=== PATIENT | female | born 1935 | race Caucasian/White ===

== ENCOUNTER 2016-09-05 06:46 | Day surgery (SDC) | payer MEDICARE ==
[2016-09-02 15:11] VITALS: BMI 29.7
[2016-09-05] MEDS ORDERED: LACTATED RINGERS 1,000 ML IV ONE (06:52)
[2016-09-05 07:12] VITALS: TEMP 98
[2016-09-05 07:17] LABS: Glucose,Whole Blood 133 mg/dL (75-99)
[2016-09-05] MEDS ORDERED: LIDOCAINE 1% INJ 10MG/ML (20 ML MDV) ONE (07:40)
[2016-09-05] MEDS ORDERED: PROPOFOL 10 MG/ML 20 ML VIAL IV ONE (07:40)
--- NOTE | 2016-09-05 07:45 | P.GSHP ---
History of Present Illness H&P Date: 09/05/16 Chief Complaint: GI bleed, anemia This a 80-year-old female referred from Dr. Diana forte. Patient has had complaints of anemia. She states her hemoglobin from 14-10 g. She presents today for EGD and colonoscopy. - Constitutional Constitutional: Reports as per HPI Past Medical History Past Medical History: CVA/TIA, Diabetes Mellitus, Hypertension Additional Past Medical History / Comment(s): [id number] occas speech difficulties,diet controlled diabetic, steroid injection Jun,duodenal ulcer, polyps,diverticulosis,walks with cane History of Any Multi-Drug Resistant Organisms: None Reported Past Surgical History: Cholecystectomy, Hysterectomy Additional Past Surgical History / Comment(s): hemorrhoidectomy, cat surg anali eyes,colonoscopy Past Anesthesia/Blood Transfusion Reactions: Motion Sickness Smoking Status: Former smoker Past Alcohol Use History: None Reported Additional Past Alcohol Use History / Comment(s): quit smoking 1989, started smoking at age 37 Past Drug Use History: None Reported - Past Family History Sister(s) Family Medical History: Cancer Additional Family Medical History / Comment(s): colon mets to pancreas Medications and Allergies Home Medications Medication Instructions Recorded Confirmed Type Atorvastatin [Lipitor] 10 mg PO MOTH 08/26/14 09/02/16 History Lisinopril 40 mg PO QAM 08/26/14 09/02/16 History Psyllium Husk (with Sugar) 1 tsp PO DAILY 08/26/14 09/05/16 History [Metamucil Powder] Gabapentin 600 mg PO BID 11/18/15 09/02/16 History Loratadine [Claritin] 10 mg PO HS 11/18/15 09/02/16 History Aspirin [Adult Low Dose Aspirin EC] 81 mg PO DAILY 09/02/16 09/05/16 History Docusate [Colace] 100 mg PO DAILY 09/02/16 09/02/16 History Ferrous Gluconate 240 mg PO DAILY 09/02/16 09/05/16 History Allergies Allergy/AdvReac Type Severity Reaction Status Date / Time latex Allergy Rash/Hives Verified 09/05/16 07:07 Sulfa (Sulfonamide Allergy Rash/Hives Verified 09/05/16 07:07 Antibiotics) TAPE Allergy RASH, Uncoded 09/05/16 07:07 PAPER TAPE IS OK Surgical - Exam Vital Signs Temp Pulse Resp BP Pulse Ox 98.0 F 94 18 144/67 94 L 09/05/16 07:10 09/05/16 07:10 09/05/16 07:10 09/05/16 07:10 09/05/16 07:10 - General well developed, no distress - Eyes PERRL - ENT normal pinna - Neck no masses - Respiratory normal expansion - Cardiovascular Rhythm: regular - Abdomen Abdomen: soft, non tender Results - Labs Abnormal Lab Results - Last 24 Hours (Table) 09/05/16 Range/Units 07:15 POC Glucose (mg/dL) 133 H (75-99) mg/dL Assessment and Plan Plan: GI bleed. We'll perform EGD and colonoscopy.
--- NOTE | 2016-09-05 08:12 | P.OP ---
Date of Procedure: 09/05/16 Preoperative Diagnosis: Anemia GI bleed Postoperative Diagnosis: Antral gastritis Large hiatal hernia Minimal esophagitis Right colon polyp Mild hemorrhoids Procedure(s) Performed: EGD Colonoscopy Anesthesia: MAC Surgeon: Lenard Tripp Pathology: other (Antrum, esophagus, right colon polyp) Condition: stable Disposition: PACU Description of Procedure: The patient's placed on the endoscopy table lateral position. She received IV sedation. The gastroscope some placed oropharynx and passed into the esophagus and into the stomach. The scope was then placed through the pylorus. The first and second portion of the duodenum appeared normal. Scope was then brought back the antrum and this appeared mildly inflamed. A biopsies was performed. Scope was retroflexed and remainder of the stomach appeared normal. There was a large hiatal hernia. The GE junction was at 37 cm. The distal esophagus was mildly inflamed. The proximal esophagus appeared normal. The scope was withdrawn for patient. Next digital rectal exam was performed which revealed internal/external hemorrhoids. The flexible colonoscope was then placed patient anus passed throughout the entire colon. The ileocecal valve was visually is. The cecum appeared normal. In the ascending colon there was a polyp seen this removed with a combination of snare and forcep. The meters transverse colon and descending colon appeared normal. There was a few scattered diverticula. Scope was then brought back into the rectum and this appeared normal. Scope was withdrawn for patient.
[2016-09-05 08:14] VITALS: RESP 16
[2016-09-05 08:47] VITALS: BP 112/75; PULSE 80
== END 2016-09-05 09:01 | disposition home or self-care (01) ==
LOC: ORWHC2ENDO 06:46
PROVIDERS: ATTEND Surgery
DX: K20.9 Esophagitis, unspecified (principal); K29.50 Unspecified chronic gastritis without bleeding; K44.9 Diaphragmatic hernia without obstruction or gangrene; D12.2 Benign neoplasm of ascending colon; K64.4 Residual hemorrhoidal skin tags; K57.30 Diverticulosis of large intestine without perforation or abscess without bleeding; K64.8 Other hemorrhoids; Z80.0 Family history of malignant neoplasm of digestive organs; Z80.8 Family history of malignant neoplasm of other organs or systems; Z87.891 Personal history of nicotine dependence; E11.9 Type 2 diabetes mellitus without complications; I10 Essential (primary) hypertension; Z86.73 Personal history of transient ischemic attack (TIA), and cerebral infarction without residual deficits; Z79.82 Long term (current) use of aspirin; Z79.899 Other long term (current) drug therapy; Z91.040 Latex allergy status; Z88.2 Allergy status to sulfonamides; Z91.09 Other allergy status, other than to drugs and biological substances
CPT/HCPCS: 88305; 88342; 45385; 43239; J2001; J2704; 45380

== ENCOUNTER → 2017-04-28 | Outpatient (CLI) | payer MEDICARE ==
--- NOTE | 2017-04-30 11:16 | MM ---
Reason for exam: screening (asymptomatic). Last mammogram was performed 1 year ago. History: Patient is postmenopausal, history of other cancer, and is nulliparous. Physical Findings: A clinical breast exam by your physician is recommended on an annual basis and results should be correlated with mammographic findings. MG Screening Mammo w CAD Bilateral CC and MLO view(s) were taken. XCCL view(s) were taken of the left breast. Prior study comparison: April 26, 2016, bilateral MG screening mammo w CAD. April 19, 2015, bilateral MG screening mammo w CAD. There are scattered fibroglandular densities. There is chronic nodularity bilaterally. Multiple moles. No significant changes when compared with prior studies. ASSESSMENT: Benign, BI-RAD 2 RECOMMENDATION: Routine screening mammogram of both breasts in 1 year.
== END | disposition home or self-care (01) ==
LOC: RADMAMWWP 06:48
PROVIDERS: ATTEND Family Medicine
DX: Z12.31 Encounter for screening mammogram for malignant neoplasm of breast (principal)

== ENCOUNTER → 2018-06-08 | Outpatient (CLI) | payer MEDICARE ==
--- NOTE | 2018-06-09 07:49 | MM ---
Reason for exam: screening (asymptomatic). Last mammogram was performed 1 year and 1 month ago. History: Patient is postmenopausal, history of other cancer, and is nulliparous. Physical Findings: A clinical breast exam by your physician is recommended on an annual basis and results should be correlated with mammographic findings. MG Screening Mammo w CAD Bilateral CC and MLO view(s) were taken. Prior study comparison: April 28, 2017, bilateral MG screening mammo w CAD. April 26, 2016, bilateral MG screening mammo w CAD. There are scattered fibroglandular densities. There is chronic nodularity in the right breast. Multiple moles are redemonstrated. No significant changes when compared with prior studies. ASSESSMENT: Benign, BI-RAD 2 RECOMMENDATION: Routine screening mammogram of both breasts in 1 year.
== END | disposition home or self-care (01) ==
LOC: RADMAMWWP 06:53
PROVIDERS: ATTEND Family Medicine
DX: Z12.31 Encounter for screening mammogram for malignant neoplasm of breast (principal)
CPT/HCPCS: 77067

== ENCOUNTER 2018-07-19 10:12 | Observation (INO) | payer MEDICARE ==
[2018-07-19] MEDS ORDERED: SODIUM CHLORIDE 0.9% 1,000 ML IV STA ×2 (11:07)
[2018-07-19] MEDS ORDERED: PANTOPRAZOLE 40 MG/10 ML VIAL IVP STA (11:07)
--- NOTE | 2018-07-19 11:09 | ED ---
Recheck HPI - General Chief Complaint: Recheck/Abnormal Lab/Rx Stated Complaint: abn labs Time Seen by Provider: 07/19/18 10:44 Source: patient, RN notes reviewed, old records reviewed Mode of arrival: ambulatory Limitations: no limitations - History of Present Illness Initial Comments: Patient is an 82-year-old female who presents emergency Department today with complaints of concerns for low hemoglobin. Patient reports that she had her hemoglobin checked by her PCP and it was 7. She reports that this was a drop from 9 earlier in the month. Patient states that she is told to come here for a GI scope. Patient states that she does take iron and is noticed some dark stools. Patient states that she has had some chronic lower abdominal pain. Patient states that she has had a near syncopal episode today while she was at the grocery store. Patient states she feels more fatigued. 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 She states that this is chronic and no acute changes.. Patient is not on any blood thinners. - Related Data Home Medications Medication Instructions Recorded Confirmed Atorvastatin [Lipitor] 10 mg PO MOTH 08/26/14 07/19/18 Lisinopril 40 mg PO QAM 08/26/14 07/19/18 Psyllium Husk (with Sugar) 1 tsp PO DAILY 08/26/14 07/19/18 [Metamucil Powder] Gabapentin 600 mg PO BID 11/18/15 07/19/18 Loratadine [Claritin] 10 mg PO HS 11/18/15 07/19/18 Aspirin [Adult Low Dose Aspirin EC] 81 mg PO DAILY 09/02/16 07/19/18 Ferrous Gluconate 240 mg PO DAILY 09/02/16 07/19/18 Calcium Carbonate/Vitamin D3 1 tab PO BID 07/19/18 07/19/18 [Calcium 500-Vit D3 200 Tablet] Famotidine [Pepcid] 20 mg PO DAILY 07/19/18 07/19/18 Propylene Glycol [Systane Complete] 1 drop BOTH EYES TID 07/19/18 07/19/18 Allergies Allergy/AdvReac Type Severity Reaction Status Date / Time latex Allergy Rash/Hives Verified 07/19/18 11:23 Penicillins Allergy Rash/Hives Verified 07/19/18 11:23 Sulfa (Sulfonamide Allergy Rash/Hives Verified 07/19/18 11:23 Antibiotics) TAPE Allergy RASH, Uncoded 07/19/18 10:30 PAPER TAPE IS OK Review of Systems ROS Statement: Those systems with pertinent positive or pertinent negative responses have been documented in the HPI. ROS Other: All systems not noted in ROS Statement are negative. Past Medical History Past Medical History: CVA/TIA, Diabetes Mellitus, Hypertension Additional Past Medical History / Comment(s): [id number] occas speech difficulties,diet controlled diabetic, steroid injection Jun,duodenal ulcer, polyps,diverticulosis,walks with cane History of Any Multi-Drug Resistant Organisms: None Reported Past Surgical History: Cholecystectomy, Hysterectomy Additional Past Surgical History / Comment(s): hemorrhoidectomy, cat surg anali eyes,colonoscopy Past Anesthesia/Blood Transfusion Reactions: Motion Sickness Past Psychological History: No Psychological Hx Reported Smoking Status: Former smoker Past Alcohol Use History: None Reported Past Drug Use History: None Reported - Past Family History Sister(s) Family Medical History: Cancer Additional Family Medical History / Comment(s): colon mets to pancreas General Exam - General Exam Comments Initial Comments: 82-year-old female. Somewhat weak. Limitations: no limitations General appearance: alert, in no apparent distress Head exam: Present: atraumatic, normocephalic, normal inspection Eye exam: Present: normal appearance, PERRL, EOMI. Absent: scleral icterus, conjunctival injection, periorbital swelling ENT exam: Present: normal exam, mucous membranes moist Neck exam: Present: normal inspection. Absent: tenderness, meningismus, lymphadenopathy Respiratory exam: Present: normal lung sounds bilaterally. Absent: respiratory distress, wheezes, rales, rhonchi, stridor Cardiovascular Exam: Present: regular rate, normal rhythm, normal heart sounds. Absent: systolic murmur, diastolic murmur, rubs, gallop, clicks GI/Abdominal exam: Present: soft, normal bowel sounds. Absent: distended, tenderness, guarding, rebound, rigid Rectal exam: Present: normal inspection, normal rectal tone, other (No stool in rectal vault) Extremities exam: Present: normal inspection, full ROM, normal capillary refill. Absent: tenderness, pedal edema, joint swelling, calf tenderness Back exam: Present: normal inspection Neurological exam: Present: alert, oriented X3, CN II-XII intact Psychiatric exam: Present: normal affect, normal mood Skin exam: Present: warm, dry, intact, normal color. Absent: rash Course Vital Signs 07/19/18 10:25 Temperature 97.7 F Pulse Rate 82 Respiratory 18 Rate Blood Pressure 134/70 O2 Sat by Pulse 98 Oximetry Medical Decision Making - Medical Decision Making Patient is an 82-year-old female who presents emergency department today for concerns for anemia. She is told she had a low hemoglobin. Patient states that she has been symptomatic with increased fatigue. She had a near syncopal episode while at the grocery store today. She denies any headache or chest pain or associated shortness of breath. Patient states that she also has some chronic right knee pain at this time. Patient labwork was reviewed. Hemoglobin is 9.1. There is no stool in the rectal vault collected for stool. Patient was told to come to emergency department for admission and possible GI scope. Patient states she has noticed that she's had dark stools. At this time I discussed case with Dr. galaviz. With the syncopal episode as well as concern for GI bleed Melvin the Patient. She was given 1 dose of Protonix. Repeat hemoglobins. - Lab Data Result diagrams: 07/19/18 11:55 07/19/18 11:55 Lab Results 07/19/18 07/19/18 07/19/18 Range/Units 11:55 11:55 11:55 WBC 5.7 (3.8-10.6) k/uL RBC 3.31 L (3.80-5.40) m/uL Hgb 9.1 L (11.4-16.0) gm/dL Hct 29.5 L (34.0-46.0) % MCV 89.0 (80.0-100.0) fL MCH 27.5 (25.0-35.0) pg MCHC 30.9 L (31.0-37.0) g/dL RDW 13.5 (11.5-15.5) % Plt Count 300 (150-450) k/uL Neutrophils % 60 % Lymphocytes % 27 % Monocytes % 7 % Eosinophils % 2 % Basophils % 1 % Neutrophils # 3.4 (1.3-7.7) k/uL Lymphocytes # 1.5 (1.0-4.8) k/uL Monocytes # 0.4 (0-1.0) k/uL Eosinophils # 0.1 (0-0.7) k/uL Basophils # 0.1 (0-0.2) k/uL Hypochromasia Moderate PT (9.0-12.0) sec INR (<1.2) APTT (22.0-30.0) sec Sodium 141 (137-145) mmol/L Potassium 4.7 (3.5-5.1) mmol/L Chloride 109 H (98-107) mmol/L Carbon Dioxide 23 (22-30) mmol/L Anion Gap 9 mmol/L BUN 24 H (7-17) mg/dL Creatinine 0.99 (0.52-1.04) mg/dL Est GFR (CKD-EPI)AfAm 62 (>60 ml/min/1.73 sqM) Est GFR (CKD-EPI)NonAf 54 (>60 ml/min/1.73 sqM) Glucose 101 H (74-99) mg/dL Plasma Lactic Acid Andrews (0.7-2.0) mmol/L Calcium 9.9 (8.4-10.2) mg/dL Magnesium 2.2 (1.6-2.3) mg/dL Total Bilirubin 0.4 (0.2-1.3) mg/dL AST 22 (14-36) U/L ALT 24 (9-52) U/L Alkaline Phosphatase 69 (38-126) U/L Total Creatine Kinase 40 (30-135) U/L CK-MB (CK-2) 0.7 (0.0-2.4) ng/mL CK-MB (CK-2) Rel Index 1.8 Troponin I <0.012 (0.000-0.034) ng/mL Total Protein 7.2 (6.3-8.2) g/dL Albumin 4.0 (3.5-5.0) g/dL Blood Type Blood Type Recheck Antibody Screen Spec Expiration Date 07/19/18 07/19/18 07/19/18 Range/Units 11:55 11:55 11:55 WBC (3.8-10.6) k/uL RBC (3.80-5.40) m/uL Hgb (11.4-16.0) gm/dL Hct (34.0-46.0) % MCV (80.0-100.0) fL MCH (25.0-35.0) pg MCHC (31.0-37.0) g/dL RDW (11.5-15.5) % Plt Count (150-450) k/uL Neutrophils % % Lymphocytes % % Monocytes % % Eosinophils % % Basophils % % Neutrophils # (1.3-7.7) k/uL Lymphocytes # (1.0-4.8) k/uL Monocytes # (0-1.0) k/uL Eosinophils # (0-0.7) k/uL Basophils # (0-0.2) k/uL Hypochromasia PT 11.3 (9.0-12.0) sec INR 1.1 (<1.2) APTT 22.1 (22.0-30.0) sec Sodium (137-145) mmol/L Potassium (3.5-5.1) mmol/L Chloride (98-107) mmol/L Carbon Dioxide (22-30) mmol/L Anion Gap mmol/L BUN (7-17) mg/dL Creatinine (0.52-1.04) mg/dL Est GFR (CKD-EPI)AfAm (>60 ml/min/1.73 sqM) Est GFR (CKD-EPI)NonAf (>60 ml/min/1.73 sqM) Glucose (74-99) mg/dL Plasma Lactic Acid Andrews 1.2 (0.7-2.0) mmol/L Calcium (8.4-10.2) mg/dL Magnesium (1.6-2.3) mg/dL Total Bilirubin (0.2-1.3) mg/dL AST (14-36) U/L ALT (9-52) U/L Alkaline Phosphatase (38-126) U/L Total Creatine Kinase (30-135) U/L CK-MB (CK-2) (0.0-2.4) ng/mL CK-MB (CK-2) Rel Index Troponin I (0.000-0.034) ng/mL Total Protein (6.3-8.2) g/dL Albumin (3.5-5.0) g/dL Blood Type O Positive Blood Type Recheck CABO Indicated Antibody Screen NEGATIVE Spec Expiration Date 07/22/2018235407/19/18 12:35 EKG shows normal sinus rhythm, normal EKG. Ventricular rate 76 bpm. Verbal is 184 ms. She adventism 88. QT QTc was 396/445. 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 Read by James Castaneda that she really Disposition Clinical Impression: Syncope, Anemia Disposition: ADMITTED IP TO THIS HOSP Condition: Stable Is patient prescribed a controlled substance at d/c from ED?: No Referrals: Diana Tracey DO [Primary Care Provider] - 1-2 days Time of Disposition: 14:31
--- NOTE | 2018-07-19 12:31 | XR ---
EXAMINATION TYPE: XR chest 2V DATE OF EXAM: 07/19/2018 COMPARISON: Prior chest x-ray 11/21/2015 HISTORY: Anemia, dizziness and weakness, pain TECHNIQUE: Frontal and lateral views of the chest are obtained. FINDINGS: There is an air-fluid level in the retrocardiac location. No pneumothorax or pleural effus ion. Heart is stable. There are cardiac leads. No evident airspace disease. There are coronary artery calcifications. Aorta is dense. Surgical clips present in the upper abdomen. 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 No acute cardiopulmonary disease.
[2018-07-19 12:33] LABS: Basophils # (A) 0.1 k/uL (0-0.2); Basophils % (A) 1 %; Eosinophils # (A) 0.1 k/uL (0-0.7); Eosinophils % (A) 2 %; HCT 29.5 % (34.0-46.0); HGB 9.1 gm/dL (11.4-16.0); Hypochromasia Moderate; Lymphocytes # (A) 1.5 k/uL (1.0-4.8); Lymphocytes % (A) 27 %; MCH 27.5 pg (25.0-35.0); MCHC 30.9 g/dL (31.0-37.0); Mean Platelet Volume 7.4; Monocytes # (A) 0.4 k/uL (0-1.0); Monocytes % (A) 7 %; Neutrophils # (A) 3.4 k/uL (1.3-7.7); Neutrophils % (A) 60 %; Platelet Count 300 k/uL (150-450); RBC 3.31 m/uL (3.80-5.40); RDW 13.5 % (11.5-15.5); WBC 5.7 k/uL (3.8-10.6)
[2018-07-19 12:47] LABS: Calcium 9.9 mg/dL (8.4-10.2); Magnesium 2.2 mg/dL (1.6-2.3); Potassium 4.7 mmol/L (3.5-5.1); Total Bilirubin 0.4 mg/dL (0.2-1.3); Total Protein 7.2 g/dL (6.3-8.2)
[2018-07-19 12:51] LABS: INR 1.1 (<1.2)
[2018-07-19 12:52] LABS: Partial Thromboplastin Time 22.1 sec (22.0-30.0); Prothrombin Time 11.3 sec (9.0-12.0)
[2018-07-19 12:54] LABS: Creatine Kinase 40 U/L (30-135)
[2018-07-19 13:08] LABS: Creatine Kinase MB 0.7 ng/mL (0.0-2.4); Troponin I <0.012 ng/mL (0.000-0.034)
[2018-07-19] MEDS ORDERED: LORazepam 2 MG/ML INJ IV PRN (14:32)
[2018-07-19] MEDS ORDERED: HYDROmorphone 0.5 MG/0.5 ML SYRINGE IVP PRN (14:32)
[2018-07-19] MEDS ORDERED: ONDANSETRON 4 MG/2 ML VIAL IVP PRN (14:32)
[2018-07-19] MEDS ORDERED: HYDROmorphone 1 MG/ML 1 ML SYRINGE IVP PRN (14:32)
[2018-07-19] MEDS ORDERED: NALOXONE 0.4 MG/ML 1 ML VIAL IV PRN (14:32)
[2018-07-19 15:05] LABS: Appearance,Urine Clear (Clear); Bacteria,Urine Occasional /hpf; Bilirubin,Urine Negative (Negative); Blood,Urine Negative (Negative); Color,Urine Colorless; Glucose,Urine (UA) Negative (Negative); Ketones,Urine Negative (Negative); Leukocyte Esterase,Urine Moderate (Negative); Mucus,Urine Rare /hpf; Nitrite,Urine Negative (Negative); PH, Urine 6.5 (5.0-8.0); Protein,Urine Negative (Negative); RBC,Urine <1 /hpf (0-5); Specific Gravity,Urine 1.003 (1.001-1.035); Urobilinogen,Urine <2.0 mg/dL (<2.0); WBC,Urine 8 /hpf (0-5)
[2018-07-19] MEDS: SODIUM CHLORIDE 0.9% 1,000 ML IV SCH (18:14)
[2018-07-19] MEDS: GABAPENTIN 300 MG CAP PO SCH (21:21)
[2018-07-19] MEDS: LORATADINE 10 MG TAB PO SCH (21:21)
[2018-07-19] MEDS: CALCIUM CARB-VIT D 500MG-200UN 1 EACH TAB PO SCH (21:22)
[2018-07-19] MEDS: ARTIFICIAL TEARS-HYPROMELLOSE DROPS 15 ML BTL BOTH EYES SCH (21:50)
[2018-07-20] MEDS: SODIUM CHLORIDE 0.9% 1,000 ML IV SCH ×3 (00:09→23:16)
[2018-07-20 08:10] LABS: Albumin 3.7 g/dL (3.5-5.0); Calcium 9.3 mg/dL (8.4-10.2); Potassium 4.7 mmol/L (3.5-5.1); Total Bilirubin 0.4 mg/dL (0.2-1.3); Total Protein 6.7 g/dL (6.3-8.2)
[2018-07-20] MEDS: PSYLLIUM HUSK 100% 6 GM PACKET PO SCH (08:12)
[2018-07-20] MEDS: LISINOPRIL 20 MG TAB PO SCH (08:13)
[2018-07-20] MEDS: CALCIUM CARB-VIT D 500MG-200UN 1 EACH TAB PO SCH ×2 (08:13→21:41)
[2018-07-20] MEDS: GABAPENTIN 300 MG CAP PO SCH ×2 (08:13→21:41)
[2018-07-20] MEDS: ARTIFICIAL TEARS-HYPROMELLOSE DROPS 15 ML BTL BOTH EYES SCH ×3 (08:15→21:41)
[2018-07-20 08:35] LABS: HCT 27.8 % (34.0-46.0); HGB 8.7 gm/dL (11.4-16.0); Hypochromasia Marked; MCH 28.2 pg (25.0-35.0); MCHC 31.2 g/dL (31.0-37.0); MCV 90.3 fL (80.0-100.0); Mean Platelet Volume 7.6; Platelet Count 240 k/uL (150-450); RBC 3.08 m/uL (3.80-5.40); RDW 13.3 % (11.5-15.5); WBC 3.4 k/uL (3.8-10.6)
[2018-07-20] MEDS ORDERED: PANTOPRAZOLE 40 MG/10 ML VIAL IV SCH (09:00)
[2018-07-20] MEDS ORDERED: FAMOTIDINE 20 MG TAB PO SCH (09:00)
[2018-07-20 10:20] LABS: Eosinophils # (M) 0.14 k/uL (0-0.7); Lymphocytes # (M) 1.33 k/uL (1.0-4.8); Neutrophils # (M) 1.73 k/uL (1.3-7.7); Neutrophils % (M) 51 %; Nucleated Red Blood Cells 0 /100 WBC (0-0); Total Cells Counted 100
--- NOTE | 2018-07-20 10:59 | P.HPIM ---
History of Present Illness H&P Date: 07/20/18 Chief Complaint: Anemia This is an 82-year-old female patient of Dr. Tracey. Patient presented to the emergency room with complaints of increased weakness with possible syncope episode. Patient also reports she has been increasingly anemic per her PCP over the past few months. Per her PCP she was told to present to the hospital if she became symptomatic. Patient states over the weekend she was at a bank in which she became very weak and dizzy and almost passed out. Patient reports that back in February her hemoglobin was 12.0 and then has decreased to 9.0 May. At that time patient was started on iron supplements. Patient does take daily baby aspirin. Patient denies any other NSAID use. Patient denies any alcohol consumption. Patient denies any change to diet. Patient denies any diarrhea or vomiting. 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 Patient reports her last colonoscopy was [address] Tripp. Patient was told she needs to follow-up in 3 years. Patient's next colonoscopy due August 2018. 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 No acute cardiopulmonary disease. EKG completed showing normal sinus rhythm. Hemoglobin 8.7. Stool for occult blood has been ordered. Dr. Tripp has been consulted. Patient urinary analysis positive for leukocyte esterase. Patient started on Cipro antibiotic. Urine culture ordered. At this time patient denies any chest pain or shortness of breath. Patient has been up ambulating with Cane recalls without any difficulties. Patient denies nausea vomiting or diarrhea. Patient denies any urinary burning or frequency Review of Systems please refer to HPI otherwise unremarkable Past Medical History Past Medical History: Cancer, CVA/TIA, Diabetes Mellitus, Hypertension, Syncope Additional Past Medical History / Comment(s): [id number] occas speech difficulties,diet controlled diabetic, steroid injection Jun,duodenal ulcer, polyps,diverticulosis,walks with cane; bilateral hearing aids, hiatal hernia, skin cancer 2014 History of Any Multi-Drug Resistant Organisms: None Reported Past Surgical History: Cholecystectomy, Hysterectomy Additional Past Surgical History / Comment(s): hemorrhoidectomy, cat surg anali eyes,colonoscopy Past Anesthesia/Blood Transfusion Reactions: Motion Sickness Past Psychological History: No Psychological Hx Reported Smoking Status: Former smoker Past Alcohol Use History: None Reported Additional Past Alcohol Use History / Comment(s): quit smoking 1989, started smoking at age 37 Past Drug Use History: None Reported - Past Family History Sister(s) Family Medical History: Cancer Additional Family Medical History / Comment(s): colon mets to pancreas Medications and Allergies Home Medications Medication Instructions Recorded Confirmed Type Atorvastatin [Lipitor] 10 mg PO MOTH 08/26/14 07/19/18 History Lisinopril 40 mg PO QAM 08/26/14 07/19/18 History Psyllium Husk (with Sugar) 1 tsp PO DAILY 08/26/14 07/19/18 History [Metamucil Powder] Gabapentin 600 mg PO BID 11/18/15 07/19/18 History Loratadine [Claritin] 10 mg PO HS 11/18/15 07/19/18 History Aspirin [Adult Low Dose Aspirin EC] 81 mg PO DAILY 09/02/16 07/19/18 History Ferrous Gluconate 240 mg PO DAILY 09/02/16 07/19/18 History Calcium Carbonate/Vitamin D3 1 tab PO BID 07/19/18 07/19/18 History [Calcium 500-Vit D3 200 Tablet] Famotidine [Pepcid] 20 mg PO DAILY 07/19/18 07/19/18 History Propylene Glycol [Systane Complete] 1 drop BOTH EYES TID 07/19/18 07/19/18 History Allergies Allergy/AdvReac Type Severity Reaction Status Date / Time latex Allergy Rash/Hives Verified 07/19/18 11:23 Penicillins Allergy Rash/Hives Verified 07/19/18 11:23 Sulfa (Sulfonamide Allergy Rash/Hives Verified 07/19/18 11:23 Antibiotics) TAPE Allergy RASH, Uncoded 07/19/18 10:30 PAPER TAPE IS OK Physical Exam Vitals: Vital Signs Temp Pulse Pulse Resp BP BP Pulse Ox 07/20/18 05:00 97.7 F 81 17 112/65 94 L 07/19/18 20:38 97.3 F L 74 17 157/73 95 07/19/18 16:51 97.4 F L 81 18 174/72 97 07/19/18 16:07 97.9 F 75 18 156/82 95 07/19/18 14:30 75 18 156/82 95 07/19/18 14:00 74 14 142/68 07/19/18 13:30 72 16 144/66 96 07/19/18 13:00 70 16 147/67 95 07/19/18 12:30 71 12 138/65 93 L 07/19/18 12:06 76 18 Intake and Output 07/19/18 07/20/18 07/20/18 22:59 06:59 14:59 Intake Total 940 920 400 Balance 940 920 400 Intake: Intake, IV Titration 400 800 400 Amount Sodium Chloride 0.9% 1, 400 800 400 000 ml @ 100 mls/hr IV . Q10H [id number] Rx#:[id number] Oral 540 120 Other: Voiding Method Toilet Toilet # Voids 2 2 1 # Bowel Movements 1 1 Head normocephalic Neck supple Lungs clear to auscultation bilaterally no wheezing or crackles Heart regular rate and rhythm S1-S2, no rub or gallop Abdomen is soft nontender nondistended positive bowel sounds no hepatosplenomegaly Extremities no edema Neuro alert and orientated to 3. Hard of hearing Results CBC & Chem 7: 07/20/18 07:17 07/20/18 07:17 Labs: Abnormal Lab Results - Last 24 Hours (Table) 07/19/18 07/19/18 07/19/18 Range/Units 11:55 11:55 Unknown WBC (3.8-10.6) k/uL RBC 3.31 L (3.80-5.40) m/uL Hgb 9.1 L (11.4-16.0) gm/dL Hct 29.5 L (34.0-46.0) % MCHC 30.9 L (31.0-37.0) g/dL Chloride 109 H (98-107) mmol/L BUN 24 H (7-17) mg/dL Glucose 101 H (74-99) mg/dL Ur Leukocyte Esterase Moderate H (Negative) Urine WBC 8 H (0-5) /hpf Urine Bacteria Occasional H (None) /hpf Urine Mucus Rare H (None) /hpf 07/20/18 07/20/18 Range/Units 07:17 07:17 WBC 3.4 L (3.8-10.6) k/uL RBC 3.08 L (3.80-5.40) m/uL Hgb 8.7 L (11.4-16.0) gm/dL Hct 27.8 L (34.0-46.0) % MCHC (31.0-37.0) g/dL Chloride 113 H (98-107) mmol/L BUN (7-17) mg/dL Glucose 104 H (74-99) mg/dL Ur Leukocyte Esterase (Negative) Urine WBC (0-5) /hpf Urine Bacteria (None) /hpf Urine Mucus (None) /hpf Thrombosis Risk Factor Assmnt - Choose All That Apply Each Risk Factor Represents 3 Points: Age 75 years or older Other congenital or acquired thrombophilia - If yes, enter type in comment: No Thrombosis Risk Factor Assessment Total Risk Factor Score: 3 Thrombosis Risk Factor Assessment Level: Moderate Risk Assessment and Plan Assessment: 1. Anemia. Hemoglobin 8.7. Dr. Tripp has been consulted due to patient previous colonoscopies. Stool for occult blood has been ordered. Iron studies ordered 2. Near Syncopal episode. EKG completed showing normal sinus rhythm. Normal EKG. 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 No acute cardiopulmonary disease. 2-D echo has been ordered. Carotid Doppler study ordered. 3. Urinary tract infection. Patient started on Cipro antibiotic. Urine culture ordered 4. History of duodenal ulcer. Patient reports last colonoscopy was [address] Tripp. Most recent colonoscopy from August 2016 showing antral gastritis, large hiatal hernia, minimal esophagitis, right colon polyp and mild hemorrhoids. 5. History of previous stroke 2 in 2010. Patient does sometimes have difficulty with speech. Patient maintained on baby aspirin. Aspirin currently on hold due to symptomatic anemia 6. History of diabetes mellitus. Patient is diet controlled. Will order hemoglobin A1C 7. Essential hypertension. 8. History of skin cancer DVT prophylaxis SCDs. GI prophylaxis Protonix Time with Patient: Greater than 30 (Greater than 60% of the total time spent in counseling and coordination of care. I performed an examination of the patient and discussed their management with the Nurse Practitioner. I have reviewed the Nurse Practitioner's notes and agree with the documented findings and plan of care)
--- NOTE | 2018-07-20 11:25 | US ---
EXAMINATION TYPE: US carotid duplex BILAT DATE OF EXAM: 07/20/2018 COMPARISON: NONE CLINICAL HISTORY: 82-year-old female with syncope. Dizziness. Stroke x 2 in 2011 TECHNIQUE: Carotid duplex ultrasound examination. Indirect Doppler criteria is utilized. FINDINGS: EXAM MEASUREMENTS: RIGHT: Peak Systolic Velocity (PSV) cm/sec ----- Right CCA: 78.9 ----- Right ICA: 85.4 ----- Right ECA: 110.9 ICA/CCA ratio: 1.1 RIGHT: End Diastole cm/sec ----- Right CCA: 16.1 ----- Right ICA: 19.3 ----- Right ECA: 0 LEFT: Peak Systolic Velocity (PSV) cm/sec ----- Left CCA: 59.9 ----- Left ICA: 114.6 ----- Left ECA: 88.0 ICA/CCA ratio: 1.9 LEFT: End Diastole cm/sec ----- Left CCA: 12.7 ----- Left ICA: 35.4 ----- Left ECA: 8.7 VERTEBRALS (direction of flow): Right Vertebral: Antegrade Left Vertebral: Antegrade Rhythm: Normal Shoe Stamper notes: No elevated velocities. No significant stenosis. Bilateral wall thickening. Gualberto que seen in bilateral bulbs, distal right CCA and proximal left CCA. IMPRESSION: No hemodynamically significant stenosis appreciated in either internal carotid artery. Criteria for Assigning % of Stenosis / Diameter reduction (Estimation based on the indirect measurements of the internal carotid artery velocities (ICA PSV). 1. Normal (no stenosis)=ICA PSV < 125 cm/s: ratio < 2.0: ICA EDV<40 cm/s. 2. Less than 50% stenosis=ICA PSV < 125 cm/s: ratio < 2.0: ICA EDV<40 cm/s. 3. 50 to 69% stenosis=ICA PSV of 125 to 230 cm/s: ration 2.0 ? 4.0: ICA EDV 40-100 cm/s. 4. Greater than 70% stenosis to near occlusion= ICA PSV > 230 cm/s: ratio > 4.0: ICA EDV > 100 cm/s. 5. Near occlusion= ICA PSV velocities may be low or undetectable: variable ratio and ICA EDV. 6. Total occlusion=unable to detect flow.
[2018-07-20 11:27] VITALS: BMI 31.4
[2018-07-20] MEDS ORDERED: HYDROmorphone 2 MG TAB PO PRN (12:29)
[2018-07-20] MEDS ORDERED: HYDROmorphone 4 MG TABLET PO PRN (12:30)
[2018-07-20] MEDS ORDERED: PEG 3350-NA SULF,BICARB,CL/KCL 4,000 ML BOTTLE PO ONE (12:52)
--- NOTE | 2018-07-20 13:12 | P.GSCN ---
History of Present Illness Consult date: 07/20/18 Reason for Consult: Anemia Requesting physician: Milana Hamlin History of present illness: CHIEF COMPLAINT: Anemia HISTORY OF PRESENT ILLNESS: 82-year-old female presented to the emergency room with weakness. Patient's hemoglobin was found to be 9.1 on admission. The patient states her hemoglobin was around 12 in May and has been decreasing each time she has a drawn. She denies nausea or vomiting. Denies constipation or diarrhea. Reports intermittent black stools over the past two months, but states she is also on iron supplements. Denies hematemesis or hematochezia. PAST MEDICAL HISTORY: See list. PAST SURGICAL HISTORY: See list. MEDICATIONS: See list. ALLERGIES: See list. SOCIAL HISTORY: No illicit drug use. REVIEW OF SYSTEMS: CONSTITUTIONAL: Denies fever or chills. HEENT: Denies blurred vision, vision changes, or eye pain. Denies hemoptysis ENDOCRINE: Denies heat or cold intolerance. CARDIOVASCULAR: Denies chest pain or pressure. RESPIRATORY: No shortness of breath. GASTROINTESTINAL: Denies abdominal pain. Denies nausea or vomiting. NEURO: Denies history of seizures. PSYCH: No depression or suicidal ideation HEMATOLOGIC: Denies bleeding disorders. LYMPHATIC: The patient denies any lumps and bumps around the neck. GENITOURINARY: Denies any blood in urine or increased urinary frequency. MUSCULOSKELETAL: Denies myalgias. Denies joint swelling. Denies decreased range of motion beyond patients baseline. SKIN: Denies pruitis. Denies rash. PHYSICAL EXAM: VITAL SIGNS: Currently stable. GENERAL: Well-developed in no acute distress. HEENT: No sclera icterus. Extraocular movements grossly intact. Moist buccal mucosa. Head is atraumatic, normocephalic. Hears conversational speech. No nasal drainage. NECK: Supple without lymphadenopathy. CHEST: Non-labored respirations and equal bilateral excursions. CARDIOVASCULAR: Regular rate with regular rhythm. Palpable 2+ radial pulses. ABDOMEN: Soft. Nondistended. Nontender. MUSCULOSKELETAL: No clubbing, cyanosis or edema. NEUROLOGIC: No focal or lateralizing signs. Cranial nerves II through XII grossly intact. PSYCH: Appropriate affect. Alert and oriented to person, place and time. SKIN: Well perfused. Good skin turgor. ASSESSMENT: 1. Anemia, rule out GI bleeding 2. History of EGD and colonoscopy, August 2016, revealing antral gastritis, large hiatal hernia, minimal esophagitis, and mild hemorrhoids PLAN: 1. Patient to undergo EGD and colonoscopy tomorrow 2. Clear liquid diet. Nothing by mouth after midnight. 3. GoLYTELY bowel prep today 4. IV fluids 5. Protonix 40 mg IV twice a day Nurse practitioner note has been reviewed by physician. Signing provider agrees with the documented findings, assessment, and plan of care. Past Medical History Past Medical History: Cancer, CVA/TIA, Diabetes Mellitus, Hypertension, Syncope Additional Past Medical History / Comment(s): [id number] occas speech difficulties,diet controlled diabetic, steroid injection Jun,duodenal ulcer, polyps,diverticulosis,walks with cane; bilateral hearing aids, hiatal hernia, skin cancer 2014 History of Any Multi-Drug Resistant Organisms: None Reported Past Surgical History: Cholecystectomy, Hysterectomy Additional Past Surgical History / Comment(s): hemorrhoidectomy, cat surg anali eyes,colonoscopy Past Anesthesia/Blood Transfusion Reactions: Motion Sickness Past Psychological History: No Psychological Hx Reported Smoking Status: Former smoker Past Alcohol Use History: None Reported Additional Past Alcohol Use History / Comment(s): quit smoking 1989, started smoking at age 37 Past Drug Use History: None Reported - Past Family History Sister(s) Family Medical History: Cancer Additional Family Medical History / Comment(s): colon mets to pancreas Medications and Allergies Home Medications Medication Instructions Recorded Confirmed Type Atorvastatin [Lipitor] 10 mg PO MOTH 08/26/14 07/19/18 History Lisinopril 40 mg PO QAM 08/26/14 07/19/18 History Psyllium Husk (with Sugar) 1 tsp PO DAILY 08/26/14 07/19/18 History [Metamucil Powder] Gabapentin 600 mg PO BID 11/18/15 07/19/18 History Loratadine [Claritin] 10 mg PO HS 11/18/15 07/19/18 History Aspirin [Adult Low Dose Aspirin EC] 81 mg PO DAILY 09/02/16 07/19/18 History Ferrous Gluconate 240 mg PO DAILY 09/02/16 07/19/18 History Calcium Carbonate/Vitamin D3 1 tab PO BID 07/19/18 07/19/18 History [Calcium 500-Vit D3 200 Tablet] Famotidine [Pepcid] 20 mg PO DAILY 07/19/18 07/19/18 History Propylene Glycol [Systane Complete] 1 drop BOTH EYES TID 07/19/18 07/19/18 History Allergies Allergy/AdvReac Type Severity Reaction Status Date / Time latex Allergy Rash/Hives Verified 07/19/18 11:23 Penicillins Allergy Rash/Hives Verified 07/19/18 11:23 Sulfa (Sulfonamide Allergy Rash/Hives Verified 07/19/18 11:23 Antibiotics) TAPE Allergy RASH, Uncoded 07/19/18 10:30 PAPER TAPE IS OK Surgical - Exam Vital Signs Temp Pulse Resp BP Pulse Ox 97.7 F 82 18 134/70 98 07/19/18 10:25 07/19/18 10:25 07/19/18 10:25 07/19/18 10:25 07/19/18 10:25 Results - Labs 07/20/18 07:17 07/20/18 07:17 Abnormal Lab Results - Last 24 Hours (Table) 07/19/18 07/20/18 07/20/18 Range/Units Unknown 07:17 07:17 WBC 3.4 L (3.8-10.6) k/uL RBC 3.08 L (3.80-5.40) m/uL Hgb 8.7 L (11.4-16.0) gm/dL Hct 27.8 L (34.0-46.0) % Chloride 113 H (98-107) mmol/L Glucose 104 H (74-99) mg/dL Ur Leukocyte Esterase Moderate H (Negative) Urine WBC 8 H (0-5) /hpf Urine Bacteria Occasional H (None) /hpf Urine Mucus Rare H (None) /hpf Diabetes panel 07/20/18 Range/Units 07:17 Sodium 143 (137-145) mmol/L Potassium 4.7 (3.5-5.1) mmol/L Chloride 113 H (98-107) mmol/L Carbon Dioxide 25 (22-30) mmol/L BUN 14 (7-17) mg/dL Creatinine 0.77 (0.52-1.04) mg/dL Glucose 104 H (74-99) mg/dL Calcium 9.3 (8.4-10.2) mg/dL AST 20 (14-36) U/L ALT 27 (9-52) U/L Alkaline Phosphatase 60 (38-126) U/L Total Protein 6.7 (6.3-8.2) g/dL Albumin 3.7 (3.5-5.0) g/dL Calcium panel 07/20/18 Range/Units 07:17 Calcium 9.3 (8.4-10.2) mg/dL Albumin 3.7 (3.5-5.0) g/dL Pituitary panel 07/20/18 Range/Units 07:17 Sodium 143 (137-145) mmol/L Potassium 4.7 (3.5-5.1) mmol/L Chloride 113 H (98-107) mmol/L Carbon Dioxide 25 (22-30) mmol/L BUN 14 (7-17) mg/dL Creatinine 0.77 (0.52-1.04) mg/dL Glucose 104 H (74-99) mg/dL Calcium 9.3 (8.4-10.2) mg/dL Adrenal panel 07/20/18 Range/Units 07:17 Sodium 143 (137-145) mmol/L Potassium 4.7 (3.5-5.1) mmol/L Chloride 113 H (98-107) mmol/L Carbon Dioxide 25 (22-30) mmol/L BUN 14 (7-17) mg/dL Creatinine 0.77 (0.52-1.04) mg/dL Glucose 104 H (74-99) mg/dL Calcium 9.3 (8.4-10.2) mg/dL Total Bilirubin 0.4 (0.2-1.3) mg/dL AST 20 (14-36) U/L ALT 27 (9-52) U/L Alkaline Phosphatase 60 (38-126) U/L Total Protein 6.7 (6.3-8.2) g/dL Albumin 3.7 (3.5-5.0) g/dL
[2018-07-20 17:55] LABS: Iron Saturation 3.42 (12.00-45.00)
--- NOTE | 2018-07-20 18:10 | ECHOF ---
Referral Reason:syncope MEASUREMENTS -------- HEIGHT: 160.0 cm WEIGHT: 80.3 kg BP: 112/65 IVSd: 1.1 cm (0.6 - 1.1) LVIDd: 4.1 cm (3.9 - 5.3) LVPWd: 1.2 cm (0.6 - 1.1) IVSs: 1.7 cm LVIDs: 2.3 cm LVPWs: 1.5 cm LA Diam: 4.8 cm (2.7 - 3.8) LAESV Index (A-L): 63.00 ml/m Ao Diam: 2.8 cm (2.0 - 3.7) LA Diam: 4.2 cm (2.7 - 3.8) AV Cusp: 2.0 cm (1.5 - 2.6) MV E Shorty: 1.02 m/s MV DecT: 271 ms MV A Shorty: 0.93 m/s MV E/A Ratio: 1.10 RAP: 5.00 mmHg RVSP: 28.72 mmHg MV EF SLOPE: 73.35 mm/s (70 - 150) MV EXCURSION: 16.27 mm (> 18.000) FINDINGS -------- Sinus rhythm. This was a technically adequate study. The left ventricular size is normal. There is borderline concentric left ventricular hypertrophy. Overall left ventricular systolic function is normal with, an EF between 55 - 60 %. The right ventricle is normal in size and function. LA is severely dilated >40 ml/m2 RA appears enlarged. Aortic valve is trileaflet and is mildly thickened. There is no evidence of aortic regurgitation. There is no evidence of aortic stenosis. The mitral valve leaflets are mildly thickened. Mild mitral annular calcification present. Mild-t o-moderate mitral regurgitation is present. Mild tricuspid regurgitation present. Right ventricular systolic pressure is normal at < 35 mmHg. There is no evidence of pulmonary hypertension. The pulmonic valve was not well visualized. The aortic root size is normal. Normal inferior vena cava with normal inspiratory collapse consistent with estimated right atrial pre ssure of 5 mmHg. There is no pericardial effusion. CONCLUSIONS -------- 1. Sinus rhythm. 2. This was a technically adequate study. 3. The left ventricular size is normal. 4. There is borderline concentric left ventricular hypertrophy. 5. Overall left ventricular systolic function is normal with, an EF between 55 - 60 %. 6. LA is severely dilated >40 ml/m2 7. RA appears enlarged. 8. Aortic valve is trileaflet and is mildly thickened. 9. The mitral valve leaflets are mildly thickened. 10. Mild mitral annular calcification present. 11. [id number] mitral regurgitation is present. 12. Mild tricuspid regurgitation present. 13. Right ventricular systolic pressure is normal at < 35 mmHg. 14. There is no evidence of pulmonary hypertension. 15. The pulmonic valve was not well visualized. 16. The aortic root size is normal. 17. There is no pericardial effusion. VP DATA: Serge Morrow RDCS
[2018-07-20 18:16] LABS: Hemoglobin A1C 5.5 % (4.0-6.0)
[2018-07-20] MEDS: PANTOPRAZOLE 40 MG/10 ML VIAL IVP SCH (21:41)
[2018-07-20] MEDS: LORATADINE 10 MG TAB PO SCH (21:41)
[2018-07-20] MEDS: CIPROFLOXACIN HCL 500 MG TAB PO SCH (21:43)
[2018-07-20 22:01] VITALS: RESP 16
[2018-07-21 07:40] LABS: Basophils % (A) 1 %; Eosinophils # (A) 0.2 k/uL (0-0.7); Eosinophils % (A) 5 %; HGB 8.8 gm/dL (11.4-16.0); Hypochromasia Marked; Lymphocytes % (A) 34 %; MCHC 31.4 g/dL (31.0-37.0); MCV 89.3 fL (80.0-100.0); Mean Platelet Volume 8.7; Monocytes # (A) 0.3 k/uL (0-1.0); Monocytes % (A) 8 %; Neutrophils # (A) 1.4 k/uL (1.3-7.7); Neutrophils % (A) 48 %; Platelet Count 251 k/uL (150-450); RBC 3.13 m/uL (3.80-5.40); RDW 13.6 % (11.5-15.5)
[2018-07-21] MEDS: PANTOPRAZOLE 40 MG/10 ML VIAL IVP SCH (07:58)
[2018-07-21] MEDS: ARTIFICIAL TEARS-HYPROMELLOSE DROPS 15 ML BTL BOTH EYES SCH (08:05)
[2018-07-21 08:48] LABS: Albumin 3.8 g/dL (3.5-5.0); Calcium 9.1 mg/dL (8.4-10.2); Potassium 4.2 mmol/L (3.5-5.1); Total Bilirubin 0.4 mg/dL (0.2-1.3); Total Protein 6.7 g/dL (6.3-8.2)
[2018-07-21] MEDS ORDERED: PROPOFOL 10 MG/ML 20 ML VIAL IV ONE (09:07)
[2018-07-21] MEDS ORDERED: LIDOCAINE 1% INJ 10MG/ML (20 ML MDV) ONE (09:07)
[2018-07-21] MEDS ORDERED: LACTATED RINGERS 1,000 ML IV ONE (09:11)
--- NOTE | 2018-07-21 09:39 | P.OP ---
Date of Procedure: 07/21/18 Preoperative Diagnosis: Anemia Postoperative Diagnosis: Large hiatal hernia Gastritis External hemorrhoids Procedure(s) Performed: EGD Colonoscopy Anesthesia: MAC Surgeon: Lenard Tripp Pathology: other (Antrum) Condition: stable Disposition: PACU Description of Procedure: The patient's placed on the operative table in supine position. He received IV sedation. The gastroscope placed oropharynx and passed in the esophagus and into the stomach. The patient had a large hiatal hernia. Scope was maneuvered through the hiatal hernia and in through the pylorus. The scope was then placed through the pylorus. The first and second portion of the duodenum appeared normal. Scope was then brought back into the stomach, there was mild antral gastritis. Scope was then retroflexed and there was some hemorrhagic gastritis noted at the level of the hiatal hernia. Scope was withdrawn the GE junction was at 36 cm. The distal esophagus appeared normal. There was withdrawn for patient. There is no evidence of any active upper GI bleed Next digital rectal exam was performed which revealed external hemorrhoids the colonoscope was then placed patient anus passed rotator entire colon. Ileocecal valve sutures. There was a few scattered diverticula seen. The cecum , ascending and transverse colon appeared normal except for scattered diverticula. The descending and sigmoid colon had no evidence of any polyps or tumors. Scope was then brought back the rectum this appeared normal. Scope was withdrawn for patient. There is known to any active lower GI bleed.
[2018-07-21 12:32] VITALS: BP 164/75; PULSE 79; TEMP 97.5
[2018-07-21] MEDS: PSYLLIUM HUSK 100% 6 GM PACKET PO SCH (12:43)
[2018-07-21] MEDS: CIPROFLOXACIN HCL 500 MG TAB PO SCH (13:05)
[2018-07-21] MEDS: GABAPENTIN 300 MG CAP PO SCH (13:05)
[2018-07-21] MEDS: CALCIUM CARB-VIT D 500MG-200UN 1 EACH TAB PO SCH (13:05)
[2018-07-21] MEDS: SODIUM CHLORIDE 0.9% 1,000 ML IV SCH (13:06)
[2018-07-21] MEDS: LISINOPRIL 20 MG TAB PO SCH (13:06)
--- NOTE | 2018-07-21 14:09 | P.DS ---
Providers Date of admission: 07/19/18 14:22 Expected date of discharge: 07/21/18 Attending physician: Wayne Segura Consults: 07/20/18 10:36 Consult Physician Routine Consulting Provider: Lenard Tripp Consult Reason/Comments: Anemia with previous colonoscopies Do you want consulting provider notified?: Yes Primary care physician: Diana Tracey [facility] Course: Discharge diagnosis 1. Anemia. Hemoglobin 8.7. Dr. Tripp has been consulted due to patient previous colonoscopies. Stool negative for occult blood. EGD and colonoscopy completed today with Dr. Tripp. Postoperative diagnoses of large hiatal hernia, gastritis and external hemorrhoids. Patient has been cleared for discharge from [facility]. Patient to follow-up with Dr.` Tripp for hiatal hernia. Patient also started on Protonix. Hemoglobin upon discharge 8.8. Total iron low at 13 iron saturation 3.42 and ferritin 6.9. Patient is to resume iron supplements. Patient also to follow-up with her PCP for further investigation into it causes of anemia. 2. Near Syncopal episode. EKG completed showing normal sinus rhythm. Normal EKG. 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 No acute cardiopulmonary disease. 2-D echo completed showing EF 55-60 % mild to moderate mitral regurg. Carotid Doppler completed showing no hemodynamically significant stenosis appreciated in either internal carotid artery. At this time patient denies any complaints of weakness or dizziness. Patient has been frequently ambulating the halls without any episodes. 3. Urinary tract infection. Patient started on Cipro antibiotic. Urine culture ordered. Patient will be DC'd on Cipro for 5 more days for urinary tract infection 4. History of duodenal ulcer. Patient reports last colonoscopy was [address] Tripp. Most recent colonoscopy from August 2016 showing antral gastritis, large hiatal hernia, minimal esophagitis, right colon polyp and mild hemorrhoids. 5. History of previous stroke 2 in 2010. Patient does sometimes have difficulty with speech. Patient maintained on baby aspirin. Aspirin currently on hold due to symptomatic anemia 6. History of diabetes mellitus. Patient is diet controlled. Hemoglobin A1c 5.5 7. Essential hypertension. 8. History of skin cancer Hospital course This is an 82-year-old female patient of Dr. Tracey. Patient presented to the emergency room with complaints of increased weakness with possible syncope episode. Patient also reports she has been increasingly anemic per her PCP over the past few months. Per her PCP she was told to present to the hospital if she became symptomatic. Patient states over the weekend she was at a bank in which she became very weak and dizzy and almost passed out. Patient reports that back in February her hemoglobin was 12.0 and then has decreased to 9.0 May. At that time patient was started on iron supplements. Patient does take daily baby aspirin. Patient denies any other NSAID use. Patient denies any alcohol consumption. Patient denies any change to diet. Patient denies any diarrhea or vomiting. 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 Patient reports her last colonoscopy was [address] Tripp. Patient was told she needs to follow-up in 3 years. Patient's next colonoscopy due August 2018. 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 No acute cardiopulmonary disease. EKG completed showing normal sinus rhythm. Hemoglobin 8.7. Stool for occult blood has been ordered. Dr. Tripp has been consulted. Patient urinary analysis positive for leukocyte esterase. Patient started on Cipro antibiotic. Urine culture ordered. At this time patient denies any chest pain or shortness of breath. Patient has been up ambulating with Cane recalls without any difficulties. Patient denies nausea vomiting or diarrhea. Patient denies any urinary burning or frequency On 07/21/2018 patient is alert and oriented 3. Patient has been up ambulating the halls frequently. Patient denies headache weakness or dizziness. Patient had EGD and colonoscopy completed today. Results showing gastritis, hiatal hernia and external hemorrhoids. Patient to follow-up with Dr. Tripp for follow-up with hiatal hernia. Patient also to follow-up with her PCP for further investigation into anemia. Stool for occult blood negative. Patient to resume iron supplements. Carotid Doppler and 2-D echo completed showing no significant findings. At this time patient denies chest pain or shortness of breath. Patient denies nausea vomiting or diarrhea. Patient denies any urinary symptoms. Patient did show evidence of urinary tract infection. Will discharge patient on Cipro for 5 more days for treatment of UTI. At this time patient states she feels ready to go home. Patient has been started on Protonix daily per surgical team I performed an examination of the patient and discussed their management with the Nurse Practitioner. I have reviewed the Nurse Practitioner's notes and agree with the documented findings and plan of care Patient Condition at Discharge: Stable Plan - Discharge Summary Discharge Rx Participant: No New Discharge Prescriptions: New Pantoprazole [Protonix] 40 mg PO DAILY #30 tab Ciprofloxacin HCl [Cipro] 500 mg PO BID #10 tab Continue Atorvastatin [Lipitor] 10 mg PO MOTH Lisinopril 40 mg PO QAM Psyllium Husk (with Sugar) [Metamucil Powder] 1 tsp PO DAILY Loratadine [Claritin] 10 mg PO HS Gabapentin 600 mg PO BID Ferrous Gluconate 240 mg PO DAILY Calcium Carbonate/Vitamin D3 [Calcium 500-Vit D3 200 Tablet] 1 tab PO BID Propylene Glycol [Systane Complete] 1 drop BOTH EYES TID Discontinued Aspirin [Adult Low Dose Aspirin EC] 81 mg PO DAILY Famotidine [Pepcid] 20 mg PO DAILY Discharge Medication List Atorvastatin [Lipitor] 10 mg PO MOTH 08/26/14 [History] Lisinopril 40 mg PO QAM 08/26/14 [History] Psyllium Husk (with Sugar) [Metamucil Powder] 1 tsp PO DAILY 08/26/14 [History] Gabapentin 600 mg PO BID 11/18/15 [History] Loratadine [Claritin] 10 mg PO HS 11/18/15 [History] Ferrous Gluconate 240 mg PO DAILY 09/02/16 [History] Calcium Carbonate/Vitamin D3 [Calcium 500-Vit D3 200 Tablet] 1 tab PO BID [History] Propylene Glycol [Systane Complete] 1 drop BOTH EYES TID 07/19/18 [History] Ciprofloxacin HCl [Cipro] 500 mg PO BID #10 tab 07/21/18 [Rx] Pantoprazole [Protonix] 40 mg PO DAILY #30 tab 07/21/18 [Rx] Follow up Appointment(s)/Referral(s): Diana Tracey DO [Primary Care Provider] - 1-2 days Lenard Tripp MD [STAFF PHYSICIAN] - 1 Week Activity/Diet/Wound Care/Special Instructions: Activity as tolerated Diet consistent carb Discharge Disposition: HOME SELF-CARE
== END 2018-07-21 16:00 | disposition home or self-care (01) ==
LOC: EC 10:12 → 3NMEDONC 14:22
PROVIDERS: ADMIT Internal Medicine; ATTEND Internal Medicine
DX: D64.9 Anemia, unspecified (principal); K29.50 Unspecified chronic gastritis without bleeding; K44.9 Diaphragmatic hernia without obstruction or gangrene; K64.4 Residual hemorrhoidal skin tags; E11.9 Type 2 diabetes mellitus without complications; N39.0 Urinary tract infection, site not specified; G89.29 Other chronic pain; M25.561 Pain in right knee; I10 Essential (primary) hypertension; I34.0 Nonrheumatic mitral (valve) insufficiency; Z79.82 Long term (current) use of aspirin; Z79.899 Other long term (current) drug therapy; Z85.828 Personal history of other malignant neoplasm of skin; Z86.73 Personal history of transient ischemic attack (TIA), and cerebral infarction without residual deficits; Z87.11 Personal history of peptic ulcer disease; Z87.891 Personal history of nicotine dependence; Z90.710 Acquired absence of both cervix and uterus; Z91.040 Latex allergy status; Z88.0 Allergy status to penicillin; Z88.2 Allergy status to sulfonamides; Z91.048 Other nonmedicinal substance allergy status; Z86.010 Personal history of colon polyps
CPT/HCPCS: 96376 ×2; 96361 ×2; 96374; 99285; 36415; 93005; 93306; 86900; 86901; 88305; 80053 ×3; 82728; 82550; 82553; 83540; 83550; 83605; 83735; 84484; 85025 ×3; 85610; 85730; 86850; 82272; 81001; 87086; 87045; 87077; 87186; 87046; 83036; 71046; 93880; 45378; 43239; G0378 ×3; J2001; J2704; C9113 ×3

== ENCOUNTER → 2018-07-23 | Outpatient (CLI) | payer MEDICARE ==
[2018-07-23 10:03] LABS: Basophils % (A) 1 %; Eosinophils # (A) 0.2 k/uL (0-0.7); Eosinophils % (A) 6 %; HCT 28.3 % (34.0-46.0); HGB 8.5 gm/dL (11.4-16.0); Hypochromasia Marked; Lymphocytes # (A) 1.4 k/uL (1.0-4.8); Lymphocytes % (A) 38 %; MCH 26.9 pg (25.0-35.0); MCHC 29.9 g/dL (31.0-37.0); MCV 90.1 fL (80.0-100.0); Mean Platelet Volume 8.3; Monocytes # (A) 0.4 k/uL (0-1.0); Monocytes % (A) 10 %; Neutrophils # (A) 1.6 k/uL (1.3-7.7); Neutrophils % (A) 42 %; Platelet Count 251 k/uL (150-450); RBC 3.14 m/uL (3.80-5.40); RDW 13.3 % (11.5-15.5); WBC 3.7 k/uL (3.8-10.6)
[2018-07-23 11:11] LABS: Poikilocytosis (M) Present
== END | disposition home or self-care (01) ==
LOC: LABWHC1 09:28
PROVIDERS: ATTEND Nurse Practitioner
DX: D64.9 Anemia, unspecified (principal)
CPT/HCPCS: 36415; 85025

== ENCOUNTER → 2018-08-03 | Outpatient (CLI) | payer MEDICARE ==
[2018-08-03 10:11] LABS: Basophils # (A) 0.1 k/uL (0-0.2); Basophils % (A) 1 %; Eosinophils # (A) 0.2 k/uL (0-0.7); Eosinophils % (A) 4 %; HCT 30.7 % (34.0-46.0); HGB 9.2 gm/dL (11.4-16.0); Hypochromasia Marked; Lymphocytes # (A) 1.5 k/uL (1.0-4.8); Lymphocytes % (A) 35 %; MCH 26.2 pg (25.0-35.0); MCV 87.3 fL (80.0-100.0); Mean Platelet Volume 7.5; Monocytes # (A) 0.4 k/uL (0-1.0); Monocytes % (A) 10 %; Neutrophils % (A) 47 %; Platelet Count 245 k/uL (150-450); RBC 3.51 m/uL (3.80-5.40); RDW 13.1 % (11.5-15.5); WBC 4.2 k/uL (3.8-10.6)
[2018-08-03 10:54] LABS: Poikilocytosis (M) Present
== END | disposition home or self-care (01) ==
LOC: LABPAT 08:22
PROVIDERS: ATTEND Surgery
DX: Z01.812 Encounter for preprocedural laboratory examination (principal); K21.0 Gastro-esophageal reflux disease with esophagitis; D64.9 Anemia, unspecified
CPT/HCPCS: 36415; 85025

== ENCOUNTER 2018-08-18 08:16 | Inpatient (IN) | payer MEDICARE ==
[~2018-08-18 08:16] MED LIST: DEXAMETHASONE SOD PHOSPHATE 10 MG/ML 1 ML VIAL IV ONE; HEPARIN SODIUM,PORCINE 5,000 UNIT/ML 1 ML VIAL SQ ONE; LACTATED RINGERS 1,000 ML IV SCH; MIDAZOLAM (PF) 2 MG/2 ML VIAL IV PRN; ONDANSETRON 4 MG/2 ML VIAL IVP ONE; ceFAZolin IN SWFI 2 GM/20 ML SYRINGE IVP ONE; fentaNYL (PF) 50 MCG/ML 2 ML AMP IV PRN
--- NOTE | 2018-08-18 08:57 | P.GSHP ---
History of Present Illness H&P Date: 08/18/18 Chief Complaint: GERD, hiatal hernia This 82-year-old female with history of GERD.The patient has had long-standing problems with reflux esophagitis. The patient underwent recent EGD is found have evidence of esophagitis. Patient has been well informed on the procedure of laparoscopic Maki fundoplication. The patient is aware the risk of the conversion to the open procedure, risk of injury to the stomach, liver and spleen. The patient is also a risk of recurrent GERD and dysphagia symptoms. The patient understands there is a postoperative diet of full liquids for 2 weeks after surgery. Past Medical History Past Medical History: Cancer, CVA/TIA, Diabetes Mellitus, Hypertension, Syncope Additional Past Medical History / Comment(s): cva -2010-has occas speech difficulties,diet controlled diabetic,duodenal ulcer, polyps,diverticulosis, walks with cane; bilateral hearing aids, hiatal hernia, skin cancer 2014 History of Any Multi-Drug Resistant Organisms: None Reported Past Surgical History: Cholecystectomy, Hysterectomy Additional Past Surgical History / Comment(s): hemorrhoidectomy, cat surg anali eyes,colonoscopy Past Anesthesia/Blood Transfusion Reactions: Motion Sickness Smoking Status: Former smoker - Past Family History Sister(s) Family Medical History: Cancer Additional Family Medical History / Comment(s): colon mets to pancreas Medications and Allergies Home Medications Medication Instructions Recorded Confirmed Type Atorvastatin [Lipitor] 10 mg PO MOTH 08/26/14 08/11/18 History Lisinopril 40 mg PO QAM 08/26/14 08/11/18 History Psyllium Husk (with Sugar) 1 tsp PO DAILY 08/26/14 08/11/18 History [Metamucil Powder] Gabapentin 600 mg PO BID 11/18/15 08/11/18 History Loratadine [Claritin] 10 mg PO HS 11/18/15 08/11/18 History Ferrous Gluconate 240 mg PO HS 09/02/16 08/11/18 History Calcium Carbonate/Vitamin D3 1 tab PO BID 07/19/18 08/11/18 History [Calcium 500-Vit D3 200 Tablet] Propylene Glycol [Systane Complete] 1 drop BOTH EYES TID 07/19/18 08/11/18 History Pantoprazole [Protonix] 40 mg PO DAILY #30 tab 07/21/18 08/11/18 Rx Stool Softner 1 tab PO DAILY 08/11/18 08/11/18 History Allergies Allergy/AdvReac Type Severity Reaction Status Date / Time latex Allergy Rash/Hives Verified 08/11/18 14:23 Penicillins Allergy Rash/Hives Verified 08/11/18 14:23 Sulfa (Sulfonamide Allergy Rash/Hives Verified 08/11/18 14:23 Antibiotics) TAPE Allergy RASH, Uncoded 08/11/18 14:23 PAPER TAPE IS OK Surgical - Exam - General well developed, well nourished, no distress - Eyes PERRL - ENT normal pinna - Neck no masses - Respiratory normal expansion - Cardiovascular Rhythm: regular - Abdomen Abdomen: soft, non tender Assessment and Plan Assessment: GERD. We'll perform laparoscopic Maki fundoplication.
[2018-08-18 09:06] LABS: Glucose,Whole Blood 114 mg/dL (75-99)
[2018-08-18] MEDS ORDERED: LIDOCAINE 1% 20 ML VIAL (10MG/ML) FOR IV START INTRADERMA ONE (09:13)
[2018-08-18] MEDS ORDERED: SUCCINYLCHOLINE CHLORIDE 100 MG/5 ML SYR IV ONE ×2 (09:23)
[2018-08-18] MEDS ORDERED: fentaNYL (PF) 50 MCG/ML 2 ML AMP ONE ×2 (09:23)
[2018-08-18] MEDS ORDERED: GLYCOPYRROLATE 0.2 MG/ML 2 ML VIAL ONE ×2 (09:23)
[2018-08-18] MEDS ORDERED: NEOSTIGMINE 1 MG/ML 10 ML VIAL ONE ×2 (09:23)
[2018-08-18] MEDS ORDERED: LIDOCAINE 1% INJ 10MG/ML (20 ML MDV) ONE ×2 (09:23)
[2018-08-18] MEDS ORDERED: ePHEDrine SULFATE/0.9% NACL/PF 50 MG/5 ML SYRINGE IV ONE ×2 (09:23)
[2018-08-18] MEDS ORDERED: PROPOFOL 10 MG/ML 20 ML VIAL IV ONE ×2 (09:23)
[2018-08-18] MEDS ORDERED: MIDAZOLAM 2 MG/2 ML VIAL ONE ×2 (09:23)
[2018-08-18] MEDS ORDERED: ROCURONIUM BROMIDE 10 MG/ML 10 ML VIAL IV ONE ×2 (09:23)
[2018-08-18] MEDS ORDERED: SODIUM CHLORIDE 0.9% 50 ML with CLINDAMYCIN 600 MG IV ONE ×2 (09:25)
[2018-08-18] MEDS ORDERED: BUPIVACAINE-EPI 0.5%-1:200,000 10 ML VIAL SQ ONE (09:55)
[2018-08-18] MEDS ORDERED: FUROSEMIDE 10 MG/ML 4 ML VIAL IV ONE (10:55)
[2018-08-18] MEDS ORDERED: HYDROmorphone 1 MG/ML 1 ML SYRINGE IVP ONE ×2 (10:56→11:10)
--- NOTE | 2018-08-18 11:26 | XR ---
EXAMINATION TYPE: XR chest 1V DATE OF EXAM: 08/18/2018 COMPARISON: 07/19/2018 HISTORY: 82-year-old female postsurgical evaluation, possible aspiration TECHNIQUE: Single frontal view of the chest is obtained. FINDINGS: Heart mildly enlarged. Diffuse interstitial densities retrocardiac lucency redemonstrated. Patchy bib asilar opacities are present. No sizable effusion. IMPRESSION: 1. Mild cardiomegaly and interstitial changes. Correlate to exclude mild CHF. 2. New patchy bibasilar infiltrates. Aspiration pneumonitis would be a differential consideration. 3. Known hiatal hernia
[2018-08-18 11:41] LABS: Glucose,Whole Blood 168 mg/dL (75-99)
[2018-08-18] MEDS ORDERED: ONDANSETRON 4 MG/2 ML VIAL IVP PRN (11:47)
[2018-08-18] MEDS ORDERED: HYDROmorphone 1 MG/ML 1 ML SYRINGE IVP PRN (11:47)
[2018-08-18] MEDS ORDERED: LACTATED RINGERS 1,000 ML IV ONE (11:49)
--- NOTE | 2018-08-18 11:51 | P.OP ---
Date of Procedure: 08/18/18 Preoperative Diagnosis: GERD Postoperative Diagnosis: GERD Large hiatal hernia Procedure(s) Performed: Laparoscopic Maki fundoplication with mesh Anesthesia: SANTIAGO Surgeon: Lenard Tripp Estimated Blood Loss (ml): 5 Pathology: none sent Condition: stable Disposition: PACU Description of Procedure: The patient was placed on the operating table in the supine position. She received general anesthesia. She was then placed in dorsal lithotomy position. Her abdomen was prepped and draped in the usual sterile fashion. The skin incision sites were anesthetized with 1% local Xylocaine. The skin was incised in the left periumbilical area with an 11 scalpel. Using a 5 mm blade was trocar under direct visitation the peritoneal cavity was entered. And then insufflated. After adequate insufflation the laparoscope was placed back into the peritoneal cavity. Next a 5 mm trocar was placed in the right epigastric and then the right lateral position. Another 5 mm trochars placed in the left lateral position. Another 5 mm trocar placed in the left epigastric position. And the original left periumbilical trocar was exchanged for a 10 mm trocar. The left lateral lobe liver was retracted. The patient had a large hiatal hernia. Using the Harmonic scissors the crural defect was dissected in the Harmonic scissors were used to dissect the hiatal hernia sac. The fundus of the stomach was completely mobilized by using the Harmonic scissors to divide short gastric vessels. The stomach was reduced into the peritoneal cavity. The crura was dissected with the Harmonic scissors. And then the crural repair was performed using 2-0 Ethibond suture. The [place] bio A mesh was then placed over top of the repair and secured with 2-0 Ethibond suture. Next a 58-Omani bougie dilator was placed the patient's oral pharynx and into the esophagus into the stomach by the ANIMAL ATTENDANT. The fundoplication was then performed using 2-0 Ethibond suture. A 180 fundoplication was performed. At this point the dilator was withdrawn. The stomach and esophagus were inspected there is known to any injury to the stomach or esophagus. The abdomen was irrigated there is no bleeding seen. The trochars are withdrawn. Skin was closed interrupted 3-0 Monocryl suture. Dermabond was applied. Patient tolerated procedure well and was sent to recovery in stable condition.
[2018-08-18] MEDS: METOCLOPRAMIDE 5 MG/ML 2 ML VIAL IVP SCH ×3 (13:04→23:50)
[2018-08-18] MEDS: D5-0.45% NACL WITH KCL 20MEQ/L 1,000 ML IV SCH ×2 (13:53→20:29)
--- NOTE | 2018-08-18 15:11 | P.CONS ---
History of Present Illness - Reason for Consult Consult date: 08/18/18 medical mangagement Requesting physician: Lenard Tripp - History of Present Illness This is a 82-year-old female patient of Dr. Tracey. Patient presented to the hospital for an elective laparoscopic Niesen fundoplication with mesh with Dr. Tripp. Patient has history of GERD and large hiatal hernia. She has past medical history of CVA in 2010 occasionally with speech difficulties, diabetes mellitus resume been A1c 5.0, duodenal ulcers, essential hypertension and syncopal episode. Patient recently was admitted for near syncopal episode about 1 month ago patient was found to be anemic with hemoglobin 8.7. Patient underwent EGD and colonoscopy with Dr. Tripp at that time with a postoperative diagnoses of large hiatal hernia, gastritis and external hemorrhoids. During that hospital admission patient also had 2-D echo and carotid Doppler completed. At this time patient is resting comfortably in bed. Patient denies chest pain or shortness of breath. Patient denies nausea vomiting or diarrhea. Patient denies any urinary burning or frequency. Patient to have follow eval per protocol. Review of Systems Please refer to HPI otherwise unremarkable 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,diet controlled diabetic,duodenal ulcer, polyps,diverticulosis, walks with cane; bilateral hearing aids, hiatal hernia, skin cancer 2014 History of Any Multi-Drug Resistant Organisms: None Reported Past Surgical History: Cholecystectomy, Hysterectomy Additional Past Surgical History / Comment(s): hemorrhoidectomy, cat surg anali eyes,colonoscopy Past Anesthesia/Blood Transfusion Reactions: Motion Sickness Smoking Status: Former smoker - Past Family History Sister(s) Family Medical History: Cancer Additional Family Medical History / Comment(s): colon mets to pancreas Medications and Allergies Home Medications Medication Instructions Recorded Confirmed Type Atorvastatin [Lipitor] 10 mg PO MOTH 08/26/14 08/11/18 History Lisinopril 40 mg PO QAM 08/26/14 08/11/18 History Psyllium Husk (with Sugar) 1 tsp PO DAILY 08/26/14 08/11/18 History [Metamucil Powder] Gabapentin 600 mg PO BID 11/18/15 08/11/18 History Loratadine [Claritin] 10 mg PO HS 11/18/15 08/11/18 History Ferrous Gluconate 240 mg PO HS 09/02/16 08/11/18 History Calcium Carbonate/Vitamin D3 1 tab PO BID 07/19/18 08/11/18 History [Calcium 500-Vit D3 200 Tablet] Propylene Glycol [Systane Complete] 1 drop BOTH EYES TID 07/19/18 08/11/18 History Pantoprazole [Protonix] 40 mg PO DAILY #30 tab 07/21/18 08/11/18 Rx Stool Softner 1 tab PO DAILY 08/11/18 08/11/18 History Allergies Allergy/AdvReac Type Severity Reaction Status Date / Time latex Allergy Rash/Hives Verified 08/11/18 14:23 Penicillins Allergy Rash/Hives Verified 08/11/18 14:23 Sulfa (Sulfonamide Allergy Rash/Hives Verified 08/11/18 14:23 Antibiotics) TAPE Allergy RASH, Uncoded 08/11/18 14:23 PAPER TAPE IS OK Physical Exam Vitals: Vital Signs Temp Pulse Resp BP Pulse Ox 08/18/18 14:15 89 16 128/71 95 08/18/18 13:45 74 14 118/56 92 L 08/18/18 13:15 66 14 148/69 95 08/18/18 13:00 82 16 145/100 92 L 08/18/18 12:45 84 16 159/79 90 L 08/18/18 12:30 82 16 160/73 91 L 08/18/18 11:45 83 18 146/59 97 08/18/18 11:30 82 18 132/57 96 08/18/18 11:15 83 18 146/50 96 08/18/18 11:00 77 18 166/119 97 08/18/18 10:51 97 F L 97 16 165/73 97 08/18/18 09:10 97.8 F 88 16 142/72 96 Intake and Output 08/18/18 08/18/18 08/18/18 06:59 14:59 22:59 Intake Total 1084 Output Total 15 Balance 1069 Intake: IV 1084 Output: Estimated Blood Loss 15 Other: # Voids 1 Weight 79.3 kg Head normocephalic Neck supple Lungs clear to auscultation bilaterally no wheezing or crackles Heart regular rate and rhythm S1-S2, no rub or gallop Abdomen is soft nontender nondistended positive bowel sounds no hepatosplenomegaly Extremities no edema Neuro alert and orientated to 3. Extremely hard of hearing Results Labs: Abnormal Lab Results - Last 24 Hours (Table) 08/18/18 08/18/18 Range/Units 09:03 11:37 POC Glucose (mg/dL) 114 H 168 H (75-99) mg/dL Assessment and Plan Assessment: 1. Status post laparoscopic Niesen fundoplication with mesh with Dr. Tripp. Patient has a history of GERD and large hiatal hernia. Patient maintained on Maki clear liquid diet 2. History of syncopal episode. Patient recently hospitalized one month prior. Patient at that time was found to be anemic. Patient underwent EGD and colonoscopy in which findings showed large hiatal hernia gastritis and external hemorrhoids. Type patient also had 2-D echo completed showing EF of 55-60% carotid Doppler showing no hemodynamically significant stenosis 3. Iron deficiency anemia 4. History of UTI 5. History of duodenal ulcer 6. History of previous stroke 2 in 2010 patient does reports she has sometimes difficulty with speech and walks with Cane 7. History of diabetes mellitus. Previous hemoglobin A1c 5.5 patient is diet controlled 8. History of essential hypertension 9. History of skin cancer A.m. labs have been ordered DVT prophylaxis Lovenox. GI prophylaxis Pepcid Thank you for this consultation we'll continue to follow patient closely throughout stay Time with Patient: Greater than 30 (Greater than 60% of the total time spent in counseling and coordination of care. I performed an examination of the patient and discussed their management with the Nurse Practitioner. I have reviewed the Nurse Practitioner's notes and agree with the documented findings and plan of care)
[2018-08-18 15:19] VITALS: BMI 30.9
--- NOTE | 2018-08-18 16:57 | FL ---
SINGLE CONTRAST ESOPHAGRAM: CLINICAL HISTORY: 82-year-old female rule out leak/obstruction after hiatal hernia repair. TECHNIQUE: Single contrast exam performed with 50 ml Isovue-370 contrast. Total fluoroscopy time: 1 minute 28 seconds. Total images: 24. FINDINGS: The patient swallowed oral contrast without difficulty or delay. Esophageal peristalsis shows mild-t o-moderate dysmotility. There is initial delay in passage of contrast from the lower esophagus into the stomach. Waiting and subsequent swallows show gradual intermittent passage. There is no evidence of contrast extravasation to suggest leak. Mild postsurgical free air below the right hemidiaphragm. IMPRESSION: 1. No evidence of leak status post hiatal hernia repair. 2. Mild postoperative obstruction at the GE junction likely due to postsurgical swelling. 3. Mild postoperative free air below the right hemidiaphragm. 4. [id number] esophageal dysmotility.
[2018-08-18] MEDS: ARTIFICIAL TEARS-HYPROMELLOSE DROPS 15 ML BTL BOTH EYES SCH ×2 (18:11→21:54)
[2018-08-18] MEDS: CALCIUM CARB-VIT D 500MG-200UN 1 EACH TAB PO SCH (18:11)
[2018-08-18] MEDS: LORATADINE 10 MG TAB PO SCH (20:28)
[2018-08-18] MEDS: FERROUS SULFATE 325 MG TAB PO SCH (20:28)
[2018-08-18] MEDS: FAMOTIDINE 20 MG/2 ML VIAL IV SCH (20:28)
[2018-08-18] MEDS: GABAPENTIN 300 MG CAP PO SCH (20:29)
[2018-08-19] MEDS: D5-0.45% NACL WITH KCL 20MEQ/L 1,000 ML IV SCH ×3 (03:34→20:38)
[2018-08-19] MEDS: METOCLOPRAMIDE 5 MG/ML 2 ML VIAL IVP SCH ×4 (06:27→23:30)
[2018-08-19 06:48] LABS: Basophils % (A) 0 %; Eosinophils % (A) 1 %; HCT 29.9 % (34.0-46.0); HGB 9.2 gm/dL (11.4-16.0); Hypochromasia Marked; Lymphocytes % (A) 15 %; MCH 26.5 pg (25.0-35.0); MCHC 30.8 g/dL (31.0-37.0); Mean Platelet Volume 7.9; Monocytes # (A) 0.5 k/uL (0-1.0); Monocytes % (A) 8 %; Neutrophils # (A) 4.9 k/uL (1.3-7.7); Neutrophils % (A) 74 %; Platelet Count 214 k/uL (150-450); RBC 3.48 m/uL (3.80-5.40); RDW 13.9 % (11.5-15.5); WBC 6.7 k/uL (3.8-10.6)
[2018-08-19 06:59] LABS: Albumin 3.5 g/dL (3.5-5.0); Calcium 9.7 mg/dL (8.4-10.2); Potassium 4.7 mmol/L (3.5-5.1); Total Bilirubin 0.4 mg/dL (0.2-1.3); Total Protein 6.3 g/dL (6.3-8.2)
[2018-08-19] MEDS: GABAPENTIN 300 MG CAP PO SCH ×2 (08:49→20:38)
[2018-08-19] MEDS: ENOXAPARIN 40 MG/0.4 ML SYRINGE SQ SCH (08:49)
[2018-08-19] MEDS: FAMOTIDINE 20 MG/2 ML VIAL IV SCH (08:49)
[2018-08-19] MEDS: LISINOPRIL 20 MG TAB PO SCH (08:49)
[2018-08-19] MEDS: CALCIUM CARB-VIT D 500MG-200UN 1 EACH TAB PO SCH ×2 (08:49→18:05)
[2018-08-19] MEDS: ARTIFICIAL TEARS-HYPROMELLOSE DROPS 15 ML BTL BOTH EYES SCH ×3 (08:57→21:36)
[2018-08-19] MEDS ORDERED: PANTOPRAZOLE 40 MG TABLET PO SCH (09:00)
[2018-08-19] MEDS ORDERED: HYDROcodone/APAP 5-325MG 1 EACH TAB PO PRN (12:36)
[2018-08-19] MEDS ORDERED: ACETAMINOPHEN TAB 325 MG TAB PO PRN (12:36)
--- NOTE | 2018-08-19 12:37 | P.PN ---
Subjective Progress Note Date: 08/19/18 HISTORY OF PRESENT ILLNESS: 82-year-old female who is status post Maki fundoplication for large hiatal hernia and GERD. POD #1. The patient reports her pain is tolerable at this time. She is tolerating clear liquids. Reports soup is slower to go down than other clear liquids. Denies nausea or vomiting. Patient has been ambulating in the hallway with nursing. WBC 6.7. Hemoglobin 9.2. PHYSICAL EXAM: VITAL SIGNS: Currently stable. GENERAL: Well-developed in no acute distress. HEENT: No sclera icterus. Extraocular movements grossly intact. Moist buccal mucosa. Head is atraumatic, normocephalic. Hears conversational speech. No nasal drainage. NECK: Supple without lymphadenopathy. CHEST: Non-labored respirations and equal bilateral excursions. CARDIOVASCULAR: Regular rate with regular rhythm. Palpable 2+ radial pulses. ABDOMEN: Soft. Nondistended. Surgical incision sites clean dry and intact. MUSCULOSKELETAL: No clubbing, cyanosis or edema. NEUROLOGIC: No focal or lateralizing signs. Cranial nerves II through XII grossly intact. PSYCH: Appropriate affect. Alert and oriented to person, place and time. SKIN: Well perfused. Good skin turgor. ASSESSMENT: 1. Large hiatal hernia, status post Maki fundoplication 2. GERD PLAN: Continue clear liquid diet Pain control Anticipate discharge home tomorrow. Patient lives alone and does not feel comfortable being discharged home today. Nurse practitioner note has been reviewed by physician. Signing provider agrees with the documented findings, assessment, and plan of care. Objective - Vital Signs Vital signs: Vital Signs Temp 97.3 F L 08/19/18 08:20 Pulse 74 08/19/18 08:20 Resp 16 08/19/18 08:20 BP 115/64 08/19/18 08:20 Pulse Ox 94 L 08/19/18 08:20 Intake & Output 08/18/18 08/19/18 08/19/18 18:59 06:59 18:59 Intake Total 1084 4000 Output Total 255 1300 Balance 829 2700 Weight 79.3 kg Intake: IV 1084 Intake, IV Titration 2000 Amount D5-0.45% NaCl with KCl 2000 20Meq/l 1,000 ml @ 125 mls/hr IV .Q8H [facility] Rx#: [id number] Oral 2000 Output: Urine 240 1300 Estimated Blood Loss 15 Other: Voiding Method Toilet # Voids 1 1 - Labs CBC & Chem 7: 08/19/18 06:30 08/19/18 06:30 Labs: Abnormal Lab Results - Last 24 Hours (Table) 08/19/18 08/19/18 Range/Units 06:30 06:30 RBC 3.48 L (3.80-5.40) m/uL Hgb 9.2 L (11.4-16.0) gm/dL Hct 29.9 L (34.0-46.0) % MCHC 30.8 L (31.0-37.0) g/dL Glucose 114 H (74-99) mg/dL
--- NOTE | 2018-08-19 14:44 | P.PN ---
Subjective Progress Note Date: 08/19/18 This is a 82-year-old female patient of Dr. Tracey. Patient presented to the hospital for an elective laparoscopic Niesen fundoplication with mesh with Dr. Tripp. Patient has history of GERD and large hiatal hernia. She has past medical history of CVA in 2010 occasionally with speech difficulties, diabetes mellitus resume been A1c 5.0, duodenal ulcers, essential hypertension and syncopal episode. Patient recently was admitted for near syncopal episode about 1 month ago patient was found to be anemic with hemoglobin 8.7. Patient underwent EGD and colonoscopy with Dr. Tripp at that time with a postoperative diagnoses of large hiatal hernia, gastritis and external hemorrhoids. During that hospital admission patient also had 2-D echo and carotid Doppler completed. At this time patient is resting comfortably in bed. Patient denies chest pain or shortness of breath. Patient denies nausea vomiting or diarrhea. Patient denies any urinary burning or frequency. Patient to have swallow eval per protocol. On 08/19/2018 patient is alert and oriented 3 resting comfortably in bed. At this time patient maintain on clear liquid diet. Patient has been waiting for falls. Patient denies chest pain or shortness of breath. Patient denies nausea vomiting or diarrhea. Patient denies any urinary burning or frequency. Objective - Vital Signs Vital signs: Vital Signs Temp 97.8 F 08/19/18 12:24 Pulse 75 08/19/18 12:24 Resp 16 08/19/18 12:24 BP 112/65 08/19/18 12:24 Pulse Ox 96 08/19/18 12:24 Intake & Output 08/18/18 08/19/18 08/19/18 18:59 06:59 18:59 Intake Total 1084 4000 Output Total 255 1300 700 Balance 829 2700 -700 Weight 79.3 kg Intake: IV 1084 Intake, IV Titration 2000 Amount D5-0.45% NaCl with KCl 2000 20Meq/l 1,000 ml @ 40 mls /hr IV .Q24H [facility] Rx#: [id number] Oral 2000 Output: Urine 240 1300 700 Estimated Blood Loss 15 Other: Voiding Method Toilet # Voids 1 1 2 - Exam Head normocephalic Neck supple Lungs clear to auscultation bilaterally no wheezing or crackles Heart regular rate and rhythm S1-S2, no rub or gallop Abdomen is soft nontender nondistended positive bowel sounds no hepatosplenomegaly Extremities no edema Neuro alert and orientated to 3 - Labs CBC & Chem 7: 08/19/18 06:30 08/19/18 06:30 Labs: Abnormal Lab Results - Last 24 Hours (Table) 08/19/18 08/19/18 Range/Units 06:30 06:30 RBC 3.48 L (3.80-5.40) m/uL Hgb 9.2 L (11.4-16.0) gm/dL Hct 29.9 L (34.0-46.0) % MCHC 30.8 L (31.0-37.0) g/dL Glucose 114 H (74-99) mg/dL Assessment and Plan Assessment: 1. Status post laparoscopic Niesen fundoplication with mesh with Dr. Tripp. Patient is postop day 1 Patient has a history of GERD and large hiatal hernia. Patient maintained on Maki clear liquid diet 2. History of syncopal episode. Patient recently hospitalized one month prior. Patient at that time was found to be anemic. Patient underwent EGD and colonoscopy in which findings showed large hiatal hernia gastritis and external hemorrhoids. Type patient also had 2-D echo completed showing EF of 55-60% carotid Doppler showing no hemodynamically significant stenosis 3. Iron deficiency anemia. Hemoglobin 9.2 4. History of UTI 5. History of duodenal ulcer 6. History of previous stroke 2 in 2010 patient does reports she has sometimes difficulty with speech and walks with Cane 7. History of diabetes mellitus. Previous hemoglobin A1c 5.5 patient is diet controlled 8. History of essential hypertension 9. History of skin cancer A.m. labs have been ordered DVT prophylaxis Lovenox. GI prophylaxis Pepcid Thank you for this consultation we'll continue to follow patient closely throughout stay I performed an examination of the patient and discussed their management with the Nurse Practitioner. I have reviewed the Nurse Practitioner's notes and agree with the documented findings and plan of care
[2018-08-19] MEDS: FERROUS SULFATE 325 MG TAB PO SCH (20:38)
[2018-08-19] MEDS: LORATADINE 10 MG TAB PO SCH (20:38)
[2018-08-20] MEDS: METOCLOPRAMIDE 5 MG/ML 2 ML VIAL IVP SCH ×2 (05:36→12:19)
[2018-08-20] MEDS: ENOXAPARIN 40 MG/0.4 ML SYRINGE SQ SCH (08:37)
[2018-08-20] MEDS: ARTIFICIAL TEARS-HYPROMELLOSE DROPS 15 ML BTL BOTH EYES SCH (08:37)
[2018-08-20] MEDS: CALCIUM CARB-VIT D 500MG-200UN 1 EACH TAB PO SCH (08:38)
[2018-08-20] MEDS: GABAPENTIN 300 MG CAP PO SCH (08:38)
[2018-08-20] MEDS: LISINOPRIL 20 MG TAB PO SCH (08:38)
[2018-08-20 08:53] LABS: Basophils # (A) 0.1 k/uL (0-0.2); Basophils % (A) 1 %; Eosinophils # (A) 0.3 k/uL (0-0.7); Eosinophils % (A) 5 %; HCT 33.3 % (34.0-46.0); HGB 9.8 gm/dL (11.4-16.0); Hypochromasia Marked; Lymphocytes # (A) 1.1 k/uL (1.0-4.8); Lymphocytes % (A) 18 %; MCH 25.5 pg (25.0-35.0); MCHC 29.6 g/dL (31.0-37.0); MCV 86.1 fL (80.0-100.0); Monocytes # (A) 0.5 k/uL (0-1.0); Monocytes % (A) 7 %; Neutrophils # (A) 4.3 k/uL (1.3-7.7); Neutrophils % (A) 68 %; Platelet Count 247 k/uL (150-450); RBC 3.86 m/uL (3.80-5.40); WBC 6.3 k/uL (3.8-10.6)
[2018-08-20] MEDS ORDERED: FAMOTIDINE 20 MG/2 ML VIAL IV SCH (09:00)
[2018-08-20] MEDS ORDERED: ATORVASTATIN 10 MG TAB PO SCH (09:00)
[2018-08-20 09:05] LABS: Albumin 3.7 g/dL (3.5-5.0); Potassium 4.6 mmol/L (3.5-5.1); Total Bilirubin 0.3 mg/dL (0.2-1.3); Total Protein 6.7 g/dL (6.3-8.2)
--- NOTE | 2018-08-20 10:17 | P.DS ---
Providers Expected date of discharge: 08/20/18 Attending physician: Lenard Tripp Consults: 08/18/18 11:47 Consult Physician Routine Consulting Provider: Wayne Segura Consult Reason/Comments: Medical management Do you want consulting provider notified?: Yes Primary care physician: [facility] Course: 82-year-old female who underwent laparoscopic Maki fundoplication with mesh due to large hiatal hernia and GERD. Patient is doing well postoperatively. She has been up in the hallway ambulating. Her pain is tolerable. She is tolerating oral intake. Denies nausea or vomiting. Vital signs have been stable. She is stable for discharge home today. She is to follow up with Dr. Tripp in 1 week. Please see EMR for further hospital course details. DISCHARGE DIAGNOSIS: 1. GERD 2. Large hiatal hernia 3. Status post laparoscopic Maki fundoplication with mesh Nurse practitioner note has been reviewed by physician. Signing provider agrees with the documented findings, assessment, and plan of care. Plan - Discharge Summary Discharge Rx Participant: Yes New Discharge Prescriptions: New HYDROcodone/APAP 7.5-325MG [[place] 7.5-325] 1 tab PO Q4H PRN 3 Days #18 tab PRN Reason: Pain Docusate [Colace] 100 mg PO BID #30 capsule No Action Atorvastatin [Lipitor] 10 mg PO MOTH Lisinopril 40 mg PO QAM Psyllium Husk (with Sugar) [Metamucil Powder] 1 tsp PO DAILY Loratadine [Claritin] 10 mg PO HS Gabapentin 600 mg PO BID Ferrous Gluconate 240 mg PO HS Calcium Carbonate/Vitamin D3 [Calcium 500-Vit D3 200 Tablet] 1 tab PO BID Propylene Glycol [Systane Complete] 1 drop BOTH EYES TID Pantoprazole [Protonix] 40 mg PO DAILY #30 tab Stool Softner 1 tab PO DAILY Discharge Medication List Atorvastatin [Lipitor] 10 mg PO MOTH 08/26/14 [History] Lisinopril 40 mg PO QAM 08/26/14 [History] Psyllium Husk (with Sugar) [Metamucil Powder] 1 tsp PO DAILY 08/26/14 [History] Gabapentin 600 mg PO BID 11/18/15 [History] Loratadine [Claritin] 10 mg PO HS 11/18/15 [History] Ferrous Gluconate 240 mg PO HS 09/02/16 [History] Calcium Carbonate/Vitamin D3 [Calcium 500-Vit D3 200 Tablet] 1 tab PO BID [History] Propylene Glycol [Systane Complete] 1 drop BOTH EYES TID 07/19/18 [History] Pantoprazole [Protonix] 40 mg PO DAILY #30 tab 07/21/18 [Rx] Stool Softner 1 tab PO DAILY 08/11/18 [History] Docusate [Colace] 100 mg PO BID #30 capsule 08/19/18 [Rx] HYDROcodone/APAP 7.5-325MG [[place] 7.5-325] 1 tab PO Q4H PRN 3 Days #18 tab 08/19 [Rx] Follow up Appointment(s)/Referral(s): [facility]Nurse [NON-STAFF] - 1-2 Days Lenard Tripp MD [STAFF PHYSICIAN] - 1 Week Activity/Diet/Wound Care/Special Instructions: Continue diet as directed by physician (follow handout until seen by Dr. Tripp) fluids are always encouraged. No driving while taking [place] No lifting pushing or pulling over 10 pounds You may shower. No soaking or tub baths Very light activity until you are reevaluated at your follow up appointment with your surgeon Call physician with any questions comments concerns worsening returning symptoms , fever 101.1 or higher, pus or smelly drainage from surgical sites, not tolerating diet, not tolerating fluids, pain not controlled by medications prescribed.
[2018-08-20 12:51] VITALS: BP 150/73; PULSE 85; RESP 14; TEMP 97.5
--- NOTE | 2018-08-20 13:46 | P.PN ---
Subjective Progress Note Date: 08/20/18 This is a 82-year-old female patient of Dr. Tracey. Patient presented to the hospital for an elective laparoscopic Niesen fundoplication with mesh with Dr. Tripp. Patient has history of GERD and large hiatal hernia. She has past medical history of CVA in 2010 occasionally with speech difficulties, diabetes mellitus resume been A1c 5.0, duodenal ulcers, essential hypertension and syncopal episode. Patient recently was admitted for near syncopal episode about 1 month ago patient was found to be anemic with hemoglobin 8.7. Patient underwent EGD and colonoscopy with Dr. Tripp at that time with a postoperative diagnoses of large hiatal hernia, gastritis and external hemorrhoids. During that hospital admission patient also had 2-D echo and carotid Doppler completed. At this time patient is resting comfortably in bed. Patient denies chest pain or shortness of breath. Patient denies nausea vomiting or diarrhea. Patient denies any urinary burning or frequency. Patient to have swallow eval per protocol. On 08/19/2018 patient is alert and oriented 3 resting comfortably in bed. At this time patient maintain on clear liquid diet. Patient has been waiting for falls. Patient denies chest pain or shortness of breath. Patient denies nausea vomiting or diarrhea. Patient denies any urinary burning or frequency. On 08/20/2018 patient is alert and oriented 3. Patient has been cleared for discharge from surgical services. Hemoglobin improving to 9.8. Patient instructed to follow up with PCP. Patient denies chest pain or shortness breath. Patient denies nausea vomiting or diarrhea. Patient denies any urinary frequency or burning. Objective - Vital Signs Vital signs: Vital Signs Temp 97.5 F L 08/20/18 12:00 Pulse 85 08/20/18 12:00 Resp 14 08/20/18 12:00 BP 150/73 08/20/18 12:00 Pulse Ox 95 08/20/18 12:00 Intake & Output 08/19/18 08/20/18 08/20/18 18:59 06:59 18:59 Intake Total 1500 Output Total 700 Balance -700 1500 Intake: Intake, IV Titration 1000 Amount D5-0.45% NaCl with KCl 1000 20Meq/l 1,000 ml @ 40 mls /hr IV .Q24H [facility] Rx#: [id number] Oral 500 Output: Urine 700 Other: Voiding Method Toilet # Voids 2 1 - Exam Head normocephalic Neck supple Lungs clear to auscultation bilaterally no wheezing or crackles Heart regular rate and rhythm S1-S2, no rub or gallop Abdomen is soft nontender nondistended positive bowel sounds no hepatosplenomegaly Extremities no edema Neuro alert and orientated to 3 - Labs CBC & Chem 7: 08/20/18 08:27 08/20/18 08:27 Labs: Abnormal Lab Results - Last 24 Hours (Table) 08/20/18 08/20/18 Range/Units 08:27 08:27 Hgb 9.8 L (11.4-16.0) gm/dL Hct 33.3 L (34.0-46.0) % MCHC 29.6 L (31.0-37.0) g/dL Glucose 191 H (74-99) mg/dL Assessment and Plan Assessment: 1. Status post laparoscopic Niesen fundoplication with mesh with Dr. Tripp. Patient is postop day 1 Patient has a history of GERD and large hiatal hernia. Patient maintained on Maki clear liquid diet 2. History of syncopal episode. Patient recently hospitalized one month prior. Patient at that time was found to be anemic. Patient underwent EGD and colonoscopy in which findings showed large hiatal hernia gastritis and external hemorrhoids. Type patient also had 2-D echo completed showing EF of 55-60% carotid Doppler showing no hemodynamically significant stenosis 3. Iron deficiency anemia. Hemoglobin 9.8. She is instructed to follow-up with her PCP for further management 4. History of UTI 5. History of duodenal ulcer 6. History of previous stroke 2 in 2010 patient does reports she has sometimes difficulty with speech and walks with Cane 7. History of diabetes mellitus. Previous hemoglobin A1c 5.5 patient is diet controlled 8. History of essential hypertension 9. History of skin cancer DVT prophylaxis Lovenox. GI prophylaxis Pepcid Thank you for this consultation we'll continue to follow patient closely throughout stay I performed an examination of the patient and discussed their management with the Nurse Practitioner. I have reviewed the Nurse Practitioner's notes and agree with the documented findings and plan of care
== END 2018-08-20 15:50 | disposition home health service (06) | DRG 328 ==
LOC: OR 08:16 → 6PED 10:46 → OR 08-20 09:25
PROVIDERS: ADMIT Surgery; ATTEND Surgery
PROC: 0BUT4JZ Supplement Diaphragm with Synthetic Substitute, Percutaneous Endoscopic Approach (ICD-10-PCS; 2018-08-18)
PROC: 0DV44ZZ Restriction of Esophagogastric Junction, Percutaneous Endoscopic Approach (ICD-10-PCS; principal; 2018-08-18 09:30)
DX: K21.9 Gastro-esophageal reflux disease without esophagitis (principal); E11.9 Type 2 diabetes mellitus without complications; I69.328 Other speech and language deficits following cerebral infarction; D50.9 Iron deficiency anemia, unspecified; I10 Essential (primary) hypertension; K44.9 Diaphragmatic hernia without obstruction or gangrene; K64.4 Residual hemorrhoidal skin tags; R40.2140 Coma scale, eyes open, spontaneous, unspecified time; R40.2360 Coma scale, best motor response, obeys commands, unspecified time; R40.2250 Coma scale, best verbal response, oriented, unspecified time; K57.90 Diverticulosis of intestine, part unspecified, without perforation or abscess without bleeding; Z79.899 Other long term (current) drug therapy; Z87.440 Personal history of urinary (tract) infections; Z87.11 Personal history of peptic ulcer disease; Z90.710 Acquired absence of both cervix and uterus; Z90.49 Acquired absence of other specified parts of digestive tract; Z87.891 Personal history of nicotine dependence; Z85.828 Personal history of other malignant neoplasm of skin; Z97.4 Presence of external hearing-aid; Z98.42 Cataract extraction status, left eye; Z98.41 Cataract extraction status, right eye; Z88.0 Allergy status to penicillin; Z88.2 Allergy status to sulfonamides; Z91.048 Other nonmedicinal substance allergy status; Z80.0 Family history of malignant neoplasm of digestive organs
CPT/HCPCS: 71045; 74210; 80053; 85025; 86850; 86900; 86901

== ENCOUNTER 2018-08-25 16:09 | Emergency (ER) | payer MEDICARE ==
[2018-08-25 16:43] VITALS: TEMP 98
--- NOTE | 2018-08-25 16:59 | ED ---
Lower Extremity Injury HPI - General Chief Complaint: Extremity Injury, Lower Stated Complaint: Rt leg pain Time Seen by Provider: 08/25/18 16:48 Source: patient Mode of arrival: ambulatory Limitations: no limitations - History of Present Illness Initial Comments: This is an 82 yo female with h/o DM, CVA, and recent admission for hiatal hernia repair who presents to ED for RLE redness, swelling, and pain. She states it was noticed today by a visiting nurse. She states she had no trauma to the area. It is worse with palpation. Not worse with movement of the leg. The patient also states she has been having some upper back pain since the surgery that she attributed to gas build up under the diaphragm from the surgery. She states that this pain does get worse with deep breathing. She denies any significant shortness of breath. Denies fevers/chills. No N/V. Denies any other acute complaints. - Related Data Home Medications Medication Instructions Recorded Confirmed Atorvastatin [Lipitor] 10 mg PO DAILY 08/26/14 08/25/18 Lisinopril 40 mg PO DAILY 08/26/14 08/25/18 Psyllium Husk (with Sugar) 1 tsp PO DAILY 08/26/14 08/25/18 [Metamucil Powder] Gabapentin 600 mg PO BID 11/18/15 08/25/18 Loratadine [Claritin] 10 mg PO DAILY 11/18/15 08/25/18 Calcium Carbonate/Vitamin D3 1 tab PO DAILY 07/19/18 08/25/18 [Calcium 500-Vit D3 200 Tablet] Ferrous Sulfate [Feosol] 325 mg PO DAILY 08/25/18 08/25/18 Previous Rx's Medication Instructions Recorded Docusate [Colace] 100 mg PO BID #30 capsule 08/19/18 HYDROcodone/APAP 7.5-325MG [[place] 1 tab PO Q4H PRN 3 Days #18 tab 08/19/18 7.5-325] Clindamycin HCl 300 mg PO Q8HR 7 Days #21 cap 08/25/18 Allergies Allergy/AdvReac Type Severity Reaction Status Date / Time latex Allergy Rash/Hives Verified 08/25/18 18:44 Penicillins Allergy Rash/Hives Verified 08/25/18 18:44 Sulfa (Sulfonamide Allergy Rash/Hives Verified 08/25/18 18:44 Antibiotics) TAPE Allergy RASH, Uncoded 08/25/18 16:43 PAPER TAPE IS OK Review of Systems ROS Statement: Those systems with pertinent positive or pertinent negative responses have been documented in the HPI. ROS Other: All systems not noted in ROS Statement are negative. 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,diet controlled diabetic,duodenal ulcer, polyps,diverticulosis, walks with cane; bilateral hearing aids, hiatal hernia, skin cancer 2014 History of Any Multi-Drug Resistant Organisms: None Reported Past Surgical History: Cholecystectomy, Hysterectomy Additional Past Surgical History / Comment(s): hemorrhoidectomy, cat surg anali eyes,colonoscopy Past Anesthesia/Blood Transfusion Reactions: Motion Sickness Past Psychological History: No Psychological Hx Reported Smoking Status: Former smoker Past Alcohol Use History: None Reported Past Drug Use History: None Reported - Past Family History Sister(s) Family Medical History: Cancer Additional Family Medical History / Comment(s): colon mets to pancreas General Exam - General Exam Comments Initial Comments: Constitutional: Awake alert Appears comfortable Head: Normocephalic atraumatic Eyes: no conjunctival injection No scleral icterus EOMI Neck: No JVD Supple Heart: Regular rate rhythm normal S1-S2 no murmurs Lungs: Clear to auscultation bilaterally No wheezing No rales Abdomen: Soft nondistended nontender Extremities: Right lower extremity is swollen from the knee down, there is some mild erythema to the ankle, there is some tenderness to the ankle region, mild bruises to the foot DP pulses intact Radial pulses intact Neuro: A&Ox3 No focal neurologic deficits Psych: Appropriate mood and affect Limitations: no limitations Course Vital Signs 08/25/18 08/25/18 16:39 19:02 Temperature 98 F Pulse Rate 78 80 Respiratory 18 16 Rate Blood Pressure 153/71 186/74 O2 Sat by Pulse 96 98 Oximetry - Reevaluation(s) Reevaluation #1: 08/25/18 17:40 EKG showing normal sinus rhythm with a rate of 80. There is no abnormal ST 7 changes or T-wave inversions. QTC is 429. Other intervals are normal. No ectopy. Medical Decision Making - Medical Decision Making This is an 82-year-old female who presents emergency department for right sided lower leg pain. The patient did have a Doppler performed that did not show any evidence for DVT. She had a CT performed that did not show evidence for PE however did show what appears to be postsurgical changes of the distal esophagus. The patient did have a recent hiatal hernia repair. She was told to have Dr. Draper follow-up on these results. At this time I feel the patient can go home and be sent home on antibiotics for suspected cellulitis. She is ALLERGIC to penicillin and sulfa thus she was started on clindamycin. She'll be started on 300 mg 3 times a day. She was given a dose here and one for home. Told to return emergency Department if the redness or pain seemed to worsen. Otherwise follow-up with her primary doctor for reevaluation. All questions answered. - Lab Data Result diagrams: 08/25/18 17:20 08/25/18 17:20 Lab Results 08/25/18 08/25/18 08/25/18 Range/Units 17:20 17:20 17:20 WBC 5.7 (3.8-10.6) k/uL RBC 3.80 (3.80-5.40) m/uL Hgb 9.9 L (11.4-16.0) gm/dL Hct 31.3 L (34.0-46.0) % MCV 82.3 (80.0-100.0) fL MCH 26.1 (25.0-35.0) pg MCHC 31.7 (31.0-37.0) g/dL RDW 15.0 (11.5-15.5) % Plt Count 202 (150-450) k/uL Neutrophils % 60 % Lymphocytes % 22 % Monocytes % 10 % Eosinophils % 3 % Basophils % 1 % Neutrophils # 3.4 (1.3-7.7) k/uL Lymphocytes # 1.3 (1.0-4.8) k/uL Monocytes # 0.6 (0-1.0) k/uL Eosinophils # 0.2 (0-0.7) k/uL Basophils # 0.0 (0-0.2) k/uL Hypochromasia Slight PT 11.8 (9.0-12.0) sec INR 1.1 (<1.2) APTT 24.6 (22.0-30.0) sec Sodium 135 L (137-145) mmol/L Potassium 4.2 (3.5-5.1) mmol/L Chloride 98 (98-107) mmol/L Carbon Dioxide 26 (22-30) mmol/L Anion Gap 11 mmol/L BUN 18 H (7-17) mg/dL Creatinine 0.89 (0.52-1.04) mg/dL Est GFR (CKD-EPI)AfAm 70 (>60 ml/min/1.73 sqM) Est GFR (CKD-EPI)NonAf 61 (>60 ml/min/1.73 sqM) Glucose 109 H (74-99) mg/dL Calcium 10.4 H (8.4-10.2) mg/dL Total Bilirubin 0.4 (0.2-1.3) mg/dL AST 21 (14-36) U/L ALT 30 (9-52) U/L Alkaline Phosphatase 77 (38-126) U/L Total Protein 7.3 (6.3-8.2) g/dL Albumin 4.1 (3.5-5.0) g/dL Disposition Clinical Impression: Cellulitis Disposition: HOME SELF-CARE Condition: Stable Instructions (If sedation given, give patient instructions): Cellulitis (ED) Prescriptions: Clindamycin HCl 300 mg PO Q8HR 7 Days #21 cap Is patient prescribed a controlled substance at d/c from ED?: No Referrals: Diana Tracey DO [Primary Care Provider] - 1-2 days
[2018-08-25 17:36] LABS: Basophils % (A) 1 %; Eosinophils # (A) 0.2 k/uL (0-0.7); Eosinophils % (A) 3 %; HCT 31.3 % (34.0-46.0); HGB 9.9 gm/dL (11.4-16.0); Hypochromasia Slight; Lymphocytes # (A) 1.3 k/uL (1.0-4.8); Lymphocytes % (A) 22 %; MCH 26.1 pg (25.0-35.0); MCHC 31.7 g/dL (31.0-37.0); MCV 82.3 fL (80.0-100.0); Mean Platelet Volume 7.8; Monocytes # (A) 0.6 k/uL (0-1.0); Monocytes % (A) 10 %; Neutrophils # (A) 3.4 k/uL (1.3-7.7); Neutrophils % (A) 60 %; Platelet Count 202 k/uL (150-450); WBC 5.7 k/uL (3.8-10.6)
[2018-08-25 17:49] LABS: INR 1.1 (<1.2); Partial Thromboplastin Time 24.6 sec (22.0-30.0); Prothrombin Time 11.8 sec (9.0-12.0)
[2018-08-25 17:50] LABS: Albumin 4.1 g/dL (3.5-5.0); Calcium 10.4 mg/dL (8.4-10.2); Potassium 4.2 mmol/L (3.5-5.1); Total Bilirubin 0.4 mg/dL (0.2-1.3); Total Protein 7.3 g/dL (6.3-8.2)
--- NOTE | 2018-08-25 18:58 | US ---
EXAMINATION TYPE: US venous doppler duplex LE DATE OF EXAM: 08/25/2018 5:59 PM COMPARISON: NONE CLINICAL HISTORY: RLE swelling/pain. Pain and swelling. SIDE PERFORMED: Bilateral TECHNIQUE: The lower extremity deep venous system is examined utilizing real time linear array sonog misti with graded compression, doppler sonography and color-flow sonography. VESSELS IMAGED: External Iliac Vein (EIV) Common Femoral Vein Deep Femoral Vein Greater Saphenous Vein * Femoral Vein Popliteal Vein Small Saphenous Vein * Proximal Calf Veins (* superficial vessels) DESCRIPTION: Grayscale, color doppler, spectral doppler imaging performed of the deep veins of the lo wer extremities. There is normal flow, compressibility, vascular waveforms. Bilateral bakers cysts seen: Right popliteal fossa 4.4 x 2.0 x 4.1cm. Left popliteal fossa 7.2 x 2.5 x 6.1cm. IMPRESSION: 1. NEGATIVE FOR DVT, BILATERAL LOWER EXTREMITIES. 2. BILATERAL POPLITEAL CYSTS.
[2018-08-25 19:03] VITALS: RESP 16
--- NOTE | 2018-08-25 20:27 | CT ---
EXAMINATION TYPE: CT angio chest contrast and with 3-D Reconstruction rendering DATE OF EXAM: 08/25/2018 6:54 PM COMPARISON: None HISTORY: Right leg pain and swelling, upper back pain. CT DLP: 268.9 mGycm Automated exposure control for dose reduction was used. CONTRAST: CTA scan of the thorax is performed with IV Contrast, patient injected with 64ml mL of Isov ue 370, pulmonary embolism protocol. 3-D reconstructions. FINDINGS: LUNGS: The lungs are grossly clear, there is no concerning parenchymal mass or nodule identified. T here is no pleural effusion or pneumothorax seen. The tracheobronchial tree is patent. MEDIASTINUM: There is satisfactory enhancement of the pulmonary artery and its branches, there is no CT evidence for pulmonary embolism. There is moderate cardiomegaly with panchamber enlargement. Coron jay calcifications. No pericardial effusion. The aorta is negative for acute findings. However, immediately caudal to the level of the left atrium there is a 7 cm diameter zone of low attenuation surrounding the distal thoracic esophagus. Multifocal epigastric surgical clips are note d. This ill-defined infiltrative process extends into the epigastrium and appears to be associated wi th adenopathy in the celiac position. It is difficult to visualize in the epigastric tissues further. SKELETAL STRUCTURES: No focal lesions. OTHER: 1 cm low-attenuation right hepatic lobe defect is noted; this finding is nonspecific on this examination as it could represent a simple hepatic cyst, IMPRESSION: 1. NEGATIVE FOR PULMONARY EMBOLISM. 2. POSITIVE FOR PERIESOPHAGEAL/EPIGASTRIC INFILTRATIVE PROCESS SUSPICIOUS FOR NEOPLASM.
[2018-08-25] MEDS ORDERED: CLINDAMYCIN 150 MG CAP PO STA (20:40)
[2018-08-25 21:05] VITALS: BP 151/79; PULSE 81
== END 2018-08-25 21:05 | disposition home or self-care (01) ==
LOC: EC 16:09
DX: L03.115 Cellulitis of right lower limb (principal); M71.21 Synovial cyst of popliteal space [Baker], right knee; M71.22 Synovial cyst of popliteal space [Baker], left knee; E11.9 Type 2 diabetes mellitus without complications; I10 Essential (primary) hypertension; Z79.899 Other long term (current) drug therapy; Z88.0 Allergy status to penicillin; Z88.2 Allergy status to sulfonamides; Z91.040 Latex allergy status; Z91.048 Other nonmedicinal substance allergy status; Z86.73 Personal history of transient ischemic attack (TIA), and cerebral infarction without residual deficits; Z85.828 Personal history of other malignant neoplasm of skin; Z87.891 Personal history of nicotine dependence
CPT/HCPCS: 36415; 93005; 80053; 85025; 85610; 85730; 93970; 71275; 99284; Q9967

== ENCOUNTER → 2019-01-22 | Outpatient (CLI) | payer MEDICARE | END | disposition home or self-care (01) | LOC: LABPAT 12:28 | PROVIDERS: ATTEND Orthopaedic Surgery | DX: Z01.812 Encounter for preprocedural laboratory examination (principal) | CPT/HCPCS: 87070 ==

== ENCOUNTER 2019-02-15 08:24 | Inpatient (IN) | payer MEDICARE ==
--- NOTE | 2019-02-15 00:21 | HP ---
HISTORY AND PHYSICAL REASON FOR ADMISSION: Surgery scheduled for 02/15/2019 HISTORY OF PRESENT ILLNESS: Melody Hernández is an 83-year-old patient seen with progressive symptomatic right knee osteoarthritis. After treatment options were discussed with her, she elected to proceed with right total knee arthroplasty. Consent was obtained. Medical clearance was provided by Dr. Diana Tracey. PAST MEDICAL HISTORY: Hyperlipidemia, hypertension. SURGICAL HISTORY: Cataract surgery, cholecystectomy, herniorrhaphy, hysterectomy. DAILY MEDICATIONS: Atorvastatin, lisinopril, vitamins. ALLERGIES: SULFA, PENICILLIN, LATEX, CLINDAMYCIN, CEPHALEXIN. SOCIAL HISTORY: She denies current tobacco use. PHYSICAL EXAMINATION: Evaluation of the right knee range of motion is -7 to 90. She has tenderness along the lateral joint line. Positive lateral Kofi's. Crepitus along the lateral patellofemoral compartments. Genu valgum deformity. Ligaments are stable. Hip rotation is without pain. Distal neurovascular exam is intact. RADIOGRAPHS: Radiographs of the right knee revealed severe lateral and severe patellofemoral compartment osteoarthritis. IMPRESSION: 1. Right knee osteoarthritis. 2. Hypertension. 3. Hyperlipidemia. PLAN: Right total knee arthroplasty. Surgery scheduled for 02/15/2019. MMODL / IJN: [id number] /
[~2019-02-15 08:24] MED LIST changes: +ACETAMINOPHEN TAB 500 MG TAB PO ONE; -DEXAMETHASONE SOD PHOSPHATE 10 MG/ML 1 ML VIAL IV ONE; -HEPARIN SODIUM,PORCINE 5,000 UNIT/ML 1 ML VIAL SQ ONE; -LACTATED RINGERS 1,000 ML IV SCH; +LIDOCAINE 1% 20 ML VIAL (10MG/ML) FOR IV START INTRADERMA PRN; +MELOXICAM 7.5 MG TAB PO ONE; -MIDAZOLAM (PF) 2 MG/2 ML VIAL IV PRN; +MIDAZOLAM 2 MG/2 ML VIAL IV PRN; -ONDANSETRON 4 MG/2 ML VIAL IVP ONE; +ROPIVACAINE 246.25 MG, EPINEPHrine 0.5 MG, KETOROLAC 30 MG, cloNIDine HCL/PF 80 MCG, WA... MISCELLANE ONE; +TRANEXAMIC ACID 1,000 MG in SODIUM CHLORIDE 0.9% 100 ML IVPB ONE; +VANCOMYCIN 1,250 MG in SODIUM CHLORIDE 0.9% 250 ML IVPB ONE; -ceFAZolin IN SWFI 2 GM/20 ML SYRINGE IVP ONE
[2019-02-15 09:15] LABS: Glucose,Whole Blood 107 mg/dL (75-99)
[2019-02-15] MEDS: LACTATED RINGERS 1,000 ML IV SCH ×2 (09:18→16:04)
[2019-02-15] MEDS ORDERED: MIDAZOLAM (PF) 2 MG/2 ML VIAL IV ONE (09:23)
[2019-02-15] MEDS ORDERED: ONDANSETRON 4 MG/2 ML VIAL IVP ONE (09:23)
[2019-02-15] MEDS ORDERED: DEXAMETHASONE SOD PHOSPHATE 10 MG/ML 1 ML VIAL IV ONE (09:23)
[2019-02-15] MEDS ORDERED: MIDAZOLAM 2 MG/2 ML VIAL ONE (09:52)
[2019-02-15] MEDS ORDERED: SODIUM CHLORIDE 0.9% 100 ML BAG ONE (09:52)
[2019-02-15] MEDS ORDERED: TRANEXAMIC ACID 1,000 MG/10 ML VIAL ONE (09:52)
[2019-02-15] MEDS ORDERED: ePHEDrine SULFATE/0.9% NACL/PF 50 MG/5 ML SYRINGE IV ONE (09:52)
[2019-02-15] MEDS ORDERED: PROPOFOL 10 MG/ML 20 ML VIAL IV ONE (09:52)
[2019-02-15] MEDS ORDERED: fentaNYL (PF) 50 MCG/ML 2 ML AMP ONE (09:52)
[2019-02-15] MEDS ORDERED: ROPIVACAINE 0.2%-NS ON-Q PUMP 1,090 MG, EMPTY PAIN BALL 1 EACH MISCELLANE PRN (09:53)
[2019-02-15 10:05] LABS: Basophils # (A) 0.1 k/uL (0-0.2); Basophils % (A) 1 %; Eosinophils # (A) 0.2 k/uL (0-0.7); Eosinophils % (A) 4 %; HCT 37.8 % (34.0-46.0); HGB 12.7 gm/dL (11.4-16.0); Lymphocytes # (A) 1.4 k/uL (1.0-4.8); Lymphocytes % (A) 29 %; MCH 31.7 pg (25.0-35.0); MCHC 33.5 g/dL (31.0-37.0); MCV 94.8 fL (80.0-100.0); Mean Platelet Volume 7.5; Monocytes # (A) 0.4 k/uL (0-1.0); Monocytes % (A) 8 %; Neutrophils # (A) 2.6 k/uL (1.3-7.7); Neutrophils % (A) 55 %; Platelet Count 201 k/uL (150-450); RBC 3.99 m/uL (3.80-5.40); WBC 4.8 k/uL (3.8-10.6)
[2019-02-15 10:19] LABS: Albumin 3.7 g/dL (3.5-5.0); Calcium 9.3 mg/dL (8.4-10.2); Potassium 4.2 mmol/L (3.5-5.1); Total Bilirubin 0.6 mg/dL (0.2-1.3); Total Protein 6.8 g/dL (6.3-8.2)
[2019-02-15] MEDS ORDERED: HYDROmorphone 0.5 MG/0.5 ML SYRINGE IVP PRN ×3 (11:40)
[2019-02-15] MEDS ORDERED: NALOXONE 0.4 MG/ML 1 ML VIAL IV PRN (11:40)
[2019-02-15] MEDS ORDERED: ONDANSETRON 4 MG/2 ML VIAL IVP PRN (11:40)
--- NOTE | 2019-02-15 11:40 | P.OP ---
Date of Procedure: 02/15/19 Preoperative Diagnosis: Right knee osteoarthritis Postoperative Diagnosis: Right knee osteoarthritis Procedure(s) Performed: Right total knee arthroplasty Implants: 1. Microport evolution size 4 right cemented femur 2. Microport evolution size 4 right cemented tibial baseplate 3. Microport evolution size 4 right CS 12 mm polyethylene tibial insert 4. Microport advance 32 mm all polyethylene cemented patella Anesthesia: regional (Adductor canal catheter), local, spinal Surgeon: Rian Donovan Firmware Software Verification Engineer #1: Ian Perez Estimated Blood Loss (ml): 45 Pathology: other (Bone) Condition: stable Disposition: PACU Indications for Procedure: 83-year-old patient seen with symptomatic right knee osteoarthritis. After treatment options were discussed, she elected to proceed with total knee arthroplasty. Operative Findings: See description of procedure Description of Procedure: Patient was taken to the operative suite after having an adductor canal catheter placed by the department of anesthesia for postoperative pain management. Patient underwent a spinal anesthetic by the department of anesthesia. Patient was given preoperative IV intake antibiotics and TXA. A well-padded tourniquet was placed about the right lower extremity. The lower extremity was then prepped and draped in the normal sterile orthopedic fashion. The extremity was elevated, a tourniquet was insufflated to 300. A standard anterior incision was made sharply through skin. Dissection was taken down through the subcutaneous soft tissues down to the extensor mechanism. A medial arthrotomy was performed, patella was everted and knee was flexed. There was advanced osteoarthritis noted. I introduced my distal intramedullary femoral drill. I then introduced the distal femoral cutting jig. Jerome OTTO secured the cutting jig with 2 pins. I held retractors in position while Jerome OTTO performed the distal femoral resection through the guide area we now removed her distal femoral cutting guide. We now placed our 4-in-1 femoral cutting block and positioned and it was secured with 2 pins by Jerome OTTO while I held the block in position. The distal femoral finishing was now completed. A proximal tibial cutting guide was positioned. I held the guide in the appropriate position with both hands well Jerome OTTO inserted stabilizing pins into the guide. Proximal tibial cut was made. We now placed a trial femoral component into position, along with an appropriate size tibial tray and insert. We now took the knee through range of motion and had full extension good flexion and good overall soft tissue balance noted. The patella was everted and stabilized with 2 towel clips held by Jerome OTTO while I performed a flush with patellar quad tendon utilizing a fresh sawblade. We templated the patella, appropriate drill holes were made. An appropriate trial patella was positioned, knee was taken through full range of motion with the patella tracking very nicely. The trial patella was removed. Drill holes were made through the femoral component. All trial components were removed after marking off the appropriate rotation of the tibia. Retractors were now positioned along the proximal tibia. An appropriate keel punch was made with the appropriate size tibial guide by myself on Jerome OTTO assisted by holding retractors. At this point appropriate size implants were chosen and opened. The joint was irrigated copiously with pulse lavage mechanical irrigation. The posterior capsule was infiltrated with local analgesic. The wound was irrigated with pulse lavage mechanical irrigation. We mixed antibiotic methylmethacrylate. We placed the knee into flexion. We placed multiple retractors assisted by Jerome OTTO to expose the proximal tibia. Once the methyl methacrylate was ready, the tibial component was cemented into place removing any excess methylmethacrylate form by both myself and Jerome OTTO. The femoral component was cemented into place removing the removing any excess methylmethacrylate performed by both myself and Jerome OTTO. We then inserted the appropriate size polyethylene tibial insert. We made sure that it was locked into position. We took the knee into full extension, and then back in a flexion making sure we had removed any excess methylmethacrylate. The patellar component was then cemented down and secured with clamp. Excess methylmethacrylate removed. We kept the knee in full extension, patellar clamp in position until methylmethacrylate had hardened. Once it had hardened the patellar clamp was removed. The knee was taken through full range of motion. The patella tracked nicely. There was good soft tissue balancing. The tourniquet was now released. Additional hemostasis was achieved via electrocautery. A second gram of TXA was given. The wound again was irrigated with pulse lavage mechanical irrigation. The superficial soft tissues were infiltrated local analgesic. The extensor mechanism was repaired with Vicryl. We checked the repair with range of motion and it was stable. The subcutaneous soft tissues were repaired with Vicryl in layers. The skin was approximated with skin brisa. Sterile dressings were applied followed by loose web roll and Christiano bandage. The patient was transferred to a bed, and taken to recovery in stable and satisfactory condition. Jerome OTTO assisted with this complex procedure.
--- NOTE | 2019-02-15 12:13 | XR ---
EXAMINATION TYPE: XR knee limited RT DATE OF EXAM: 02/15/2019 COMPARISON: NONE TECHNIQUE: Two views submitted HISTORY: Post op FINDINGS: There is a prosthetic knee in near anatomic alignment. There is soft tissue edema and emphysema. Patterson rgical brisa and vascular calcifications noted. IMPRESSION: 1. Postoperative change. Appears in near-anatomic alignment
[2019-02-15] MEDS ORDERED: LACTATED RINGERS 1,000 ML IV ONE ×2 (12:30)
[2019-02-15] MEDS: HYDROmorphone 1 MG/ML 1 ML SYRINGE IVP ONE ×2 (13:08→13:39)
[2019-02-15 17:24] VITALS: BMI 31.5
[2019-02-15] MEDS: SODIUM CHLORIDE 0.9% 1,000 ML IV SCH (20:18)
[2019-02-15] MEDS: LORATADINE 10 MG TAB PO SCH (20:23)
[2019-02-15] MEDS: GABAPENTIN 300 MG CAP PO SCH (20:23)
[2019-02-15] MEDS: ATORVASTATIN 10 MG TAB PO SCH (20:23)
[2019-02-15] MEDS: SENNOSIDES-DOCUSATE SODIUM 1 EACH TAB PO SCH (20:23)
[2019-02-15] MEDS: ARTIFICIAL TEARS-HYPROMELLOSE DROPS 15 ML BTL BOTH EYES SCH (20:24)
--- NOTE | 2019-02-15 21:22 | P.ANPRN ---
Procedure Note - Anesthesia - Nerve Block Performed Right Adductor Canal Infusion Time Out Performed: Yes Date of Procedure: 02/15/19 Procedure Start Time: : Procedure Stop Time: :32 Location of Patient Procedure: PreOp Indication: Acute Post-Operative Pain, Requested by Surgeon Sedation Type: Sedate with meaningful contact maintained Preparation: Sterile Prep, Sterile Dressing Position: Supine Catheter: Indwelling Needle Types: Pajunk Needle Gauge: 21 Ultrasound used to visualize needle placement: Yes Ultrasound used to observe medication spread: Yes Injectate: 0.5% Ropivacaine (see comment for volume) (ropi .5% 20cc) Blood Aspirated: No Pain Paresthesia on Injection Noted: No Resistance on Injection: Normal Image Stored and Saved: Yes Events: Uneventful and Well Tolerated
[2019-02-16] MEDS: ENOXAPARIN 30 MG/0.3 ML SYRINGE SQ SCH ×2 (05:36→17:22)
--- NOTE | 2019-02-16 06:50 | P.PN ---
Progress Note - Text 02/16 620am 83-year-old female status post total knee replacement by Dr. Donovan. Patient hasn't On-Q pump for postop pain control with the solution running at 8 mL an hour with a VAS of 1. No motor or sensory deficits noted. Dressing clean dry and intact. Plan to continue On-Q pump infusion
[2019-02-16] MEDS: LACTATED RINGERS 1,000 ML IV SCH (06:57)
[2019-02-16] MEDS: HYDROcodone/APAP 5-325MG 1 EACH TAB PO PRN ×3 (07:38→16:58)
[2019-02-16] MEDS: ARTIFICIAL TEARS-HYPROMELLOSE DROPS 15 ML BTL BOTH EYES SCH ×3 (07:39→20:38)
[2019-02-16] MEDS: GABAPENTIN 300 MG CAP PO SCH ×2 (07:39→20:38)
[2019-02-16] MEDS: LISINOPRIL 20 MG TAB PO SCH (07:39)
[2019-02-16] MEDS: SENNOSIDES-DOCUSATE SODIUM 1 EACH TAB PO SCH (07:42)
[2019-02-16] MEDS: SODIUM CHLORIDE 0.9% 1,000 ML IV SCH (07:47)
[2019-02-16 08:24] LABS: Basophils % (A) 0 %; Eosinophils # (A) 0.1 k/uL (0-0.7); Eosinophils % (A) 1 %; HCT 35.5 % (34.0-46.0); HGB 11.8 gm/dL (11.4-16.0); Lymphocytes # (A) 1.3 k/uL (1.0-4.8); Lymphocytes % (A) 16 %; MCH 31.6 pg (25.0-35.0); MCHC 33.2 g/dL (31.0-37.0); MCV 95.4 fL (80.0-100.0); Mean Platelet Volume 7.5; Monocytes # (A) 0.5 k/uL (0-1.0); Monocytes % (A) 6 %; Neutrophils % (A) 76 %; Platelet Count 209 k/uL (150-450); RBC 3.73 m/uL (3.80-5.40); RDW 12.8 % (11.5-15.5); WBC 7.9 k/uL (3.8-10.6)
--- NOTE | 2019-02-16 10:14 | P.CONS ---
History of Present Illness - Reason for Consult Consult date: 02/16/19 Requesting physician: Rian Donovan - Chief Complaint R knee pain - History of Present Illness Melody Hernández is an 83 yo F with PMH of OA, HTN, HLD, hiatal hernia, iron def anemia and constipation. She is POD#1 after a scheduled R TKA with Dr. Donovan. She ambulated last night and today only reports some moderate knee pain which has been well controlled with medication and ice pack. PT is recommending she be discharged to [facility] as pt lives at home alone. She denies chest pain, shortness of breath, fever, chills, leg swelling or claudication. Review of Systems All systems: negative Constitutional: Denies chills, Denies fever Eyes: denies blurred vision, denies pain Ears, nose, mouth and throat: Denies headache, Denies sore throat Cardiovascular: Denies chest pain, Denies shortness of breath Respiratory: Denies cough Gastrointestinal: Denies abdominal pain, Denies diarrhea, Denies nausea, Denies vomiting Genitourinary: Denies dysuria, Denies hematuria Musculoskeletal: Denies myalgias Musculoskeletal: right: knee pain Integumentary: Denies pruritus, Denies rash Neurological: Denies numbness, Denies weakness Psychiatric: Denies anxiety, Denies depression Endocrine: Denies fatigue, Denies weight change Past Medical History Past Medical History: Cancer, CVA/TIA, Diabetes Mellitus, Hypertension, Osteoarthritis (OA), Syncope Additional Past Medical History / Comment(s): 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 Hemorrhoidectomy, cat surg anali eyes,colonoscopy Past Anesthesia/Blood Transfusion Reactions: Motion Sickness Additional Past Anesthesia/Blood Transfusion Reaction / Comm: BLOOD TRANSFUSION (5 UNITS) POST HYSTERECTOMY, NO REACTIONS Past Psychological History: No Psychological Hx Reported Additional Psychological History / Comment(s): USES CANE TO AMBULATE Smoking Status: Former smoker Past Alcohol Use History: None Reported Additional Past Alcohol Use History / Comment(s): quit smoking 1989, started smoking at age 37 Past Drug Use History: None Reported - Past Family History Sister(s) Family Medical History: Cancer Additional Family Medical History / Comment(s): colon mets to pancreas Medications and Allergies Home Medications Medication Instructions Recorded Confirmed Type Atorvastatin [Lipitor] 10 mg PO HS 08/26/14 02/15/19 History Lisinopril 40 mg PO QAM 08/26/14 02/15/19 History Psyllium Husk (with Sugar) 1 tsp PO DAILY 08/26/14 02/15/19 History [Metamucil Powder] Gabapentin 600 mg PO BID 11/18/15 02/15/19 History Loratadine [Claritin] 10 mg PO HS 11/18/15 02/15/19 History Calcium Carbonate/Vitamin D3 1 tab PO DAILY 07/19/18 02/15/19 History [Calcium 500-Vit D3 200 Tablet] Ferrous Sulfate [Feosol] 325 mg PO DAILY 08/25/18 02/15/19 History Cholecalciferol (Vitamin D3) 2,000 units PO DAILY 02/08/19 02/15/19 History [Vitamin D3] Docusate [Colace] 100 mg PO HS 02/08/19 02/15/19 History Docusate [Colace] 200 mg PO QAM 02/08/19 02/15/19 History Propylene Glycol [Systane Complete] 1 drop BOTH EYES TID 02/08/19 02/15/19 History Allergies Allergy/AdvReac Type Severity Reaction Status Date / Time cephalexin Allergy Rash/Hives Verified 02/15/19 15:12 clindamycin Allergy Rash/Hives Verified 02/15/19 15:12 latex Allergy Rash/Hives Verified 02/15/19 15:12 Penicillins Allergy Rash/Hives Verified 02/15/19 15:12 Sulfa (Sulfonamide Allergy Rash/Hives Verified 02/15/19 15:12 Antibiotics) TAPE Allergy RASH, Uncoded 02/15/19 08:48 PAPER TAPE IS OK Physical Exam Vitals: Vital Signs Temp Pulse Resp BP Pulse Ox 02/16/19 07:00 97.6 F 68 15 117/66 97 02/16/19 00:05 97.5 F L 79 15 137/66 94 L 02/15/19 19:27 97.3 F L 85 15 137/71 93 L 02/15/19 15:13 98.2 F 89 15 158/75 97 02/15/19 14:37 93 16 160/72 94 L 02/15/19 14:07 92 16 180/76 94 L 02/15/19 13:34 87 16 171/72 94 L 02/15/19 13:01 85 16 144/63 94 L 02/15/19 12:46 83 16 144/66 94 L 02/15/19 12:33 80 16 136/60 96 02/15/19 12:17 84 16 144/65 94 L 02/15/19 12:00 84 16 138/63 94 L 02/15/19 11:50 97.0 F L 86 12 135/63 96 Intake and Output 02/15/19 02/16/19 02/16/19 22:59 06:59 14:59 Intake Total 320 Output Total 400 Balance -400 320 Intake: Oral 320 Output: Urine 400 Other: # Voids 1 1 # Bowel Movements 1 General: well nourished, well developed, NAD. Vitals reviewed Eyes: PERRL, EOMI, conjunctiva normal HENT: normocephalic, mucus membranes moist Neck: supple, no JVD Lungs: normal respiratory effort, no wheezes or rales CV: Regular rate and rhythm, no murmur. Peripheral pulses 2+ Abdomen: soft, nondistended, no organomegaly Lymph: no cervical or axillary LAD Skin: warm and dry. R knee incision c/d/i. No edema Neuro: A&Ox3, normal mood and affect Results CBC & Chem 7: 02/16/19 07:36 02/15/19 09:49 Labs: Abnormal Lab Results - Last 24 Hours (Table) 02/15/19 02/16/19 Range/Units 09:49 07:36 RBC 3.73 L (3.80-5.40) m/uL BUN 18 H (7-17) mg/dL Glucose 105 H (74-99) mg/dL Assessment and Plan (1) Iron deficiency anemia due to chronic blood loss Current Visit: Yes Status: Acute Code(s): D50.0 - IRON DEFICIENCY ANEMIA SECONDARY TO BLOOD LOSS (CHRONIC) SNOMED Code(s): 070138119 (2) Hypertension Current Visit: Yes Status: Acute Code(s): I10 - ESSENTIAL (PRIMARY) HYPERTENSION SNOMED Code(s): 00799035 (3) Hyperlipidemia Current Visit: Yes Status: Acute Code(s): E78.5 - HYPERLIPIDEMIA, UNSPECIFIED SNOMED Code(s): 50778198 (4) Osteoarthritis of right knee Current Visit: Yes Status: Acute Code(s): M17.11 - UNILATERAL PRIMARY OSTEOARTHRITIS, RIGHT KNEE SNOMED Code(s): 650165306907967 (5) Status post total right knee replacement Current Visit: Yes Status: Acute Code(s): Z96.651 - PRESENCE OF RIGHT ARTIFICIAL KNEE JOINT SNOMED Code(s): 4022959955134 Plan: 1. S/p R TKA. POD#1. Doing well. Pain control per primary. Continue home gabapentin. Ambulate with PT. Medically stable for discharge to [facility] 2. HTN. Continue lisinopril 3. HLD. Continue statin 3. Iron def anemia. Resume iron supplementation on discharge DVT prophylaxis: lovenox
--- NOTE | 2019-02-16 11:52 | P.PN ---
Subjective Progress Note Date: 02/16/19 Principal diagnosis: Status post right total knee arthroplasty Patient evaluated today at bedside, she is resting in her hospital chair. She's doing well at this time, she notes mild pain. She denies any chest pain at this time. She denies any shortness of breath. Patient does live alone, she has no family around, we are working with case management for rehab placement. Objective - Vital Signs Vital signs: Vital Signs Temp 97.6 F 02/16/19 07:00 Pulse 68 02/16/19 07:00 Resp 15 02/16/19 07:00 BP 117/66 02/16/19 07:00 Pulse Ox 97 02/16/19 07:00 Intake & Output 02/15/19 02/16/19 02/16/19 18:59 06:59 18:59 Intake Total 1050 320 Output Total 445 Balance 605 320 Intake: IV 1050 Oral 320 Output: Urine 400 Estimated Blood Loss 45 Other: # Voids 1 1 # Bowel Movements 1 - Exam Right lower extremity: Incision is clean, dry, and intact. The brisa are in good condition. There is minimal soft tissue swelling and ecchymosis surrounding the medial and lateral aspects of the incision. Calf is soft, no tenderness with palpation. Plantar flexion, dorsiflexion, EHL, FHL are intact. Sensory exam to light touch throughout the extremity is intact, kaylynn pedis pulses 2+. - Labs CBC & Chem 7: 02/16/19 07:36 02/15/19 09:49 Labs: Abnormal Lab Results - Last 24 Hours (Table) 02/16/19 Range/Units 07:36 RBC 3.73 L (3.80-5.40) m/uL Assessment and Plan Plan: Assessment: Postop day #1 status post right total knee arthroplasty Plan: Pain control, continue current medication GI and DVT prophylaxis, continue current medication Continue work with therapy Daily dressing changes/ice and elevate Medical recommendations Discharge planning: Plan for discharge to rehab in the next day or 2 Time with Patient: Less than 30
[2019-02-16] MEDS: LORATADINE 10 MG TAB PO SCH (20:38)
[2019-02-16] MEDS: ATORVASTATIN 10 MG TAB PO SCH (20:39)
[2019-02-17] MEDS: SODIUM CHLORIDE 0.9% 1,000 ML IV SCH ×2 (02:47→22:42)
[2019-02-17] MEDS: HYDROcodone/APAP 5-325MG 1 EACH TAB PO PRN ×4 (05:40→21:35)
[2019-02-17] MEDS: ENOXAPARIN 30 MG/0.3 ML SYRINGE SQ SCH ×2 (05:40→17:37)
[2019-02-17 07:09] LABS: Glucose,Whole Blood 92 mg/dL (75-99)
[2019-02-17] MEDS: LISINOPRIL 20 MG TAB PO SCH (08:56)
[2019-02-17] MEDS: ARTIFICIAL TEARS-HYPROMELLOSE DROPS 15 ML BTL BOTH EYES SCH ×3 (08:56→21:38)
[2019-02-17] MEDS: GABAPENTIN 300 MG CAP PO SCH ×2 (08:56→21:18)
--- NOTE | 2019-02-17 09:17 | P.PN ---
Subjective Progress Note Date: 02/17/19 Melody Hernández is an 83 yo F with PMH of OA, HTN, HLD, hiatal hernia, iron def anemia and constipation. She is POD#1 after a scheduled R TKA with Dr. Donovan. She ambulated last night and today only reports some moderate knee pain which has been well controlled with medication and ice pack. PT is recomme nding she be discharged to [facility] as pt lives at home alone. She denies chest pain, shortness of breath, fever, chills, leg swelling or claudication. 02/17. Knee pain improved from yesterday. She was able to ambulate around the floor. Denies chest pain, fever, leg swelling or dyspnea. She reports no BM since surgery. Objective - Vital Signs Vital signs: Vital Signs Temp 98.1 F 02/17/19 07:00 Pulse 71 02/17/19 07:00 Resp 15 02/17/19 07:00 BP 134/57 02/17/19 07:00 Pulse Ox 92 L 02/17/19 07:00 Intake & Output 02/16/19 02/17/19 02/17/19 18:59 06:59 18:59 Intake Total 1210 100 Balance 1210 100 Intake: Intake, IV Titration 150 Amount Sodium Chloride 0.9% 1, 150 000 ml @ 50 mls/hr IV . Q20H [facility] Rx#:[id number] Oral 1060 100 Other: # Voids 1 # Bowel Movements 1 - Exam General: well nourished, well developed, NAD. Vitals reviewed Lungs: normal respiratory effort, no wheezes or rales CV: Regular rate and rhythm, no murmur. Peripheral pulses 2+ Skin: warm and dry. R knee incision c/d/i. No edema - Labs CBC & Chem 7: 02/16/19 07:36 02/15/19 09:49 Assessment and Plan (1) Iron deficiency anemia due to chronic blood loss Current Visit: Yes Status: Acute Code(s): D50.0 - IRON DEFICIENCY ANEMIA SECONDARY TO BLOOD LOSS (CHRONIC) SNOMED Code(s): 843569471 (2) Hypertension Current Visit: Yes Status: Acute Code(s): I10 - ESSENTIAL (PRIMARY) HYPERTENSION SNOMED Code(s): 16384111 (3) Hyperlipidemia Current Visit: Yes Status: Acute Code(s): E78.5 - HYPERLIPIDEMIA, UNSPECIFIED SNOMED Code(s): 97894162 (4) Osteoarthritis of right knee Current Visit: Yes Status: Acute Code(s): M17.11 - UNILATERAL PRIMARY OSTEOARTHRITIS, RIGHT KNEE SNOMED Code(s): 617086308703229 (5) Status post total right knee replacement Current Visit: Yes Status: Acute Code(s): Z96.651 - PRESENCE OF RIGHT ARTIFICIAL KNEE JOINT SNOMED Code(s): 5313701534197 Plan: 1. S/p R TKA. POD#1. Doing well. Pain control per primary. Continue home gabapentin. Ambulate with PT. Medically stable for discharge to [facility] 2. HTN. Continue lisinopril 3. HLD. Continue statin 3. Iron def anemia. Resume iron supplementation on discharge 4. Constipation. Miralax and metamucil DVT prophylaxis: lovenox
[2019-02-17] MEDS: POLYETHYLENE GLYCOL 3350 17 GM POWD.PACK PO SCH (09:31)
--- NOTE | 2019-02-17 12:02 | P.PN ---
Subjective Progress Note Date: 02/17/19 Principal diagnosis: Status post right total knee arthroplasty Patient evaluated today at bedside, she is resting in her hospital chair. She's doing well at this time, she notes mild pain. She denies any chest pain at this time. She denies any shortness of breath. Objective - Vital Signs Vital signs: Vital Signs Temp 98.1 F 02/17/19 07:00 Pulse 71 02/17/19 07:00 Resp 15 02/17/19 07:00 BP 134/57 02/17/19 07:00 Pulse Ox 92 L 02/17/19 07:00 Intake & Output 02/16/19 02/17/19 02/17/19 18:59 06:59 18:59 Intake Total 1210 100 480 Balance 1210 100 480 Intake: Intake, IV Titration 150 Amount Sodium Chloride 0.9% 1, 150 000 ml @ 50 mls/hr IV . Q20H [facility] Rx#:[id number] Oral 1060 100 480 Other: # Voids 1 # Bowel Movements 1 - Exam Right lower extremity: Incision is clean, dry, and intact. The brisa are in good condition. There is minimal soft tissue swelling and ecchymosis surrounding the medial and lateral aspects of the incision. Calf is soft, no tenderness with palpation. Plantar flexion, dorsiflexion, EHL, FHL are intact. Sensory exam to light touch throughout the extremity is intact, kaylynn pedis pulses 2+. - Labs CBC & Chem 7: 02/16/19 07:36 02/15/19 09:49 Assessment and Plan Plan: Assessment: Postop day #2 status post right total knee arthroplasty Plan: Pain control, continue current medication GI and DVT prophylaxis, continue current medication Continue work with therapy Daily dressing changes/ice and elevate Medical recommendations Discharge planning: Plan for discharge to rehab tomorrow Time with Patient: Less than 30
[2019-02-17] MEDS: LORATADINE 10 MG TAB PO SCH (21:18)
[2019-02-17] MEDS: SENNOSIDES-DOCUSATE SODIUM 1 EACH TAB PO SCH (21:18)
[2019-02-17] MEDS: ATORVASTATIN 10 MG TAB PO SCH (21:18)
[2019-02-18] MEDS: HYDROcodone/APAP 5-325MG 1 EACH TAB PO PRN ×3 (04:04→16:02)
[2019-02-18] MEDS: ENOXAPARIN 30 MG/0.3 ML SYRINGE SQ SCH (05:27)
[2019-02-18 05:50] LABS: Basophils % (A) 1 %; Eosinophils # (A) 0.2 k/uL (0-0.7); Eosinophils % (A) 4 %; HCT 33.8 % (34.0-46.0); HGB 11.7 gm/dL (11.4-16.0); Lymphocytes # (A) 1.1 k/uL (1.0-4.8); Lymphocytes % (A) 19 %; MCHC 34.7 g/dL (31.0-37.0); MCV 95.1 fL (80.0-100.0); Mean Platelet Volume 8.2; Monocytes # (A) 0.5 k/uL (0-1.0); Monocytes % (A) 9 %; Neutrophils # (A) 3.9 k/uL (1.3-7.7); Neutrophils % (A) 65 %; Platelet Count 194 k/uL (150-450); RBC 3.56 m/uL (3.80-5.40); RDW 13.8 % (11.5-15.5); WBC 5.9 k/uL (3.8-10.6)
[2019-02-18] MEDS: LISINOPRIL 20 MG TAB PO SCH (08:17)
[2019-02-18] MEDS: GABAPENTIN 300 MG CAP PO SCH (08:17)
[2019-02-18] MEDS: ARTIFICIAL TEARS-HYPROMELLOSE DROPS 15 ML BTL BOTH EYES SCH (08:18)
[2019-02-18] MEDS: POLYETHYLENE GLYCOL 3350 17 GM POWD.PACK PO SCH (08:18)
[2019-02-18 08:25] VITALS: BP 161/70; PULSE 78; RESP 16; TEMP 98
--- NOTE | 2019-02-18 11:38 | P.PN ---
Subjective Progress Note Date: 02/18/19 Melody Hernández is an 83 yo F with PMH of OA, HTN, HLD, hiatal hernia, iron def anemia and constipation. She is POD#1 after a scheduled R TKA with Dr. Donovan. She ambulated last night and today only reports some moderate knee pain which has been well controlled with medication and ice pack. PT is recomme nding she be discharged to [facility] as pt lives at home alone. She denies chest pain, shortness of breath, fever, chills, leg swelling or claudication. 02/17. Knee pain improved from yesterday. She was able to ambulate around the floor. Denies chest pain, fever, leg swelling or dyspnea. She reports no BM since surgery. 02/18. Knee pain continues to improve but pt complains more swollen than yesterd ay. No chest pain, dyspnea, fever. She has been ambulating with PT. Objective - Vital Signs Vital signs: Vital Signs Temp 98.0 F 02/18/19 07:00 Pulse 78 02/18/19 07:00 Resp 16 02/18/19 07:00 BP 161/70 02/18/19 07:00 Pulse Ox 94 L 02/18/19 07:00 Intake & Output 02/17/19 02/18/19 02/18/19 18:59 06:59 18:59 Intake Total 1100 Balance 1100 Intake: Oral 1100 Other: Voiding Method Toilet # Voids 1 1 - Exam General: well nourished, well developed, NAD. Vitals reviewed Lungs: normal respiratory effort, no wheezes or rales CV: Regular rate and rhythm, no murmur. Peripheral pulses 2+ Skin: warm and dry. R knee incision c/d/i. RLE 1+ edema - Labs CBC & Chem 7: 02/18/19 05:38 02/15/19 09:49 Labs: Abnormal Lab Results - Last 24 Hours (Table) 02/18/19 Range/Units 05:38 RBC 3.56 L (3.80-5.40) m/uL Hct 33.8 L (34.0-46.0) % Assessment and Plan (1) Iron deficiency anemia due to chronic blood loss Current Visit: Yes Status: Acute Code(s): D50.0 - IRON DEFICIENCY ANEMIA SECONDARY TO BLOOD LOSS (CHRONIC) SNOMED Code(s): 128151406 (2) Hypertension Current Visit: Yes Status: Acute Code(s): I10 - ESSENTIAL (PRIMARY) HYPERTENSION SNOMED Code(s): 76521026 (3) Hyperlipidemia Current Visit: Yes Status: Acute Code(s): E78.5 - HYPERLIPIDEMIA, UNSPECIFIED SNOMED Code(s): 92392612 (4) Osteoarthritis of right knee Current Visit: Yes Status: Acute Code(s): M17.11 - UNILATERAL PRIMARY OSTEOARTHRITIS, RIGHT KNEE SNOMED Code(s): 426184339448993 (5) Status post total right knee replacement Current Visit: Yes Status: Acute Code(s): Z96.651 - PRESENCE OF RIGHT ARTIFICIAL KNEE JOINT SNOMED Code(s): 3435207364622 Plan: 1. S/p R TKA. POD#1. Doing well. Pain control per primary. Continue home ga bapentin. Ambulate with PT. Medically stable for discharge to [facility] 2. HTN. Continue lisinopril 3. HLD. Continue statin 3. Iron def anemia. Resume iron supplementation on discharge 4. Constipation. Miralax DVT prophylaxis: lovenox
--- NOTE | 2019-02-18 12:35 | P.PN ---
Subjective Progress Note Date: 02/18/19 Principal diagnosis: Status post right total knee arthroplasty Patient evaluated today at bedside, she is resting in her hospital chair. She's doing well at this time, she notes mild pain. She denies any chest pain at this time. She denies any shortness of breath. Objective - Vital Signs Vital signs: Vital Signs Temp 98.0 F 02/18/19 07:00 Pulse 78 02/18/19 07:00 Resp 16 02/18/19 07:00 BP 161/70 02/18/19 07:00 Pulse Ox 94 L 02/18/19 07:00 Intake & Output 02/17/19 02/18/19 02/18/19 18:59 06:59 18:59 Intake Total 1100 Balance 1100 Intake: Oral 1100 Other: Voiding Method Toilet # Voids 1 1 - Exam Right lower extremity: Incision is clean, dry, and intact. The brisa are in good condition. There is minimal soft tissue swelling and ecchymosis surrounding the medial and lateral aspects of the incision. Calf is soft, no tenderness with palpation. Plantar flexion, dorsiflexion, EHL, FHL are intact. Sensory exam to light touch throughout the extremity is intact, kaylynn pedis pulses 2+. - Labs CBC & Chem 7: 02/18/19 05:38 02/15/19 09:49 Labs: Abnormal Lab Results - Last 24 Hours (Table) 02/18/19 Range/Units 05:38 RBC 3.56 L (3.80-5.40) m/uL Hct 33.8 L (34.0-46.0) % Assessment and Plan Plan: Assessment: Postop day #3 status post right total knee arthroplasty Plan: Pain control, [place] 5mg/325mg GI and DVT prophylaxis, aspirin 81mg bid and Pepcid 20mg Continue work with therapy Daily dressing changes/ice and elevate Medical recommendations Discharge planning: Plan for discharge to rehab today Time with Patient: Less than 30
--- NOTE | 2019-02-18 12:47 | P.DS ---
Providers Date of admission: 02/15/19 08:24 Expected date of discharge: 02/18/19 Attending physician: Rian Donovan Consults: 02/15/19 11:40 Consult Physician Routine Consulting Provider: James Tracey Consult Reason/Comments: Medical management Do you want consulting provider notified?: Yes Primary care physician: Diana Tracey [facility] Course: Date of admission: 02/15/2019 Date of discharge: 02/18/2019 Admission diagnosis: Status post right total knee arthroplasty Discharge diagnosis: Same Attending physician: Dr. Donovan Surgical procedures: Right total knee arthroplasty Brief history: Patient is a 83-year-old female with a history of progressive primary right knee osteoarthritis. At this point patient has failed conservative treatment measures and has opted to proceed with a elective right total knee arthroplasty. Hospital course: Details of patient's surgery can be found in operative report. Patient tolerated the procedure well and was subsequently transported to orthopedic floor. Patient's orthopeidc and medical care was provided daily. Patient had daily laboratory tests performed for evaluation of overall blood counts. Patient had daily physical therapy to include strengthening range of motion as well as education with walker ambulation. Patient had daily CPM usage as part of their physical therapy program. Patient was treated with Lovenox for their postoperative DVT prophylaxis during their inpatient stay. Patient was noted to have a relatively uneventful postoperative course. Patient reported satisfactory pain control with oral pain medications by postoperative day 0. Patient showed satisfactory progress with physical therapy. Patient moved steadily through the program and had no difficulty meeting the goals by postoper ative day 3. Given patient's otherwise satisfactory course and having met physical therapy goals, plan is to discharge patient rehab on postoperative day 3. Discharge condition/disposition: Patient will be discharged rehab in stable condition. Discharge medications: Instructions are given on resumption of patient's normal daily medications per primary care recommendation, in addition patient will be prescribed [place] 5 mg/325 mg, aspirin 81 mg, Pepcid 20 mg. Discharge instructions: 1. Wound care and infection precautions, keep incision dry and covered while showering, no lotions, creams, moisturizers. No soaking, tubs, pools, hottubs. Do not scrub over the incision. 2. Weight-bear as tolerated with walker / cane until follow-up. 3. Ice and elevate when necessary. Do not exceed 20 minutes per hour with ice pack. 4. Utilize compression sleeve until seen at first follow up appointment. 5. Visiting nursing care. 6. Home physical therapy including home CPM. 7. Pain meds and anticoagulants per prescription. 8. Pain medication has potential to cause constipation. Increase oral fluid and fiber intake. Contact primary care provider if you have not had a bowel movement within 48 hours after discharge 9. No anti-inflammatory medication until discussed at first post operative visit, this including Motrin, Aleve, Mobic, Diclofenac. 10. Follow up in office at 2 weeks postop with Jerome Perez PA-C 11. Follow up with your primary care doctor 7-10 days after discharge. 12. Contact [facility] with any questions, . Procedures: Right total knee arthroplasty Patient Condition at Discharge: Good Plan - Discharge Summary Discharge Rx Participant: No New Discharge Prescriptions: New Aspirin [Adult Low Dose Aspirin EC] 81 mg PO BID #60 tablet. Hydrocodone/Acetaminophen [[place] 5-325] 1 - 2 each PO Q6HR PRN #40 tab PRN Reason: Pain Famotidine [Pepcid] 20 mg PO DAILY #30 tablet No Action Atorvastatin [Lipitor] 10 mg PO HS Lisinopril 40 mg PO QAM Psyllium Husk (with Sugar) [Metamucil Powder] 1 tsp PO DAILY Loratadine [Claritin] 10 mg PO HS Gabapentin 600 mg PO BID Calcium Carbonate/Vitamin D3 [Calcium 500-Vit D3 200 Tablet] 1 tab PO DAILY Ferrous Sulfate [Feosol] 325 mg PO DAILY Docusate [Colace] 100 mg PO HS Docusate [Colace] 200 mg PO QAM Propylene Glycol [Systane Complete] 1 drop BOTH EYES TID Cholecalciferol (Vitamin D3) [Vitamin D3] 2,000 units PO DAILY Discharge Medication List Atorvastatin [Lipitor] 10 mg PO HS 08/26/14 [History] Lisinopril 40 mg PO QAM 08/26/14 [History] Psyllium Husk (with Sugar) [Metamucil Powder] 1 tsp PO DAILY 08/26/14 [History] Gabapentin 600 mg PO BID 11/18/15 [History] Loratadine [Claritin] 10 mg PO HS 11/18/15 [History] Calcium Carbonate/Vitamin D3 [Calcium 500-Vit D3 200 Tablet] 1 tab PO DAILY 07/19/18 [History] Ferrous Sulfate [Feosol] 325 mg PO DAILY 08/25/18 [History] Cholecalciferol (Vitamin D3) [Vitamin D3] 2,000 units PO DAILY 02/08/19 [History] Docusate [Colace] 100 mg PO HS 02/08/19 [History] Docusate [Colace] 200 mg PO QAM 02/08/19 [History] Propylene Glycol [Systane Complete] 1 drop BOTH EYES TID 02/08/19 [History] Aspirin [Adult Low Dose Aspirin EC] 81 mg PO BID #60 tablet. 02/18/19 [Rx] Famotidine [Pepcid] 20 mg PO DAILY #30 tablet 02/18/19 [Rx] Hydrocodone/Acetaminophen [[place] 5-325] 1 - 2 each PO Q6HR PRN #40 tab 02/18/19 [Rx] Follow up Appointment(s)/Referral(s): Diana Tracey DO [Primary Care Provider] - 02/24/19 12:00 pm Rian Donovan DO [Doctor of Osteopathic Medicine] - 03/03/19 4:00 pm Activity/Diet/Wound Care/Special Instructions: Orthopedic Discharge Instructions: 1. Wound care and infection precautions, keep incision dry and covered while showering, no lotions, creams, moisturizers. No soaking, pools, hot tubs. Do not scrub over incision. 2. Weight-bear as tolerated with walker / cane until follow-up. 3. Ice and elevate when necessary. Do not exceed 20 minutes per hour with ice pack. 4. Utilize compression sleeve until seen at first follow up appointment. 5. Pain meds and anticoagulants per prescription. 6. Pain medication has potential to cause constipation. Increase oral fluid and fiber intake. Contact primary care provider if you have not had a bowel movement within 48 hours after discharge. 7. No anti-inflammatory medication until discussed at first post operative visit, this including Motrin, Aleve, Mobic, Diclofenac. 8. Follow up in office at 2 weeks postop with Jerome Perez PA-C 9. Follow up with your primary care doctor 7-10 days after discharge. 10. Contact [facility] with any questions, . Discharge Disposition: HOME WITH HOME HEALTH SERVICES
== END 2019-02-18 16:44 | DRG 470 ==
LOC: 2ORMAIN 08:24 → 4SSUR 14:46
PROVIDERS: ADMIT Orthopaedic Surgery; ATTEND Orthopaedic Surgery
PROC: 0SRC0J9 Replacement of Right Knee Joint with Synthetic Substitute, Cemented, Open Approach (ICD-10-PCS; principal; 2019-02-15 10:05)
DX: M17.11 Unilateral primary osteoarthritis, right knee (principal); D50.0 Iron deficiency anemia secondary to blood loss (chronic); I10 Essential (primary) hypertension; E11.9 Type 2 diabetes mellitus without complications; K59.00 Constipation, unspecified; E78.5 Hyperlipidemia, unspecified; Z90.49 Acquired absence of other specified parts of digestive tract; Z79.899 Other long term (current) drug therapy; Z85.828 Personal history of other malignant neoplasm of skin; Z86.73 Personal history of transient ischemic attack (TIA), and cerebral infarction without residual deficits; Z87.11 Personal history of peptic ulcer disease; Z87.891 Personal history of nicotine dependence; Z90.710 Acquired absence of both cervix and uterus; Z97.4 Presence of external hearing-aid; Z98.42 Cataract extraction status, left eye; Z98.41 Cataract extraction status, right eye; Z98.890 Other specified postprocedural states; Z80.0 Family history of malignant neoplasm of digestive organs; Z88.1 Allergy status to other antibiotic agents; Z91.040 Latex allergy status; Z88.0 Allergy status to penicillin; Z88.2 Allergy status to sulfonamides; Z91.048 Other nonmedicinal substance allergy status
CPT/HCPCS: 80053; 85025; 88300

== ENCOUNTER 2019-02-27 08:35 | Emergency (ER) | payer MEDICARE ==
--- NOTE | 2019-02-27 08:57 | ED ---
Fall HPI - General Chief Complaint: Fall Stated Complaint: FALL Time Seen by Provider: 02/27/19 08:42 Source: patient, EMS Mode of arrival: EMS Limitations: no limitations - History of Present Illness Initial Comments: This an 83-year-old female presents emergency Department from [facility] for a trip and fall. Patient states that she had knee surgery on 02/15/2019 on her right knee. Patient states that she just got released to start walking with her walker and states that she was going towards the bathroom states that she lost her balance falling striking her head. Patient did land on her right hip complaint of right hip pain. Patient has scalp laceration which is stressed by EMS. Patient tetanus is up-to-date. Patient did not lose consciousness complain of mild headache. No blurred vision no focal weakness. - Related Data Home Medications Medication Instructions Recorded Confirmed Atorvastatin [Lipitor] 10 mg PO HS 08/26/14 02/15/19 Lisinopril 40 mg PO QAM 08/26/14 02/15/19 Psyllium Husk (with Sugar) 1 tsp PO DAILY 08/26/14 02/15/19 [Metamucil Powder] Loratadine [Claritin] 10 mg PO HS 11/18/15 02/15/19 Calcium Carbonate/Vitamin D3 1 tab PO DAILY 07/19/18 02/15/19 [Calcium 500-Vit D3 200 Tablet] Ferrous Sulfate [Iron (65 MG 325 mg PO DAILY 08/25/18 02/15/19 Elemental)] Cholecalciferol (Vitamin D3) 2,000 units PO DAILY 02/08/19 02/15/19 [Vitamin D3] Docusate [Colace] 100 mg PO HS 02/08/19 02/15/19 Docusate [Colace] 200 mg PO QAM 02/08/19 02/15/19 Propylene Glycol [Systane Complete] 1 drop BOTH EYES TID 02/08/19 02/15/19 Previous Rx's Medication Instructions Recorded Aspirin [Adult Low Dose Aspirin EC] 81 mg PO BID #60 tablet. 02/18/19 Famotidine [Pepcid] 20 mg PO DAILY #30 tablet 02/18/19 Gabapentin 600 mg PO BID #6 tab 02/18/19 Hydrocodone/Acetaminophen [[place] 1 - 2 each PO Q6HR PRN #40 tab 02/18/19 5-325] Sennosides-Docusate Sodium 2 each PO HS tab 02/18/19 [Senokot-S] Allergies Allergy/AdvReac Type Severity Reaction Status Date / Time cephalexin Allergy Rash/Hives Verified 02/15/19 15:12 clindamycin Allergy Rash/Hives Verified 02/15/19 15:12 latex Allergy Rash/Hives Verified 02/15/19 15:12 Penicillins Allergy Rash/Hives Verified 02/15/19 15:12 Sulfa (Sulfonamide Allergy Rash/Hives Verified 02/15/19 15:12 Antibiotics) TAPE Allergy RASH, Uncoded 02/15/19 08:48 PAPER TAPE IS OK Review of Systems ROS Statement: Those systems with pertinent positive or pertinent negative responses have been documented in the HPI. ROS Other: All systems not noted in ROS Statement are negative. 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 Hemorrhoidectomy, cat surg anali eyes,colonoscopy. 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 Past Anesthesia/Blood Transfusion Reactions: Motion Sickness Additional Past Anesthesia/Blood Transfusion Reaction / Comment(s): BLOOD TRANSFUSION (5 UNITS) POST HYSTERECTOMY, NO REACTIONS Past Psychological History: No Psychological Hx Reported Smoking Status: Former smoker Past Alcohol Use History: None Reported Past Drug Use History: None Reported - Past Family History Sister(s) Family Medical History: Cancer Additional Family Medical History / Comment(s): colon mets to pancreas General Exam Limitations: no limitations General appearance: alert, in no apparent distress Head exam: Present: normocephalic. Absent: atraumatic, normal inspection (6cm laceration on the right occipital parietal region) Eye exam: Present: normal appearance, PERRL, EOMI. Absent: scleral icterus, conjunctival injection, periorbital swelling ENT exam: Present: normal exam, normal oropharynx, mucous membranes moist Neck exam: Present: normal inspection. Absent: tenderness, meningismus, full ROM (Patient in c-collar), lymphadenopathy Respiratory exam: Present: normal lung sounds bilaterally. Absent: respiratory distress, wheezes, rales, rhonchi, stridor Cardiovascular Exam: Present: regular rate, normal rhythm, normal heart sounds. Absent: systolic murmur, diastolic murmur, rubs, gallop, clicks Extremities exam: Present: other (Mild tenderness the right hip) Neurological exam: Present: alert, oriented X3, reflexes normal. Absent: motor sensory deficit Skin exam: Present: warm, dry, intact, normal color. Absent: rash Course Vital Signs 02/27/19 02/27/19 02/27/19 08:41 08:42 09:00 Temperature 97.6 F Pulse Rate 80 88 82 Respiratory 15 15 15 Rate Blood Pressure 170/78 170/78 O2 Sat by Pulse 93 L 94 L 94 L Oximetry 02/27/19 09:30 Temperature Pulse Rate 80 Respiratory 16 Rate Blood Pressure 157/66 O2 Sat by Pulse 94 L Oximetry Procedures - Laceration Laceration #1 Consent Obtained: verbal consent Indication: laceration Site: scalp Size (cm): 6 Description: irregular Depth: simple, single layer Anesthetic Used: lidocaine 1%, without epi Anesthesia Technique: local infiltration Amount (mls): 8 Pre-repair: wound explored, irrigated extensively Type of Sutures: other (Dermal brisa) Number of Sutures: 9 (Dermal brisa) Patient Tolerated Procedure: well, no complications Medical Decision Making - Medical Decision Making 83-year-old female presents emergency department for fall, head injury, hip pain. Patient has obvious fracture which is stable. Patient has no evidence of the hip fracture. She did have a scalp laceration which was repaired using brisa. CT of the brain and C-spine are negative. Patient will be transported back to [facility] Disposition Clinical Impression: Fall, Pelvis fracture, right, Scalp laceration, Head injury Disposition: HOME SELF-CARE Condition: Stable Instructions (If sedation given, give patient instructions): Pelvic Fracture (ED) Additional Instructions: Please return to the Emergency Department if symptoms worsen or any other concerns. Have brisa removed in 7-10 days Is patient prescribed a controlled substance at d/c from ED?: No Referrals: Diana Tracey DO [Primary Care Provider] - 1-2 days Time of Disposition: 10:32
--- NOTE | 2019-02-27 09:36 | CT ---
EXAMINATION TYPE: CT brain lenore candelaria con DATE OF EXAM: 02/27/2019 COMPARISON: None HISTORY: Fall CT DLP: 1426.3 mGycm, Automated exposure control for dose reduction was used. CONTRAST: None CT of the brain is performed utilizing 3 mm thick sections through the posterior fossa and 3 mm thick sections through the remaining calvarium. Study is performed within 24 hours of arrival to the hospital. No abnormal hyperdensity is present to suggest an acute intracranial hemorrhage. No mass lesion is evident. No acute infarcts are evident. Periventricular white matter hypodensity is present, likely on the ba sis of chronic white matter ischemic changes. Ventricles and sulci are appropriate for the patient age. There is soft tissue swelling over the right parietal genu the vertex. There is an air-fluid level within the left maxillary sinus. Correlate for acute maxillary sinusitis. IMPRESSIONS: 1. Mild periventricular white matter ischemic changes. 2. Superficial soft tissue swelling. No underlying fractures evident. CT cervical spine. COMPARISON: None CT of the cervical spine is performed in the axial plane at 2 mm thick sections. Reconstructed image s in the coronal, and sagittal plane are reviewed on the computer. No acute fractures are evident. Vertebral body alignment is normal. Loss of disc height through the cervical spine especially noted C4-5 C5-6 C6-7. Anterior vertebral prosper dy spurring is noted C4-C6. Vertebral body heights are preserved. No spinal canal stenosis is evident. Uncovertebral joint hypertrophy is present contributing to foraminal stenosis on the right at C4-5 an d moderately bilaterally at C5-6 IMPRESSIONS: 1. No acute osseous abnormality cervical spine. 2. Degenerative disc changes mid cervical spine. 3. Foraminal narrowing C4-5 and C5-6 from uncovertebral joint hypertrophy
--- NOTE | 2019-02-27 10:07 | XR ---
EXAMINATION TYPE: XR Hip RT and AP Pelvis DATE OF EXAM: 02/27/2019 COMPARISON: 11/18/2015 HISTORY: Pain TECHNIQUE: 2 views right hip supplemented with an AP pelvis. FINDINGS: Femoral heads articulate with the acetabulum. No acute fracture is of the hips are evident. There is some irregularity and suspected fracture of the ischio ramus on the right. Sacroiliac joint s and pubic symphysis appear normal. IMPRESSION: 1. Suspected ischio ramus fracture right pelvis 2. Right hip appears intact.
[2019-02-27] MEDS ORDERED: LIDOCAINE 1% INJ 10MG/ML (20 ML MDV) SQ ONE (10:12)
[2019-02-27 11:27] VITALS: BP 152/70; PULSE 81; RESP 15; TEMP 97.9
== END 2019-02-27 12:05 | disposition home or self-care (01) ==
LOC: EC 08:35
DX: S32.9XXA Fracture of unspecified parts of lumbosacral spine and pelvis, initial encounter for closed fracture (principal); S01.01XA Laceration without foreign body of scalp, initial encounter; I10 Essential (primary) hypertension; M19.90 Unspecified osteoarthritis, unspecified site; Z85.828 Personal history of other malignant neoplasm of skin; Z86.73 Personal history of transient ischemic attack (TIA), and cerebral infarction without residual deficits; Z96.651 Presence of right artificial knee joint; Z87.891 Personal history of nicotine dependence; Z79.899 Other long term (current) drug therapy; Z88.1 Allergy status to other antibiotic agents; Z91.040 Latex allergy status; Z88.0 Allergy status to penicillin; Z88.2 Allergy status to sulfonamides; Z91.048 Other nonmedicinal substance allergy status; W19.XXXA Unspecified fall, initial encounter; Y93.01 Activity, walking, marching and hiking; Y92.009 Unspecified place in unspecified non-institutional (private) residence as the place of occurrence of the external cause
CPT/HCPCS: 73502; 72125; 70450; 99284; 12002; J2001

== ENCOUNTER → 2019-07-06 | Outpatient (CLI) | payer MEDICARE ==
--- NOTE | 2019-07-06 14:18 | MM ---
Reason for exam: screening (asymptomatic). Last mammogram was performed 1 year and 1 month ago. History: Patient is postmenopausal, history of other cancer, and is nulliparous. Physical Findings: A clinical breast exam by your physician is recommended on an annual basis and results should be correlated with mammographic findings. MG Screening Mammo w CAD Bilateral CC, MLO, and XCCL view(s) were taken. Prior study comparison: June 08, 2018, bilateral MG screening mammo w CAD. April 28, 2017, bilateral MG screening mammo w CAD. There are scattered fibroglandular densities. There is a 5mm left upper outer quadrant anterior depth mass and left posterior depth lateral asymmetry. Benign appearing bilateral calcifications, greater in the left breast. No suspicious abnormality on the right. ASSESSMENT: Incomplete: need additional imaging evaluation, BI-RAD 0 RECOMMENDATION: Ultrasound of the left breast. (lateral) [facility] will attempt to contact patient to return for ultrasound.
== END | disposition home or self-care (01) ==
LOC: RADMAMWWP 07:03
PROVIDERS: ATTEND Family Medicine
DX: Z12.31 Encounter for screening mammogram for malignant neoplasm of breast (principal)
CPT/HCPCS: 77067

== ENCOUNTER → 2019-07-15 | Outpatient (CLI) | payer MEDICARE ==
--- NOTE | 2019-07-15 11:20 | USB ---
Reason for exam: additional evaluation requested from abnormal screening. History: Patient is postmenopausal, history of other cancer, and is nulliparous. Physical Findings: Nurse did not find any significant physical abnormalities on exam. US Breast Workup Limited LT Left limited breast ultrasound including focal area of concern, retroareolar and axilla demonstrates a 6 x 3 x 6mm oval, cystic lesion at 1 o'clock, a 7 x 3 x 7mm irregular, hypoechoic lesion at 2 o'clock with fuzzy borders for which a biopsy is recommended and a 5mm oval axillary tail lymph node. These results were verbally communicated with the patient and result sheet given to the patient on 07/15/19. ASSESSMENT: Suspicious, BI-RAD 4 RECOMMENDATION: Ultrasound core biopsy of the left breast. Called Dr. Tracey with mammographic findings and has scheduled an appointment for the patient for 07/27/19 at 2:[address] Tripp. PRELIMINARY REPORT CALLED AND FAXED TO DR. TRIPP ON 07/15/19.
== END | disposition home or self-care (01) ==
LOC: RADUSWWP 06:55
PROVIDERS: ATTEND Family Medicine
DX: R92.8 Other abnormal and inconclusive findings on diagnostic imaging of breast (principal)

== ENCOUNTER → 2019-08-12 | Day surgery (SDC) | payer MEDICARE ==
[2019-08-12 11:31] VITALS: BP 126/72; PULSE 80; RESP 16; TEMP 97.7
--- NOTE | 2019-08-12 17:03 | USB ---
EXAMINATION TYPE: US discontinued breast bx LT DATE OF EXAM: 08/12/2019 COMPARISON: 07/15/2019 and mammogram 07/06/2019 HISTORY: 83-year-old female referred for ultrasound-guided core needle biopsy left breast. TECHNIQUE: Targeted ultrasound 2:00 position zone B/C at the intended target site. FINDINGS: Ultrasound images show a 8 x 6 x 3 mm ovoid, circumscribed echogenic lesion. There is suggestion of a uniform cortex. Despite hilar vascularity, findings are highly suggestive of an intramammary lymph n ode. Findings are discussed with the patient. Biopsy is deferred. IMPRESSION: 1. Intended 2 o'clock left breast target site has the appearance of an intramammary lymph node on pre procedure scanning. 2. BI-RADS 3 - probably benign RECOMMENDATION: 1. 6 month follow-up left breast ultrasound for reassessment of the suspected 2:00 intramammary lymph node. 2. Six-month follow-up left breast mammogram for the anterior lateral nodular asymmetry which likely corresponds to a benign cyst on ultrasound.
== END ==
LOC: RADUSWWP 11:09
PROVIDERS: ATTEND Surgery
DX: R92.8 Other abnormal and inconclusive findings on diagnostic imaging of breast (principal)

== ENCOUNTER → 2020-02-11 | Outpatient (CLI) | payer MEDICARE ==
--- NOTE | 2020-02-11 09:40 | USB ---
Reason for exam: follow-up at short interval from prior study. History: Patient is postmenopausal, history of other cancer, and is nulliparous. US discontinued breast bx LT of the left breast, August 12, 2019. Physical Findings: Nurse did not find any significant physical abnormalities on exam. US Breast Limited LT Left limited breast ultrasound including focal area of concern, retroareolar and axilla demonstrates a 5 x 4 x 5mm oval, cystic lesion at 1 o'clock, a 6 x 3 x 3mm lobular, irregular, hypoechoic lesion at 2 o'clock and a 5mm oval lymph node at the axilla tail. These results were verbally communicated with the patient and result sheet given to the patient on 02/11/20. ASSESSMENT: Benign, BI-RAD 2 RECOMMENDATION: Follow-up diagnostic mammogram of both breasts in 6 months. Back on schedule.
== END | disposition home or self-care (01) ==
LOC: RADUSWWP 08:59
PROVIDERS: ATTEND Surgery
DX: R92.8 Other abnormal and inconclusive findings on diagnostic imaging of breast (principal)

== ENCOUNTER → 2020-07-10 | Outpatient (CLI) | payer MEDICARE ==
--- NOTE | 2020-07-10 12:02 | MM ---
Reason for exam: additional evaluation requested from prior study. Last mammogram was performed 1 year ago. History: Patient is postmenopausal, history of other cancer, and is nulliparous. US discontinued breast bx LT of the left breast, August 12, 2019. Physical Findings: Nurse did not find any significant physical abnormalities on exam. MG 3D Diag Mammo W/Cad TESSY Bilateral CC and MLO view(s) were taken. XCCL view(s) were taken of the left breast. Prior study comparison: July 06, 2019, bilateral MG screening mammo w CAD. June 08, 2018, bilateral MG screening mammo w CAD. There are scattered fibroglandular densities. Bilateral moles. Circumscribed anterior upper outer quadrant nodule slightly larger from 2018, stable from 2019. Posterior lateral asymmetric density, stable from 2017. These results were verbally communicated with the patient and result sheet given to the patient on 07/10/20. ASSESSMENT: Incomplete: need additional imaging evaluation, BI-RAD 0 RECOMMENDATION: Ultrasound of the left breast. (2 o'clock)
--- NOTE | 2020-07-10 12:03 | USB ---
Reason for exam: additional evaluation requested from abnormal screening. History: Patient is postmenopausal, history of other cancer, and is nulliparous. US discontinued breast bx LT of the left breast, August 12, 2019. US Breast Limited LT Left limited breast ultrasound including focal area of concern, retroareolar and axilla demonstrates a 0.4 x 0.3 x 0.4cm oval, cystic, benign lesion at 1 o'clock and a 0.7 x 0.2 x 0.7cm oval, solid questionable node at 2 o'clock, less pronounced from prior. Scanned 12-3 o'clock. These results were verbally communicated with the patient and result sheet given to the patient on 07/10/20. ASSESSMENT: Benign, BI-RAD 2 RECOMMENDATION: Routine screening mammogram of both breasts in 1 year.
== END | disposition home or self-care (01) ==
LOC: RADMAMWWP 10:11
PROVIDERS: ATTEND Surgery
DX: N63.10 Unspecified lump in the right breast, unspecified quadrant (principal); N63.20 Unspecified lump in the left breast, unspecified quadrant; R92.8 Other abnormal and inconclusive findings on diagnostic imaging of breast
CPT/HCPCS: 77066; 76642; G0279; 77062

== ENCOUNTER 2021-04-19 13:21 | Emergency (ER) | payer MEDICARE ==
[2021-04-19 13:34] VITALS: BP 133/70; PULSE 90; RESP 20; TEMP 97.8
--- NOTE | 2021-04-19 14:17 | XR ---
EXAMINATION TYPE: XR ribs RT w pa chest xray DATE OF EXAM: 04/19/2021 CLINICAL HISTORY: Chest and right-sided rib pain. TECHNIQUE: Single frontal view of the chest is obtained. A frontal and oblique images of the right-si ded ribs. COMPARISON: Chest x-ray August 18, 2018. CTA chest August 25, 2018. FINDINGS: There are mild chronic parenchymal changes without suspicious focal air space opacity, ple ural effusion, or pneumothorax seen. The cardiac silhouette size is stable and within normal limits with atherosclerotic thoracic aorta redemonstrated. The osseous structures are demineralized. Dedicated images of the right-sided ribs show no acute displaced fractures. Overlying soft tissue is unremarkable. IMPRESSION: 1. Chronic changes without acute pulmonary process. 2. No acute displaced right-sided rib fractures.
--- NOTE | 2021-04-19 14:36 | ED ---
General Adult HPI - General Chief complaint: Recheck/Abnormal Lab/Rx Stated complaint: Fall-R arm/shoulder pain Time Seen by Provider: 04/19/21 13:38 Source: patient, RN notes reviewed, old records reviewed Mode of arrival: ambulatory Limitations: no limitations - History of Present Illness Initial comments: 85-year-old female presenting with right lateral chest wall pain after rolling off of a bed about 6 days ago. She was at physical therapy when she initially had the injury. She denies significant trauma. This was quite minor. Pain had improved somewhat but today has worsened. No fever. No cough. No dyspnea. Pain is worse with any movement including deep breathing. There is no shortness of breath. No central chest pain. No arm pain or shoulder injury. - Related Data Home Medications Medication Instructions Recorded Confirmed Atorvastatin [Lipitor] 10 mg PO MOTH 08/26/14 04/19/21 lisinopriL 40 mg PO DAILY 08/26/14 04/19/21 Calcium Carbonate/Vitamin D3 1 tab PO BID 07/19/18 04/19/21 [Calcium 500-Vit D3 5 Mcg (200 Iu)] Ferrous Sulfate [Iron (65 MG 325 mg PO DAILY 08/25/18 04/19/21 Elemental)] Propylene Glycol [Systane Complete] 1 drop BOTH EYES TID 02/08/19 04/19/21 Aspirin [Adult Low Dose Aspirin EC] 81 mg PO DAILY 08/03/19 04/19/21 Furosemide [Lasix] 40 mg PO MOTH 08/03/19 04/19/21 Docusate [Colace] 100 mg PO DAILY 04/19/21 04/19/21 Ergocalciferol [Vitamin D2 (1250 1,250 mcg PO SA 04/19/21 04/19/21 Mcg = 56386 Iu)] Previous Rx's Medication Instructions Recorded HYDROcodone/APAP 5-325MG [[place] 1 tab PO Q6HR PRN #12 tab 04/19/21 5-325] Allergies Allergy/AdvReac Type Severity Reaction Status Date / Time cephalexin Allergy Rash/Hives Verified 04/19/21 15:16 clindamycin Allergy Rash/Hives Verified 04/19/21 15:16 latex Allergy Rash/Hives Verified 04/19/21 15:16 Penicillins Allergy Rash/Hives Verified 04/19/21 15:16 Sulfa (Sulfonamide Allergy Rash/Hives Verified 04/19/21 15:16 Antibiotics) TAPE Allergy RASH, Uncoded 04/19/21 13:34 PAPER TAPE IS OK Review of Systems ROS Statement: Those systems with pertinent positive or pertinent negative responses have been documented in the HPI. ROS Other: All systems not noted in ROS Statement are negative. 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 Hemorrhoidectomy, cat surg anali eyes,colonoscopy. 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 Past Anesthesia/Blood Transfusion Reactions: Motion Sickness Additional Past Anesthesia/Blood Transfusion Reaction / Comment(s): BLOOD TRANSFUSION (5 UNITS) POST HYSTERECTOMY, NO REACTIONS Past Psychological History: No Psychological Hx Reported Smoking Status: Never smoker Past Alcohol Use History: None Reported Past Drug Use History: None Reported - Past Family History Sister(s) Family Medical History: Cancer Additional Family Medical History / Comment(s): colon mets to pancreas General Exam Limitations: no limitations General appearance: alert, in no apparent distress Head exam: Present: atraumatic, normocephalic Eye exam: Present: normal appearance, PERRL ENT exam: Present: normal exam Neck exam: Present: normal inspection. Absent: tenderness, meningismus Respiratory exam: Present: normal lung sounds bilaterally, chest wall tenderness (Focal tenderness right lateral chest wall no external signs of trauma no overlying skin changes). Absent: respiratory distress, wheezes Cardiovascular Exam: Present: regular rate, normal rhythm GI/Abdominal exam: Present: soft. Absent: distended, tenderness Extremities exam: Present: normal inspection, normal capillary refill. Absent: pedal edema Neurological exam: Present: alert, oriented X3, CN II-XII intact. Absent: motor sensory deficit Psychiatric exam: Present: normal affect, normal mood Skin exam: Present: warm, dry, intact. Absent: cyanosis, diaphoretic Course Vital Signs 04/19/21 13:30 Temperature 97.8 F Pulse Rate 90 Respiratory 20 Rate Blood Pressure 133/70 O2 Sat by Pulse 97 Oximetry Medical Decision Making - Medical Decision Making 85-year-old female with right lateral chest wall pain. Focal tenderness. Patient did have minor injury. X-rays were performed initially without displaced rib fracture or acute findings. CT was then performed which is negative for traumatic injury. Likely musculoskeletal in nature without fracture. Patient is otherwise well-appearing with stable vitals. She has good outpatient follow-up with her primary care physician. She will be prescribed sh ort course of [place] which she has taken in the past. Disposition Clinical Impression: Chest wall contusion Disposition: HOME SELF-CARE Condition: Fair Instructions (If sedation given, give patient instructions): Chest Wall Pain (ED) Prescriptions: HYDROcodone/APAP 5-325MG [[place] 5-325] 1 tab PO Q6HR PRN #12 tab PRN Reason: Pain Is patient prescribed a controlled substance at d/c from ED?: No Referrals: Diana Tracey DO [Primary Care Provider] - 1-2 days Time of Disposition: 15:23
--- NOTE | 2021-04-19 15:06 | CT ---
EXAMINATION TYPE: CT ChestAbdPelvis wo con DATE OF EXAM: 04/19/2021 COMPARISON: CTA chest August 25, 2018 HISTORY: Right sided chest pain into abdomen. CT DLP: 639.2 mGycm. Automated Exposure Control for Dose Reduction was Utilized. TECHNIQUE: CT scan of the thorax, abdomen and pelvis is performed without oral lower IV contrast. FINDINGS: LUNGS: The lungs are grossly clear, there is no concerning parenchymal mass or nodule identified. T here is no pleural effusion or pneumothorax seen. The tracheobronchial tree is patent. MEDIASTINUM: There are no greater than 1 cm hilar or mediastinal lymph nodes. No cardiomegaly or pe ricardial effusion is seen. Moderate Coronary artery calcification is present. Mild to moderate calc ified plaque thoracic aorta. LIVER/GB: Stable near 1.0 cm low dense lesion right hepatic lobe axial image 50 presumably benign. Ch olecystectomy clips are redemonstrated. PANCREAS: No significant abnormality is seen. SPLEEN: No significant abnormality is seen. ADRENALS: No significant abnormality is seen. KIDNEYS: Exophytic 4.8 cm thin-walled cyst posteriorly mid to lower pole level left kidney. Bilateral nephrolithiasis including 2 larger calculi lower pole right kidney axial image 68 measuring up to 13 mm long axis BOWEL: Suboptimal evaluation of bowel without enteric contrast. Surgical changes as diaphragmatic hia tus likely from Jcarlos fundoplication surgery are present. No suspicious small or large bowel dilatat ion. GENITAL ORGANS: Uterus surgically absent. Nonspecific 1.2 cm thin-walled cyst or cystic lesion left p renata axial image 102. LYMPH NODES: No greater than 1cm abdominal or pelvic lymph nodes are appreciated. OSSEOUS STRUCTURES: Osseous structures are demineralized. Moderate disc space narrowing and vacuum di sc phenomenon L2-L3, L4-L5, and L5-S1 levels. OTHER: More moderate to severe calcified plaque abdomin al aorta extends into branch vessels. IMPRESSION: No acute findings identified on noncontrast CT to account for patient's symptoms.
[2021-04-19] MEDS ORDERED: ACETAMINOPHEN TAB 500 MG TAB PO STA (15:13)
== END 2021-04-19 16:09 | disposition home or self-care (01) ==
LOC: EC 13:21
DX: S20.219A Contusion of unspecified front wall of thorax, initial encounter (principal); E11.9 Type 2 diabetes mellitus without complications; E78.5 Hyperlipidemia, unspecified; I10 Essential (primary) hypertension; M19.90 Unspecified osteoarthritis, unspecified site; Z79.82 Long term (current) use of aspirin; Z88.0 Allergy status to penicillin; Z88.1 Allergy status to other antibiotic agents; Z88.2 Allergy status to sulfonamides; Z91.040 Latex allergy status; Z86.73 Personal history of transient ischemic attack (TIA), and cerebral infarction without residual deficits; Z85.828 Personal history of other malignant neoplasm of skin; Z90.49 Acquired absence of other specified parts of digestive tract; Z90.710 Acquired absence of both cervix and uterus; Z96.651 Presence of right artificial knee joint; W06.XXXA Fall from bed, initial encounter
CPT/HCPCS: 71250; 74176; 99285

== ENCOUNTER → 2021-07-18 | Outpatient (CLI) | payer MEDICARE ==
--- NOTE | 2021-07-18 11:01 | MM ---
Reason for exam: additional evaluation requested from prior study. Last mammogram was performed 1 year ago. History: Patient is postmenopausal, history of other cancer, and is nulliparous. US discontinued breast bx LT of the left breast, August 12, 2019. Physical Findings: Nurse did not find any significant physical abnormalities on exam. MG 3D Diag Mammo W/Cad TESSY Bilateral CC and MLO view(s) were taken. XCCL view(s) were taken of the left breast. Prior study comparison: July 10, 2020, bilateral MG 3d diag mammo w/cad TESSY. July 06, 2019, bilateral MG screening mammo w CAD. The breast tissue is heterogeneously dense. This may lower the sensitivity of mammography. Stable benign calcifications. There is no discrete abnormality. No significant new findings when compared with previous films. These results were verbally communicated with the patient and result sheet given to the patient on 07/18/21. ASSESSMENT: Benign, BI-RAD 2 RECOMMENDATION: Routine screening mammogram of both breasts in 1 year.
== END | disposition home or self-care (01) ==
LOC: RADMAMWWP 09:20
PROVIDERS: ATTEND Family Medicine
DX: R92.8 Other abnormal and inconclusive findings on diagnostic imaging of breast (principal); Z78.0 Asymptomatic menopausal state
CPT/HCPCS: 77066; G0279; 77062

== ENCOUNTER 2021-09-24 18:11 | Observation (INO) | payer MEDICARE ==
--- NOTE | 2021-09-24 18:56 | ED ---
Chest Pain HPI - General Chief Complaint: Chest Pain Stated Complaint: chest pain Time Seen by Provider: 09/24/21 18:25 Source: patient, RN notes reviewed Mode of arrival: wheelchair Limitations: physical limitation - History of Present Illness Initial Comments: 85-year-old female sent from an urgent care clinic with complaints of chest pain she states this started yesterday morning she describes the pain as being a hard pain moderate to severe severity increases with certain movements and she states she can get a good breath because of it. No fevers chills or sweats. No overt cough or phlegm production she states she's been having back pain. She is not able to quantify or qualify the pain any more than that. MD Complaint: chest pain - Related Data Home Medications Medication Instructions Recorded Confirmed Atorvastatin [Lipitor] 10 mg PO MOTH@209908/26/14 09/24/21 lisinopriL 40 mg PO DAILY 08/26/14 09/24/21 Propylene Glycol [Systane Complete] 1 drop BOTH EYES TID 02/08/19 09/24/21 Furosemide [Lasix] 40 mg PO MOTH 08/03/19 09/24/21 Ergocalciferol [Vitamin D2 (1250 1,250 mcg PO SA@2100 04/19/21 09/24/21 Mcg = 36358 Iu)] Loratadine [Claritin] 10 mg PO HS 09/24/21 09/24/21 Allergies Allergy/AdvReac Type Severity Reaction Status Date / Time cephalexin Allergy Rash/Hives Verified 09/24/21 19:46 clindamycin Allergy Rash/Hives Verified 09/24/21 19:46 latex Allergy Rash/Hives Verified 09/24/21 19:46 Penicillins Allergy Rash/Hives Verified 09/24/21 19:46 Sulfa (Sulfonamide Allergy Rash/Hives Verified 09/24/21 19:46 Antibiotics) TAPE Allergy RASH, Uncoded 09/24/21 19:46 PAPER TAPE IS OK Review of Systems ROS Statement: Those systems with pertinent positive or pertinent negative responses have been documented in the HPI. ROS Other: All systems not noted in ROS Statement are negative. EKG Findings - EKG Results: EKG: interpreted by ERMD, sinus rhythm (Sinus rhythm with occasional PVCs rate 62. 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 Hemorrhoidectomy, cat surg anali eyes,colonoscopy. 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 Past Anesthesia/Blood Transfusion Reactions: Motion Sickness Additional Past Anesthesia/Blood Transfusion Reaction / Comment(s): BLOOD TRANSFUSION (5 UNITS) POST HYSTERECTOMY, NO REACTIONS Past Psychological History: No Psychological Hx Reported Smoking Status: Never smoker Past Alcohol Use History: None Reported Past Drug Use History: None Reported - Past Family History Sister(s) Family Medical History: Cancer Additional Family Medical History / Comment(s): colon mets to pancreas General Exam - General Exam Comments Initial Comments: This is a well-developed well-nourished awake alert oriented 3 female she is hard of hearing. Limitations: physical limitation General appearance: alert, in no apparent distress Head exam: Present: atraumatic, normocephalic, normal inspection Eye exam: Present: normal appearance, PERRL, EOMI. Absent: scleral icterus, conjunctival injection, periorbital swelling ENT exam: Present: normal exam, mucous membranes moist Neck exam: Present: normal inspection, full ROM, other. Absent: tenderness, meningismus, lymphadenopathy Respiratory exam: Present: normal lung sounds bilaterally, chest wall tenderness (No stridor JVD or bruits). Absent: respiratory distress, wheezes, rales, rhonchi, stridor Cardiovascular Exam: Present: regular rate, normal rhythm, normal heart sounds. Absent: systolic murmur, diastolic murmur, rubs, gallop, clicks GI/Abdominal exam: Present: soft, normal bowel sounds. Absent: distended, tenderness, guarding, rebound, rigid, bruit, pulsatile mass Rectal exam: Present: deferred Extremities exam: Present: normal inspection, full ROM, normal capillary refill. Absent: tenderness, pedal edema, joint swelling, calf tenderness Back exam: Present: normal inspection, tenderness (Tennis palpation of the thoracic back muscles no spinous process tenderness no scapular tenderness. No step-off or crepitation) Neurological exam: Present: alert, oriented X3, CN II-XII intact, other (Decreased hearing ability) Psychiatric exam: Present: normal affect, normal mood Skin exam: Present: warm, dry, intact, normal color. Absent: rash Course Vital Signs 09/24/21 09/24/21 18:13 20:34 Temperature 97.4 F L Pulse Rate 101 H 95 Respiratory 22 18 Rate Blood Pressure 151/62 143/80 O2 Sat by Pulse 95 98 Oximetry - Reevaluation(s) Reevaluation #1: 09/24/21 19:00 Today's EKG was compared with one dated 07/19/18 showing similar configuration. Chest Pain MDM - MDM Imaging reviewed as well as report no definitive evidence of PE no infiltrates seen. I did discuss findings with the patient and she got no relief from the initial pain medication she will get another pain medication she will be admitted for observation for cardiac evaluation. Pain control. I did discuss case with Dr. Tracey Disposition Clinical Impression: Atypical chest pain Disposition: ADMITTED IP TO THIS HOSP Condition: Fair Referrals: Diana Tracey DO [Primary Care Provider] - 1-2 days
[2021-09-24 19:17] LABS: Basophils % (A) 0 %; Eosinophils # (A) 0.1 k/uL (0-0.7); Eosinophils % (A) 1 %; HCT 41.7 % (34.0-46.0); HGB 14.1 gm/dL (11.4-16.0); Lymphocytes # (A) 1.2 k/uL (1.0-4.8); Lymphocytes % (A) 13 %; MCH 32.9 pg (25.0-35.0); MCHC 33.8 g/dL (31.0-37.0); MCV 97.4 fL (80.0-100.0); Mean Platelet Volume 9.3; Monocytes # (A) 0.6 k/uL (0-1.0); Monocytes % (A) 7 %; Neutrophils % (A) 77 %; Platelet Count 236 k/uL (150-450); RBC 4.29 m/uL (3.80-5.40); RDW 12.9 % (11.5-15.5); WBC 9.1 k/uL (3.8-10.6)
[2021-09-24 19:29] LABS: Albumin 4.2 g/dL (3.5-5.0); Calcium 9.9 mg/dL (8.4-10.2); Magnesium 1.8 mg/dL (1.6-2.3); Potassium 3.7 mmol/L (3.5-5.1); Total Bilirubin 0.8 mg/dL (0.2-1.3); Total Protein 7.5 g/dL (6.3-8.2)
[2021-09-24 19:32] LABS: INR 1.1 (<1.2); Partial Thromboplastin Time 23.3 sec (22.0-30.0); Prothrombin Time 12.1 sec (9.0-12.0)
[2021-09-24] MEDS ORDERED: KETOROLAC 15 MG/ML 1 ML VIAL IVP STA (20:59)
--- NOTE | 2021-09-24 21:19 | CT ---
EXAMINATION TYPE: CT angio chest CT DLP: 352.8 mGycm, Automated exposure control for dose reduction was used. DATE OF EXAM: 09/24/2021 8:49 PM COMPARISON: . Chest radiograph from same day. Multiple CTs of the chest with most recent on 021. CLINICAL INDICATION:Female, 85 years old with history of PE suspected; PE SUSPECTED TECHNIQUE/CONTRAST: CTA scan of the thorax is performed with IV Contrast, patient injected with 100ML mL of Isovue 300, p ulmonary embolism protocol. MIP images are created and reviewed. FINDINGS: Pulmonary Artery: There is no evidence for a central filling defect within the pulmonary vasculature to suggest acute pulmonary embolism. Limited evaluation of the segmental and subsegmental branches se condary to bolus timing. The pulmonary artery is of normal size. Lungs/Pleura: Motion limits evaluation of lung parenchyma. There is streaky atelectasis/scarring seen most pronounced in the lung bases. No focal consolidation, pneumothorax or pleural effusion. There i s intralobular septal thickening. Airway: Large airways are patent. Heart: Heart is enlarged for size. Vasculature: No evidence of aortic aneurysm. Mediastinum: No gross evidence of adenopathy. Musculoskeletal: No acute osseous abnormalities Soft Tissues: Unremarkable. Lower neck: No significant findings. Upper Abdomen: Left renal cysts the largest partially visualized measuring up to 42 mm . Lymph node n ear the right hepatic lobe in the spine is unchanged from prior measuring 8 mm in short axis. The gal lbladder is surgically absent.. IMPRESSION: 1. No evidence of central pulmonary embolism. Limited evaluation of the segmental and subsegmental br anches. 2. Cardiomegaly with pulmonary vascular congestion correlate with serum BNP for congestive heart fail ure.
--- NOTE | 2021-09-24 21:20 | XR ---
EXAMINATION TYPE: XR chest 2V DATE OF EXAM: 09/24/2021 8:52 PM COMPARISON:CT chest from same date TECHNIQUE: XR chest 2V Portable AP radiograph of the chest.. CLINICAL INDICATION:Female, 85 years old with history of Chest Pain; FINDINGS: Lungs/Pleura: There is no evidence of pleural effusion, focal consolidation, or pneumothorax. Pulmonary vascularity: Pulmonary vascular congestion. Heart/mediastinum: Cardiomediastinal silhouette is enlarged. Musculoskeletal: No acute osseous pathology. IMPRESSION: Cardiomegaly and mild pulmonary vascular congestion. Correlate with BNP for congestive heart failure.
[2021-09-24] MEDS ORDERED: HYDROmorphone 1 MG/ML 1 ML SYRINGE IVP STA (21:24)
[2021-09-24] MEDS ORDERED: MORPHINE SULFATE 4 MG/ML SYRINGE IV PRN (21:28)
[2021-09-24] MEDS ORDERED: NITROGLYCERIN SL TABS 0.4 MG TAB SUBLINGUAL PRN (21:28)
--- NOTE | 2021-09-24 21:32 | ED ---
Medical Decision Making - Lab Data Result diagrams: 09/24/21 19:11 09/24/21 19:11 Lab Results 09/24/21 09/24/21 09/24/21 Range/Units 19:11 19:11 19:11 WBC 9.1 (3.8-10.6) k/uL RBC 4.29 (3.80-5.40) m/uL Hgb 14.1 (11.4-16.0) gm/dL Hct 41.7 (34.0-46.0) % MCV 97.4 (80.0-100.0) fL MCH 32.9 (25.0-35.0) pg MCHC 33.8 (31.0-37.0) g/dL RDW 12.9 (11.5-15.5) % Plt Count 236 (150-450) k/uL MPV 9.3 Neutrophils % 77 % Lymphocytes % 13 % Monocytes % 7 % Eosinophils % 1 % Basophils % 0 % Neutrophils # 7.0 (1.3-7.7) k/uL Lymphocytes # 1.2 (1.0-4.8) k/uL Monocytes # 0.6 (0-1.0) k/uL Eosinophils # 0.1 (0-0.7) k/uL Basophils # 0.0 (0-0.2) k/uL PT 12.1 H (9.0-12.0) sec INR 1.1 (<1.2) APTT 23.3 (22.0-30.0) sec D-Dimer 1.20 H (<0.60) mg/L FEU Sodium 138 (137-145) mmol/L Potassium 3.7 (3.5-5.1) mmol/L Chloride 105 (98-107) mmol/L Carbon Dioxide 24 (22-30) mmol/L Anion Gap 9 mmol/L BUN 26 H (7-17) mg/dL Creatinine 0.78 (0.52-1.04) mg/dL Est GFR (CKD-EPI)AfAm 81 (>60 ml/min/1.73 sqM) Est GFR (CKD-EPI)NonAf 70 (>60 ml/min/1.73 sqM) Glucose 170 H (74-99) mg/dL Calcium 9.9 (8.4-10.2) mg/dL Magnesium 1.8 (1.6-2.3) mg/dL Total Bilirubin 0.8 (0.2-1.3) mg/dL AST 27 (14-36) U/L ALT 21 (4-34) U/L Alkaline Phosphatase 84 (38-126) U/L Troponin I (0.000-0.034) ng/mL NT-Pro-B Natriuret Pep pg/mL Total Protein 7.5 (6.3-8.2) g/dL Albumin 4.2 (3.5-5.0) g/dL Lipase 154 (23-300) U/L 09/24/21 09/24/21 Range/Units 19:11 19:11 WBC (3.8-10.6) k/uL RBC (3.80-5.40) m/uL Hgb (11.4-16.0) gm/dL Hct (34.0-46.0) % MCV (80.0-100.0) fL MCH (25.0-35.0) pg MCHC (31.0-37.0) g/dL RDW (11.5-15.5) % Plt Count (150-450) k/uL MPV Neutrophils % % Lymphocytes % % Monocytes % % Eosinophils % % Basophils % % Neutrophils # (1.3-7.7) k/uL Lymphocytes # (1.0-4.8) k/uL Monocytes # (0-1.0) k/uL Eosinophils # (0-0.7) k/uL Basophils # (0-0.2) k/uL PT (9.0-12.0) sec INR (<1.2) APTT (22.0-30.0) sec D-Dimer (<0.60) mg/L FEU Sodium (137-145) mmol/L Potassium (3.5-5.1) mmol/L Chloride (98-107) mmol/L Carbon Dioxide (22-30) mmol/L Anion Gap mmol/L BUN (7-17) mg/dL Creatinine (0.52-1.04) mg/dL Est GFR (CKD-EPI)AfAm (>60 ml/min/1.73 sqM) Est GFR (CKD-EPI)NonAf (>60 ml/min/1.73 sqM) Glucose (74-99) mg/dL Calcium (8.4-10.2) mg/dL Magnesium (1.6-2.3) mg/dL Total Bilirubin (0.2-1.3) mg/dL AST (14-36) U/L ALT (4-34) U/L Alkaline Phosphatase (38-126) U/L Troponin I <0.012 (0.000-0.034) ng/mL NT-Pro-B Natriuret Pep 290 pg/mL Total Protein (6.3-8.2) g/dL Albumin (3.5-5.0) g/dL Lipase (23-300) U/L Disposition Clinical Impression: Atypical chest pain Disposition: ADMITTED IP TO THIS HOSP Condition: Fair Referrals: Diana Tracey DO [Primary Care Provider] - 1-2 days Decision Date: 09/24/21 Decision Time: 21:10
[2021-09-24] MEDS ORDERED: FUROSEMIDE 40 MG TAB PO SCH (21:45)
[2021-09-24] MEDS: ARTIFICIAL TEARS-HYPROMELLOSE DROPS 15 ML BTL BOTH EYES SCH (22:35)
[2021-09-24] MEDS: SODIUM CHLORIDE 0.9% 1,000 ML IV SCH (22:36)
[2021-09-25] MEDS ORDERED: ASPIRIN 325 MG TAB PO SCH (09:00)
[2021-09-25] MEDS: ARTIFICIAL TEARS-HYPROMELLOSE DROPS 15 ML BTL BOTH EYES SCH ×2 (09:29→16:14)
[2021-09-25] MEDS: ASPIRIN 81 MG PO SCH (09:40)
[2021-09-25] MEDS: lisinopriL 20 MG TAB PO SCH (09:40)
--- NOTE | 2021-09-25 09:47 | P.CRDCN ---
History of Present Illness Consult date: 09/25/21 History of present illness: HISTORY OF PRESENT ILLNESS: This is a 85-year-old female with a past medical history significant for hypertension, hyperlipidemia, and CVA 2. 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 We have been asked to see the patient in consultation for chest pain. Patient examined at the bedside. Patient states on Friday she began having pain in the middle of her chest. She states she was just walking around her house when it started. She denies any heavy lifting or excessive exertion. She states the pain was on both sides of her chest and in between her shoulder blades. She also states the pain went into her jaw and in her right arm. She states the pain was constant until yesterday so she decided to come into the emergency room for further evaluation. She currently rates her pain a 4/10. She does report the pain is worse with a deep breath. She also reports tenderness with chest wall palpation. She denies having any previous cardiac history. She denies ever having a stress test or a cardiac catheterization. * EKG reveals sinus mechanism with no signs of acute ischemia * Chest xray cardiomegaly and mild pulmonary vascular congestion. * Chest CTA: Negative for pulmonary embolism. Cardiomegaly with pulmonary vascular congestion. * Laboratory data: WBC 9.1. Hemoglobin 14.1. Platelet count 236. D-dimer 1.20. Sodium 138. Potassium 3.7. BUN 26. Creatinine 0.78. Magnesium 1.8. Troponin negative 3. ProBNP 290. * Current home cardiac medications include Lipitor 10 mg Friday and , La six 40 mg Friday and , lisinopril 40 mg daily, and Lasix 40 mg on Friday and * Most recent echocardiogram obtained in 2019 revealed ejection fraction 55-60%, [id number] MR, mild TR REVIEW OF SYSTEMS: At the time of my exam: CONSTITUTIONAL: Denies fever or chills. HEENT: Denies blurred vision, vision changes, or eye pain. Denies hemoptysis CARDIOVASCULAR: Denies chest pain. Denies orthopnea. Denies PND. Denies palpitations RESPIRATORY: Denies shortness of breath. GASTROINTESTINAL: Denies abdominal pain. Denies nausea or vomiting. HEMATOLOGIC: Denies bleeding disorders. GENITOURINARY: Denies any blood in urine. SKIN: Denies pruitis. Denies rash. PHYSICAL EXAM: VITAL SIGNS: Reviewed. GENERAL: Well-developed in no acute distress. HEENT: Head is normocephalic. Pupils are equal, round. Sclerae anicteric. Mucous membranes of the mouth are moist. Neck supple. No JVD or thyromegaly LUNGS: Respirations even and unlabored. Lungs essentially clear to auscultation bilaterally. HEART: Regular rate and rhythm. S1 and S2 heard. Systolic murmur noted. ABDOMEN: Soft. Nondistended. Nontender. EXTREMITIES: Normal range of motion. No clubbing or cyanosis. Peripheral pulses intact. Trace lower extremity edema NEUROLOGIC: Awake and alert. Oriented x 3. ASSESSMENT: Chest pain, with typical and atypical features, troponin negative 3 Hypertension Hyperlipidemia History of CVA 2 PLAN: Obtain 2D echo to assess cardiac structure and function Resume home cardiac medications Add metoprolol 12.5mg BID, aspirin 81mg daily, and lipitor 20mg at HS Continue telemetry monitoring Further recommendations pending evaluation by Dr. Baldwin Nurse practitioner note has been reviewed by physician. Signing provider agrees with the documented findings, assessment, and plan of care. 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 Hemorrhoidectomy, cat surg anali eyes,colonoscopy. 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 Past Anesthesia/Blood Transfusion Reactions: Motion Sickness Additional Past Anesthesia/Blood Transfusion Reaction / Comment(s): BLOOD TRANSFUSION (5 UNITS) POST HYSTERECTOMY, NO REACTIONS Past Psychological History: No Psychological Hx Reported Smoking Status: Never smoker Past Alcohol Use History: None Reported Past Drug Use History: None Reported - Past Family History Sister(s) Family Medical History: Cancer Additional Family Medical History / Comment(s): colon mets to pancreas Medications and Allergies Home Medications Medication Instructions Recorded Confirmed Type Atorvastatin [Lipitor] 10 mg PO MOTH@2100 08/26/14 09/24/21 History lisinopriL 40 mg PO DAILY 08/26/14 09/24/21 History Propylene Glycol [Systane Complete] 1 drop BOTH EYES TID 02/08/19 09/24/21 History Furosemide [Lasix] 40 mg PO MOTH 08/03/19 09/24/21 History Ergocalciferol [Vitamin D2 (1250 1,250 mcg PO SA@2100 04/19/21 09/24/21 History Mcg = 74917 Iu)] Loratadine [Claritin] 10 mg PO HS 09/24/21 09/24/21 History Allergies Allergy/AdvReac Type Severity Reaction Status Date / Time cephalexin Allergy Rash/Hives Verified 09/24/21 19:46 clindamycin Allergy Rash/Hives Verified 09/24/21 19:46 latex Allergy Rash/Hives Verified 09/24/21 19:46 Penicillins Allergy Rash/Hives Verified 09/24/21 19:46 Sulfa (Sulfonamide Allergy Rash/Hives Verified 09/24/21 19:46 Antibiotics) TAPE Allergy RASH, Uncoded 09/24/21 19:46 PAPER TAPE IS OK Physical Exam Vitals: Vital Signs Temp Pulse Resp BP Pulse Ox 09/25/21 06:00 83 22 115/56 92 L 09/25/21 04:00 84 18 112/52 93 L 09/25/21 01:00 76 18 120/74 96 09/25/21 00:00 95 09/24/21 23:26 81 18 121/61 93 L 09/24/21 22:37 88 18 132/65 98 09/24/21 20:34 95 18 143/80 98 09/24/21 18:13 97.4 F L 101 H 22 151/62 95 Intake and Output 09/24/21 09/25/21 09/25/21 22:59 06:59 14:59 Other: Weight 81.647 kg Results 09/24/21 19:11 09/24/21 19:11 Cardiac Enzymes 09/24/21 09/24/21 09/24/21 Range/Units 19:11 19:11 22:03 AST 27 (14-36) U/L Troponin I <0.012 <0.012 (0.000-0.034) ng/mL 09/25/21 Range/Units 00:21 AST (14-36) U/L Troponin I <0.012 (0.000-0.034) ng/mL Coagulation 09/24/21 Range/Units 19:11 PT 12.1 H (9.0-12.0) sec APTT 23.3 (22.0-30.0) sec CBC 09/24/21 Range/Units 19:11 WBC 9.1 (3.8-10.6) k/uL RBC 4.29 (3.80-5.40) m/uL Hgb 14.1 (11.4-16.0) gm/dL Hct 41.7 (34.0-46.0) % Plt Count 236 (150-450) k/uL Comprehensive Metabolic Panel 09/24/21 Range/Units 19:11 Sodium 138 (137-145) mmol/L Potassium 3.7 (3.5-5.1) mmol/L Chloride 105 (98-107) mmol/L Carbon Dioxide 24 (22-30) mmol/L BUN 26 H (7-17) mg/dL Creatinine 0.78 (0.52-1.04) mg/dL Glucose 170 H (74-99) mg/dL Calcium 9.9 (8.4-10.2) mg/dL AST 27 (14-36) U/L ALT 21 (4-34) U/L Alkaline Phosphatase 84 (38-126) U/L Total Protein 7.5 (6.3-8.2) g/dL Albumin 4.2 (3.5-5.0) g/dL Current Medications Generic Name Dose Route Start Last Admin Trade Name Freq PRN Reason Stop Dose Admin Artificial Tears 1 drops 09/24/21 22:00 09/24/21 22:35 Artificial Tears-Hypromellose Drops 15 Ml Btl BOTH EYES 1 drops TID GUANAKITO Administration Aspirin 325 mg 09/25/21 09:00 Aspirin 325 Mg Tab PO DAILY GUANAKITO Atorvastatin Calcium 10 mg 09/27/21 21:00 Atorvastatin 10 Mg Tab PO MOTH@2100 [facility] Ergocalciferol 1,250 mcg 09/29/21 21:00 Ergocalciferol 1,250 Mcg (50,000 Iu) Capsule PO SA@2100 [facility] Furosemide 40 mg 09/24/21 21:45 09/24/21 22:35 Furosemide 40 Mg Tab PO 40 mg MoTh@0900 GUANAKITO Administration Sodium Chloride 1,000 mls @ 100 mls/hr 09/24/21 21:30 09/24/21 22:36 Saline 0.9% IV 100 mls/hr .Q10H GUANAKITO Administration Lisinopril 40 mg 09/25/21 09:00 Lisinopril 20 Mg Tab PO DAILY GUANAKITO Loratadine 10 mg 09/25/21 21:00 Loratadine 10 Mg Tab PO HS GUANAKITO Morphine Sulfate 4 mg 09/24/21 21:28 Morphine Sulfate 4 Mg/Ml Syringe IV Q5M PRN Chest Pain Nitroglycerin 0.4 mg 09/24/21 21:28 Nitroglycerin Sl Tabs 0.4 Mg Tab SUBLINGUAL Q5M PRN Chest Pain Intake and Output 09/24/21 09/25/21 09/25/21 22:59 06:59 14:59 Other: Weight 81.647 kg 09/24/21 19:11 09/24/21 19:11
[2021-09-25 10:50] LABS: Chol/HDL Ratio 2.24 Ratio; LDL Cholesterol,Calculated 63.4 mg/dL (0.0-131.0)
[2021-09-25] MEDS: SODIUM CHLORIDE 0.9% 1,000 ML IV SCH ×2 (11:18→16:42)
[2021-09-25] MEDS: METOPROLOL TARTRATE 12.5 MG TAB PO SCH ×2 (14:53→21:53)
[2021-09-25] MEDS: KETOROLAC 15 MG/ML 1 ML VIAL IVP SCH (16:41)
--- NOTE | 2021-09-25 19:03 | ECHOF ---
Referral Reason:Chest pain MEASUREMENTS -------- HEIGHT: 160.0 cm WEIGHT: 81.6 kg BP: 115/56 RVIDd: 2.8 cm (< 3.3) IVSd: 1.3 cm (0.6 - 1.1) LVIDd: 3.4 cm (3.9 - 5.3) LVPWd: 1.4 cm (0.6 - 1.1) IVSs: 1.6 cm LVIDs: 1.6 cm LVPWs: 1.6 cm LAESV Index (A-L): 50.58 ml/m Ao Diam: 3.1 cm (2.0 - 3.7) AV Cusp: 2.2 cm (1.5 - 2.6) LA Diam: 5.3 cm (2.7 - 3.8) MV E Shorty: 0.45 m/s MV DecT: 203 ms MV A Shorty: 0.95 m/s MV E/A Ratio: 0.47 AV maxP.08 mmHg AV meanP.89 mmHg RAP: 5.00 mmHg RVSP: 25.59 mmHg FINDINGS -------- Sinus rhythm. This was a technically adequate study. The left ventricular size is normal. There is mild concentric left ventricular hypertrophy. Overa ll left ventricular systolic function is normal with, an EF between 55 - 60 %. Possible LVOT Obstru ction. The right ventricle is normal in size. LA is severely dilated >40 ml/m2 The right atrial size is normal. Interatrial and interventricular septum intact. Aortic valve is trileaflet and is mildly thickened. There is no evidence of aortic regurgitation. There is no evidence of aortic stenosis. The maximum velocity across the aortic valve is 1.81m/s. Peak/mean gradient across the Aortic Valve is 13.08mmHg / 6.89mmHg. Mild mitral annular calcification present. Moderate mitral regurgitation is present. Mild tricuspid regurgitation present. Right ventricular systolic pressure is normal at < 35 mmHg. The right ventricular systolic pressure, as measured by Doppler, is 25.59mmHg. There is no pulmonic regurgitation present. The aortic root size is normal. IVC Not well visulized. There is no pericardial effusion. CONCLUSIONS -------- 1. There is mild concentric left ventricular hypertrophy. 2. Overall left ventricular systolic function is normal with, an EF between 55 - 60 %. 3. Possible LVOT Obstruction. 4. LA is severely dilated >40 ml/m2 5. Aortic valve is trileaflet and is mildly thickened. 6. Mild mitral annular calcification present. 7. Moderate mitral regurgitation is present. 8. Mild tricuspid regurgitation present. RECESSING MACHINE OPERATOR: Amelia aPul RDCS
[2021-09-25] MEDS ORDERED: LORATADINE 10 MG TAB PO SCH (21:00)
[2021-09-25] MEDS ORDERED: ATORVASTATIN 20 MG TAB PO SCH (21:00)
--- NOTE | 2021-09-25 23:45 | P.HPIM ---
History of Present Illness H&P Date: 09/25/21 Chief Complaint: chest pain Melody Hernández is a 85 yo F with PMH of HTN, HLD, CVA who presented to the ED complaining of chest pain over the past 2 days. She states that yesterday while at her house she developed a sharp pain behind her sternum radiating into her back. She denies associated shortness of breath or diaphoresis. She denies tobacco use. On presentation BP 150/60, labs remarkable for d-dimer 1.20, CTA no acute process. Troponin negative. EKG NSR. Review of Systems All systems: negative Constitutional: Reports malaise, Reports weakness, Denies chills, Denies fever Eyes: denies blurred vision, denies pain Ears, nose, mouth and throat: Denies headache, Denies sore throat Cardiovascular: Reports chest pain, Denies shortness of breath Respiratory: Denies cough Gastrointestinal: Denies abdominal pain, Denies diarrhea, Denies nausea, Denies vomiting Genitourinary: Denies dysuria, Denies hematuria Musculoskeletal: Denies myalgias Integumentary: Denies pruritus, Denies rash Neurological: Denies numbness, Denies weakness Psychiatric: Denies anxiety, Denies depression Endocrine: Denies fatigue, Denies weight change Past Medical History Past Medical History: Cancer, CVA/TIA, Diabetes Mellitus, Eye Disorder, Hyperlipidemia, Hypertension, Osteoarthritis (OA), Syncope Additional Past Medical History / Comment(s): 2010 CVA/pt states if she is frustrated she will occasionally have difficulty finding her words, R eye decreased vision pt states she was told d/t CVA and diabetes, NIDDM type II/diet controlled, neuropathy bilateral feet, currently has L breast/L axillae "spots" being monitored, duodenal ulcer, benign colon polyps, diverticular disease, anemia, migraines, skin cancer with removal, pt does not know why she takes lasix. History of Any Multi-Drug Resistant Organisms: None Reported Past Surgical History: Appendectomy, Cholecystectomy, Hysterectomy, Joint Replacement, Orthopedic Surgery Additional Past Surgical History / Comment(s): Surgery for gallbladder re moval/hiatal hernia and gastric ulcer at same time, EGDs, colonoscopies, hemorrhoidectomy, skin cancer removed, skin lesion removals, neil's cyst removed from posterior knee, total R knee arthroplasty, bilateral cataracts removed/lens implants. Past Anesthesia/Blood Transfusion Reactions: Motion Sickness Additional Past Anesthesia/Blood Transfusion Reaction / Comment(s): BLOOD TRANSFUSION (5 UNITS) POST HYSTERECTOMY, NO REACTIONS Smoking Status: Former smoker - Past Family History Sister(s) Family Medical History: Cancer Additional Family Medical History / Comment(s): colon mets to pancreas Medications and Allergies Home Medications Medication Instructions Recorded Confirmed Type Atorvastatin [Lipitor] 10 mg PO MOTH@2100 08/26/14 09/24/21 History lisinopriL 40 mg PO DAILY 08/26/14 09/24/21 History Propylene Glycol [Systane Complete] 1 drop BOTH EYES TID 02/08/19 09/24/21 Hist ory Furosemide [Lasix] 40 mg PO MOTH 08/03/19 09/24/21 History Ergocalciferol [Vitamin D2 (1250 1,250 mcg PO SA@2100 04/19/21 09/24/21 History Mcg = 39652 Iu)] Loratadine [Claritin] 10 mg PO HS 09/24/21 09/24/21 History Allergies Allergy/AdvReac Type Severity Reaction Status Date / Time cephalexin Allergy Rash/Hives Verified 09/24/21 19:46 clindamycin Allergy Rash/Hives Verified 09/24/21 19:46 latex Allergy Rash/Hives Verified 09/24/21 19:46 Penicillins Allergy Rash/Hives Verified 09/24/21 19:46 Sulfa (Sulfonamide Allergy Rash/Hives Verified 09/24/21 19:46 Antibiotics) TAPE Allergy RASH, Uncoded 09/24/21 19:46 PAPER TAPE IS OK Physical Exam Vitals: Vital Signs Temp Pulse Pulse Resp BP BP Pulse Ox 09/25/21 22:16 98.6 F 80 16 110/57 93 L 09/25/21 20:00 97.6 F 70 18 145/68 93 L 09/25/21 14:31 98.7 F 83 18 104/64 95 09/25/21 10:55 123/64 09/25/21 09:21 98.2 F 88 18 129/68 94 L 09/25/21 08:10 84 16 103/56 93 L 09/25/21 06:00 83 22 115/56 92 L 09/25/21 04:00 84 18 112/52 93 L 09/25/21 01:00 76 18 120/74 96 09/25/21 00:00 95 09/24/21 23:26 81 18 121/61 93 L Intake and Output 09/25/21 09/25/21 09/26/21 14:59 22:59 06:59 Intake Total 118 Balance 118 Intake: Oral 118 Other: # Voids 2 2 Weight 81.647 kg General: well nourished, well developed, NAD. Vitals reviewed Eyes: PERRL, EOMI, conjunctiva normal HENT: normocephalic, mucus membranes moist Neck: supple, no JVD Lungs: normal respiratory effort, no wheezes or rales CV: Regular rate and rhythm, no murmur. Peripheral pulses 2+ Abdomen: soft, nondistended, no organomegaly Lymph: no cervical or axillary LAD Skin: warm and dry. Neuro: A&Ox3, normal mood and affect Results CBC & Chem 7: 09/24/21 19:11 09/24/21 19:11 Labs: Abnormal Lab Results - Last 24 Hours (Table) 09/25/21 Range/Units 07:16 HDL Cholesterol 61.60 H (40.00-60.00) mg/dL Thrombosis Risk Factor Assmnt - Choose All That Apply Any of the Below Risk Factors Present?: Yes Each Factor Represents 1 point: Obesity (BMI >25) Other Risk Factors: Yes Each Risk Factor Represents 2 Points: Malignancy Each Risk Factor Represents 3 Points: Age 75 years or older Other congenital or acquired thrombophilia - If yes, enter type in comment: No Thrombosis Risk Factor Assessment Total Risk Factor Score: 6 Thrombosis Risk Factor Assessment Level: High Risk Assessment and Plan Plan: 1. Chest pain. ACS ruled out. Echocardiogram. Cardiology consult for further evaluation. Pain control 2. HTN. Continue lisinopril 3. Hx CVA. Continue with ASA, lipitor
[2021-09-26] MEDS: KETOROLAC 15 MG/ML 1 ML VIAL IVP SCH ×2 (00:04→05:22)
[2021-09-26] MEDS: ARTIFICIAL TEARS-HYPROMELLOSE DROPS 15 ML BTL BOTH EYES SCH ×2 (00:04→11:01)
[2021-09-26] MEDS: SODIUM CHLORIDE 0.9% 1,000 ML IV SCH (02:46)
[2021-09-26] MEDS ORDERED: CAFFEINE CITRATE 60 MG/3 ML VIAL IV PRN (06:00)
[2021-09-26] MEDS ORDERED: REGADENOSON 0.4 MG/5 ML SYRINGE IV PRN (06:00)
[2021-09-26] MEDS ORDERED: AMINOPHYLLINE 500 MG/20 ML VIAL IV PRN (06:00)
--- NOTE | 2021-09-26 10:36 | P.PN ---
Subjective Progress Note Date: 09/26/21 HISTORY OF PRESENT ILLNESS: This is a 85-year-old female with a past medical history significant for hypertension, hyperlipidemia, and CVA 2. Patient does not follow with a director equipment. We have been asked to see the patient in consultation for chest pain. Patient examined at the bedside. Patient states on Friday she began having pain in the middle of her chest. She states she was just walking around her house when it started. She denies any heavy lifting or excessive exertion. She states the pain was on both sides of her chest and in between her shoulder blades. She also states the pain went into her jaw and in her right arm. She states the pain was constant until yesterday so she decided to come into the emergency room for further evaluation. She currently rates her pain a 4/10. She does report the pain is worse with a deep breath. She also reports tenderness with chest wall palpation. She denies having any previous cardiac history. She denies ever having a stress test or a cardiac catheterization. * EKG reveals sinus mechanism with no signs of acute ischemia * Chest xray cardiomegaly and mild pulmonary vascular congestion. * Chest CTA: Negative for pulmonary embolism. Cardiomegaly with pulmonary vascular congestion. * Laboratory data: WBC 9.1. Hemoglobin 14.1. Platelet count 236. D-dimer 1.20. Sodium 138. Potassium 3.7. BUN 26. Creatinine 0.78. Magnesium 1.8. Troponin negative 3. ProBNP 290. * Current home cardiac medications include Lipitor 10 mg Friday and , Lasix 40 mg Friday and , lisinopril 40 mg daily, and Lasix 40 mg on Friday and * Most recent echocardiogram obtained in 2019 revealed ejection fraction 55-60%, [id number] MR, mild TR 09/26/2021 Patient examined this morning at the bedside. Patient states that the chest pain she was having her brought her to the hospital has resolved. She does report some chest tenderness with palpation on the left side. She denies luke rtness of breath. Troponins are negative 3. Echocardiogram completed revealing ejection fraction 55-60%, moderate MR, and mild TR PHYSICAL EXAM: VITAL SIGNS: Reviewed. GENERAL: Well-developed in no acute distress. HEENT: Head is normocephalic. Pupils are equal, round. Sclerae anicteric. Mucous membranes of the mouth are moist. Neck supple. No JVD or thyromegaly LUNGS: Respirations even and unlabored. Lungs essentially clear to auscultation bilaterally. HEART: Regular rate and rhythm. S1 and S2 heard. Systolic murmur noted. ABDOMEN: Soft. Nondistended. Nontender. EXTREMITIES: Normal range of motion. No clubbing or cyanosis. Peripheral pulses intact. Trace lower extremity edema NEUROLOGIC: Awake and alert. Oriented x 3. ASSESSMENT: Chest pain, with typical and atypical features, troponin negative 3 Hypertension Hyperlipidemia History of CVA 2 PLAN: Continue current cardiac medications Patient scheduled for Lexiscan stress test today, if negative, she may be discharged home from a cardiac standpoint Further recommendations pending patient's course Nurse practitioner note has been reviewed by physician. Signing provider agrees with the documented findings, assessment, and plan of care. Objective - Vital Signs Vital signs: Vital Signs Temp 97.5 F L 09/26/21 07:35 Pulse 68 09/26/21 07:35 Resp 15 09/26/21 07:35 BP 118/50 09/26/21 07:35 Pulse Ox 93 L 09/26/21 07:35 Intake & Output 09/25/21 09/26/21 09/26/21 18:59 06:59 18:59 Intake Total 118 Balance 118 Weight 81.647 kg Intake: Oral 118 Other: Voiding Method Toilet # Voids 2 2 - Labs CBC & Chem 7: 09/24/21 19:11 09/24/21 19:11 Labs: Abnormal Lab Results - Last 24 Hours (Table) 09/25/21 Range/Units 07:16 HDL Cholesterol 61.60 H (40.00-60.00) mg/dL
[2021-09-26 10:49] VITALS: BP 130/70; PULSE 71; RESP 16; TEMP 97.7
[2021-09-26] MEDS: METOPROLOL TARTRATE 12.5 MG TAB PO SCH (11:00)
[2021-09-26] MEDS: lisinopriL 20 MG TAB PO SCH (11:00)
[2021-09-26] MEDS: ASPIRIN 81 MG PO SCH (11:00)
--- NOTE | 2021-09-26 11:54 | NM ---
EXAMINATION TYPE: NM stress lexiscan cardiolite DATE OF EXAM: 09/26/2021 COMPARISON: CTA chest 2 days ago HISTORY: History of hypertension, stroke, tobacco use, hypercholesterolemia presents with chest pain and elevated d-dimer. TECHNIQUE: After the intravenous administration of 9.9 mCi Tc 99m Sestamibi - Cardiolite resting SPE CT images acquired 45 minutes post injection. The patient received 0.4mg Lexiscan, 24.9 mCi Tc 99m Sestamibi - Stress images obtained [address] injection FINDINGS: Review of stress and rest SPECT images demonstrates no distinct perfusion abnormality. Gated analysi s shows normal wall motion with an estimated left ventricular ejection fraction of 69 %. IMPRESSION: No scintigraphic evidence for reversible ischemia.
--- NOTE | 2021-09-26 14:22 | P.DS ---
Providers Date of admission: 09/24/21 21:28 Expected date of discharge: 09/26/21 Attending physician: James Tracey MD Consults: 09/24/21 21:28 Consult Physician Urgent Consulting Provider: Blas Novak Consult Reason/Comments: Atypical chest pain Do you want consulting provider notified?: Yes, Notify in am Primary care physician: Diana Tracey [facility] Course: Final Diagnoses: Chest pain, ACS ruled out. Stress test pending Hypertension History of CVA Hospital course:Melody Hernández is a 85 yo F with PMH of HTN, HLD, CVA who presented to the ED complaining of chest pain over the past 2 days. She states that yesterday while at her house she developed a sharp pain behind her sternum radiating into her back. She denies associated shortness of breath or diaphoresis. She denies tobacco use. On presentation BP 150/60, labs remarkable for d-dimer 1.20, CTA no acute process. Troponin negative. EKG NSR. Echo reported normal LV function, EF between 55 and 60%, possible LVOT obstruction , LA severely dilated greater than 40 , moderate mitral regurgitation .Significant clinical improvement. Denies chest pain, palpitations or shortness of breath. Sternum suspected pain resolved with Toradol. Patient will be discharged home today in a stable condition with guarded prognosis pending stress test, final DC recommendations and clearance per cardiology. The impression and plan of care has been dictated as directed. : I performed a history and examination of this patient, discussed the same with the dictator. I agree with the dictator's note ,documented as a scribe. Any additional findings or plans will be noted. Patient Condition at Discharge: Stable Plan - Discharge Summary Discharge Rx Participant: No New Discharge Prescriptions: Continue Atorvastatin [Lipitor] 10 mg PO MOTH@2100 lisinopriL 40 mg PO DAILY Propylene Glycol [Systane Complete] 1 drop BOTH EYES TID Furosemide [Lasix] 40 mg PO MOTH Ergocalciferol [Vitamin D2 (1250 Mcg = 15863 Iu)] 1,250 mcg PO SA@2100 Loratadine [Claritin] 10 mg PO HS Discharge Medication List Atorvastatin [Lipitor] 10 mg PO MOTH@2100 08/26/14 [History] lisinopriL 40 mg PO DAILY 08/26/14 [History] Propylene Glycol [Systane Complete] 1 drop BOTH EYES TID 02/08/19 [History] Furosemide [Lasix] 40 mg PO MOTH 08/03/19 [History] Ergocalciferol [Vitamin D2 (1250 Mcg = 02352 Iu)] 1,250 mcg PO SA@2100 04/19/21 [History] Loratadine [Claritin] 10 mg PO HS 09/24/21 [History] Follow up Appointment(s)/Referral(s): Diana Tracey DO [Primary Care Provider] - 09/27/21 Patient Instructions/Handouts: Chest Pain (DC) Activity/Diet/Wound Care/Special Instructions: activity as tolerated heart healthy diet as tolerated Discharge Disposition: HOME SELF-CARE
--- NOTE | 2021-09-26 14:23 | EST ---
EXERCISE STRESS AGE: 85 SEX: F HT: 5'3" WT: 180 lbs. PROTOCOL: Lexiscan STAGE: NA DURATION OF EXERCISE: NA HEART RATE REST: 70 BLOOD PRESSURE REST: 134/60 MAXIMUM HEART RATE ACHIEVED: 81 MAXIMUM BLOOD PRESSURE: 134/60 85% MPHR: 116 100% MPHR: 136 METS: NA INDICATIONS: Chest pain CLINICAL INFORMATION: Baseline rhythm is sinus mechanism, rate of 70, normal axis and intervals, normal echocardiogram. Baseline blood pressure 134/60 mmHg. Patient received an injection of Lexiscan. Electrocardiographic monitoring revealed occasional PVCs. There was no evidence of diagnostic ischemic ST deviation. Cardiolite was injected per protocol. CONCLUSION: 1. Nondiagnostic electrocardiograph stress testing. 2. Occasional PVCs. 3. Nuclear images will be reported separately. MMODL / IJN: [id number] /
[2021-09-27] MEDS ORDERED: ATORVASTATIN 10 MG TAB PO SCH (21:00)
[2021-09-29] MEDS ORDERED: ERGOCALCIFEROL 1,250 MCG (50,000 IU) CAPSULE PO SCH (21:00)
== END 2021-09-26 12:46 | disposition home or self-care (01) ==
LOC: EC 18:11 → 6NMEDSUR 21:28
PROVIDERS: ADMIT Family Medicine; ATTEND Family Medicine
DX: R07.89 Other chest pain (principal); I49.3 Ventricular premature depolarization; I11.9 Hypertensive heart disease without heart failure; R09.89 Other specified symptoms and signs involving the circulatory and respiratory systems; E78.5 Hyperlipidemia, unspecified; M19.90 Unspecified osteoarthritis, unspecified site; K57.90 Diverticulosis of intestine, part unspecified, without perforation or abscess without bleeding; E11.40 Type 2 diabetes mellitus with diabetic neuropathy, unspecified; I08.1 Rheumatic disorders of both mitral and tricuspid valves; G43.909 Migraine, unspecified, not intractable, without status migrainosus; E66.9 Obesity, unspecified; Z68.31 Body mass index [BMI] 31.0-31.9, adult; Z79.899 Other long term (current) drug therapy; Z88.0 Allergy status to penicillin; Z88.1 Allergy status to other antibiotic agents; Z88.2 Allergy status to sulfonamides; Z91.040 Latex allergy status; Z91.048 Other nonmedicinal substance allergy status; Z86.73 Personal history of transient ischemic attack (TIA), and cerebral infarction without residual deficits; Z87.11 Personal history of peptic ulcer disease; Z97.4 Presence of external hearing-aid; Z85.828 Personal history of other malignant neoplasm of skin; Z86.010 Personal history of colon polyps; Z90.710 Acquired absence of both cervix and uterus; Z90.49 Acquired absence of other specified parts of digestive tract; Z96.651 Presence of right artificial knee joint; Z98.42 Cataract extraction status, left eye; Z98.41 Cataract extraction status, right eye; Z96.1 Presence of intraocular lens; Z87.891 Personal history of nicotine dependence; Z98.890 Other specified postprocedural states; Z80.0 Family history of malignant neoplasm of digestive organs
CPT/HCPCS: 96376 ×2; 96361; 96374; 96375; 99285; 36415; 93005 ×2; 93017; 93306; 85379; 83880; 80061; 80053; 83690; 83735; 84484 ×2; 85025; 85610; 85730; 71046; 71275; 78452; G0378 ×3; A9500; J1170; J2785; J1885 ×3; Q9967

== ENCOUNTER 2021-10-07 10:05 | Inpatient (IN) | payer MEDICARE ==
[2021-10-07] MEDS ORDERED: ASPIRIN 81 MG PO STA (10:20)
--- NOTE | 2021-10-07 10:23 | ED ---
General Adult HPI - General Chief complaint: Chest Pain Stated complaint: Chest pain Time Seen by Provider: 10/07/21 10:11 Source: patient, EMS, RN notes reviewed, old records reviewed (Including previous CT) Mode of arrival: EMS Limitations: no limitations - History of Present Illness Initial comments: Patient is a pleasant 85-year-old female presenting to the emergency department with concerns for chest discomfort. Discomfort is left sternal region. Discomfort feels like an ache. Patient also has discomfort of her back and a similar region, mid thoracic. Patient may feel slightly short of breath. No nausea. No diaphoresis. Patient does have history of similar symptoms a couple weeks ago and was at the hospital at that time. Patient states she has had minimal symptoms in between however discomfort is somewhat severe at this time. No leg pain or leg swelling. Patient did receive fentanyl by EMS without much improvement of symptoms. - Related Data Home Medications Medication Instructions Recorded Confirmed Atorvastatin [Lipitor] 10 mg PO MOTH@2100 08/26/14 09/24/21 lisinopriL 40 mg PO DAILY 08/26/14 09/24/21 Propylene Glycol [Systane Complete] 1 drop BOTH EYES TID 02/08/19 09/24/21 Furosemide [Lasix] 40 mg PO MOTH 08/03/19 09/24/21 Ergocalciferol [Vitamin D2 (1250 1,250 mcg PO SA@2100 04/19/21 09/24/21 Mcg = 68595 Iu)] Loratadine [Claritin] 10 mg PO HS 09/24/21 09/24/21 Previous Rx's Medication Instructions Recorded Ibuprofen [Motrin] 400 mg PO Q6HR PRN 7 Days #28 tab 09/29/21 Methocarbamol [Robaxin-750] 750 mg PO BID PRN 7 Days #14 tablet 09/29/21 Allergies Allergy/AdvReac Type Severity Reaction Status Date / Time cephalexin Allergy Rash/Hives Verified 10/07/21 10:15 clindamycin Allergy Rash/Hives Verified 10/07/21 10:15 latex Allergy Rash/Hives Verified 10/07/21 10:15 Penicillins Allergy Rash/Hives Verified 10/07/21 10:15 Sulfa (Sulfonamide Allergy Rash/Hives Verified 10/07/21 10:15 Antibiotics) TAPE Allergy RASH, Uncoded 09/29/21 09:18 PAPER TAPE IS OK Review of Systems ROS Statement: Those systems with pertinent positive or pertinent negative responses have been documented in the HPI. ROS Other: All systems not noted in ROS Statement are negative. Constitutional: Denies: fever Eyes: Denies: eye pain ENT: Denies: ear pain Respiratory: Denies: cough Cardiovascular: Reports: as per HPI, chest pain Endocrine: Denies: fatigue Gastrointestinal: Denies: abdominal pain Genitourinary: Denies: dysuria Musculoskeletal: Reports: as per HPI, back pain Skin: Denies: rash Neurological: Denies: weakness Past Medical History Past Medical History: Cancer, CVA/TIA, Diabetes Mellitus, Eye Disorder, Hyperlipidemia, Hypertension, Osteoarthritis (OA), Syncope Additional Past Medical History / Comment(s): 2010 CVA/pt states if she is frustrated she will occasionally have difficulty finding her words, R eye decreased vision pt states she was told d/t CVA and diabetes, NIDDM type II/diet controlled, neuropathy bilateral feet, currently has L breast/L axillae "spots" being monitored, duodenal ulcer, benign colon polyps, diverticular disease, anemia, migraines, skin cancer with removal, pt does not know why she takes lasix. History of Any Multi-Drug Resistant Organisms: None Reported Past Surgical History: Appendectomy, Cholecystectomy, Hysterectomy, Joint Replacement, Orthopedic Surgery Additional Past Surgical History / Comment(s): Surgery for gallbladder removal /hiatal hernia and gastric ulcer at same time, EGDs, colonoscopies, hemorrhoidectomy, skin cancer removed, skin lesion removals, neil's cyst removed from posterior knee, total R knee arthroplasty, bilateral cataracts removed/lens implants. Past Anesthesia/Blood Transfusion Reactions: Motion Sickness Additional Past Anesthesia/Blood Transfusion Reaction / Comment(s): BLOOD TRANSFUSION (5 UNITS) POST HYSTERECTOMY, NO REACTIONS Past Psychological History: No Psychological Hx Reported Smoking Status: Former smoker Past Alcohol Use History: None Reported Past Drug Use History: None Reported - Past Family History Sister(s) Family Medical History: Cancer Additional Family Medical History / Comment(s): colon mets to pancreas General Exam Limitations: no limitations General appearance: alert, in no apparent distress Head exam: Present: normocephalic Eye exam: Present: normal appearance Neck exam: Present: normal inspection Respiratory exam: Present: normal lung sounds bilaterally. Absent: chest wall tenderness Cardiovascular Exam: Present: regular rate, normal rhythm Expanded Peripheral pulses: 2+: Radial (R), Radial (L), Posterior Tibialis (R), Posterior Tibialis (L) GI/Abdominal exam: Present: soft. Absent: tenderness Extremities exam: Present: normal inspection. Absent: pedal edema, calf tenderness Back exam: Present: tenderness (Mild tenderness left mid thoracic region) Neurological exam: Present: alert Psychiatric exam: Present: normal affect, normal mood Skin exam: Present: normal color Course Vital Signs 10/07/21 10/07/21 10/07/21 10:05 10:48 11:29 Temperature 97.0 F L Pulse Rate 83 93 87 Respiratory 20 20 18 Rate Blood Pressure 164/85 109/56 O2 Sat by Pulse 89 L 94 L 91 L Oximetry EKG Findings - EKG Comments: EKG Findings:: Sinus rhythm with rate of 81. First-degree AV block MS 202. QRS 89. QT 363. QTC 411. Normal axis. Normal QRS. Inverted T waves inferior. Medical Decision Making - Medical Decision Making Patient reevaluated. Patient updated. Dr. Jonas esquivel for admission covering Dr. Norton. - Lab Data Result diagrams: 10/07/21 10:34 10/07/21 10:34 Lab Results 10/07/21 10/07/21 10/07/21 Range/Units 10:34 10:34 10:34 WBC 12.9 H (3.8-10.6) k/uL RBC 3.95 (3.80-5.40) m/uL Hgb 12.6 (11.4-16.0) gm/dL Hct 38.7 (34.0-46.0) % MCV 97.9 (80.0-100.0) fL MCH 32.0 (25.0-35.0) pg MCHC 32.7 (31.0-37.0) g/dL RDW 12.2 (11.5-15.5) % Plt Count 454 H (150-450) k/uL MPV 7.5 Neutrophils % 86 % Lymphocytes % 6 % Monocytes % 5 % Eosinophils % 2 % Basophils % 1 % Neutrophils # 11.1 H (1.3-7.7) k/uL Lymphocytes # 0.7 L (1.0-4.8) k/uL Monocytes # 0.6 (0-1.0) k/uL Eosinophils # 0.2 (0-0.7) k/uL Basophils # 0.1 (0-0.2) k/uL PT 12.7 H (9.0-12.0) sec INR 1.2 H (<1.2) APTT 24.1 (22.0-30.0) sec Sodium 133 L (137-145) mmol/L Potassium 4.3 (3.5-5.1) mmol/L Chloride 99 (98-107) mmol/L Carbon Dioxide 24 (22-30) mmol/L Anion Gap 10 mmol/L BUN 15 (7-17) mg/dL Creatinine 0.77 (0.52-1.04) mg/dL Est GFR (CKD-EPI)AfAm 82 (>60 ml/min/1.73 sqM) Est GFR (CKD-EPI)NonAf 71 (>60 ml/min/1.73 sqM) Glucose 176 H (74-99) mg/dL Calcium 8.7 (8.4-10.2) mg/dL Magnesium 1.9 (1.6-2.3) mg/dL Total Bilirubin 0.9 (0.2-1.3) mg/dL AST 48 H (14-36) U/L ALT 38 H (4-34) U/L Alkaline Phosphatase 131 H (38-126) U/L Troponin I (0.000-0.034) ng/mL Total Protein 6.8 (6.3-8.2) g/dL Albumin 3.3 L (3.5-5.0) g/dL Lipase 126 (23-300) U/L 10/07/21 Range/Units 10:34 WBC (3.8-10.6) k/uL RBC (3.80-5.40) m/uL Hgb (11.4-16.0) gm/dL Hct (34.0-46.0) % MCV (80.0-100.0) fL MCH (25.0-35.0) pg MCHC (31.0-37.0) g/dL RDW (11.5-15.5) % Plt Count (150-450) k/uL MPV Neutrophils % % Lymphocytes % % Monocytes % % Eosinophils % % Basophils % % Neutrophils # (1.3-7.7) k/uL Lymphocytes # (1.0-4.8) k/uL Monocytes # (0-1.0) k/uL Eosinophils # (0-0.7) k/uL Basophils # (0-0.2) k/uL PT (9.0-12.0) sec INR (<1.2) APTT (22.0-30.0) sec Sodium (137-145) mmol/L Potassium (3.5-5.1) mmol/L Chloride (98-107) mmol/L Carbon Dioxide (22-30) mmol/L Anion Gap mmol/L BUN (7-17) mg/dL Creatinine (0.52-1.04) mg/dL Est GFR (CKD-EPI)AfAm (>60 ml/min/1.73 sqM) Est GFR (CKD-EPI)NonAf (>60 ml/min/1.73 sqM) Glucose (74-99) mg/dL Calcium (8.4-10.2) mg/dL Magnesium (1.6-2.3) mg/dL Total Bilirubin (0.2-1.3) mg/dL AST (14-36) U/L ALT (4-34) U/L Alkaline Phosphatase (38-126) U/L Troponin I <0.012 (0.000-0.034) ng/mL Total Protein (6.3-8.2) g/dL Albumin (3.5-5.0) g/dL Lipase (23-300) U/L - Radiology Data Radiology results: image reviewed (Chest x-ray concerning for heart failure) Disposition Clinical Impression: CHF (congestive heart failure), Chest pain Disposition: ADMITTED IP TO THIS HOSP Is patient prescribed a controlled substance at d/c from ED?: No Referrals: Diana Tracey DO [Primary Care Provider] - 1-2 days Time of Disposition: 11:38
[2021-10-07] MEDS: NITROGLYCERIN SL TABS 0.4 MG TAB SUBLINGUAL STA ×2 (10:24→10:44)
[2021-10-07 10:50] LABS: Basophils # (A) 0.1 k/uL (0-0.2); Basophils % (A) 1 %; Eosinophils # (A) 0.2 k/uL (0-0.7); Eosinophils % (A) 2 %; HCT 38.7 % (34.0-46.0); HGB 12.6 gm/dL (11.4-16.0); Lymphocytes # (A) 0.7 k/uL (1.0-4.8); Lymphocytes % (A) 6 %; MCHC 32.7 g/dL (31.0-37.0); MCV 97.9 fL (80.0-100.0); Mean Platelet Volume 7.5; Monocytes # (A) 0.6 k/uL (0-1.0); Monocytes % (A) 5 %; Neutrophils # (A) 11.1 k/uL (1.3-7.7); Neutrophils % (A) 86 %; Platelet Count 454 k/uL (150-450); RBC 3.95 m/uL (3.80-5.40); RDW 12.2 % (11.5-15.5); WBC 12.9 k/uL (3.8-10.6)
[2021-10-07 11:07] LABS: INR 1.2 (<1.2); Partial Thromboplastin Time 24.1 sec (22.0-30.0); Prothrombin Time 12.7 sec (9.0-12.0)
[2021-10-07 11:15] LABS: Albumin 3.3 g/dL (3.5-5.0); Calcium 8.7 mg/dL (8.4-10.2); Magnesium 1.9 mg/dL (1.6-2.3); Potassium 4.3 mmol/L (3.5-5.1); Total Bilirubin 0.9 mg/dL (0.2-1.3); Total Protein 6.8 g/dL (6.3-8.2)
[2021-10-07] MEDS ORDERED: NITROGLYCERIN OINT 1 INCH/GM PACKET TOPICAL STA (11:18)
[2021-10-07] MEDS ORDERED: MORPHINE SULFATE 4 MG/ML SYRINGE IVP STA (11:18)
[2021-10-07] MEDS: FUROSEMIDE 10 MG/ML 4 ML VIAL IV SCH ×2 (12:10→21:22)
--- NOTE | 2021-10-07 12:39 | XR ---
EXAMINATION TYPE: XR chest 2V DATE OF EXAM: 10/07/2021 COMPARISON: 10/09/2021 HISTORY: Shortness of breath TECHNIQUE: Frontal and lateral views of the chest are obtained. FINDINGS: Scattered senescent parenchymal changes noted. Hyperinflation compatible with COPD. Pulmonary venous congestion with scattered pulmonary edema and pleural effusions as well as cardiomeg hali. Heart size is stable. Mediastinal structures are stable and grossly unremarkable. No evidence for hilar prominence. Degenerative changes dorsal spine. IMPRESSION: 1. Moderate congestive failure.
[2021-10-07] MEDS: IPRATROPIUM-ALBUTEROL 3 ML NEB INHALATION PRN ×2 (14:37→21:20)
[2021-10-07] MEDS: PANTOPRAZOLE 40 MG/10 ML VIAL IVP SCH (14:42)
[2021-10-07] MEDS: NITROGLYCERIN OINT 1 INCH/GM PACKET TOPICAL SCH ×3 (14:43→21:23)
--- NOTE | 2021-10-07 16:05 | US ---
EXAMINATION TYPE: US liver DATE OF EXAM: 10/07/2021 COMPARISON: NONE CLINICAL HISTORY: elevated LFts. Elevated LFT EXAM MEASUREMENTS: Liver Length: 12.8 cm Gallbladder Wall: Surgically absent cm CBD: .6 cm Right Kidney: 10.0 x 3.9 x 3.2 cm Exam limitations due to overlying bowel gas and body habitus.Pleural effusion visualized right. Pancreas: Obscured by bowel gas Liver: Increased attenuation Gallbladder: Surgically absent Evidence for sonographic Mcmahon's sign: No CBD: wnl Right Kidney: wnl IMPRESSION: No dilated ducts. Liver is small. Small right pleural effusion demonstrated. No ascites. No discrete liver mass.
[2021-10-07] MEDS: MORPHINE SULFATE 2 MG/ML SYRINGE IVP PRN ×2 (16:43→21:24)
[2021-10-07] MEDS: ARTIFICIAL TEARS-HYPROMELLOSE DROPS 15 ML BTL BOTH EYES SCH ×2 (16:45→21:38)
[2021-10-07] MEDS: HEPARIN SODIUM,PORCINE/PF 5,000 UNIT/0.5 ML SYRINGE SQ SCH ×2 (16:45→23:43)
[2021-10-07 16:50] LABS: Glucose,Whole Blood 142 mg/dL (75-99)
[2021-10-07] MEDS: INSULIN ASPART (NovoLOG) 100 UNIT/ML VIAL SQ SCH ×2 (17:21→21:22)
--- NOTE | 2021-10-07 18:57 | CT ---
EXAMINATION TYPE: CT abdomen pelvis wo con DATE OF EXAM: 10/07/2021 COMPARISON: 04/19/2021 HISTORY: Abdominal pain, hx CHF. CT DLP: 785.2 mGycm Automated exposure control for dose reduction was used. Images obtained from the diaphragm to the floor of the pelvis without contrast. There are moderate-sized pleural effusions. Heart is enlarged. There is pericardial effusion. There i s extensive infiltrate and atelectasis in both lower lobes. There is coronary artery calcification. There are clips from cholecystectomy. Liver and spleen are intact. There is no pancreatic mass. The s tomach is intact. The bile ducts are not dilated. There is no adrenal mass. There are multiple bilateral renal calculi that measure up to 14 mm. There is no hydronephrosis. Ureters are nondilated. There is a 5 cm cortical cyst posterior left kidney. Th ere is no retroperitoneal adenopathy. Abdominal aorta is atheromatous. The bladder distends smoothly. There is no inguinal hernia. No free fluid in the pelvis. There are multiple sigmoid diverticula. No diverticulitis. Appendix is posterior and appears normal. There is no mesenteric edema. No ascites or free air. There is 1 cm subcutaneous collection of air ov er the right anterior lower abdomen consistent with injection site. Lumbar vertebrae have normal alignment. Posterior elements are intact. There is no compression fractu re. Facet joints are intact. Abdominal aorta is atheromatous. The bony pelvis is intact. Hip joints a re intact. Sacroiliac joints appear normal. IMPRESSION: Lower lobe pulmonary airspace consolidation and pleural fluid that could relate to chronic congestive heart failure. Small pericardial effusion. Chest abnormalities appear new compared to old exam. Atherosclerotic vascular disease. Nonobstructing renal calculi which appear not significantly differe nt than old exam.
[2021-10-07 20:17] LABS: Glucose,Whole Blood 170 mg/dL (75-99)
[2021-10-07] MEDS: ATORVASTATIN 10 MG TAB PO SCH (21:22)
--- NOTE | 2021-10-07 22:28 | P.HPIM ---
History of Present Illness H&P Date: 10/07/21 Chief Complaint: Chest Pain Patient is a 85-year-old female with a known history of hypertension, hyperlipidemia, history of CVA with occasional difficulty finding words, diab etes type 2 diet controlled, diabetic peripheral neuropathy, history of duodenal ulcer, diverticulosis and migraine headaches and previous history of smoking presents to ER with complaints of chest pain. Patient states that she has been having left lower chest pain across the upper abdomen and to the back. Associated shortness of breath. No complaints of nausea or vomiting. No diaphoresis. No headache or dizziness or lightheadedness. Patient was seen in the hospital on on 10/10/2020 discharged on 09/26/2021. Patient underwent stress test and was discharged home. Denied any complaints of fever or chills. Chest x-ray showed moderate congestive heart failure. EKG showed possible left atrial enlargement. Sinus rhythm. 2D echocardiogram 1 09/26/2019 showed mild concentric left ventricular hypertrophy, ejection fraction 55 to 60% and possible LVOT obstruction. LA severely dilated. Moderate MR and mild TR. Laboratory data showed WBC 12.9 hemoglobin 12.6 and platelets 454 INR 1.2 sodium 133 potassium 4.3 chloride 99 BUN 15 and creatinine 0.77 and blood sugar is 176 AST 48 ALT 38 and alk phos 131 and troponin x3 negative. proBNP 2100. Review of Systems Constitutional: Patient denies any fever or chills . No generalized weakness or weight loss. Abdomen: Patient denied nausea vomiting and diarrhea and abdominal pain. Cardiovascular: Patient does complain of chest pain and shortness of breath. No leg swelling. No palpitations. Respiratory: patient denied any cough or sputum production. Patient does have shortness of breath Neurologic: Patient denied any numbness or tingling headache. Musculoskeletal: Patient denies any complaints of joint swelling or deformity. Skin: Negative Psychiatric: Negative Endocrine: No heat or cold intolerance. No recent weight gain. Genitourinary: No dysuria or hematuria. All other 14 point ROS negative except the above Past Medical History Past Medical History: Cancer, CVA/TIA, Diabetes Mellitus, Eye Disorder, Hyperlipidemia, Hypertension, Osteoarthritis (OA), Syncope Additional Past Medical History / Comment(s): 2010 CVA/pt states if she is frustrated she will occasionally have difficulty finding her words, R eye decreased vision pt states she was told d/t CVA and diabetes, NIDDM type II/diet controlled, neuropathy bilateral feet, currently has L breast/L axillae "spots" being monitored, duodenal ulcer, benign colon polyps, diverticular disease, anemia, migraines, skin cancer with removal, pt does not know why she takes lasix. History of Any Multi-Drug Resistant Organisms: None Reported Past Surgical History: Appendectomy, Cholecystectomy, Hysterectomy, Joint Replacement, Orthopedic Surgery Additional Past Surgical History / Comment(s): Surgery for gallbladder removal/hiatal hernia and gastric ulcer at same time, EGDs, colonoscopies, hemorrhoidectomy, skin cancer removed, skin lesion removals, neil's cyst removed from posterior knee, total R knee arthroplasty, bilateral cataracts removed/lens implants. Past Anesthesia/Blood Transfusion Reactions: Motion Sickness Additional Past Anesthesia/Blood Transfusion Reaction / Comment(s): BLOOD TRANSFUSION (5 UNITS) POST HYSTERECTOMY, NO REACTIONS Past Psychological History: No Psychological Hx Reported Smoking Status: Former smoker Past Alcohol Use History: None Reported Past Drug Use History: None Reported - Past Family History Sister(s) Family Medical History: Cancer Additional Family Medical History / Comment(s): colon mets to pancreas Father Additional Family Medical History / Comment(s): from coronary occlusion Mother Family Medical History: AICD/Pacemaker Medications and Allergies Home Medications Medication Instructions Recorded Confirmed Type Atorvastatin [Lipitor] 10 mg PO HS 08/26/14 10/07/21 History lisinopriL 40 mg PO DAILY 08/26/14 10/07/21 History Propylene Glycol [Systane Complete] 1 drop BOTH EYES TID 02/08/19 10/07/21 History Furosemide [Lasix] 40 mg PO DAILY 08/03/19 10/07/21 History Ergocalciferol [Vitamin D2 (1250 1,250 mcg PO SA@2100 04/19/21 10/07/21 History Mcg = 26796 Iu)] Loratadine [Claritin] 10 mg PO HS 09/24/21 10/07/21 History Ibuprofen [Motrin] 400 mg PO Q6HR PRN 7 Days #28 tab 09/29/21 10/07/21 Rx Methocarbamol [Robaxin-750] 750 mg PO BID PRN 7 Days #14 tablet 09/29/21 10/07/21 Rx Diclofenac Sodium Gel [Voltaren 4 gm TOPICAL QID 10/07/21 10/07/21 History Gel] Metoprolol Tartrate [Lopressor] 12.5 mg PO DAILY 10/07/21 10/07/21 History Allergies Allergy/AdvReac Type Severity Reaction Status Date / Time cephalexin Allergy Rash/Hives Verified 10/07/21 12:17 clindamycin Allergy Rash/Hives Verified 10/07/21 12:17 latex Allergy Rash/Hives Verified 10/07/21 12:17 Penicillins Allergy Rash/Hives Verified 10/07/21 12:17 Sulfa (Sulfonamide Allergy Rash/Hives Verified 10/07/21 12:17 Antibiotics) TAPE Allergy RASH, Uncoded 09/29/21 09:18 PAPER TAPE IS OK Physical Exam Vitals: Vital Signs Temp Pulse Resp BP Pulse Ox 10/07/21 13:06 97.0 F L 92 22 144/77 91 L 10/07/21 12:15 92 22 144/77 91 L 10/07/21 11:53 20 10/07/21 11:29 87 18 109/56 91 L 10/07/21 10:48 93 20 94 L 10/07/21 10:05 97.0 F L 83 20 164/85 89 L Intake and Output 10/06/21 10/07/21 10/07/21 22:59 06:59 14:59 Other: Weight 79.651 kg PHYSICAL EXAMINATION: Patient is lying in the bed comfortably, mild distress due to pain, awake alert and oriented.. HEENT: Normocephalic. Neck is supple. Pupils reactive. Nostrils clear. Oral cavity is moist. Neck reveals no JVD, carotid bruits, or thyromegaly. CHEST EXAMINATION: Trachea is central. Symmetrical expansion. Bibasilar diminished sounds and shallow breathing.. CARDIAC: Normal S1, S2 with no gallops. No murmurs ABDOMEN: Soft. Bowel sounds normal. No organomegaly. No abdominal bruits. Extremities: Trace bilateral pedal edema. No clubbing or cyanosis Neurologically awake, alert, oriented x3 with well-coordinated movements. No focal deficits noted Skin: No rash or skin lesions. Psychiatric: Cooperative. Nonsuicidal Musculoskeletal: No joint swelling or deformity. Normal range of motion. Results CBC & Chem 7: 10/07/21 10:34 10/07/21 10:34 Labs: Abnormal Lab Results - Last 24 Hours (Table) 10/07/21 10/07/21 10/07/21 Range/Units 10:34 10:34 10:34 WBC 12.9 H (3.8-10.6) k/uL Plt Count 454 H (150-450) k/uL Neutrophils # 11.1 H (1.3-7.7) k/uL Lymphocytes # 0.7 L (1.0-4.8) k/uL PT 12.7 H (9.0-12.0) sec INR 1.2 H (<1.2) Sodium 133 L (137-145) mmol/L Glucose 176 H (74-99) mg/dL AST 48 H (14-36) U/L ALT 38 H (4-34) U/L Alkaline Phosphatase 131 H (38-126) U/L Albumin 3.3 L (3.5-5.0) g/dL Thrombosis Risk Factor Assmnt - DVT/VTE Prophylaxis DVT/VTE Prophylaxis: Pharmacologic Prophylaxis ordered Assessment and Plan Assessment: Acute on chronic CHF with diastolic dysfunction Possible lower lobe pneumonia with left lower chest discomfort/pain. Moderate MR as per recent echocardiogram on 09/25/2021. Hypovolemic hyponatremia Mild transaminitis. History of cholecystectomy Nonobstructing renal calculi unchanged from prior study. Hypertension Hyperlipidemia Osteoarthritis History of CVA with difficulty finding words. History of migraine headaches History of diverticulosis medical history of duodenal ulcer History of skin cancer with removal. Prior history of smoking DVT prophylaxis with heparin subcu Plan: Patient will be continued on telemetry monitoring. Continue with IV Lasix 40 mg every 12 and monitor renal function. Patient will be continued on PPI. Continue with aspirin and statins. Due to complaints of lower chest and upper abdominal pain requiring morphine, CT of the abdomen pelvis was ordered for further evaluation. Order UA. Continue to follow closely. Cardiology was consulted Time with Patient: Greater than 30
[2021-10-07 22:59] LABS: Appearance,Urine Cloudy (Clear); Bacteria,Urine Occasional /hpf; Bilirubin,Urine 1+ (Negative); Blood,Urine Large (Negative); Cellular Casts,Urine 4 /lpf (0); Color,Urine Dark Yellow; Glucose,Urine (UA) Trace (Negative); Hyaline Casts,Urine 115 /lpf (0-2); Ketones,Urine Negative (Negative); Leukocyte Esterase,Urine Trace (Negative); Mucus,Urine Moderate /hpf; Nitrite,Urine Negative (Negative); Protein,Urine 1+ (Negative); RBC,Urine >182 /hpf (0-5); Specific Gravity,Urine 1.019 (1.001-1.035); Squamous Epithelial Cell,Urine 7 /hpf (0-4); WBC,Urine 18 /hpf (0-5)
[2021-10-07] MEDS ORDERED: LEVOFLOXACIN 500MG-D5W PMX 500 MG in DEXTROSE/WATER 1 100ML.BAG IVPB SCH (23:00)
[2021-10-08] MEDS: MORPHINE SULFATE 2 MG/ML SYRINGE IVP PRN (02:36)
[2021-10-08 06:14] LABS: Glucose,Whole Blood 111 mg/dL (75-99)
[2021-10-08 07:08] LABS: Basophils # (A) 0.1 k/uL (0-0.2); Basophils % (A) 1 %; Eosinophils # (A) 0.2 k/uL (0-0.7); Eosinophils % (A) 1 %; HCT 37.4 % (34.0-46.0); HGB 11.6 gm/dL (11.4-16.0); Lymphocytes % (A) 8 %; MCH 31.3 pg (25.0-35.0); Mean Platelet Volume 7.9; Monocytes # (A) 0.9 k/uL (0-1.0); Monocytes % (A) 8 %; Neutrophils # (A) 9.3 k/uL (1.3-7.7); Neutrophils % (A) 81 %; Platelet Count 434 k/uL (150-450); RDW 12.3 % (11.5-15.5); WBC 11.5 k/uL (3.8-10.6)
[2021-10-08] MEDS: INSULIN ASPART (NovoLOG) 100 UNIT/ML VIAL SQ SCH ×4 (08:14→20:23)
[2021-10-08] MEDS: PANTOPRAZOLE 40 MG/10 ML VIAL IVP SCH (08:14)
[2021-10-08] MEDS: FUROSEMIDE 10 MG/ML 4 ML VIAL IV SCH ×2 (08:14→20:23)
[2021-10-08] MEDS: NITROGLYCERIN OINT 1 INCH/GM PACKET TOPICAL SCH (08:15)
[2021-10-08] MEDS: lisinopriL 20 MG TAB PO SCH (08:15)
[2021-10-08] MEDS: ARTIFICIAL TEARS-HYPROMELLOSE DROPS 15 ML BTL BOTH EYES SCH ×3 (08:15→20:25)
[2021-10-08] MEDS: HEPARIN SODIUM,PORCINE/PF 5,000 UNIT/0.5 ML SYRINGE SQ SCH ×3 (08:16→23:45)
[2021-10-08] MEDS: IPRATROPIUM-ALBUTEROL 3 ML NEB INHALATION PRN ×3 (08:29→20:13)
[2021-10-08 08:30] LABS: Albumin 2.9 g/dL (3.5-5.0); Calcium 8.4 mg/dL (8.4-10.2); Total Bilirubin 1.1 mg/dL (0.2-1.3); Total Protein 6.2 g/dL (6.3-8.2)
[2021-10-08] MEDS ORDERED: ASPIRIN 325 MG TAB PO SCH (09:00)
[2021-10-08 12:05] LABS: Glucose,Whole Blood 161 mg/dL (75-99)
--- NOTE | 2021-10-08 12:06 | P.CRDCN ---
History of Present Illness Consult date: 10/08/21 History of present illness: HISTORY OF PRESENT ILLNESS: This is a 85-year-old female with a past medical history significant for hypertension, hyperlipidemia, and CVA 2. 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 We have been asked to see the patient in consultation for congestive heart failure. Patient examined at the bedside. The patient presented to the hospital with a chief complaint of shortness of breath. The patient was found to be in acute CHF and was started on IV Lasix. She reports some improvement in her shortness of breath. She denies chest pain or pressure. The patient was recently admitted to the hospital secondary to chest pain. She underwent a Lexiscan stress test which was negative for ischemia. Patient also underwent echocardiogram at that time revealing ejection fraction 55-60%, possible LVOT obstruction, moderate mitral regurgitation, and mild tricuspid regurgitation * EKG reveals sinus mechanism with no signs of acute ischemia * Chest xray moderate congestive heart failure * Laboratory data: WBC 11.1. Hemoglobin 11.6. Platelet count 434. Sodium 131. Potassium 5.0. BUN 21. Creatinine 1.18. TSH 3.050. ProBNP 2100. Troponin negative 3. * Current home cardiac medications include Lipitor 10 mg at night, Lasix 40 mg daily, lisinopril 40 mg daily, metoprolol tartrate 12.5 mg daily REVIEW OF SYSTEMS: At the time of my exam: CONSTITUTIONAL: Denies fever or chills. HEENT: Denies blurred vision, vision changes, or eye pain. Denies hemoptysis CARDIOVASCULAR: Denies chest pain. Denies orthopnea. Denies PND. Denies palpitations RESPIRATORY: Denies shortness of breath. GASTROINTESTINAL: Denies abdominal pain. Denies nausea or vomiting. HEMATOLOGIC: Denies bleeding disorders. GENITOURINARY: Denies any blood in urine. SKIN: Denies pruitis. Denies rash. PHYSICAL EXAM: VITAL SIGNS: Reviewed. GENERAL: Well-developed in no acute distress. HEENT: Head is normocephalic. Pupils are equal, round. Sclerae anicteric. Mucous membranes of the mouth are moist. Neck supple. No JVD or thyromegaly LUNGS: Respirations even and unlabored. Lungs diminished to auscultation bilaterally. HEART: Regular rate and rhythm. S1 and S2 heard. Systolic murmur noted ABDOMEN: Soft. Nondistended. Nontender. EXTREMITIES: Normal range of motion. No clubbing or cyanosis. Peripheral pulses intact. Trace lower extremity edema NEUROLOGIC: Awake and alert. Oriented x 3. ASSESSMENT: Shortness of breath Acute on chronic congestive heart failure with preserved ejection fraction Hypertension Hyperlipidemia History of CVA 2 PLAN: No need to repeat echocardiogram as this was performed earlier this month Continue IV Lasix Monitor kidney function Daily weights Accurate I&O Discontinue nitro paste Begin metoprolol tartrate 12.5 mg twice a day Further recommendations pending patient course Nurse practitioner note has been reviewed by physician. Signing provider agrees with the documented findings, assessment, and plan of care. Past Medical History Past Medical History: Cancer, CVA/TIA, Diabetes Mellitus, Eye Disorder, Hyperlipidemia, Hypertension, Osteoarthritis (OA), Syncope Additional Past Medical History / Comment(s): 2010 CVA/pt states if she is frustrated she will occasionally have difficulty finding her words, R eye decreased vision pt states she was told d/t CVA and diabetes, NIDDM type II/diet controlled, neuropathy bilateral feet, currently has L breast/L axillae "spots" being monitored, duodenal ulcer, benign colon polyps, diverticular disease, anemia, migraines, skin cancer with removal, pt does not know why she takes lasix. History of Any Multi-Drug Resistant Organisms: None Reported Past Surgical History: Appendectomy, Cholecystectomy, Hysterectomy, Joint Replacement, Orthopedic Surgery Additional Past Surgical History / Comment(s): Surgery for gallbladder removal/hiatal hernia and gastric ulcer at same time, EGDs, colonoscopies, hemorrhoidectomy, skin cancer removed, skin lesion removals, neil's cyst removed from posterior knee, total R knee arthroplasty, bilateral cataracts removed/lens implants. Past Anesthesia/Blood Transfusion Reactions: Motion Sickness Additional Past Anesthesia/Blood Transfusion Reaction / Comment(s): BLOOD TRANSFUSION (5 UNITS) POST HYSTERECTOMY, NO REACTIONS Past Psychological History: No Psychological Hx Reported Smoking Status: Former smoker Past Alcohol Use History: None Reported Past Drug Use History: None Reported - Past Family History Sister(s) Family Medical History: Cancer Additional Family Medical History / Comment(s): colon mets to pancreas Father Additional Family Medical History / Comment(s): from coronary occlusion Mother Family Medical History: AICD/Pacemaker Medications and Allergies Home Medications Medication Instructions Recorded Confirmed Type Atorvastatin [Lipitor] 10 mg PO HS 08/26/14 10/07/21 History lisinopriL 40 mg PO DAILY 08/26/14 10/07/21 History Propylene Glycol [Systane Complete] 1 drop BOTH EYES TID 02/08/19 10/07/21 History Furosemide [Lasix] 40 mg PO DAILY 08/03/19 10/07/21 History Ergocalciferol [Vitamin D2 (1250 1,250 mcg PO SA@2100 04/19/21 10/07/21 History Mcg = 09442 Iu)] Loratadine [Claritin] 10 mg PO HS 09/24/21 10/07/21 History Ibuprofen [Motrin] 400 mg PO Q6HR PRN 7 Days #28 tab 09/29/21 10/07/21 Rx Methocarbamol [Robaxin-750] 750 mg PO BID PRN 7 Days #14 tablet 09/29/21 10/07/21 Rx Diclofenac Sodium Gel [Voltaren 4 gm TOPICAL QID 10/07/21 10/07/21 History Gel] Metoprolol Tartrate [Lopressor] 12.5 mg PO DAILY 10/07/21 10/07/21 History Allergies Allergy/AdvReac Type Severity Reaction Status Date / Time cephalexin Allergy Rash/Hives Verified 10/07/21 12:17 clindamycin Allergy Rash/Hives Verified 10/07/21 12:17 latex Allergy Rash/Hives Verified 10/07/21 12:17 Penicillins Allergy Rash/Hives Verified 10/07/21 12:17 Sulfa (Sulfonamide Allergy Rash/Hives Verified 10/07/21 12:17 Antibiotics) TAPE Allergy RASH, Uncoded 09/29/21 09:18 PAPER TAPE IS OK Physical Exam Vitals: Vital Signs Temp Pulse Pulse Resp BP BP Pulse Ox 10/08/21 08:30 95 10/08/21 08:27 92 L 10/08/21 03:57 98.8 F 95 18 115/62 91 L 10/08/21 01:53 22 10/08/21 00:00 98.6 F 97 20 118/63 90 L 10/07/21 21:31 88 10/07/21 21:21 85 10/07/21 20:00 99.0 F 93 24 123/64 88 L 10/07/21 17:24 99.3 F 104 H 19 124/68 90 L 10/07/21 16:01 20 10/07/21 14:51 96 10/07/21 14:38 92 10/07/21 13:06 97.0 F L 92 22 144/77 91 L 10/07/21 12:15 92 22 144/77 91 L 10/07/21 11:53 20 10/07/21 11:29 87 18 109/56 91 L 10/07/21 10:48 93 20 94 L 10/07/21 10:05 97.0 F L 83 20 164/85 89 L Intake and Output 10/07/21 10/08/21 10/08/21 22:59 06:59 14:59 Intake Total 180 700 120 Output Total 25 100 Balance 155 600 120 Intake: Intake, IV Titration 100 Amount Levofloxacin 500Mg-D5w 100 Pmx 500 mg In Dextrose/ Water 1 100ml.bag @ 100 mls/hr IVPB Q24H REPLACED BY [facility] Rx#: [id number] Oral 180 600 120 Output: Urine 25 100 Other: Voiding Method Toilet Toilet # Voids 1 1 Weight 81 kg Results 10/08/21 05:56 10/08/21 05:56 Cardiac Enzymes 10/07/21 10/07/21 10/07/21 Range/Units 10:34 10:34 13:39 AST 48 H (14-36) U/L Troponin I <0.012 <0.012 (0.000-0.034) ng/mL 10/07/21 10/08/21 Range/Units 16:35 05:56 AST 32 (14-36) U/L Troponin I <0.012 (0.000-0.034) ng/mL Coagulation 10/07/21 Range/Units 10:34 PT 12.7 H (9.0-12.0) sec APTT 24.1 (22.0-30.0) sec CBC 10/07/21 10/08/21 Range/Units 10:34 05:56 WBC 12.9 H 11.5 H (3.8-10.6) k/uL RBC 3.95 3.70 L (3.80-5.40) m/uL Hgb 12.6 11.6 (11.4-16.0) gm/dL Hct 38.7 37.4 (34.0-46.0) % Plt Count 454 H 434 (150-450) k/uL Comprehensive Metabolic Panel 10/07/21 10/08/21 Range/Units 10:34 05:56 Sodium 133 L 131 L (137-145) mmol/L Potassium 4.3 5.0 (3.5-5.1) mmol/L Chloride 99 98 (98-107) mmol/L Carbon Dioxide 24 20 L (22-30) mmol/L BUN 15 21 H (7-17) mg/dL Creatinine 0.77 1.18 H (0.52-1.04) mg/dL Glucose 176 H 116 H (74-99) mg/dL Calcium 8.7 8.4 (8.4-10.2) mg/dL AST 48 H 32 (14-36) U/L ALT 38 H 28 (4-34) U/L Alkaline Phosphatase 131 H 105 (38-126) U/L Total Protein 6.8 6.2 L (6.3-8.2) g/dL Albumin 3.3 L 2.9 L (3.5-5.0) g/dL Current Medications Generic Name Dose Route Start Last Admin Trade Name Freq PRN Reason Stop Dose Admin Albuterol/Ipratropium 3 ml 10/07/21 13:28 10/08/21 08:29 Ipratropium-Albuterol 3 Ml Neb INHALATION 3 ml RT-QID PRN Administration Shortness Of Breath Or Wheezing Artificial Tears 1 drops 10/07/21 16:00 10/08/21 08:15 Artificial Tears-Hypromellose Drops 15 Ml Btl BOTH EYES 1 drops TID GUANAKITO Administration Aspirin 325 mg 10/08/21 09:00 10/08/21 08:15 Aspirin 325 Mg Tab PO 325 mg DAILY GUANAKITO Administration Atorvastatin Calcium 10 mg 10/07/21 21:00 10/07/21 21:22 Atorvastatin 10 Mg Tab PO 10 mg HS GUANAKITO Administration Furosemide 40 mg 10/07/21 11:45 10/08/21 08:14 Furosemide 10 Mg/Ml 4 Ml Vial IV 40 mg Q12HR GUANAKITO Administration Heparin Sodium (Porcine) 5,000 unit 10/07/21 16:00 10/08/21 08:16 Heparin Sodium,Porcine/Pf 5,000 Unit/0.5 Ml Syringe SQ 5,000 unit Q8HR GUANAKITO Administration Levofloxacin 500 mg/ IV 100 mls @ 100 mls/hr 10/07/21 23:00 10/07/21 23:53 Solution IVPB 100 mls/hr Q24H GUANAKITO Administration Protocol Insulin Aspart 0 unit 10/07/21 17:30 10/08/21 08:14 Insulin Aspart (Novolog) 100 Unit/Ml Vial SQ Not Given ACHS REPLACED BY [facility] Protocol Lisinopril 40 mg 10/08/21 09:00 10/08/21 08:15 Lisinopril 20 Mg Tab PO 40 mg DAILY GUANAKITO Administration Morphine Sulfate 2 mg 10/07/21 16:31 10/08/21 02:36 Morphine Sulfate 2 Mg/Ml Syringe IVP 2 mg Q4HR PRN Administration Pain/Discomfort Nitroglycerin 0.5 inch 10/07/21 13:00 10/08/21 08:15 Nitroglycerin Oint 1 Inch/Gm Packet TOPICAL 0.5 inch QID GUANAKITO Administration Pantoprazole Sodium 40 mg 10/07/21 13:30 10/08/21 08:14 Pantoprazole 40 Mg/10 Ml Vial IVP 10/08/21 10:00 40 mg DAILY GUANAKITO Administration Pantoprazole Sodium 40 mg 10/09/21 07:30 Pantoprazole 40 Mg Tablet PO AC-BRKFST REPLACED BY [facility] Sodium Chloride 10 ml 10/07/21 21:00 10/08/21 08:15 Sodium Chloride 0.9% Flush 10 Ml Syringe IV 10 ml BID GUANAKITO Administration Intake and Output 10/07/21 10/08/21 10/08/21 22:59 06:59 14:59 Intake Total 180 700 120 Output Total 25 100 Balance 155 600 120 Intake: Intake, IV Titration 100 Amount Levofloxacin 500Mg-D5w 100 Pmx 500 mg In Dextrose/ Water 1 100ml.bag @ 100 mls/hr IVPB Q24H REPLACED BY [facility] Rx#: [id number] Oral 180 600 120 Output: Urine 25 100 Other: Voiding Method Toilet Toilet # Voids 1 1 Weight 81 kg 10/08/21 05:56 10/08/21 05:56
[2021-10-08] MEDS: guaiFENesin 600 MG TABLET.ER PO SCH ×2 (12:11→20:23)
[2021-10-08] MEDS: METOPROLOL TARTRATE 12.5 MG TAB PO SCH ×2 (12:11→20:24)
[2021-10-08 14:18] VITALS: BMI 31.6
[2021-10-08 16:40] LABS: Glucose,Whole Blood 153 mg/dL (75-99)
[2021-10-08 19:33] LABS: Glucose,Whole Blood 145 mg/dL (75-99)
[2021-10-08] MEDS: BUDESONIDE 0.5 MG/2 ML NEBU INHALATION SCH (20:13)
[2021-10-08] MEDS: LEVOFLOXACIN 250 MG TAB PO SCH (20:23)
[2021-10-08] MEDS: ATORVASTATIN 10 MG TAB PO SCH (20:23)
--- NOTE | 2021-10-08 23:04 | P.PN ---
Subjective Progress Note Date: 10/08/21 She is feeling improved since starting on the IV lasix, breathing is better but complains of wet cough. She continues on 6 LPM O2 with SpO2 low 90s. Renal function stable. Objective - Vital Signs Vital signs: Vital Signs Temp 99.1 F 10/08/21 19:53 Pulse 96 10/08/21 20:35 Resp 22 10/08/21 19:53 BP 130/62 10/08/21 19:53 Pulse Ox 93 L 10/08/21 20:13 Intake & Output 10/08/21 10/08/21 10/09/21 06:59 18:59 06:59 Intake Total 700 480 Output Total 125 Balance 575 480 Weight 81 kg 81 kg Intake: Intake, IV Titration 100 Amount Levofloxacin 500Mg-D5w 100 Pmx 500 mg In Dextrose/ Water 1 100ml.bag @ 100 mls/hr IVPB Q24H [facility] Rx#: [id number] Oral 600 480 Output: Urine 125 Other: Voiding Method Toilet Toilet # Voids 1 - Exam General: well nourished, well developed, NAD. Vitals reviewed Lungs: normal respiratory effort, no rales. Wheezing throughout CV: Regular rate and rhythm, no murmur. Peripheral pulses 2+ Abdomen: soft, nondistended, no organomegaly Skin: warm and dry. - Labs CBC & Chem 7: 10/08/21 05:56 10/08/21 05:56 Labs: Abnormal Lab Results - Last 24 Hours (Table) 10/07/21 10/08/21 10/08/21 Range/Units 22:27 05:56 05:56 WBC 11.5 H (3.8-10.6) k/uL RBC 3.70 L (3.80-5.40) m/uL MCV 101.0 H (80.0-100.0) fL Neutrophils # 9.3 H (1.3-7.7) k/uL Sodium 131 L (137-145) mmol/L Carbon Dioxide 20 L (22-30) mmol/L BUN 21 H (7-17) mg/dL Creatinine 1.18 H (0.52-1.04) mg/dL Glucose 116 H (74-99) mg/dL POC Glucose (mg/dL) (75-99) mg/dL Total Protein 6.2 L (6.3-8.2) g/dL Albumin 2.9 L (3.5-5.0) g/dL Urine Appearance Cloudy H (Clear) Urine Protein 1+ H (Negative) Urine Glucose (UA) Trace H (Negative) Urine Blood Large H (Negative) Urine Bilirubin 1+ H (Negative) Ur Leukocyte Esterase Trace H (Negative) Urine RBC >182 H (0-5) /hpf Urine WBC 18 H (0-5) /hpf Ur Squamous Epith Cells 7 H (0-4) /hpf Urine Bacteria Occasional H (None) /hpf Hyaline Casts 115 H (0-2) /lpf Urine Mucus Moderate H (None) /hpf 10/08/21 10/08/21 10/08/21 Range/Units 06:11 12:03 16:38 WBC (3.8-10.6) k/uL RBC (3.80-5.40) m/uL MCV (80.0-100.0) fL Neutrophils # (1.3-7.7) k/uL Sodium (137-145) mmol/L Carbon Dioxide (22-30) mmol/L BUN (7-17) mg/dL Creatinine (0.52-1.04) mg/dL Glucose (74-99) mg/dL POC Glucose (mg/dL) 111 H 161 H 153 H (75-99) mg/dL Total Protein (6.3-8.2) g/dL Albumin (3.5-5.0) g/dL Urine Appearance (Clear) Urine Protein (Negative) Urine Glucose (UA) (Negative) Urine Blood (Negative) Urine Bilirubin (Negative) Ur Leukocyte Esterase (Negative) Urine RBC (0-5) /hpf Urine WBC (0-5) /hpf Ur Squamous Epith Cells (0-4) /hpf Urine Bacteria (None) /hpf Hyaline Casts (0-2) /lpf Urine Mucus (None) /hpf 10/08/21 Range/Units 19:31 WBC (3.8-10.6) k/uL RBC (3.80-5.40) m/uL MCV (80.0-100.0) fL Neutrophils # (1.3-7.7) k/uL Sodium (137-145) mmol/L Carbon Dioxide (22-30) mmol/L BUN (7-17) mg/dL Creatinine (0.52-1.04) mg/dL Glucose (74-99) mg/dL POC Glucose (mg/dL) 145 H (75-99) mg/dL Total Protein (6.3-8.2) g/dL Albumin (3.5-5.0) g/dL Urine Appearance (Clear) Urine Protein (Negative) Urine Glucose (UA) (Negative) Urine Blood (Negative) Urine Bilirubin (Negative) Ur Leukocyte Esterase (Negative) Urine RBC (0-5) /hpf Urine WBC (0-5) /hpf Ur Squamous Epith Cells (0-4) /hpf Urine Bacteria (None) /hpf Hyaline Casts (0-2) /lpf Urine Mucus (None) /hpf Microbiology - Last 24 Hours (Table) 10/07/21 22:27 Urine Culture - Preliminary Urine,Voided Assessment and Plan Plan: Continue with IV lasix, continue levaquin. Add pulmicort nebs and mucinex. Cardiology following. Follow renal function
[2021-10-09 06:03] LABS: Glucose,Whole Blood 131 mg/dL (75-99)
[2021-10-09] MEDS: INSULIN ASPART (NovoLOG) 100 UNIT/ML VIAL SQ SCH ×4 (06:16→20:41)
[2021-10-09] MEDS: PANTOPRAZOLE 40 MG TABLET PO SCH (06:31)
[2021-10-09] MEDS: BUDESONIDE 0.5 MG/2 ML NEBU INHALATION SCH ×2 (08:00→20:53)
[2021-10-09] MEDS: IPRATROPIUM-ALBUTEROL 3 ML NEB INHALATION PRN ×4 (08:00→20:53)
[2021-10-09] MEDS: METOPROLOL TARTRATE 12.5 MG TAB PO SCH ×2 (08:27→20:42)
[2021-10-09] MEDS: FUROSEMIDE 10 MG/ML 4 ML VIAL IV SCH (08:27)
[2021-10-09] MEDS: HEPARIN SODIUM,PORCINE/PF 5,000 UNIT/0.5 ML SYRINGE SQ SCH ×3 (08:27→23:30)
[2021-10-09] MEDS: guaiFENesin 600 MG TABLET.ER PO SCH ×2 (08:27→20:42)
[2021-10-09] MEDS: lisinopriL 20 MG TAB PO SCH (08:27)
[2021-10-09] MEDS: ARTIFICIAL TEARS-HYPROMELLOSE DROPS 15 ML BTL BOTH EYES SCH ×3 (08:28→20:42)
[2021-10-09 09:10] LABS: Calcium 8.3 mg/dL (8.4-10.2); Potassium 4.3 mmol/L (3.5-5.1)
[2021-10-09] MEDS ORDERED: BENZONATATE 100 MG CAP PO STA (10:04)
[2021-10-09 11:41] LABS: Glucose,Whole Blood 131 mg/dL (75-99)
--- NOTE | 2021-10-09 11:59 | P.PN ---
Subjective Progress Note Date: 10/09/21 This is an 85-year-old female admitted with acute diastolic CHF/COPD and multiple other medical issues in a patient with prior history of former nicotine dependence recent extensive and nebulized bronchodilators added to med regimen yesterday, coughing persists. Slept with head of bed elevated. Reports mild shortness of breath. Continues on 6 L high flow nasal cannula ,maintaining O2 sats in the low 90s. T-max 99.1. Urine culture reporting no growth after 18 hours. Diuresing well on Lasix IV push with 24-hour I&O reflecting a negative fluid balance. BUN 27, Creatinine decreased to 0.99. Objective - Vital Signs Vital signs: Vital Signs Temp 98.0 F 10/09/21 08:00 Pulse 96 10/09/21 11:09 Resp 18 10/09/21 08:00 BP 134/65 10/09/21 08:00 Pulse Ox 92 L 10/09/21 08:00 Intake & Output 10/08/21 10/09/21 10/09/21 18:59 06:59 18:59 Intake Total 480 240 Output Total 700 300 Balance 480 -700 -60 Weight 81 kg 80.8 kg Intake: Oral 480 240 Output: Urine 700 300 Other: Voiding Method Toilet Toilet - Exam - Exam General: Sitting up in bed, NAD. Vitals reviewed Lungs: normal respiratory effort, no rales. Mild wheezing throughout CV: Regular rate and rhythm, no murmur. Peripheral pulses 2+ Abdomen: soft, nondistended, no organomegaly positive bowel sounds, Skin: warm and dry. - Labs CBC & Chem 7: 10/08/21 05:56 10/09/21 08:25 Labs: Abnormal Lab Results - Last 24 Hours (Table) 10/08/21 10/08/21 10/08/21 Range/Units 12:03 16:38 19:31 Sodium (137-145) mmol/L BUN (7-17) mg/dL Glucose (74-99) mg/dL POC Glucose (mg/dL) 161 H 153 H 145 H (75-99) mg/dL Calcium (8.4-10.2) mg/dL 10/09/21 10/09/21 Range/Units 06:00 08:25 Sodium 132 L (137-145) mmol/L BUN 27 H (7-17) mg/dL Glucose 179 H (74-99) mg/dL POC Glucose (mg/dL) 131 H (75-99) mg/dL Calcium 8.3 L (8.4-10.2) mg/dL Microbiology - Last 24 Hours (Table) 10/07/21 22:27 Urine Culture - Final Urine,Voided Assessment and Plan Assessment: Acute on chronic diastolic CHF dysfunction Acute COPD exacerbation Acute hypoxic respiratory failure secondary to the above Diabetes mellitus type 2 Hypertension hyperlipidemia osteoarthritis Former nicotine dependence History of CVA, 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 Maintain aggressive pulmonary toileting with nebulized bronchodilators, Levaquin, Mucinex and diuretics. Tessalon Perles added to med regimen for on going coughing. The impression and plan of care has been dictated as directed. : I performed a history and examination of this patient, discussed the same with the dictator. I agree with the dictator's note ,documented as a scribe. Any additional findings or plans will be noted.
[2021-10-09] MEDS: ACETAMINOPHEN TAB 325 MG TAB PO PRN (12:09)
--- NOTE | 2021-10-09 12:18 | CDI ---
Documentation Clarification Form Date: 10/09/2021 11:44:38 AM From: Katiuska Winston RN, CCDS Admit Date: 10/07/2021 11:40:00 AM Patient Name: Melody Hernández Visit Number: [id number] Discharge Date: ATTENTION: The Clinical Documentation Specialists (CDI) and [facility] Coding Staff appreciate your assistance in clarifying documentation. Please respond to the clarification below the line at the bottom and electronically sign. The CDI & [facility] Coding staff will review the response and follow-up if needed. Please note: Queries are made part of the Legal Health Record. If you have any questions, please contact the author of this message via ITS. Dr. James Tracey Your patient has shortness of breath with O2 Sats in emergency department on 10/07, of 89 % on room air. She had labored respiration with tachypnea. Based on this information and the findings below, is there an additional diagnosis that is clinically appropriate for this patient? History/Risk Factors: CVA, Diabetes Mellitus, Hypertension, Former smoker Clinical Indicators: 85-year-old female present with chest pain with shortness of breath. 10/07 10:05 Vital signs: 164/85 83 20 97.0 89 % RA 10/07 20:00 Vital signs: 123/64 93 24 88 % 5/L NC short of breath, labored, Tachypnea 10/08 12:00 Vital signs: 118/58 76 17 92 % 6 /L High Flow 10/07 CXR Moderate congestive failure 10/07 Chest Exam: Bibasilar diminished sounds and shallow breathing Treatment: Telemetry Monitoring Monitor O2 Sat's (titrate) Breathing tx: Duoneb 0.5MG-3MG/3 ML Tati QID PRN, Pulmicort 0.5 MG Inhalation BID Lasix 40 MG IV Daily Mucinex 600 MG PO Q12 HRS, Tessalon Perlas 100 MG PO TID/PRN Cough Levaquin 500 MG IV Q 24 HR, Change to 250 MG PO HS (10/08) Is there an additional diagnosis that is clinically appropriate for this patient? [ ] Acute Hypoxic Respiratory Failure (pO2 <60 mm Hg or SpO2 <91% on room air) [ ] Acute Hypercapnic Respiratory Failure (pCO2 >50 and pH <7.35) [ ] Acute on Chronic Hypoxic Respiratory Failure [ ] Other Diagnosis, please specify [ ] Unable to determine (Template Last Revised: August 2020) Acute Hypoxic Respiratory Failure MTDD
--- NOTE | 2021-10-09 14:23 | P.PN ---
Subjective Progress Note Date: 10/09/21 HISTORY OF PRESENT ILLNESS: This is a 85-year-old female with a past medical history significant for hypertension, hyperlipidemia, and CVA 2. 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 We have been asked to see the patient in consultation for congestive heart failure. Patient examined at the bedside. The patient presented to the hospital with a chief complaint of shortness of breath. The patient was found to be in acute CHF and was started on IV Lasix. She reports some improvement in her shortness of breath. She denies chest pain or pressure. The patient was recently admitted to the hospital secondary to chest pain. She underwent a Lexiscan stress test which was negative for ischemia. Patient also underwent echocardiogram at that time revealing ejection fraction 55-60%, possible LVOT obstruction, moderate mitral regurgitation, and mild tricuspid regurgitation * EKG reveals sinus mechanism with no signs of acute ischemia * Chest xray moderate congestive heart failure * Laboratory data: WBC 11.1. Hemoglobin 11.6. Platelet count 434. Sodium 131. Potassium 5.0. BUN 21. Creatinine 1.18. TSH 3.050. ProBNP 2100. Troponin negative 3. * Current home cardiac medications include Lipitor 10 mg at night, Lasix 40 mg daily, lisinopril 40 mg daily, metoprolol tartrate 12.5 mg daily 10/09/2021 Patient examined this morning at the bedside. Patient denies chest pain or pressure. She reports improvement in her shortness of breath. She reports frequent coughing. She remains on IV Lasix 40 mg every 12 hours. Vital signs are stable. PHYSICAL EXAM: VITAL SIGNS: Reviewed. GENERAL: Well-developed in no acute distress. HEENT: Head is normocephalic. Pupils are equal, round. Sclerae anicteric. Mucous membranes of the mouth are moist. Neck supple. No JVD or thyromegaly LUNGS: Respirations even and unlabored. Lungs diminished to auscultation bilaterally. HEART: Regular rate and rhythm. S1 and S2 heard. Systolic murmur noted ABDOMEN: Soft. Nondistended. Nontender. EXTREMITIES: Normal range of motion. No clubbing or cyanosis. Peripheral pulses intact. Trace lower extremity edema NEUROLOGIC: Awake and alert. Oriented x 3. ASSESSMENT: Shortness of breath Acute on chronic congestive heart failure with preserved ejection fraction Hypertension Hyperlipidemia History of CVA 2 PLAN: Continue IV Lasix. Decrease dosing to 40mg IV daily Monitor kidney function Daily weights Accurate I&O Further recommendations pending patient course Nurse practitioner note has been reviewed by physician. Signing provider agrees with the documented findings, assessment, and plan of care. Objective - Vital Signs Vital signs: Vital Signs Temp 98.1 F 10/09/21 11:45 Pulse 87 10/09/21 13:13 Resp 20 10/09/21 11:45 BP 123/67 10/09/21 11:45 Pulse Ox 92 L 10/09/21 11:45 Intake & Output 10/08/21 10/09/21 10/09/21 18:59 06:59 18:59 Intake Total 480 480 Output Total 700 300 Balance 480 -700 180 Weight 81 kg 80.8 kg Intake: Oral 480 480 Output: Urine 700 300 Other: Voiding Method Toilet Toilet - Labs CBC & Chem 7: 10/08/21 05:56 10/09/21 08:25 Labs: Abnormal Lab Results - Last 24 Hours (Table) 10/08/21 10/08/21 10/09/21 Range/Units 16:38 19:31 06:00 Sodium (137-145) mmol/L BUN (7-17) mg/dL Glucose (74-99) mg/dL POC Glucose (mg/dL) 153 H 145 H 131 H (75-99) mg/dL Calcium (8.4-10.2) mg/dL 10/09/21 10/09/21 Range/Units 08:25 11:39 Sodium 132 L (137-145) mmol/L BUN 27 H (7-17) mg/dL Glucose 179 H (74-99) mg/dL POC Glucose (mg/dL) 131 H (75-99) mg/dL Calcium 8.3 L (8.4-10.2) mg/dL Microbiology - Last 24 Hours (Table) 10/07/21 22:27 Urine Culture - Final Urine,Voided
[2021-10-09 16:24] LABS: Glucose,Whole Blood 178 mg/dL (75-99)
[2021-10-09] MEDS: HYDROcodone/APAP 5-325MG 1 EACH TAB PO PRN ×2 (17:56→23:31)
[2021-10-09 20:00] LABS: Glucose,Whole Blood 139 mg/dL (75-99)
[2021-10-09] MEDS: LEVOFLOXACIN 250 MG TAB PO SCH (20:42)
[2021-10-09] MEDS: ATORVASTATIN 10 MG TAB PO SCH (20:42)
[2021-10-09] MEDS: BENZONATATE 100 MG CAP PO PRN (23:31)
[2021-10-10 05:49] LABS: Glucose,Whole Blood 120 mg/dL (75-99)
[2021-10-10] MEDS: INSULIN ASPART (NovoLOG) 100 UNIT/ML VIAL SQ SCH ×4 (06:16→21:20)
[2021-10-10] MEDS: PANTOPRAZOLE 40 MG TABLET PO SCH (06:20)
[2021-10-10] MEDS: IPRATROPIUM-ALBUTEROL 3 ML NEB INHALATION PRN (08:09)
[2021-10-10] MEDS: BUDESONIDE 0.5 MG/2 ML NEBU INHALATION SCH ×2 (08:11→20:02)
[2021-10-10] MEDS: ACETAMINOPHEN TAB 325 MG TAB PO PRN (08:30)
[2021-10-10] MEDS: BENZONATATE 100 MG CAP PO PRN (08:31)
[2021-10-10] MEDS: ARTIFICIAL TEARS-HYPROMELLOSE DROPS 15 ML BTL BOTH EYES SCH ×3 (08:31→21:22)
[2021-10-10] MEDS: guaiFENesin 600 MG TABLET.ER PO SCH ×2 (08:33→21:20)
[2021-10-10] MEDS: METOPROLOL TARTRATE 12.5 MG TAB PO SCH ×2 (08:33→21:20)
[2021-10-10] MEDS: HEPARIN SODIUM,PORCINE/PF 5,000 UNIT/0.5 ML SYRINGE SQ SCH ×3 (08:33→23:02)
[2021-10-10] MEDS: lisinopriL 20 MG TAB PO SCH (08:33)
[2021-10-10 08:51] LABS: Calcium 8.3 mg/dL (8.4-10.2)
[2021-10-10] MEDS ORDERED: FUROSEMIDE 10 MG/ML 4 ML VIAL IV SCH (09:00)
[2021-10-10 11:25] LABS: Glucose,Whole Blood 116 mg/dL (75-99)
--- NOTE | 2021-10-10 12:52 | P.PN ---
Subjective Progress Note Date: 10/10/21 HISTORY OF PRESENT ILLNESS: This is a 85-year-old female with a past medical history significant for hypertension, hyperlipidemia, and CVA 2. 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 We have been asked to see the patient in consultation for congestive heart failure. Patient examined at the bedside. The patient presented to the hospital with a chief complaint of shortness of breath. The patient was found to be in acute CHF and was started on IV Lasix. She reports some improvement in her shortness of breath. She denies chest pain or pressure. The patient was recently admitted to the hospital secondary to chest pain. She underwent a Lexiscan stress test which was negative for ischemia. Patient also underwent echocardiogram at that time revealing ejection fraction 55-60%, possible LVOT obstruction, moderate mitral regurgitation, and mild tricuspid regurgitation * EKG reveals sinus mechanism with no signs of acute ischemia * Chest xray moderate congestive heart failure * Laboratory data: WBC 11.1. Hemoglobin 11.6. Platelet count 434. Sodium 131. Potassium 5.0. BUN 21. Creatinine 1.18. TSH 3.050. ProBNP 2100. Troponin negative 3. * Current home cardiac medications include Lipitor 10 mg at night, Lasix 40 mg daily, lisinopril 40 mg daily, metoprolol tartrate 12.5 mg daily 10/09/2021 Patient examined this morning at the bedside. Patient denies chest pain or pressure. She reports improvement in her shortness of breath. She reports frequent coughing. She remains on IV Lasix 40 mg every 12 hours. Vital signs are stable. 10/10/2021 Patient examined this morning. She is sitting up in the chair. She denies chest pain or pressure. She continues to report mild shortness of breath. She remains on Lasix 40 mg IV daily. BUN 33. Creatinine 1.15. PHYSICAL EXAM: VITAL SIGNS: Reviewed. GENERAL: Well-developed in no acute distress. HEENT: Head is normocephalic. Pupils are equal, round. Sclerae anicteric. Mucous membranes of the mouth are moist. Neck supple. No JVD or thyromegaly LUNGS: Respirations even and unlabored. Lungs diminished to auscultation bilaterally. HEART: Regular rate and rhythm. S1 and S2 heard. Systolic murmur noted ABDOMEN: Soft. Nondistended. Nontender. EXTREMITIES: Normal range of motion. No clubbing or cyanosis. Peripheral pulses intact. Trace lower extremity edema NEUROLOGIC: Awake and alert. Oriented x 3. ASSESSMENT: Shortness of breath Acute on chronic congestive heart failure with preserved ejection fraction Hypertension Hyperlipidemia History of CVA 2 PLAN: Discontinue IV Lasix. Begin oral Lasix 40 mg daily Monitor kidney function Daily weights Accurate I&O Further recommendations pending patient course Nurse practitioner note has been reviewed by physician. Signing provider agrees with the documented findings, assessment, and plan of care. Objective - Vital Signs Vital signs: Vital Signs Temp 98.4 F 10/10/21 08:00 Pulse 86 10/10/21 08:23 Resp 18 10/10/21 08:00 BP 109/52 10/10/21 08:00 Pulse Ox 96 10/10/21 08:16 Intake & Output 10/09/21 10/10/21 10/10/21 18:59 06:59 18:59 Intake Total 720 120 Output Total 300 800 Balance 420 -800 120 Weight 81.6 kg Intake: Oral 720 120 Output: Urine 300 800 Other: Voiding Method Toilet - Labs CBC & Chem 7: 10/08/21 05:56 10/10/21 07:23 Labs: Abnormal Lab Results - Last 24 Hours (Table) 10/09/21 10/09/21 10/10/21 Range/Units 16:22 19:59 05:48 Sodium (137-145) mmol/L Chloride (98-107) mmol/L BUN (7-17) mg/dL Creatinine (0.52-1.04) mg/dL Glucose (74-99) mg/dL POC Glucose (mg/dL) 178 H 139 H 120 H (75-99) mg/dL Calcium (8.4-10.2) mg/dL 10/10/21 10/10/21 Range/Units 07:23 11:23 Sodium 129 L (137-145) mmol/L Chloride 95 L (98-107) mmol/L BUN 33 H (7-17) mg/dL Creatinine 1.15 H (0.52-1.04) mg/dL Glucose 122 H (74-99) mg/dL POC Glucose (mg/dL) 116 H (75-99) mg/dL Calcium 8.3 L (8.4-10.2) mg/dL Microbiology - Last 24 Hours (Table) 10/07/21 22:27 Urine Culture - Final Urine,Voided
--- NOTE | 2021-10-10 15:08 | P.PN ---
Subjective Progress Note Date: 10/10/21 This is an 85-year-old female admitted with acute diastolic CHF/COPD and multiple other medical issues in a patient with prior history of former nicotine dependence recent extensive and nebulized bronchodilators added to med regimen yesterday, coughing persists. Slept with head of bed elevated. Reports mild shortness of breath. Continues on 6 L high flow nasal cannula ,maintaining O2 sats in the low 90s. T-max 99.1. Urine culture reporting no growth after 18 hours. Diuresing well on Lasix IV push with 24-hour I&O reflecting a negative fluid balance. BUN 27, Creatinine decreased to 0.99. 10/10/2021 maintained O2 sats of 99% on 6 L high flow nasal cannula, which can be weaned down further. Afebrile. Loose congested cough with clear sputum. Diuresing well on Lasix IV push with 24-hour I&O reflecting a negative fluid balance. Sodium declining, 129, renal function worsening, BUN 33, creatinine 1.15. Objective - Vital Signs Vital signs: Vital Signs Temp 98.4 F 10/10/21 08:00 Pulse 86 10/10/21 08:23 Resp 18 10/10/21 08:00 BP 109/52 10/10/21 08:00 Pulse Ox 96 10/10/21 08:16 Intake & Output 10/09/21 10/10/21 10/10/21 18:59 06:59 18:59 Intake Total 720 120 Output Total 300 800 Balance 420 -800 120 Weight 81.6 kg Intake: Oral 720 120 Output: Urine 300 800 Other: Voiding Method Toilet # Voids 1 - Exam - Exam General: Sitting up in chair, NAD. Vitals reviewed Lungs: normal respiratory effort, CTA CV: Regular rate and rhythm, no murmur. Peripheral pulses 2+ Abdomen: soft, nondistended, no organomegaly positive bowel sounds, Skin: warm and dry. - Labs CBC & Chem 7: 10/08/21 05:56 10/10/21 07:23 Labs: Abnormal Lab Results - Last 24 Hours (Table) 10/09/21 10/09/21 10/10/21 Range/Units 16:22 19:59 05:48 Sodium (137-145) mmol/L Chloride (98-107) mmol/L BUN (7-17) mg/dL Creatinine (0.52-1.04) mg/dL Glucose (74-99) mg/dL POC Glucose (mg/dL) 178 H 139 H 120 H (75-99) mg/dL Calcium (8.4-10.2) mg/dL 10/10/21 10/10/21 Range/Units 07:23 11:23 Sodium 129 L (137-145) mmol/L Chloride 95 L (98-107) mmol/L BUN 33 H (7-17) mg/dL Creatinine 1.15 H (0.52-1.04) mg/dL Glucose 122 H (74-99) mg/dL POC Glucose (mg/dL) 116 H (75-99) mg/dL Calcium 8.3 L (8.4-10.2) mg/dL Microbiology - Last 24 Hours (Table) 10/07/21 22:27 Urine Culture - Final Urine,Voided Assessment and Plan Assessment: Acute on chronic diastolic CHF dysfunction Acute COPD exacerbation Possible lower lobe pneumonia Acute hypoxic respiratory failure secondary to the above, Diabetes mellitus type 2 Hypertension hyperlipidemia osteoarthritis Former nicotine dependence History of CVA, 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 Wean down O2. Aggressive pulmonary toileting with nebulized bronchodilators, Pulmicort Levaquin, Mucinex, Tessalon Perles and diuretics. Worsening renal function and sodium, diuretics converted to oral as per cardiology. ,follow-up chest x-ray ordered, sputum cx ordered,pulmonary consulted. The impression and plan of care has been dictated as directed. : I performed a history and examination of this patient, discussed the same with the dictator. I agree with the dictator's note ,documented as a scribe. Any additional findings or plans will be noted.
[2021-10-10] MEDS ORDERED: IPRATROPIUM-ALBUTEROL 3 ML NEB INHALATION PRN (15:42)
[2021-10-10 16:25] LABS: Glucose,Whole Blood 143 mg/dL (75-99)
[2021-10-10] MEDS: IPRATROPIUM-ALBUTEROL 3 ML NEB INHALATION SCH ×2 (16:28→20:02)
--- NOTE | 2021-10-10 17:00 | XR ---
EXAMINATION TYPE: XR chest 2V DATE OF EXAM: 10/10/2021 COMPARISON: X-ray dated 10/07/2021 HISTORY: Follow-up TECHNIQUE: Frontal and lateral views of the chest are obtained. FINDINGS: Persistent bilateral pleural effusions, smaller on the left side and larger on the right side. Suspec brinda adjacent atelectasis. Slightly congested pulmonary vasculature with prominent interstitial markings, pulmonary edema cannot be excluded. No pneumothorax. Cardiac size cannot be properly assessed. Aortic atherosclerotic calcifications. Unchanged bony thora cic cage. IMPRESSION: Interval changes as described above.
[2021-10-10 20:04] LABS: Glucose,Whole Blood 151 mg/dL (75-99)
[2021-10-10] MEDS: ATORVASTATIN 10 MG TAB PO SCH (21:20)
[2021-10-10] MEDS: LEVOFLOXACIN 250 MG TAB PO SCH (21:20)
[2021-10-11 05:57] LABS: Glucose,Whole Blood 131 mg/dL (75-99)
[2021-10-11] MEDS: PANTOPRAZOLE 40 MG TABLET PO SCH (06:31)
[2021-10-11] MEDS: INSULIN ASPART (NovoLOG) 100 UNIT/ML VIAL SQ SCH ×4 (06:33→20:38)
[2021-10-11] MEDS: IPRATROPIUM-ALBUTEROL 3 ML NEB INHALATION SCH ×4 (08:15→20:47)
[2021-10-11] MEDS: BUDESONIDE 0.5 MG/2 ML NEBU INHALATION SCH ×2 (08:15→20:47)
[2021-10-11 08:27] LABS: Basophils # (A) 0.1 k/uL (0-0.2); Basophils % (A) 1 %; Eosinophils # (A) 0.3 k/uL (0-0.7); Eosinophils % (A) 3 %; HCT 38.5 % (34.0-46.0); Lymphocytes % (A) 11 %; MCHC 31.2 g/dL (31.0-37.0); MCV 99.3 fL (80.0-100.0); Mean Platelet Volume 7.6; Monocytes # (A) 0.7 k/uL (0-1.0); Monocytes % (A) 7 %; Neutrophils # (A) 7.4 k/uL (1.3-7.7); Neutrophils % (A) 77 %; Platelet Count 537 k/uL (150-450); RBC 3.88 m/uL (3.80-5.40); RDW 12.3 % (11.5-15.5); WBC 9.7 k/uL (3.8-10.6)
[2021-10-11 08:45] LABS: Calcium 8.9 mg/dL (8.4-10.2); Potassium 4.6 mmol/L (3.5-5.1)
[2021-10-11] MEDS: guaiFENesin 600 MG TABLET.ER PO SCH ×2 (08:51→20:37)
[2021-10-11] MEDS: METOPROLOL TARTRATE 12.5 MG TAB PO SCH ×2 (08:51→20:37)
[2021-10-11] MEDS: HEPARIN SODIUM,PORCINE/PF 5,000 UNIT/0.5 ML SYRINGE SQ SCH ×3 (08:52→23:31)
[2021-10-11] MEDS: lisinopriL 20 MG TAB PO SCH (08:52)
[2021-10-11] MEDS: ARTIFICIAL TEARS-HYPROMELLOSE DROPS 15 ML BTL BOTH EYES SCH ×3 (08:52→20:39)
[2021-10-11] MEDS ORDERED: FUROSEMIDE 40 MG TAB PO SCH (09:00)
[2021-10-11 11:51] LABS: Glucose,Whole Blood 118 mg/dL (75-99)
--- NOTE | 2021-10-11 12:42 | P.CNPUL ---
History of Present Illness Consult date: 10/11/21 Requesting physician: James Tracey Reason for consult: abnormal CXR/CT Chief complaint: Chest pain History of present illness: This 85-year-old female patient with a known history of hypertension, hyperlipidemia, CVA with intermittent aphasia, diabetes mellitus type 2, diabetic neuropathy, blood and ulcer, diverticulitis, migraines, recent admission for chest pain with negative stress test. She presented to the emergency room again on 10/07/2021 with concerns regarding chest pain. Ultras ound of the liver was performed due to elevated LFTs. No dilated ducts. Liver small. Small right effusion demonstrated. No ascites. No discrete liver mass. Computed tomography scan of the abdomen and pelvis did reveal lower lobe pulmonary airspace consolidations and pleural effusions secondary to suspected congestive heart failure. Small pericardial effusion. Follow-up chest x-ray yesterday revealed persistent bilateral pleural effusions right greater than left with adjacent atelectasis. We're consulted for the same. She is seen today in consultation on the regular medical floor. She is currently resting in bed. She is on 6 L high flow nasal cannula to maintain O2 saturations in the 90s she's afebrile. Hemodynamically stable. White count 9.7. Hemoglobin 12.0. Sodium 129. Potassium 4.6. BUN 30. Creatinine 0.86. Glucose 133. Paredes virus by PCR negative. Troponins negative. ProBNP 2100. Review of Systems REVIEW OF SYSTEMS: CONSTITUTIONAL: Denies any recent significant weight loss or weight gain. EYES: Denies change in vision. EARS, NOSE, MOUTH, THROAT: Denies headaches, denies sore throat. CARDIOVASCULAR: Positive for chest pain, palpitations no syncopal episodes. RESPIRATORY: Denies shortness of breath, cough, congestion or hemoptysis. GASTROINTESTINAL: Denies change in appetite, denies abdominal pain GENITOURINARY: Denies hematuria, denies infections. MUSKULOSKELETAL: Denies pain, denies swelling. INTEGUMENTARY: Denies rash, denies eczema. NEUROLOGICAL: Denies recent memory loss, no recent seizure activity. PSYCHIATRIC: Denies anxiety, denies depression. HEMATOLOGIC/LYMPHATIC: Denies anemia, denies enlarged lymph nodes. Past Medical History Past Medical History: Cancer, CVA/TIA, Diabetes Mellitus, Eye Disorder, Hyperlipidemia, Hypertension, Osteoarthritis (OA), Syncope Additional Past Medical History / Comment(s): 2010 CVA/pt states if she is frustrated she will occasionally have difficulty finding her words, R eye decreased vision pt states she was told d/t CVA and diabetes, NIDDM type II/diet controlled, neuropathy bilateral feet, currently has L breast/L axillae "spots" being monitored, duodenal ulcer, benign colon polyps, diverticular dis ease, anemia, migraines, skin cancer with removal, pt does not know why she takes lasix. History of Any Multi-Drug Resistant Organisms: None Reported Past Surgical History: Appendectomy, Cholecystectomy, Hysterectomy, Joint Replacement, Orthopedic Surgery Additional Past Surgical History / Comment(s): Surgery for gallbladder removal/hiatal hernia and gastric ulcer at same time, EGDs, colonoscopies, hemorrhoidectomy, skin cancer removed, skin lesion removals, neil's cyst removed from posterior knee, total R knee arthroplasty, bilateral cataracts removed/lens implants. Past Anesthesia/Blood Transfusion Reactions: Motion Sickness Additional Past Anesthesia/Blood Transfusion Reaction / Comment(s): BLOOD TRANSFUSION (5 UNITS) POST HYSTERECTOMY, NO REACTIONS Past Psychological History: No Psychological Hx Reported Smoking Status: Former smoker Past Alcohol Use History: None Reported Past Drug Use History: None Reported - Past Family History Sister(s) Family Medical History: Cancer Additional Family Medical History / Comment(s): colon mets to pancreas Father Additional Family Medical History / Comment(s): from coronary occlusion Mother Family Medical History: AICD/Pacemaker Medications and Allergies Home Medications Medication Instructions Recorded Confirmed Type Atorvastatin [Lipitor] 10 mg PO HS 08/26/14 10/07/21 History lisinopriL 40 mg PO DAILY 08/26/14 10/07/21 History Propylene Glycol [Systane Complete] 1 drop BOTH EYES TID 02/08/19 10/07/21 Histo ry Furosemide [Lasix] 40 mg PO DAILY 08/03/19 10/07/21 History Ergocalciferol [Vitamin D2 (1250 1,250 mcg PO SA@2100 04/19/21 10/07/21 History Mcg = [id number] Iu)] Loratadine [Claritin] 10 mg PO HS 09/24/21 10/07/21 History Ibuprofen [Motrin] 400 mg PO Q6HR PRN 7 Days #28 tab 09/29/21 10/07/21 Rx Methocarbamol [Robaxin-750] 750 mg PO BID PRN 7 Days #14 tablet 09/29/21 10/07/21 Rx Diclofenac Sodium Gel [Voltaren 4 gm TOPICAL QID 10/07/21 10/07/21 History Gel] Metoprolol Tartrate [Lopressor] 12.5 mg PO DAILY 10/07/21 10/07/21 History Allergies Allergy/AdvReac Type Severity Reaction Status Date / Time cephalexin Allergy Rash/Hives Verified 10/07/21 12:17 clindamycin Allergy Rash/Hives Verified 10/07/21 12:17 latex Allergy Rash/Hives Verified 10/07/21 12:17 Penicillins Allergy Rash/Hives Verified 10/07/21 12:17 Sulfa (Sulfonamide Allergy Rash/Hives Verified 10/07/21 12:17 Antibiotics) TAPE Allergy RASH, Uncoded 09/29/21 09:18 PAPER TAPE IS OK Physical Exam Vitals: Vital Signs Temp Pulse Pulse Resp BP Pulse Ox 10/11/21 12:01 86 10/11/21 11:51 85 10/11/21 08:29 92 10/11/21 08:15 94 10/11/21 08:00 98.7 F 78 20 119/64 90 L 10/11/21 04:00 97.2 F L 88 20 145/62 94 L 10/11/21 02:00 85 20 10/10/21 23:54 98.0 F 85 20 110/56 92 L 10/10/21 20:10 90 10/10/21 20:02 90 10/10/21 20:00 98.2 F 100 20 159/70 93 L 10/10/21 16:41 92 10/10/21 16:30 94 L 10/10/21 16:28 94 10/10/21 16:00 90 18 123/58 98 10/10/21 14:00 18 Intake and Output 10/10/21 10/11/21 10/11/21 22:59 06:59 14:59 Intake Total 10 120 Output Total 250 475 150 Balance -250 -465 -30 Intake: IV 10 0.9 10 Oral 120 Output: Urine 250 475 150 Other: Voiding Method Toilet Toilet Toilet # Voids 1 1 # Bowel Movements 1 Weight 82.1 kg GENERAL EXAM: Alert, 85-year-old female patient, on 6 L high flow nasal cannula, fairly comfortable in no apparent distress. HEAD: Normocephalic. EYES: Normal reaction of pupils, equal size. NOSE: Clear with pink turbinates. THROAT: No erythema or exudates. NECK: No masses, no JVD. CHEST: No chest wall deformity. LUNGS: Equal air entry with echoes in the posterior bases, diminished. CVS: S1 and S2 normal with no audible murmur, regular rhythm. ABDOMEN: No hepatosplenomegaly, normal bowel sounds, no guarding or rigidity. SPINE: No scoliosis or deformity SKIN: No rashes CENTRAL NERVOUS SYSTEM: No focal deficits, tone is normal in all 4 extremities. EXTREMITIES: There is no peripheral edema. No clubbing, no cyanosis. Peripheral pulses are intact. Results - Laboratory Findings CBC and BMP: 10/11/21 07:42 10/11/21 07:42 PT/INR, D-dimer PT 12.7 sec (9.0-12.0) H 10/07/21 10:34 INR 1.2 (<1.2) H 10/07/21 10:34 Abnormal lab findings: Abnormal Labs 10/07/21 10/07/21 10/07/21 10:34 10:34 10:34 WBC 12.9 H RBC MCV Plt Count 454 H Neutrophils # 11.1 H Lymphocytes # 0.7 L PT 12.7 H INR 1.2 H Sodium 133 L Chloride Carbon Dioxide BUN Creatinine Glucose 176 H POC Glucose (mg/dL) Calcium AST 48 H ALT 38 H Alkaline Phosphatase 131 H Total Protein Albumin 3.3 L Urine Appearance Urine Protein Urine Glucose (UA) Urine Blood Urine Bilirubin Ur Leukocyte Esterase Urine RBC Urine WBC Ur Squamous Epith Cells Urine Bacteria Hyaline Casts Urine Mucus 10/07/21 10/07/21 10/07/21 16:48 20:16 22:27 WBC RBC MCV Plt Count Neutrophils # Lymphocytes # PT INR Sodium Chloride Carbon Dioxide BUN Creatinine Glucose POC Glucose (mg/dL) 142 H 170 H Calcium AST ALT Alkaline Phosphatase Total Protein Albumin Urine Appearance Cloudy H Urine Protein 1+ H Urine Glucose (UA) Trace H Urine Blood Large H Urine Bilirubin 1+ H Ur Leukocyte Esterase Trace H Urine RBC >182 H Urine WBC 18 H Ur Squamous Epith Cells 7 H Urine Bacteria Occasional H Hyaline Casts 115 H Urine Mucus Moderate H 10/08/21 10/08/21 10/08/21 05:56 05:56 06:11 WBC 11.5 H RBC 3.70 L MCV 101.0 H Plt Count Neutrophils # 9.3 H Lymphocytes # PT INR Sodium 131 L Chloride Carbon Dioxide 20 L BUN 21 H Creatinine 1.18 H Glucose 116 H POC Glucose (mg/dL) 111 H Calcium AST ALT Alkaline Phosphatase Total Protein 6.2 L Albumin 2.9 L Urine Appearance Urine Protein Urine Glucose (UA) Urine Blood Urine Bilirubin Ur Leukocyte Esterase Urine RBC Urine WBC Ur Squamous Epith Cells Urine Bacteria Hyaline Casts Urine Mucus 10/08/21 10/08/21 10/08/21 12:03 16:38 19:31 WBC RBC MCV Plt Count Neutrophils # Lymphocytes # PT INR Sodium Chloride Carbon Dioxide BUN Creatinine Glucose POC Glucose (mg/dL) 161 H 153 H 145 H Calcium AST ALT Alkaline Phosphatase Total Protein Albumin Urine Appearance Urine Protein Urine Glucose (UA) Urine Blood Urine Bilirubin Ur Leukocyte Esterase Urine RBC Urine WBC Ur Squamous Epith Cells Urine Bacteria Hyaline Casts Urine Mucus 10/09/21 10/09/21 10/09/21 06:00 08:25 11:39 WBC RBC MCV Plt Count Neutrophils # Lymphocytes # PT INR Sodium 132 L Chloride Carbon Dioxide BUN 27 H Creatinine Glucose 179 H POC Glucose (mg/dL) 131 H 131 H Calcium 8.3 L AST ALT Alkaline Phosphatase Total Protein Albumin Urine Appearance Urine Protein Urine Glucose (UA) Urine Blood Urine Bilirubin Ur Leukocyte Esterase Urine RBC Urine WBC Ur Squamous Epith Cells Urine Bacteria Hyaline Casts Urine Mucus 10/09/21 10/09/21 10/10/21 16:22 19:59 05:48 WBC RBC MCV Plt Count Neutrophils # Lymphocytes # PT INR Sodium Chloride Carbon Dioxide BUN Creatinine Glucose POC Glucose (mg/dL) 178 H 139 H 120 H Calcium AST ALT Alkaline Phosphatase Total Protein Albumin Urine Appearance Urine Protein Urine Glucose (UA) Urine Blood Urine Bilirubin Ur Leukocyte Esterase Urine RBC Urine WBC Ur Squamous Epith Cells Urine Bacteria Hyaline Casts Urine Mucus 10/10/21 10/10/21 10/10/21 07:23 11:23 16:23 WBC RBC MCV Plt Count Neutrophils # Lymphocytes # PT INR Sodium 129 L Chloride 95 L Carbon Dioxide BUN 33 H Creatinine 1.15 H Glucose 122 H POC Glucose (mg/dL) 116 H 143 H Calcium 8.3 L AST ALT Alkaline Phosphatase Total Protein Albumin Urine Appearance Urine Protein Urine Glucose (UA) Urine Blood Urine Bilirubin Ur Leukocyte Esterase Urine RBC Urine WBC Ur Squamous Epith Cells Urine Bacteria Hyaline Casts Urine Mucus 10/10/21 10/11/21 10/11/21 20:02 05:55 07:42 WBC RBC MCV Plt Count 537 H Neutrophils # Lymphocytes # PT INR Sodium Chloride Carbon Dioxide BUN Creatinine Glucose POC Glucose (mg/dL) 151 H 131 H Calcium AST ALT Alkaline Phosphatase Total Protein Albumin Urine Appearance Urine Protein Urine Glucose (UA) Urine Blood Urine Bilirubin Ur Leukocyte Esterase Urine RBC Urine WBC Ur Squamous Epith Cells Urine Bacteria Hyaline Casts Urine Mucus 10/11/21 10/11/21 07:42 11:49 WBC RBC MCV Plt Count Neutrophils # Lymphocytes # PT INR Sodium 129 L Chloride 94 L Carbon Dioxide BUN 30 H Creatinine Glucose 133 H POC Glucose (mg/dL) 118 H Calcium AST ALT Alkaline Phosphatase Total Protein Albumin Urine Appearance Urine Protein Urine Glucose (UA) Urine Blood Urine Bilirubin Ur Leukocyte Esterase Urine RBC Urine WBC Ur Squamous Epith Cells Urine Bacteria Hyaline Casts Urine Mucus - Diagnostic Findings Chest x-ray: image reviewed Assessment and Plan Assessment: 1 Acute hypoxemic respiratory failure secondary to acute exacerbation of diastolic congestive heart failure 2 Bilateral pleural effusions secondary to above 3 Chest pain without acute coronary syndrome 4 Diabetes, type II 5 Peripheral neuropathy 6 Hypertension 7 Hyperlipidemia 8 History of CVA with occasional aphasia 9 History of migraines 10 Prior smoker 11 Diverticulitis 12 History of duodenal ulcer Plan: The patient was seen and evaluated Chest x-ray and labs reviewed Obtain ultrasound of the bilateral chest Continue DuoNeb inhalations, Pulmicort inhalations Continue antibiotics for now Obtain a pro-calcitonin Operative for DVT prophylaxis Remains on oral diuretics We will continue to follow and make further recommendations based on her clinical status I have personally seen and examined the patient, performed the documentation and the assessment and plan as written. Number of minutes spent on the visit: 20.
--- NOTE | 2021-10-11 12:46 | US ---
EXAMINATION TYPE: US chest DATE OF EXAM: 10/11/2021 COMPARISON: Chest x-ray 10/10/2021 CLINICAL HISTORY: Bilateral effusions. TECHNIQUE: Targeted ultrasound of the posterior lower bilateral hemithoraces Exam done portable EXAM MEASUREMENTS: Right Pleural Effusion pocket size: 11.1 cm Right skin surface to fluid distance: 3.2 cm Left Pleural Effusion pocket size: 9.9 cm Left skin surface to fluid distance: 2.4 cm Right side marked for possible thoracentesis outside the dept. Left side marked for possible thoracentesis outside the dept. Pulmonologists are able to review the images in the patient?s EMR. IMPRESSIONS: Bilateral pleural effusions
--- NOTE | 2021-10-11 13:42 | P.PN ---
Subjective Progress Note Date: 10/11/21 HISTORY OF PRESENT ILLNESS: This is a 85-year-old female with a past medical history significant for hypertension, hyperlipidemia, and CVA 2. 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 We have been asked to see the patient in consultation for congestive heart failure. Patient examined at the bedside. The patient presented to the hospital with a chief complaint of shortness of breath. The patient was found to be in acute CHF and was started on IV Lasix. She reports some improvement in her shortness of breath. She denies chest pain or pressure. The patient was recently admitted to the hospital secondary to chest pain. She underwent a Lexiscan stress test which was negative for ischemia. Patient also underwent echocardiogram at that time revealing ejection fraction 55-60%, possible LVOT obstruction, moderate mitral regurgitation, and mild tricuspid regurgitation * EKG reveals sinus mechanism with no signs of acute ischemia * Chest xray moderate congestive heart failure * Laboratory data: WBC 11.1. Hemoglobin 11.6. Platelet count 434. Sodium 131. Potassium 5.0. BUN 21. Creatinine 1.18. TSH 3.050. ProBNP 2100. Troponin negative 3. * Current home cardiac medications include Lipitor 10 mg at night, Lasix 40 mg daily, lisinopril 40 mg daily, metoprolol tartrate 12.5 mg daily 10/09/2021 Patient examined this morning at the bedside. Patient denies chest pain or pressure. She reports improvement in her shortness of breath. She reports frequent coughing. She remains on IV Lasix 40 mg every 12 hours. Vital signs are stable. 10/10/2021 Patient examined this morning. She is sitting up in the chair. She denies chest pain or pressure. She continues to report mild shortness of breath. She remains on Lasix 40 mg IV daily. BUN 33. Creatinine 1.15. 10/11/2021 Patient examined this morning at the bedside. Patient denies chest pain or pressure. She reports mild shortness of breath. She remains on oral Lasix 40 mg daily. Creatinine 0.86 today. Vital signs are stable. PHYSICAL EXAM: VITAL SIGNS: Reviewed. GENERAL: Well-developed in no acute distress. HEENT: Head is normocephalic. Pupils are equal, round. Sclerae anicteric. Mucous membranes of the mouth are moist. Neck supple. No JVD or thyromegaly LUNGS: Respirations even and unlabored. Lungs diminished to auscultation bilaterally. HEART: Regular rate and rhythm. S1 and S2 heard. Systolic murmur noted ABDOMEN: Soft. Nondistended. Nontender. EXTREMITIES: Normal range of motion. No clubbing or cyanosis. Peripheral pulses intact. Trace lower extremity edema NEUROLOGIC: Awake and alert. Oriented x 3. ASSESSMENT: Shortness of breath Acute on chronic congestive heart failure with preserved ejection fraction Hypertension Hyperlipidemia History of CVA 2 PLAN: Increase oral Lasix to 60 mg daily Monitor kidney function Daily weights Accurate I&O Further recommendations pending patient course Nurse practitioner note has been reviewed by physician. Signing provider agrees with the documented findings, assessment, and plan of care. Objective - Vital Signs Vital signs: Vital Signs Temp 98.7 F 10/11/21 08:00 Pulse 86 10/11/21 12:01 Resp 20 10/11/21 08:00 BP 119/64 10/11/21 08:00 Pulse Ox 90 L 10/11/21 08:00 Intake & Output 10/10/21 10/11/21 10/11/21 18:59 06:59 18:59 Intake Total 120 10 120 Output Total 200 525 150 Balance -80 -515 -30 Weight 82.1 kg Intake: IV 10 0.9 10 Oral 120 120 Output: Urine 200 525 150 Other: Voiding Method Toilet Toilet # Voids 1 1 # Bowel Movements 1 - Labs CBC & Chem 7: 10/11/21 07:42 10/11/21 07:42 Labs: Abnormal Lab Results - Last 24 Hours (Table) 10/10/21 10/10/21 10/11/21 Range/Units 16:23 20:02 05:55 Plt Count (150-450) k/uL Sodium (137-145) mmol/L Chloride (98-107) mmol/L BUN (7-17) mg/dL Glucose (74-99) mg/dL POC Glucose (mg/dL) 143 H 151 H 131 H (75-99) mg/dL 10/11/21 10/11/21 10/11/21 Range/Units 07:42 07:42 11:49 Plt Count 537 H (150-450) k/uL Sodium 129 L (137-145) mmol/L Chloride 94 L (98-107) mmol/L BUN 30 H (7-17) mg/dL Glucose 133 H (74-99) mg/dL POC Glucose (mg/dL) 118 H (75-99) mg/dL
--- NOTE | 2021-10-11 14:32 | P.PN ---
Subjective Progress Note Date: 10/11/21 This is an 85-year-old female admitted with acute diastolic CHF/COPD and multiple other medical issues in a patient with prior history of former nicotine dependence recent extensive and nebulized bronchodilators added to med regimen yesterday, coughing persists. Slept with head of bed elevated. Reports mild shortness of breath. Continues on 6 L high flow nasal cannula ,maintaining O2 sats in the low 90s. T-max 99.1. Urine culture reporting no growth after 18 hours. Diuresing well on Lasix IV push with 24-hour I&O reflecting a negative fluid balance. BUN 27, Creatinine decreased to 0.99. 10/10/2021 maintained O2 sats of 99% on 6 L high flow nasal cannula, which can be weaned down further. Afebrile. Loose congested cough with clear sputum. Diuresing well on Lasix IV push with 24-hour I&O reflecting a negative fluid balance. Sodium declining, 129, renal function worsening, BUN 33, creatinine 1.15. 10/11/2021 chest x-ray completed yesterday afternoon reporting bilateral pleural effusions, larger on the right side. Ultrasound performed with bilateral sides marked for potential thoracentesis. Continues to require 6 liters high flow nasal cannula to maintain O2 sats in the 90s. Afebrile, normal WBC. Renal function improving. Sodium 129. Objective - Vital Signs Vital signs: Vital Signs Temp 98.7 F 10/11/21 08:00 Pulse 86 10/11/21 12:01 Resp 20 10/11/21 08:00 BP 119/64 10/11/21 08:00 Pulse Ox 90 L 10/11/21 08:00 Intake & Output 10/10/21 10/11/21 10/11/21 18:59 06:59 18:59 Intake Total 120 10 120 Output Total 200 525 150 Balance -80 -515 -30 Weight 82.1 kg Intake: IV 10 0.9 10 Oral 120 120 Output: Urine 200 525 150 Other: Voiding Method Toilet Toilet # Voids 1 1 # Bowel Movements 1 - Exam - Exam General: Sitting up in chair, NAD. Vitals reviewed Lungs: normal respiratory effort, diminished CV: Regular rate and rhythm, no murmur. Peripheral pulses 2+ Abdomen: soft, nondistended, no organomegaly positive bowel sounds, Skin: warm and dry. - Labs CBC & Chem 7: 10/11/21 07:42 10/11/21 07:42 Labs: Abnormal Lab Results - Last 24 Hours (Table) 10/10/21 10/10/21 10/11/21 Range/Units 16:23 20:02 05:55 Plt Count (150-450) k/uL Sodium (137-145) mmol/L Chloride (98-107) mmol/L BUN (7-17) mg/dL Glucose (74-99) mg/dL POC Glucose (mg/dL) 143 H 151 H 131 H (75-99) mg/dL 10/11/21 10/11/21 10/11/21 Range/Units 07:42 07:42 11:49 Plt Count 537 H (150-450) k/uL Sodium 129 L (137-145) mmol/L Chloride 94 L (98-107) mmol/L BUN 30 H (7-17) mg/dL Glucose 133 H (74-99) mg/dL POC Glucose (mg/dL) 118 H (75-99) mg/dL Assessment and Plan Assessment: Acute on chronic diastolic CHF dysfunction Bilateral pleural effusions secondary to the above Acute COPD exacerbation Possible lower lobe pneumonia Acute hypoxic respiratory failure secondary to the above, Diabetes mellitus type 2 Hypertension hyperlipidemia osteoarthritis Former nicotine dependence History of CVA, 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 Potential thoracentesis . Pro-calcitonin ordered. Sputum culture pending .Aggressive pulmonary toileting with nebulized bronchodilators, Pulmicort, Levaquin and diuretics. The impression and plan of care has been dictated as directed. : I performed a history and examination of this patient, discussed the same with the dictator. I agree with the dictator's note ,documented as a scribe. Any additional findings or plans will be noted.
[2021-10-11] MEDS: FUROSEMIDE 20 MG TAB PO SCH (15:04)
[2021-10-11 16:14] LABS: Glucose,Whole Blood 158 mg/dL (75-99)
[2021-10-11 20:13] LABS: Glucose,Whole Blood 133 mg/dL (75-99)
[2021-10-11] MEDS: ATORVASTATIN 10 MG TAB PO SCH (20:37)
[2021-10-11] MEDS: LEVOFLOXACIN 250 MG TAB PO SCH (20:37)
[2021-10-12 05:55] LABS: Glucose,Whole Blood 130 mg/dL (75-99)
[2021-10-12] MEDS: INSULIN ASPART (NovoLOG) 100 UNIT/ML VIAL SQ SCH ×4 (06:01→20:56)
[2021-10-12] MEDS: PANTOPRAZOLE 40 MG TABLET PO SCH (06:22)
[2021-10-12] MEDS: BUDESONIDE 0.5 MG/2 ML NEBU INHALATION SCH ×2 (08:30→20:43)
[2021-10-12] MEDS: IPRATROPIUM-ALBUTEROL 3 ML NEB INHALATION SCH ×4 (08:30→20:43)
[2021-10-12] MEDS: HEPARIN SODIUM,PORCINE/PF 5,000 UNIT/0.5 ML SYRINGE SQ SCH ×2 (08:35→17:05)
[2021-10-12] MEDS: METOPROLOL TARTRATE 12.5 MG TAB PO SCH ×2 (08:35→20:56)
[2021-10-12] MEDS: lisinopriL 20 MG TAB PO SCH (08:35)
[2021-10-12] MEDS: guaiFENesin 600 MG TABLET.ER PO SCH ×2 (08:35→20:56)
[2021-10-12] MEDS: FUROSEMIDE 20 MG TAB PO SCH (08:35)
[2021-10-12] MEDS: ARTIFICIAL TEARS-HYPROMELLOSE DROPS 15 ML BTL BOTH EYES SCH ×3 (10:23→20:57)
--- NOTE | 2021-10-12 11:00 | XR ---
EXAMINATION TYPE: XR chest 1V portable DATE OF EXAM: 10/12/2021 COMPARISON: Chest x-ray 10/10/2021 HISTORY: Post right thoracentesis TECHNIQUE: Single frontal view of the chest is obtained. FINDINGS: There is no evident pneumothorax. There are overlying leads, artifacts. Bibasilar density is again noted, suspect some improved aeration at the right lung base. Heart is obscured. Aorta is de nse. IMPRESSION: No evident complication status post thoracentesis.
[2021-10-12 11:49] LABS: Glucose,Whole Blood 139 mg/dL (75-99)
--- NOTE | 2021-10-12 11:56 | P.PN ---
Subjective Progress Note Date: 10/12/21 This is an 85-year-old female admitted with acute diastolic CHF/COPD and multiple other medical issues in a patient with prior history of former nicotine dependence recent extensive and nebulized bronchodilators added to med regimen yesterday, coughing persists. Slept with head of bed elevated. Reports mild shortness of breath. Continues on 6 L high flow nasal cannula ,maintaining O2 sats in the low 90s. T-max 99.1. Urine culture reporting no growth after 18 hours. Diuresing well on Lasix IV push with 24-hour I&O reflecting a negative fluid balance. BUN 27, Creatinine decreased to 0.99. 10/10/2021 maintained O2 sats of 99% on 6 L high flow nasal cannula, which can be weaned down further. Afebrile. Loose congested cough with clear sputum. Diuresing well on Lasix IV push with 24-hour I&O reflecting a negative fluid balance. Sodium declining, 129, renal function worsening, BUN 33, creatinine 1.15. 10/11/2021 chest x-ray completed yesterday afternoon reporting bilateral pleural effusions, larger on the right side. Ultrasound performed with bilateral sides marked for potential thoracentesis. Continues to require 6 liters high flow nasal cannula to maintain O2 sats in the 90s. Afebrile, normal WBC. Renal function improving. Sodium 129. 10/12/2021 thoracentesis pending. Loose congested productive cough with whitish sputum. Maintaining O2 sats in the 90s on 6 L nasal cannula. Afebrile. Procalcitonin elevated, on levaquin. Objective - Vital Signs Vital signs: Vital Signs Temp 97.5 F L 10/12/21 08:00 Pulse 80 10/12/21 08:44 Resp 20 10/12/21 08:00 BP 118/59 10/12/21 08:00 Pulse Ox 99 10/12/21 08:00 Intake & Output 10/11/21 10/12/21 10/12/21 18:59 06:59 18:59 Intake Total 352 10 240 Output Total 150 1050 Balance -1040 240 Weight 81.6 kg Intake: IV 10 0.9 10 Oral 352 240 Output: Urine 150 1050 Other: Voiding Method Toilet Toilet Toilet # Voids 1 # Bowel Movements 1 - Exam - Exam General: Sitting up in chair, NAD. Vitals reviewed Lungs: normal respiratory effort, diminished CV: Regular rate and rhythm, no murmur. Peripheral pulses 2+ Abdomen: soft, nondistended, no organomegaly positive bowel sounds, Skin: warm and dry. Dermatitis on back. - Labs CBC & Chem 7: 10/11/21 07:42 10/11/21 07:42 Labs: Abnormal Lab Results - Last 24 Hours (Table) 10/11/21 10/11/21 10/11/21 Range/Units 07:42 11:49 16:13 POC Glucose (mg/dL) 118 H 158 H (75-99) mg/dL Procalcitonin 0.37 H (0.02-0.09) ng/mL 10/11/21 10/12/21 10/12/21 Range/Units 20:12 05:54 11:48 POC Glucose (mg/dL) 133 H 130 H 139 H (75-99) mg/dL Procalcitonin (0.02-0.09) ng/mL Microbiology - Last 24 Hours (Table) 10/11/21 08:25 Gram Stain - Preliminary Sputum Sputum Culture - Preliminary Assessment and Plan Assessment: Acute on chronic diastolic CHF dysfunction Bilateral pleural effusions secondary to the above Acute COPD exacerbation Possible lower lobe pneumonia Acute hypoxic respiratory failure secondary to the above, Diabetes mellitus type 2 Hypertension hyperlipidemia osteoarthritis Former nicotine dependence History of CVA, 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 Sputum culture pending .Aggressive pulmonary toileting with nebulized bronchodilators, Pulmicort, Levaquin and diuretics. The impression and plan of care has been dictated as directed. : I performed a history and examination of this patient, discussed the same with the dictator. I agree with the dictator's note ,documented as a scribe. Any ad ditional findings or plans will be noted.
--- NOTE | 2021-10-12 13:12 | PCN ---
PROCEDURE NOTE PULMONARY/CRITICAL CARE PROCEDURE NOTE: Right-sided thoracentesis. PREOPERATIVE DIAGNOSIS: Right pleural effusion. POSTOPERATIVE DIAGNOSIS: Right pleural effusion. OPERATORS: 1. Dr. Parr. 2. Dr. Palmer. PROCEDURE DESCRIPTION: A time-out was completed verifying correct patient, procedure, site, positioning , and implant (s) or special equipment if applicable. Ultrasound guidance was used to joel the posterior chest, and appropriate fluid pocket was identified and marked. Patient was positioned, prepped and draped in usual sterile fashion. Lidocaine was used to anesthetize the area. A thoracentesis catheter was introduced into the pleural space and 600 mL of fluid that was brown and bloody in color was removed from the right pleural space. Blood loss was none. A chest x-ray will be ordered to rule out for pneumothorax. The fluid will be sent for analysis, including cytology, microbiology and chemistry. The patient tolerated the procedure well and there were no immediate complications. At 6 used the template the posterior chest was marked by ultrasound. 600 cc of fluid with brown bloody in color was removed from the right pleural space. The patient tolerated the procedure well. The fluid will be sent for analysis including cytology, microbiology, and chemistry. Chest x-ray will be ordered to rule out pneumothorax. The patient tolerated the procedure well. There was no immediate complication. MMODL / IJN: [id number] /
--- NOTE | 2021-10-12 13:18 | P.PN ---
Subjective Progress Note Date: 10/12/21 HISTORY OF PRESENT ILLNESS: This is a 85-year-old female with a past medical history significant for hypertension, hyperlipidemia, and CVA 2. The patient does not follow with a fur nailer. We have been asked to see the patient in consultation for congestive heart failure. Patient examined at the bedside. The patient presented to the hospital with a chief complaint of shortness of breath. The patient was found to be in acute CHF and was started on IV Lasix. She reports some improvement in her shortness of breath. She denies chest pain or pressure. The patient was recently admitted to the hospital secondary to chest pain. She underwent a Lexiscan stress test which was negative for ischemia. Patient also underwent echocardiogram at that time revealing ejection fraction 55-60%, possible LVOT obstruction, moderate mitral regurgitation, and mild tricuspid regurgitation * EKG reveals sinus mechanism with no signs of acute ischemia * Chest xray moderate congestive heart failure * Laboratory data: WBC 11.1. Hemoglobin 11.6. Platelet count 434. Sodium 131. Potassium 5.0. BUN 21. Creatinine 1.18. TSH 3.050. ProBNP 2100. Troponin negative 3. * Current home cardiac medications include Lipitor 10 mg at night, Lasix 40 mg daily, lisinopril 40 mg daily, metoprolol tartrate 12.5 mg daily 10/09/2021 Patient examined this morning at the bedside. Patient denies chest pain or pressure. She reports improvement in her shortness of breath. She reports frequent coughing. She remains on IV Lasix 40 mg every 12 hours. Vital signs are stable. 10/10/2021 Patient examined this morning. She is sitting up in the chair. She denies chest pain or pressure. She continues to report mild shortness of breath. She remains on Lasix 40 mg IV daily. BUN 33. Creatinine 1.15. 10/11/2021 Patient examined this morning at the bedside. Patient denies chest pain or pressure. She reports mild shortness of breath. She remains on oral Lasix 40 mg daily. Creatinine 0.86 today. Vital signs are stable. 10/12/2021 Patient examined this morning at the bedside. She denies chest pain or pressure. She reports mild shortness of breath. Plans are for thoracentesis today per pulmonary. PHYSICAL EXAM: VITAL SIGNS: Reviewed. GENERAL: Well-developed in no acute distress. HEENT: Head is normocephalic. Pupils are equal, round. Sclerae anicteric. Mucous membranes of the mouth are moist. Neck supple. No JVD or thyromegaly LUNGS: Respirations even and unlabored. Lungs diminished to auscultation bilaterally. HEART: Regular rate and rhythm. S1 and S2 heard. Systolic murmur noted ABDOMEN: Soft. Nondistended. Nontender. EXTREMITIES: Normal range of motion. No clubbing or cyanosis. Peripheral pulses intact. Trace lower extremity edema NEUROLOGIC: Awake and alert. Oriented x 3. ASSESSMENT: Shortness of breath Acute on chronic congestive heart failure with preserved ejection fraction Hypertension Hyperlipidemia History of CVA 2 PLAN: Increase oral Lasix to 40 mg twice a day Monitor kidney function Daily weights Accurate I&O In to undergo thoracentesis today per pulmonary Further recommendations pending patient course Nurse practitioner note has been reviewed by physician. Signing provider agrees with the documented findings, assessment, and plan of care. Objective - Vital Signs Vital signs: Vital Signs Temp 97.5 F L 10/12/21 08:00 Pulse 80 10/12/21 08:44 Resp 20 10/12/21 08:00 BP 118/59 10/12/21 08:00 Pulse Ox 99 10/12/21 08:00 Intake & Output 10/11/21 10/12/21 10/12/21 18:59 06:59 18:59 Intake Total 352 10 240 Output Total 150 1050 400 Balance 202 -1040 -160 Weight 81.6 kg Intake: IV 10 0.9 10 Oral 352 240 Output: Urine 150 1050 400 Other: Voiding Method Toilet Toilet Toilet # Voids 1 # Bowel Movements 1 - Labs CBC & Chem 7: 10/11/21 07:42 10/11/21 07:42 Labs: Abnormal Lab Results - Last 24 Hours (Table) 10/11/21 10/11/21 10/11/21 Range/Units 07:42 16:13 20:12 POC Glucose (mg/dL) 158 H 133 H (75-99) mg/dL Procalcitonin 0.37 H (0.02-0.09) ng/mL 10/12/21 10/12/21 Range/Units 05:54 11:48 POC Glucose (mg/dL) 130 H 139 H (75-99) mg/dL Procalcitonin (0.02-0.09) ng/mL Microbiology - Last 24 Hours (Table) 10/11/21 08:25 Gram Stain - Preliminary Sputum Sputum Culture - Preliminary
--- NOTE | 2021-10-12 13:49 | P.PN ---
Subjective Progress Note Date: 10/12/21 Principal diagnosis: Shortness of breath. This 85-year-old female patient with a known history of hypertension, hyperlipidemia, CVA with intermittent aphasia, diabetes mellitus type 2, diabetic neuropathy, blood and ulcer, diverticulitis, migraines, recent admission for chest pain with negative stress test. She presented to the emergency room again on 10/07/2021 with concerns regarding chest pain. Ultrasound of the liver was performed due to elevated LFTs. No dilated ducts. Liver small. Small right effusion demonstrated. No ascites. No discrete liver mass. Computed tomography scan of the abdomen and pelvis did reveal lower lobe pulmonary airspace consolidations and pleural effusions secondary to suspected congestive heart failure. Small pericardial effusion. Follow-up chest x-ray yesterday revealed persistent bilateral pleural effusions right greater than l eft with adjacent atelectasis. We're consulted for the same. She is seen today in consultation on the regular medical floor. She is currently resting in bed. She is on 6 L high flow nasal cannula to maintain O2 saturations in the 90s she's afebrile. Hemodynamically stable. White count 9.7. Hemoglobin 12.0. Sodium 129. Potassium 4.6. BUN 30. Creatinine 0.86. Glucose 133. Paredes virus by PCR negative. Troponins negative. ProBNP 2100. Progress note dated 10/12/2021. 85-year-old female seen yesterday in consultation. She has a history of hypertension, hyperlipidemia, CVA, diabetes, and migraine cephalgia. The patient was admitted with a diagnosis of CHF, and bilateral pleural effusions. No new labs today. The patient did have a right-sided thoracentesis performed by me today. 600 mL of dark brown yellow fluid was removed from the right pleural space. The postthoracentesis chest x-ray did not reveal any pneumothorax. Objective - Vital Signs Vital signs: Vital Signs Temp 97.5 F L 10/12/21 08:00 Pulse 80 10/12/21 08:44 Resp 20 10/12/21 08:00 BP 118/59 10/12/21 08:00 Pulse Ox 99 10/12/21 08:00 Intake & Output 10/11/21 10/12/21 10/12/21 18:59 06:59 18:59 Intake Total 352 10 240 Output Total 150 1050 400 Balance 202 -1040 -160 Weight 81.6 kg Intake: IV 10 0.9 10 Oral 352 240 Output: Urine 150 1050 400 Other: Voiding Method Toilet Toilet Toilet # Voids 1 # Bowel Movements 1 - Exam No acute distress, oriented 3. Currently on 6 L nasal cannula. HEENT examination is grossly unremarkable. Neck supple. Full range of motion. No adenopathy thyromegaly or neck vein distention. Cardiovascular examination reveals regular rhythm rate. S1-S2 normal. No S3 or S4. No discernible murmur noted. Heart rate is 80 bpm. Heart sounds are distant. Lungs reveal diminished bilateral breath sounds. Dullness at the bases are noted. Scattered rhonchi are noted. No wheezes. A few crackles are appreciated. Saturations are 98%. Abdomen soft bowel sounds are heard. No masses or tenderness. Extremities are intact. No cyanosis clubbing or edema. Skin is without rash or lesion. Neurologic examination is brief but nonfocal. - Labs CBC & Chem 7: 10/11/21 07:42 10/11/21 07:42 Labs: Abnormal Lab Results - Last 24 Hours (Table) 10/11/21 10/11/21 10/11/21 Range/Units 07:42 16:13 20:12 POC Glucose (mg/dL) 158 H 133 H (75-99) mg/dL Procalcitonin 0.37 H (0.02-0.09) ng/mL 10/12/21 10/12/21 Range/Units 05:54 11:48 POC Glucose (mg/dL) 130 H 139 H (75-99) mg/dL Procalcitonin (0.02-0.09) ng/mL Microbiology - Last 24 Hours (Table) 10/11/21 08:25 Gram Stain - Preliminary Sputum Sputum Culture - Preliminary Assessment and Plan Assessment: Acute hypoxemic respiratory failure secondary to acute exacerbation of diastolic CHF. Bilateral pleural effusions, status post right-sided thoracentesis 10/12/2021. Chest pain, without acute coronary syndrome. Type 2 diabetes mellitus. Peripheral neuropathy. History of hypertension. History of hyperlipidemia. History of CVA with occasional aphasia. History of migraines. Prior history of tobacco use. Diverticular disease. History of duodenal ulcer. Plan: Plan dated 10/12/2021. The patient had a right-sided thoracentesis performed today. 600 mL of dark brown fluid was removed. The fluid we sent for analysis including cytology, microbiology, and chemistry. The patient complained of significant pain during the procedure. She may or may not want the left side done tomorrow. We'll ask before hand. Additional recommendations and suggestions are forthcoming. Labs x-rays and medications are all reviewed. Postthoracentesis x-ray is reviewed. Time with Patient: Less than 30
[2021-10-12 16:40] LABS: Glucose,Whole Blood 135 mg/dL (75-99)
[2021-10-12] MEDS: FUROSEMIDE 40 MG TAB PO SCH (17:05)
[2021-10-12 19:45] LABS: Glucose,Whole Blood 159 mg/dL (75-99)
[2021-10-12] MEDS: LEVOFLOXACIN 250 MG TAB PO SCH (20:56)
[2021-10-12] MEDS: ATORVASTATIN 10 MG TAB PO SCH (20:56)
[2021-10-12] MEDS: diphenhydrAMINE 2% CREAM 28.4 GM TUBE TOPICAL PRN (20:57)
[2021-10-13] MEDS: HEPARIN SODIUM,PORCINE/PF 5,000 UNIT/0.5 ML SYRINGE SQ SCH ×4 (00:50→23:19)
[2021-10-13 04:51] LABS: HCT 34.4 % (34.0-46.0); HGB 11.3 gm/dL (11.4-16.0); MCH 32.2 pg (25.0-35.0); MCHC 32.8 g/dL (31.0-37.0); MCV 98.2 fL (80.0-100.0); Platelet Count 500 k/uL (150-450); RDW 13.2 % (11.5-15.5); WBC 7.9 k/uL (3.8-10.6)
[2021-10-13 05:11] LABS: Calcium 8.5 mg/dL (8.4-10.2); Potassium 4.2 mmol/L (3.5-5.1)
[2021-10-13 06:04] LABS: Band Neutrophils % 3 %; Basophils # (M) 0.08 k/uL (0-0.2); Eosinophils # (M) 0.24 k/uL (0-0.7); Lymphocytes # (M) 1.66 k/uL (1.0-4.8); Monocytes # (M) 0.71 k/uL (0-1.0); Neutrophils % (M) 63 %; Nucleated Red Blood Cells 0 /100 WBC (0-0); Total Cells Counted 100
[2021-10-13 06:14] LABS: Glucose,Whole Blood 150 mg/dL (75-99)
[2021-10-13] MEDS: INSULIN ASPART (NovoLOG) 100 UNIT/ML VIAL SQ SCH ×4 (06:48→21:17)
[2021-10-13] MEDS: PANTOPRAZOLE 40 MG TABLET PO SCH (06:48)
[2021-10-13 08:54] LABS: Glucose, BF Source Pleural Fluid; Glucose, Body Fluid 131 mg/dL; LDH, Body Fluid Source Pleural Fluid; T. Protein, Body Fluid Source Pleural Fluid; Total Protein, Body Fluid 4350 mg/dL
[2021-10-13] MEDS: IPRATROPIUM-ALBUTEROL 3 ML NEB INHALATION SCH ×4 (09:04→21:10)
[2021-10-13] MEDS: BUDESONIDE 0.5 MG/2 ML NEBU INHALATION SCH ×2 (09:04→21:10)
[2021-10-13] MEDS: FUROSEMIDE 40 MG TAB PO SCH ×2 (10:13→16:22)
[2021-10-13] MEDS: METOPROLOL TARTRATE 12.5 MG TAB PO SCH ×2 (10:13→21:16)
[2021-10-13] MEDS: guaiFENesin 600 MG TABLET.ER PO SCH ×2 (10:13→21:16)
[2021-10-13] MEDS: ARTIFICIAL TEARS-HYPROMELLOSE DROPS 15 ML BTL BOTH EYES SCH ×3 (10:13→21:17)
[2021-10-13 11:29] LABS: Appearance,BF Slightly Cloudy
[2021-10-13 11:29] LABS: Glucose,Whole Blood 114 mg/dL (75-99)
--- NOTE | 2021-10-13 11:29 | PCN ---
PROCEDURE NOTE LEFT-SIDED THORACENTESIS: PREOP DIAGNOSIS: Left pleural effusion. POSTOP DIAGNOSIS: Left pleural effusion. MATERIALS TECHNICIAN: Dr. Estela Amin Indication. Pleural effusion. A time-out was completed verifying correct patient, procedure, site, positioning , and implant (s) or special equipment if applicable. Ultrasound guidance was used and appropriate fluid pocket was identified and marked. Patient was positioned, prepped and draped in usual sterile fashion. Lidocaine was used to anesthetize the area. A Thoracentesis catheter was introduced into the pleural space and fluid was removed. Blood loss was none. A chest x-ray was ordered to evaluate for pneumothorax. Total Fluid Removed: 600 mL Color of Fluid: Bloody. Fluid was not sent for appropriate laboratory tests. Patient tolerated the procedure well and there were no complications. The left posterior chest was marked by ultrasound. 600 mL of bloody fluid was removed from the left pleural space. The patient tolerated the procedure well. The fluid was not sent for analysis as the fluid yesterday was analyzed. The patient tolerated the procedure well. A postprocedure chest x-ray was ordered. There was no immediate complication. The patient tolerated the procedure well. MMODL / IJN: [id number] /
--- NOTE | 2021-10-13 12:04 | XR ---
EXAMINATION TYPE: XR chest 1V portable DATE OF EXAM: 10/13/2021 COMPARISON: Chest x-ray dated 10/12/2021 HISTORY: Status post left thoracentesis TECHNIQUE: Single frontal view of the chest is obtained. FINDINGS: There is no evident pneumothorax. Bibasilar density persists, there is improvement in aera tion at the left lung base. No other interval change. IMPRESSION: No evident complication status post thoracentesis.
[2021-10-13] MEDS: lisinopriL 20 MG TAB PO SCH (12:20)
--- NOTE | 2021-10-13 13:16 | P.PN ---
Subjective Progress Note Date: 10/13/21 Patient is an 85-year-old female who is admitted to the hospital with worsening shortness of breath. She was subsequently diagnosed with congestive heart failure. Limited improvement over the course of several days, therefore she underwent thoracentesis yesterday with Dr. Parr, where 600mL was drained from left lower lobe. The patient states she is breathing much better since her thoracentesis. She has some mild shortness of breath when she gets up and moves around, but is comfortable sitting in the recliner chair. No chest pain or chest pressure. No palpitations, dizziness, or lightheadedness. GENERAL: Well-appearing, well-nourished and in no acute distress. NECK: Supple without JVD or thyromegaly. LUNGS: Breath sounds clear to auscultation bilaterally, diminished in the bases. Respiration equal and unlabored. No wheezes, rales or rhonchi. HEART: Regular rate and rhythm. Systolic murmur. No rubs or gallops. S1 and S2 heard. EXTREMITIES: Normal range of motion, no edema. No clubbing or cyanosis. Peripheral pulses intact and strong. SKIN: Diffuse rash over thorax. VITALS: Blood pressure 105/51, temp 97.3F, pulse 90, respiratory rate 80, SpO2 94% on 3 L nasal cannula TELEMETRY: Sinus rhythm overnight LABS: Sodium 132, potassium 4.2, BUN 29, creatinine 0.81, WBC 7.9, hemoglobin 11.3, platelet 500 IMPRESSION: Shortness of breath, improved post thoracentesis Acute on chronic congestive heart failure, diastolic Hypertension Dyslipidemia History of CVA PLAN: No change in medication regimen Consider reducing oral Lasix tomorrow Continue aggressive pulmonary hygiene No further recommendations from the cardiac standpoint I am dictating on behalf of Dr Juan Smith's history/physical and assessment/plan. Objective - Vital Signs Vital signs: Vital Signs Temp 97.8 F 10/13/21 12:16 Pulse 70 10/13/21 12:16 Resp 20 10/13/21 12:16 BP 93/53 10/13/21 12:16 Pulse Ox 95 10/13/21 12:16 Intake & Output 10/12/21 10/13/21 10/13/21 18:59 06:59 18:59 Intake Total 660 118 Output Total 400 900 100 Balance 260 -900 18 Weight 80.5 kg Intake: Oral 660 118 Output: Urine 400 900 100 Other: Voiding Method Toilet # Voids 1 - Labs CBC & Chem 7: 10/13/21 04:33 10/13/21 04:33 Labs: Abnormal Lab Results - Last 24 Hours (Table) 10/12/21 10/12/21 10/13/21 Range/Units 16:38 19:44 04:33 RBC 3.50 L (3.80-5.40) m/uL Hgb 11.3 L (11.4-16.0) gm/dL Plt Count 500 H (150-450) k/uL Sodium (137-145) mmol/L BUN (7-17) mg/dL Glucose (74-99) mg/dL POC Glucose (mg/dL) 135 H 159 H (75-99) mg/dL 10/13/21 10/13/21 10/13/21 Range/Units 04:33 06:12 11:28 RBC (3.80-5.40) m/uL Hgb (11.4-16.0) gm/dL Plt Count (150-450) k/uL Sodium 132 L (137-145) mmol/L BUN 29 H (7-17) mg/dL Glucose 130 H (74-99) mg/dL POC Glucose (mg/dL) 150 H 114 H (75-99) mg/dL Microbiology - Last 24 Hours (Table) 10/12/21 10:00 Body Fluid Culture - Preliminary Pleural Fluid 10/12/21 10:00 Fungal Culture - Preliminary Pleural Fluid 10/12/21 10:00 Acid Fast Bacilli Culture - Preliminary Pleural Fluid 10/11/21 08:25 Gram Stain - Preliminary Sputum Sputum Culture - Preliminary
[2021-10-13] MEDS: ACETAMINOPHEN TAB 325 MG TAB PO PRN (13:19)
--- NOTE | 2021-10-13 15:17 | P.PN ---
Subjective Progress Note Date: 10/13/21 Principal diagnosis: Shortness of breath. This 85-year-old female patient with a known history of hypertension, hyperlipidemia, CVA with intermittent aphasia, diabetes mellitus type 2, diabetic neuropathy, blood and ulcer, diverticulitis, migraines, recent admission for chest pain with negative stress test. She presented to the emergency room again on 10/07/2021 with concerns regarding chest pain. Ultrasound of the liver was performed due to elevated LFTs. No dilated ducts. Liver small. Small right effusion demonstrated. No ascites. No discrete liver mass. Computed tomography scan of the abdomen and pelvis did reveal lower lobe pulmonary airspace consolidations and pleural effusions secondary to suspected congestive heart failure. Small pericardial effusion. Follow-up chest x-ray yesterday revealed persistent bilateral pleural effusions right greater than l eft with adjacent atelectasis. We're consulted for the same. She is seen today in consultation on the regular medical floor. She is currently resting in bed. She is on 6 L high flow nasal cannula to maintain O2 saturations in the 90s she's afebrile. Hemodynamically stable. White count 9.7. Hemoglobin 12.0. Sodium 129. Potassium 4.6. BUN 30. Creatinine 0.86. Glucose 133. Paredes virus by PCR negative. Troponins negative. ProBNP 2100. Progress note dated 10/12/2021. 85-year-old female seen yesterday in consultation. She has a history of hypertension, hyperlipidemia, CVA, diabetes, and migraine cephalgia. The patient was admitted with a diagnosis of CHF, and bilateral pleural effusions. No new labs today. The patient did have a right-sided thoracentesis performed by me today. 600 mL of dark brown yellow fluid was removed from the right pleural space. The postthoracentesis chest x-ray did not reveal any pneumothorax. Progress note dated 10/13/2021. 85-year-old female seen in consultation for bilateral pleural effusions. Today, the patient had a left-sided pleural effusion, and 600 mL of blood was removed. The patient remains on 3 L nasal cannula. She is not getting any IV fluids. The patient tolerated the procedure well. Labs today include a white count of 7.9, hemoglobin 11.3, hematocrit 34.4, and platelet count of 500,000. Sodium 132, potassium 4.2, chlorides 100, CO2 30, BUN 29, and creatinine 0.81. Chest x-ray following the thoracentesis did not reveal a pneumothorax. Objective - Vital Signs Vital signs: Vital Signs Temp 97.8 F 10/13/21 12:16 Pulse 70 10/13/21 12:16 Resp 20 10/13/21 12:16 BP 93/53 10/13/21 12:16 Pulse Ox 95 10/13/21 12:16 Intake & Output 10/12/21 10/13/21 10/13/21 18:59 06:59 18:59 Intake Total 660 236 Output Total 400 900 500 Balance 617 -514 -645 Weight 80.5 kg Intake: Oral 660 236 Output: Urine 400 900 500 Other: Voiding Method Toilet Toilet # Voids 1 # Bowel Movements 1 - Exam No acute distress, oriented 3. Currently on 3 L nasal cannula. HEENT examination is grossly unremarkable. Neck supple. Full range of motion. No adenopathy thyromegaly or neck vein distention. Cardiovascular examination reveals regular rhythm rate. S1-S2 normal. No S3 or S4. No discernible murmur noted. Heart rate is 70 bpm. Heart sounds are distant. Lungs reveal diminished bilateral breath sounds. Dullness at the bases are noted. Scattered rhonchi are noted. No wheezes. A few crackles are appreciated. Saturations are 94 %. Abdomen soft bowel sounds are heard. No masses or tenderness. Extremities are intact. No cyanosis clubbing or edema. Skin is without rash or lesion. Neurologic examination is brief but nonfocal. - Labs CBC & Chem 7: 10/13/21 04:33 10/13/21 04:33 Labs: Abnormal Lab Results - Last 24 Hours (Table) 10/12/21 10/12/21 10/13/21 Range/Units 16:38 19:44 04:33 RBC 3.50 L (3.80-5.40) m/uL Hgb 11.3 L (11.4-16.0) gm/dL Plt Count 500 H (150-450) k/uL Sodium (137-145) mmol/L BUN (7-17) mg/dL Glucose (74-99) mg/dL POC Glucose (mg/dL) 135 H 159 H (75-99) mg/dL 10/13/21 10/13/21 10/13/21 Range/Units 04:33 06:12 11:28 RBC (3.80-5.40) m/uL Hgb (11.4-16.0) gm/dL Plt Count (150-450) k/uL Sodium 132 L (137-145) mmol/L BUN 29 H (7-17) mg/dL Glucose 130 H (74-99) mg/dL POC Glucose (mg/dL) 150 H 114 H (75-99) mg/dL Microbiology - Last 24 Hours (Table) 10/11/21 08:25 Gram Stain - Final Sputum Sputum Culture - Final 10/12/21 10:00 Body Fluid Culture - Preliminary Pleural Fluid 10/12/21 10:00 Fungal Culture - Preliminary Pleural Fluid 10/12/21 10:00 Acid Fast Bacilli Culture - Preliminary Pleural Fluid Assessment and Plan Assessment: Acute hypoxemic respiratory failure secondary to acute exacerbation of diastolic CHF. Bilateral pleural effusions, status post right-sided thoracentesis 10/12/2021, and left-sided thoracentesis on 10/13/2021. Chest pain, without acute coronary syndrome. Type 2 diabetes mellitus. Peripheral neuropathy. History of hypertension. History of hyperlipidemia. History of CVA with occasional aphasia. History of migraines. Prior history of tobacco use. Diverticular disease. History of duodenal ulcer. Plan: Plan dated 10/12/2021. The patient had a right-sided thoracentesis performed today. 600 mL of dark brown fluid was removed. The fluid we sent for analysis including cytology, microbiology, and chemistry. The patient complained of significant pain during the procedure. She may or may not want the left side done tomorrow. We'll ask before hand. Additional recommendations and suggestions are forthcoming. Labs x-rays and medications are all reviewed. Postthoracentesis x-ray is reviewed. Plan dated 10/13/2021. The patient had a left-sided thoracentesis done today. 600 mL of fluid was removed from the left pleural space. He was a bit bloody. It was not sent for analysis as of fluid yesterday was sent. Labs, x-rays, and medications are all reviewed. The fluid yesterday was clearly an exudate. The protein was 4.35 g and the LDH 687. The glucose was 131. We will continue to follow the patient and make recommendations where appropriate. Prognosis is guarded. Time with Patient: Less than 30
[2021-10-13] MEDS: HYDROcodone/APAP 5-325MG 1 EACH TAB PO PRN ×2 (16:22→23:23)
[2021-10-13 16:34] LABS: Glucose,Whole Blood 167 mg/dL (75-99)
[2021-10-13 19:45] LABS: Glucose,Whole Blood 144 mg/dL (75-99)
[2021-10-13] MEDS: LEVOFLOXACIN 250 MG TAB PO SCH (21:17)
[2021-10-13] MEDS: ATORVASTATIN 10 MG TAB PO SCH (21:17)
[2021-10-13] MEDS: diphenhydrAMINE 2% CREAM 28.4 GM TUBE TOPICAL PRN (23:23)
[2021-10-14 06:14] LABS: Glucose,Whole Blood 119 mg/dL (75-99)
[2021-10-14] MEDS: INSULIN ASPART (NovoLOG) 100 UNIT/ML VIAL SQ SCH ×4 (06:22→20:51)
[2021-10-14] MEDS: PANTOPRAZOLE 40 MG TABLET PO SCH (06:23)
[2021-10-14] MEDS: BUDESONIDE 0.5 MG/2 ML NEBU INHALATION SCH ×2 (08:57→19:31)
[2021-10-14] MEDS: IPRATROPIUM-ALBUTEROL 3 ML NEB INHALATION SCH ×4 (08:57→19:31)
[2021-10-14] MEDS: guaiFENesin 600 MG TABLET.ER PO SCH ×2 (09:33→20:50)
[2021-10-14] MEDS: METOPROLOL TARTRATE 12.5 MG TAB PO SCH ×2 (09:33→20:50)
[2021-10-14] MEDS: HEPARIN SODIUM,PORCINE/PF 5,000 UNIT/0.5 ML SYRINGE SQ SCH ×3 (09:33→23:29)
[2021-10-14] MEDS: ARTIFICIAL TEARS-HYPROMELLOSE DROPS 15 ML BTL BOTH EYES SCH ×3 (09:33→20:52)
[2021-10-14] MEDS: FUROSEMIDE 40 MG TAB PO SCH ×2 (09:33→16:44)
[2021-10-14] MEDS: lisinopriL 20 MG TAB PO SCH ×2 (09:33→10:01)
[2021-10-14] MEDS: diphenhydrAMINE 2% CREAM 28.4 GM TUBE TOPICAL PRN ×2 (09:34→16:27)
[2021-10-14 12:10] LABS: Glucose,Whole Blood 106 mg/dL (75-99)
--- NOTE | 2021-10-14 13:44 | P.PN ---
Subjective Progress Note Date: 10/14/21 This is Jaime Guan NP, I'm dictating on behalf of Dr. Smith's H&P and A&P. Patient was interviewed and examined. Patient is a pleasant 85-year-old female who initially presented to hospital with congestive heart failure. Patient reports that she's feeling better today, and states that she is breathing better today. She did have a second thoracentesis yesterday, with dramatic improvement in her respiratory status. We were considering reducing the patient's oral Lasix today, however the patient appears to be doing very well on it. We'll maintain her Lasix at 40 mg oral twice a day. Continue medications as prescribed. From a cardiac standpoint the patient's okay for discharge, with close follow-up with her primary care provider. GENERAL: Well-appearing, well-nourished and in no acute distress. NECK: Supple without JVD or thyromegaly. LUNGS: Breath sounds clear to auscultation bilaterally. Respiration equal and unlabored. No wheezes, rales or rhonchi. HEART: Regular rate and rhythm without murmurs, rubs or gallops. S1 and S2 heard. EXTREMITIES: Normal range of motion, no edema. No clubbing or cyanosis. Peripheral pulses intact and strong. VITALS: Temp 98.0, pulse 74, respirations 18, blood pressure 106/58, O2 saturation 97% on 3 L by nasal cannula TELEMETRY: Normal sinus rhythm LABS: White count 7.9, hemoglobin 11.3, platelets 500, sodium 132, potassium 4.2, B1 29, creatinine 0.81 IMPRESSION/PLAN: 1. Shortness of breath, improved post thoracentesis-continue oral Lasix 40 mg twice a day 2. Acute on chronic congestive heart failure, diastolic-recognitions as above. 3. Hypertension-continue oral antihypertensives. 4. Dyslipidemia-continue antilipemic medications From a cardiology standpoint the patient is okay for discharge at this time. If further recognitions are needed please don't hesitate to reconsult us Objective - Vital Signs Vital signs: Vital Signs Temp 98.0 F 10/14/21 11:30 Pulse 74 10/14/21 11:30 Resp 18 10/14/21 12:00 BP 106/58 10/14/21 11:30 Pulse Ox 93 L 10/14/21 12:00 Intake & Output 10/13/21 10/14/21 10/14/21 18:59 06:59 18:59 Intake Total 354 10 606 Output Total 500 600 350 Balance -146 -590 256 Weight 79.5 kg Intake: IV 10 10 Invasive Line 3 10 10 Oral 354 596 Output: Urine 500 600 350 Other: Voiding Method Toilet Toilet # Voids 1 # Bowel Movements 1 - Labs CBC & Chem 7: 10/13/21 04:33 10/13/21 04:33 Labs: Abnormal Lab Results - Last 24 Hours (Table) 10/13/21 10/13/21 10/14/21 Range/Units 16:32 19:44 06:11 POC Glucose (mg/dL) 167 H 144 H 119 H (75-99) mg/dL 10/14/21 Range/Units 12:05 POC Glucose (mg/dL) 106 H (75-99) mg/dL Microbiology - Last 24 Hours (Table) 10/12/21 10:00 Gram Stain - Preliminary Pleural Fluid Body Fluid Culture - Preliminary 10/11/21 08:25 Gram Stain - Final Sputum Sputum Culture - Final 10/12/21 10:00 Fungal Culture - Preliminary Pleural Fluid 10/12/21 10:00 Acid Fast Bacilli Culture - Preliminary Pleural Fluid
--- NOTE | 2021-10-14 15:31 | P.PN ---
Subjective Progress Note Date: 10/14/21 Principal diagnosis: Shortness of breath. This 85-year-old female patient with a known history of hypertension, hyperlipidemia, CVA with intermittent aphasia, diabetes mellitus type 2, diabetic neuropathy, blood and ulcer, diverticulitis, migraines, recent admission for chest pain with negative stress test. She presented to the emergency room again on 10/07/2021 with concerns regarding chest pain. Ultrasound of the liver was performed due to elevated LFTs. No dilated ducts. Liver small. Small right effusion demonstrated. No ascites. No discrete liver mass. Computed tomography scan of the abdomen and pelvis did reveal lower lobe pulmonary airspace consolidations and pleural effusions secondary to suspected congestive heart failure. Small pericardial effusion. Follow-up chest x-ray yesterday revealed persistent bilateral pleural effusions right greater than l eft with adjacent atelectasis. We're consulted for the same. She is seen today in consultation on the regular medical floor. She is currently resting in bed. She is on 6 L high flow nasal cannula to maintain O2 saturations in the 90s she's afebrile. Hemodynamically stable. White count 9.7. Hemoglobin 12.0. Sodium 129. Potassium 4.6. BUN 30. Creatinine 0.86. Glucose 133. Paredes virus by PCR negative. Troponins negative. ProBNP 2100. Progress note dated 10/12/2021. 85-year-old female seen yesterday in consultation. She has a history of hypertension, hyperlipidemia, CVA, diabetes, and migraine cephalgia. The patient was admitted with a diagnosis of CHF, and bilateral pleural effusions. No new labs today. The patient did have a right-sided thoracentesis performed by me today. 600 mL of dark brown yellow fluid was removed from the right pleural space. The postthoracentesis chest x-ray did not reveal any pneumothorax. Progress note dated 10/13/2021. 85-year-old female seen in consultation for bilateral pleural effusions. Today, the patient had a left-sided pleural effusion, and 600 mL of blood was removed. The patient remains on 3 L nasal cannula. She is not getting any IV fluids. The patient tolerated the procedure well. Labs today include a white count of 7.9, hemoglobin 11.3, hematocrit 34.4, and platelet count of 500,000. Sodium 132, potassium 4.2, chlorides 100, CO2 30, BUN 29, and creatinine 0.81. Chest x-ray following the thoracentesis did not reveal a pneumothorax. Progress note dated 10/14/2021. 85-year-old female seen again in room 375. We will consulted for bilateral pleural effusions. The patient did have bilateral thoracentesis performed. Currently, the patient is doing reasonably well. She is on 2 L nasal cannula. She's not receiving any IV fluids. Glucose today is 106. Chest x-ray from October 13 reviewed. The patient's labs, x-rays, and medications are all reviewed. Objective - Vital Signs Vital signs: Vital Signs Temp 98.0 F 10/14/21 11:30 Pulse 74 10/14/21 11:30 Resp 18 10/14/21 12:00 BP 106/58 10/14/21 11:30 Pulse Ox 93 L 10/14/21 12:00 Intake & Output 10/13/21 10/14/21 10/14/21 18:59 06:59 18:59 Intake Total 354 10 606 Output Total 500 600 350 Balance -146 -590 256 Weight 79.5 kg Intake: IV 10 10 Invasive Line 3 10 10 Oral 354 596 Output: Urine 500 600 350 Other: Voiding Method Toilet Toilet # Voids 1 # Bowel Movements 1 - Exam No acute distress, oriented 3. Currently on 2 L nasal cannula. HEENT examination is grossly unremarkable. Neck supple. Full range of motion. No adenopathy thyromegaly or neck vein distention. Cardiovascular examination reveals regular rhythm rate. S1-S2 normal. No S3 or S4. No discernible murmur noted. Heart rate is 74 bpm. Heart sounds are dist ant. Lungs reveal diminished bilateral breath sounds. Dullness at the bases are noted. Scattered rhonchi are noted. No wheezes. A few crackles are appreciated. Saturations are 96 %. Abdomen soft bowel sounds are heard. No masses or tenderness. Extremities are intact. No cyanosis clubbing or edema. Skin is without rash or lesion. Neurologic examination is brief but nonfocal. - Labs CBC & Chem 7: 10/13/21 04:33 10/13/21 04:33 Labs: Abnormal Lab Results - Last 24 Hours (Table) 10/13/21 10/13/21 10/14/21 Range/Units 16:32 19:44 06:11 POC Glucose (mg/dL) 167 H 144 H 119 H (75-99) mg/dL 10/14/21 Range/Units 12:05 POC Glucose (mg/dL) 106 H (75-99) mg/dL Microbiology - Last 24 Hours (Table) 10/12/21 10:00 Gram Stain - Preliminary Pleural Fluid Body Fluid Culture - Preliminary 10/11/21 08:25 Gram Stain - Final Sputum Sputum Culture - Final Assessment and Plan Assessment: Acute hypoxemic respiratory failure secondary to acute exacerbation of diastolic CHF. Bilateral pleural effusions, status post right-sided thoracentesis 10/12/2021, and left-sided thoracentesis on 10/13/2021. Chest pain, without acute coronary syndrome. Type 2 diabetes mellitus. Peripheral neuropathy. History of hypertension. History of hyperlipidemia. History of CVA with occasional aphasia. History of migraines. Prior history of tobacco use. Diverticular disease. History of duodenal ulcer. Plan: Plan dated 10/12/2021. The patient had a right-sided thoracentesis performed today. 600 mL of dark brown fluid was removed. The fluid we sent for analysis including cytology, microbiology, and chemistry. The patient complained of significant pain during the procedure. She may or may not want the left side done tomorrow. We'll ask before hand. Additional recommendations and suggestions are forthcoming. Labs x-rays and medications are all reviewed. Postthoracentesis x-ray is reviewed. Plan dated 10/13/2021. The patient had a left-sided thoracentesis done today. 600 mL of fluid was removed from the left pleural space. He was a bit bloody. It was not sent for analysis as of fluid yesterday was sent. Labs, x-rays, and medications are all reviewed. The fluid yesterday was clearly an exudate. The protein was 4.35 g and the LDH 687. The glucose was 131. We will continue to follow the patient and make recommendations where appropriate. Prognosis is guarded. Plan dated 10/14/2021. The patient is again seen and evaluated in room 375. The patient's currently on 2 L. Labs, x-rays, medications are all reviewed. The patient's doing reasonably well. We will continue to follow the patient and make recommendations where appropriate. We will continue to follow the patient and make recommendations. Clinically, she is improved. The fluid analysis revealed an exudate. Cytology is pending. Time with Patient: Less than 30
[2021-10-14 16:59] LABS: Glucose,Whole Blood 116 mg/dL (75-99)
[2021-10-14 20:29] LABS: Glucose,Whole Blood 143 mg/dL (75-99)
[2021-10-14] MEDS: ATORVASTATIN 10 MG TAB PO SCH (20:50)
[2021-10-14] MEDS: LEVOFLOXACIN 250 MG TAB PO SCH (20:51)
--- NOTE | 2021-10-14 23:09 | P.PN ---
Subjective Progress Note Date: 10/13/21 This is an 85-year-old female admitted with acute diastolic CHF/COPD and multiple other medical issues in a patient with prior history of former nicotine dependence recent extensive and nebulized bronchodilators added to med regimen yesterday, coughing persists. Slept with head of bed elevated. Reports mild shortness of breath. Continues on 6 L high flow nasal cannula ,maintaining O2 sats in the low 90s. T-max 99.1. Urine culture reporting no growth after 18 hours. Diuresing well on Lasix IV push with 24-hour I&O reflecting a negative fluid balance. BUN 27, Creatinine decreased to 0.99. 10/10/2021 maintained O2 sats of 99% on 6 L high flow nasal cannula, which can be weaned down further. Afebrile. Loose congested cough with clear sputum. Diuresing well on Lasix IV push with 24-hour I&O reflecting a negative fluid balance. Sodium declining, 129, renal function worsening, BUN 33, creatinine 1.15. 10/11/2021 chest x-ray completed yesterday afternoon reporting bilateral pleural effusions, larger on the right side. Ultrasound performed with bilateral sides marked for potential thoracentesis. Continues to require 6 liters high flow nasal cannula to maintain O2 sats in the 90s. Afebrile, normal WBC. Renal function improving. Sodium 129. 10/12/2021 thoracentesis pending. Loose congested productive cough with whitish sputum. Maintaining O2 sats in the 90s on 6 L nasal cannula. Afebrile. Procalcitonin elevated, on levaquin. 10/13/2021 Patient is currently sitting in the chair. Awake alert and oriented x3. Requiring oxygen 3 L via nasal cannula. Patient was found to have bilateral pleural effusion. Status post left-sided thoracentesis with 600 fluid removal. Denies any complaints of chest pain. No fever no chills. No nausea vomiting abdominal diarrhea. Tolerating oral diet. Otherwise patient remains Lasix 40 mg twice daily and antibiotics at home of Levaquin. Pulmonary and cardiology is on board. Chest x-ray showed no evident complication status post paracentesis. Laboratory pressure WBC 7.9 hemoglobin 11.3 and platelets 400 Sodium 132 potassium 4.2 chloride 100 bicarb 20 creatinine 0.81 and calcium 8.5. Current medications reviewed. Objective - Vital Signs Vital signs: Vital Signs Temp 97.4 F L 10/13/21 00:00 Pulse 83 10/13/21 04:16 Resp 18 10/13/21 04:16 BP 144/65 10/13/21 04:16 Pulse Ox 93 L 10/13/21 04:16 Intake & Output 10/12/21 10/13/21 10/13/21 18:59 06:59 18:59 Intake Total 660 118 Output Total 400 900 100 Balance 260 -900 18 Weight 80.5 kg Intake: Oral 660 118 Output: Urine 400 900 100 Other: Voiding Method Toilet # Voids 1 - Exam PHYSICAL EXAMINATION: Patient is lying in the bed comfortably, no acute distress, awake alert and oriented.. HEENT: Normocephalic. Neck is supple. Pupils reactive. Nostrils clear. Oral cavity is moist. Neck reveals no JVD, carotid bruits, or thyromegaly. CHEST EXAMINATION: Trachea is central. Symmetrical expansion. Basilar crackles. No wheezing or rhonchi.. CARDIAC: Normal S1, S2 with no gallops. No murmurs ABDOMEN: Soft. Bowel sounds normal. No organomegaly. No abdominal bruits. Extremities: reveal no edema. No clubbing or cyanosis Neurologically awake, alert, oriented x3 with well-coordinated movements. No focal deficits noted Skin: No rash or skin lesions. Psychiatric: Cooperative. Nonsuicidal Musculoskeletal: No joint swelling or deformity. Normal range of motion. - Labs CBC & Chem 7: 10/13/21 04:33 10/13/21 04:33 Labs: Abnormal Lab Results - Last 24 Hours (Table) 10/12/21 10/12/21 10/12/21 Range/Units 11:48 16:38 19:44 RBC (3.80-5.40) m/uL Hgb (11.4-16.0) gm/dL Plt Count (150-450) k/uL Sodium (137-145) mmol/L BUN (7-17) mg/dL Glucose (74-99) mg/dL POC Glucose (mg/dL) 139 H 135 H 159 H (75-99) mg/dL 10/13/21 10/13/21 10/13/21 Range/Units 04:33 04:33 06:12 RBC 3.50 L (3.80-5.40) m/uL Hgb 11.3 L (11.4-16.0) gm/dL Plt Count 500 H (150-450) k/uL Sodium 132 L (137-145) mmol/L BUN 29 H (7-17) mg/dL Glucose 130 H (74-99) mg/dL POC Glucose (mg/dL) 150 H (75-99) mg/dL Microbiology - Last 24 Hours (Table) 10/11/21 08:25 Gram Stain - Preliminary Sputum Sputum Culture - Preliminary Assessment and Plan Assessment: Acute on chronic diastolic CHF dysfunction Bilateral pleural effusions secondary to the above Acute COPD exacerbation on admission Possible lower lobe pneumonia Acute hypoxic respiratory failure secondary to the above, Diabetes mellitus type 2 Hypertension hyperlipidemia osteoarthritis Former nicotine dependence History of CVA, 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 Pulmonary is on board. Status post left-sided thoracentesis. Patient is being cannula antibiotics on home Levaquin. IV steroids have been discontinued. Continue to follow closely. Time with Patient: Greater than 30
--- NOTE | 2021-10-14 23:11 | P.PN ---
Subjective Progress Note Date: 10/14/21 This is an 85-year-old female admitted with acute diastolic CHF/COPD and multiple other medical issues in a patient with prior history of former nicotine dependence recent extensive and nebulized bronchodilators added to med regimen yesterday, coughing persists. Slept with head of bed elevated. Reports mild shortness of breath. Continues on 6 L high flow nasal cannula ,maintaining O2 sats in the low 90s. T-max 99.1. Urine culture reporting no growth after 18 hours. Diuresing well on Lasix IV push with 24-hour I&O reflecting a negative fluid balance. BUN 27, Creatinine decreased to 0.99. 10/10/2021 maintained O2 sats of 99% on 6 L high flow nasal cannula, which can be weaned down further. Afebrile. Loose congested cough with clear sputum. Diuresing well on Lasix IV push with 24-hour I&O reflecting a negative fluid balance. Sodium declining, 129, renal function worsening, BUN 33, creatinine 1.15. 10/11/2021 chest x-ray completed yesterday afternoon reporting bilateral pleural effusions, larger on the right side. Ultrasound performed with bilateral sides marked for potential thoracentesis. Continues to require 6 liters high flow nasal cannula to maintain O2 sats in the 90s. Afebrile, normal WBC. Renal function improving. Sodium 129. 10/12/2021 thoracentesis pending. Loose congested productive cough with whitish sputum. Maintaining O2 sats in the 90s on 6 L nasal cannula. Afebrile. Procalcitonin elevated, on levaquin. 10/13/2021 Patient is currently sitting in the chair. Awake alert and oriented x3. Requiring oxygen 3 L via nasal cannula. Patient was found to have bilateral pleural effusion. Status post left-sided thoracentesis with 600 fluid removal. Denies any complaints of chest pain. No fever no chills. No nausea vomiting abdominal diarrhea. Tolerating oral diet. Otherwise patient remains Lasix 40 mg twice daily and antibiotics at home of Levaquin. Pulmonary and cardiology is on board. Chest x-ray showed no evident complication status post paracentesis. Laboratory pressure WBC 7.9 hemoglobin 11.3 and platelets 400 Sodium 132 potassium 4.2 chloride 100 bicarb 20 creatinine 0.81 and calcium 8.5. 10/14/2021 Patient is s/p thoracentesis. Feels better today. No complaints of chest pain or worsening shortness of breath. No nausea vomiting abdomen pain or diarrhea. Tolerating oral diet. Patient is currently back to room air and saturating at 94%. No fever no chills. No headache or dizziness or lightheadedness. Sitting in the chair comfortably. Anticipate discharge in next 24 hours. Pulmonary and cardiology is on board. Current medications reviewed. Objective - Vital Signs Vital signs: Vital Signs Temp 98.0 F 10/14/21 11:30 Pulse 74 10/14/21 11:30 Resp 18 10/14/21 12:00 BP 106/58 10/14/21 11:30 Pulse Ox 93 L 10/14/21 12:00 Intake & Output 10/13/21 10/14/21 10/14/21 18:59 06:59 18:59 Intake Total 354 10 606 Output Total 500 600 350 Balance -146 -590 256 Weight 79.5 kg Intake: IV 10 10 Invasive Line 3 10 10 Oral 354 596 Output: Urine 500 600 350 Other: Voiding Method Toilet Toilet # Voids 1 # Bowel Movements 1 - Labs CBC & Chem 7: 10/13/21 04:33 10/13/21 04:33 Labs: Abnormal Lab Results - Last 24 Hours (Table) 10/13/21 10/13/21 10/14/21 Range/Units 16:32 19:44 06:11 POC Glucose (mg/dL) 167 H 144 H 119 H (75-99) mg/dL 10/14/21 Range/Units 12:05 POC Glucose (mg/dL) 106 H (75-99) mg/dL Microbiology - Last 24 Hours (Table) 10/12/21 10:00 Gram Stain - Preliminary Pleural Fluid Body Fluid Culture - Preliminary 10/11/21 08:25 Gram Stain - Final Sputum Sputum Culture - Final Assessment and Plan Assessment: Acute on chronic diastolic CHF dysfunction Bilateral pleural effusions secondary to the above Acute COPD exacerbation on admission Possible lower lobe pneumonia Acute hypoxic respiratory failure secondary to the above, Diabetes mellitus type 2 Hypertension hyperlipidemia osteoarthritis Former nicotine dependence History of CVA, 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 Pulmonary is on board. Status post left-sided thoracentesis. Fluid analysis showed exudate. Follow-up cx and cytology. Patient is being continued on antibiotics on home Levaquin. IV steroids have been discontinued. Continue to follow closely. Time with Patient: Greater than 30
[2021-10-15 10:29] LABS: Basophils # (A) 0.1 k/uL (0-0.2); Basophils % (A) 1 %; Eosinophils # (A) 0.3 k/uL (0-0.7); Eosinophils % (A) 4 %; HCT 40.3 % (34.0-46.0); HGB 12.7 gm/dL (11.4-16.0); Hypochromasia Slight; Lymphocytes # (A) 1.4 k/uL (1.0-4.8); Lymphocytes % (A) 20 %; MCH 31.5 pg (25.0-35.0); MCHC 31.5 g/dL (31.0-37.0); Mean Platelet Volume 7.9; Monocytes # (A) 0.5 k/uL (0-1.0); Monocytes % (A) 7 %; Neutrophils # (A) 4.6 k/uL (1.3-7.7); Neutrophils % (A) 66 %; Platelet Count 512 k/uL (150-450); RBC 4.03 m/uL (3.80-5.40); RDW 13.2 % (11.5-15.5)
[2021-10-15 10:38] LABS: Calcium 8.7 mg/dL (8.4-10.2); Potassium 4.5 mmol/L (3.5-5.1)
[2021-10-15 10:47] LABS: Glucose,Whole Blood 117 mg/dL (75-99)
[2021-10-15] MEDS: IPRATROPIUM-ALBUTEROL 3 ML NEB INHALATION SCH ×3 (11:43→19:09)
[2021-10-15] MEDS: BUDESONIDE 0.5 MG/2 ML NEBU INHALATION SCH ×2 (11:43→19:09)
[2021-10-15] MEDS: HEPARIN SODIUM,PORCINE/PF 5,000 UNIT/0.5 ML SYRINGE SQ SCH ×3 (11:45→23:29)
[2021-10-15] MEDS: PANTOPRAZOLE 40 MG TABLET PO SCH (11:45)
[2021-10-15] MEDS: ARTIFICIAL TEARS-HYPROMELLOSE DROPS 15 ML BTL BOTH EYES SCH ×3 (11:45→20:41)
[2021-10-15] MEDS: INSULIN ASPART (NovoLOG) 100 UNIT/ML VIAL SQ SCH ×4 (11:45→20:40)
[2021-10-15 11:46] LABS: Glucose,Whole Blood 126 mg/dL (75-99)
[2021-10-15] MEDS: lisinopriL 20 MG TAB PO SCH (11:46)
[2021-10-15] MEDS: guaiFENesin 600 MG TABLET.ER PO SCH ×2 (11:46→20:40)
[2021-10-15] MEDS: FUROSEMIDE 40 MG TAB PO SCH ×2 (11:46→15:47)
[2021-10-15] MEDS: METOPROLOL TARTRATE 12.5 MG TAB PO SCH ×2 (11:46→20:40)
--- NOTE | 2021-10-15 14:47 | P.PN ---
Subjective Progress Note Date: 10/15/21 Principal diagnosis: Shortness of breath, exertional dyspnea This 85-year-old female patient with a known history of hypertension, hyperlipidemia, CVA with intermittent aphasia, diabetes mellitus type 2, diabetic neuropathy, blood and ulcer, diverticulitis, migraines, recent adm ission for chest pain with negative stress test. She presented to the emergency room again on 10/07/2021 with concerns regarding chest pain. Ultrasound of the liver was performed due to elevated LFTs. No dilated ducts. Liver small. Small right effusion demonstrated. No ascites. No discrete liver mass. Computed tomography scan of the abdomen and pelvis did reveal lower lobe pulmonary airspace consolidations and pleural effusions secondary to suspected congestive heart failure. Small pericardial effusion. Follow-up chest x-ray yesterday revealed persistent bilateral pleural effusions right greater than left with adjacent atelectasis. We're consulted for the same. She is seen today in consultation on the regular medical floor. She is currently resting in bed. She is on 6 L high flow nasal cannula to maintain O2 saturations in the 90s she's afebrile. Hemodynamically stable. White count 9.7. Hemoglobin 12.0. Sodium 129. Potassium 4.6. BUN 30. Creatinine 0.86. Glucose 133. Paredes virus by PCR negative. Troponins negative. ProBNP 2100. Progress note dated 10/12/2021. 85-year-old female seen yesterday in consultation. She has a history of hypertension, hyperlipidemia, CVA, diabetes, and migraine cephalgia. The patient was admitted with a diagnosis of CHF, and bilateral pleural effusions. No new labs today. The patient did have a right-sided thoracentesis performed by me today. 600 mL of dark brown yellow fluid was removed from the right pleural space. The postthoracentesis chest x-ray did not reveal any pneumothorax. Progress note dated 10/13/2021. 85-year-old female seen in consultation for bilateral pleural effusions. Today, the patient had a left-sided pleural effusion, and 600 mL of blood was removed. The patient remains on 3 L nasal cannula. She is not getting any IV fluids. The patient tolerated the procedure well. Labs today include a white count of 7.9, hemoglobin 11.3, hematocrit 34.4, and platelet count of 500,000. Sodium 132, potassium 4.2, chlorides 100, CO2 30, BUN 29, and creatinine 0.81. Chest x-ray following the thoracentesis did not reveal a pneumothorax. Progress note dated 10/14/2021. 85-year-old female seen again in room 375. We will consulted for bilateral pleural effusions. The patient did have bilateral thoracentesis performed. Currently, the patient is doing reasonably well. She is on 2 L nasal cannula. She's not receiving any IV fluids. Glucose today is 106. Chest x-ray from October 13 reviewed. The patient's labs, x-rays, and medications are all reviewed. On 10/15/2021 patient seen in follow-up on selective care unit, patient is ambulating in the room, to one from the bathroom, breathing comfortably, she is on room air oxygen 92-95%, but signs are stable, she's been afebrile, she is on oral Lasix at 40 mg twice daily and she is in -516 mL net fluid balance over the last 24 hours, she remains on Levaquin at 250 mg daily, she is on nebulized bronchodilators. She's had no acute events overnight. Her last chest x-ray from 10/13/2021 showed no evidence complications status post left thoracentesis, with persistence and bibasilar densities and improvement in aeration at the left lung base. Today's labs have been reviewed, white blood cell count is normal at 7.0, hemoglobin is 12.7, sodium is 132, potassium 4.5, chloride is 94, CO2 33, B1 is 27 creatinine 1.01. Her pro-calcitonin level was 0.37, her pleural fluid analysis showed exudative fluid, pleural fluid cultures have shown no growth the cytology is still pending. Patient remains on Levaquin Objective - Vital Signs Vital signs: Vital Signs Temp 98.1 F 10/15/21 13:32 Pulse 78 10/15/21 13:32 Resp 18 10/15/21 13:32 BP 96/55 10/15/21 13:32 Pulse Ox 95 10/15/21 13:32 Intake & Output 10/14/21 10/15/21 10/15/21 18:59 06:59 18:59 Intake Total 724 10 250 Output Total 650 600 450 Balance 74 -590 -200 Intake: IV 10 10 10 Invasive Line 3 10 10 10 Oral 714 240 Output: Urine 650 600 450 Other: Voiding Method Toilet Toilet # Voids 1 # Bowel Movements 1 1 - Exam GENERAL EXAM: Alert, very pleasant, 85-year-old white female, comfortable in no apparent distress. HEAD: Normocephalic/atraumatic. EYES: Normal reaction of pupils, equal size. Conjunctiva pink, sclera white. NOSE: Clear with pink turbinates. THROAT: No erythema or exudates. NECK: No masses, no JVD, no thyroid enlargement, no adenopathy. CHEST: No chest wall deformity. Symmetrical expansion. LUNGS: Equal air entry with no crackles, wheeze, rhonchi or dullness. CVS: Regular rate and rhythm, normal S1 and S2, no gallops, no murmurs, no rubs ABDOMEN: Soft, nontender. No hepatosplenomegaly, normal bowel sounds, no guarding or rigidity. EXTREMITIES: No clubbing, no edema, no cyanosis, 2+ pulses and upper and lower extremities. MUSCULOSKELETAL: Muscle strength and tone normal. SPINE: No scoliosis or deformity SKIN: No rashes CENTRAL NERVOUS SYSTEM: Alert and oriented -3. No focal deficits, tone is normal in all 4 extremities. PSYCHIATRIC: Alert and oriented -3. Appropriate affect. Intact judgment and insight. - Labs CBC & Chem 7: 10/15/21 09:24 10/15/21 08:52 Labs: Abnormal Lab Results - Last 24 Hours (Table) 10/14/21 10/14/21 10/15/21 Range/Units 16:53 20:23 06:05 Plt Count (150-450) k/uL Sodium (137-145) mmol/L Chloride (98-107) mmol/L Carbon Dioxide (22-30) mmol/L BUN (7-17) mg/dL Glucose (74-99) mg/dL POC Glucose (mg/dL) 116 H 143 H 117 H (75-99) mg/dL 10/15/21 10/15/21 10/15/21 Range/Units 08:52 09:24 11:39 Plt Count 512 H (150-450) k/uL Sodium 132 L (137-145) mmol/L Chloride 94 L (98-107) mmol/L Carbon Dioxide 33 H (22-30) mmol/L BUN 27 H (7-17) mg/dL Glucose 197 H (74-99) mg/dL POC Glucose (mg/dL) 126 H (75-99) mg/dL Microbiology - Last 24 Hours (Table) 10/12/21 10:00 Gram Stain - Preliminary Pleural Fluid Body Fluid Culture - Preliminary 10/12/21 10:00 Acid Fast Bacilli Smear - Final Pleural Fluid Acid Fast Bacilli Culture - Preliminary Assessment and Plan Plan: Assessment: Acute hypoxemic respiratory failure secondary to acute exacerbation of diastolic CHF. Bilateral pleural effusions, status post right-sided thoracentesis 10/12/2021, and left-sided thoracentesis on 10/13/2021. Chest pain, without acute coronary syndrome. Type 2 diabetes mellitus. Peripheral neuropathy. History of hypertension. History of hyperlipidemia. History of CVA with occasional aphasia. History of migraines. Prior history of tobacco use. Diverticular disease. History of duodenal ulcer. Plan: Patient is breathing comfortably She is on room air Tolerating ambulation She continues on oral diuretics and antibiotics Pleural fluid analysis showed exudative fluid with negative fluid cultures and cytology still pending Increase activity as tolerated Follow-up chest x-ray tomorrow I have personally seen and examined the patient, performed the documentation and the assessment and plan as written. Number of minutes spent on the visit: [10] I have personally seen and examined the patient and reviewed the documentation. I performed a joint evaluation with the nurse practitioner in this evaluation was done more than 20 minutes. I fully agree with the documentation above and the plan of care. This patient has hypoxic respiratory failure and the patient undergone bilateral thoracentesis. Awaiting the final pleural fluid analysis/cytology as the fluid was negative. Meanwhile, the patient is feeling better post thoracentesis and the patient is currently on room air oxygen. She remains on diuretics. No other complaints otherwise for now. We'll continue to follow make further recommendations based on her progress. Time with Patient: Less than 30
--- NOTE | 2021-10-15 14:54 | P.PN ---
Subjective Progress Note Date: 10/15/21 On 10/15/2021, seeing the patient for a follow-up. The patient was seen earlier for our services because of bilateral pleural effusion and shortness of breath. The patient is known to have CVA, intermittent aphasia, diabetes mellitus and diabetic neuropathy, hypertension, hyperlipidemia and the patient came into the hospital because of bilateral pleural effusion right more than left and hypoxic respiratory failure. The patient was as high as 6 L of O2 nasal cannula. The patient underwent a left-sided pleural effusion with a total of 600 mL of fluid was removed. The patient also had a right-sided pleural effusion where a similar amount of volume was aspirated. The pleural fluid cytology still pending. Nevertheless, the fluid seems to be an exudate based on elevated LDH and protein level in the pleural fluid was aspirated on 10/12/2021. 2021 following the thoracentesis showed improved aeration in the left lung base. CAT scan of the abdomen showed previous cholecystectomy, liver and spleen were intact, no pancreatic mass, stomach was intact, there was atelectatic changes in lung bases bilaterally and there was also bilateral renal care: Measuring up to 14 mm in size, no hydronephrosis, and the patient's blood work from today showing a white cell count of 7 with a hemoglobin of 12.7 and the patient and his sodium level of 132 with a potassium level of 4.5 units of 27 and creatinine of 1.01. The echo of the heart that was done on 09/25/2021 showed a preserved LV function with an EF of around 55-60% along with moderate MR, mild concentric LVH and the patient had no aortic stenosis. Possible LVOT was suspected Objective - Vital Signs Vital signs: Vital Signs Temp 98.1 F 10/15/21 13:32 Pulse 78 10/15/21 13:32 Resp 18 10/15/21 13:32 BP 96/55 10/15/21 13:32 Pulse Ox 95 10/15/21 13:32 Intake & Output 10/14/21 10/15/21 10/15/21 18:59 06:59 18:59 Intake Total 724 10 250 Output Total 650 600 450 Balance 74 -590 -200 Intake: IV 10 10 10 Invasive Line 3 10 10 10 Oral 714 240 Output: Urine 650 600 450 Other: Voiding Method Toilet Toilet # Voids 1 # Bowel Movements 1 1 - Exam No acute distress, oriented 3. Currently on RA HEENT examination is grossly unremarkable. Neck supple. Full range of motion. No adenopathy thyromegaly or neck vein distention. Cardiovascular examination reveals regular rhythm rate. S1-S2 normal. No S3 or S4. No discernible murmur noted. Lungs reveal diminished bilateral breath sounds. Dullness at the bases are noted. Scattered rhonchi are noted. No wheezes. A few crackles are appreciated. Saturations are 96 %. Abdomen soft bowel sounds are heard. No masses or tenderness. Extremities are intact. No cyanosis clubbing or edema. Skin is without rash or lesion. Neurologic examination is brief but nonfocal. - Labs CBC & Chem 7: 10/15/21 09:24 10/15/21 08:52 Labs: Abnormal Lab Results - Last 24 Hours (Table) 10/14/21 10/14/21 10/15/21 Range/Units 16:53 20:23 06:05 Plt Count (150-450) k/uL Sodium (137-145) mmol/L Chloride (98-107) mmol/L Carbon Dioxide (22-30) mmol/L BUN (7-17) mg/dL Glucose (74-99) mg/dL POC Glucose (mg/dL) 116 H 143 H 117 H (75-99) mg/dL 10/15/21 10/15/21 10/15/21 Range/Units 08:52 09:24 11:39 Plt Count 512 H (150-450) k/uL Sodium 132 L (137-145) mmol/L Chloride 94 L (98-107) mmol/L Carbon Dioxide 33 H (22-30) mmol/L BUN 27 H (7-17) mg/dL Glucose 197 H (74-99) mg/dL POC Glucose (mg/dL) 126 H (75-99) mg/dL Microbiology - Last 24 Hours (Table) 10/12/21 10:00 Gram Stain - Preliminary Pleural Fluid Body Fluid Culture - Preliminary 10/12/21 10:00 Acid Fast Bacilli Smear - Final Pleural Fluid Acid Fast Bacilli Culture - Preliminary Assessment and Plan Plan: Acute hypoxemic respiratory failure secondary to development of bilateral pleural effusion pedal although the initial thinking processes that this was a CHF. The patient's proBNP level is not significantly elevated and the echo cardiogram is showing a preserved LV function. Based on all this, thoracentesis was done and the pleural fluid with a negative base. Awaiting pleural fluid cytology. Consider aspiration. Consider malignancy. We'll follow. Bilateral pleural effusions, status post right-sided thoracentesis 10/12/2021, and left-sided thoracentesis on 10/13/2021. Chest pain, without acute coronary syndrome. Type 2 diabetes mellitus. Peripheral neuropathy. History of hypertension. History of hyperlipidemia. History of CVA with occasional aphasia. History of migraines. Prior history of tobacco use. Diverticular disease. History of duodenal ulcer. Plan: Clinically improved Awaiting pleural fluid cytology and the pleural fluid chemistries indicating an exudate Patient is currently on room air oxygen Continue oral Lasix Echo was noted We'll continue to follow
--- NOTE | 2021-10-15 15:15 | P.PN ---
Subjective Progress Note Date: 10/15/21 This is an 85-year-old female admitted with acute diastolic CHF/COPD and multiple other medical issues in a patient with prior history of former nicotine dependence recent extensive and nebulized bronchodilators added to med regimen yesterday, coughing persists. Slept with head of bed elevated. Reports mild shortness of breath. Continues on 6 L high flow nasal cannula ,maintaining O2 sats in the low 90s. T-max 99.1. Urine culture reporting no growth after 18 hours. Diuresing well on Lasix IV push with 24-hour I&O reflecting a negative fluid balance. BUN 27, Creatinine decreased to 0.99. 10/10/2021 maintained O2 sats of 99% on 6 L high flow nasal cannula, which can be weaned down further. Afebrile. Loose congested cough with clear sputum. Diuresing well on Lasix IV push with 24-hour I&O reflecting a negative fluid balance. Sodium declining, 129, renal function worsening, BUN 33, creatinine 1.15. 10/11/2021 chest x-ray completed yesterday afternoon reporting bilateral pleural effusions, larger on the right side. Ultrasound performed with bilateral sides marked for potential thoracentesis. Continues to require 6 liters high flow nasal cannula to maintain O2 sats in the 90s. Afebrile, normal WBC. Renal function improving. Sodium 129. 10/12/2021 thoracentesis pending. Loose congested productive cough with whitish sputum. Maintaining O2 sats in the 90s on 6 L nasal cannula. Afebrile. Procalcitonin elevated, on levaquin. 10/15/2021 maintained on oral antibiotics and diuretics . Diuresing well with 24-hour I&O reflecting a negative fluid balance. Status post thoracentesis, fluid analysis exudative, pleural fluid cultures reported no growth with cytology pending.ambulating, maintaining O2 sats in the 90s on room air. Objective - Vital Signs Vital signs: Vital Signs Temp 98.1 F 10/15/21 13:32 Pulse 78 10/15/21 13:32 Resp 18 10/15/21 13:32 BP 96/55 10/15/21 13:32 Pulse Ox 95 10/15/21 13:32 Intake & Output 10/14/21 10/15/21 10/15/21 18:59 06:59 18:59 Intake Total 724 10 250 Output Total 650 600 450 Balance 74 -590 -200 Intake: IV 10 10 10 Invasive Line 3 10 10 10 Oral 714 240 Output: Urine 650 600 450 Other: Voiding Method Toilet Toilet # Voids 1 # Bowel Movements 1 1 - Exam - Exam General: Sitting up in chair, NAD. Vitals reviewed Lungs: normal respiratory effort, clear to auscultation CV: Regular rate and rhythm, no murmur. Peripheral pulses 2+ Abdomen: soft, nondistended, no organomegaly positive bowel sounds, Skin: warm and dry. - Labs CBC & Chem 7: 10/15/21 09:24 10/15/21 08:52 Labs: Abnormal Lab Results - Last 24 Hours (Table) 10/14/21 10/14/21 10/15/21 Range/Units 16:53 20:23 06:05 Plt Count (150-450) k/uL Sodium (137-145) mmol/L Chloride (98-107) mmol/L Carbon Dioxide (22-30) mmol/L BUN (7-17) mg/dL Glucose (74-99) mg/dL POC Glucose (mg/dL) 116 H 143 H 117 H (75-99) mg/dL 10/15/21 10/15/21 10/15/21 Range/Units 08:52 09:24 11:39 Plt Count 512 H (150-450) k/uL Sodium 132 L (137-145) mmol/L Chloride 94 L (98-107) mmol/L Carbon Dioxide 33 H (22-30) mmol/L BUN 27 H (7-17) mg/dL Glucose 197 H (74-99) mg/dL POC Glucose (mg/dL) 126 H (75-99) mg/dL Microbiology - Last 24 Hours (Table) 10/12/21 10:00 Gram Stain - Preliminary Pleural Fluid Body Fluid Culture - Preliminary 10/12/21 10:00 Acid Fast Bacilli Smear - Final Pleural Fluid Acid Fast Bacilli Culture - Preliminary Assessment and Plan Assessment: Acute on chronic diastolic CHF dysfunction Bilateral pleural effusions secondary to the above, status post right and left thoracentesis. 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 Increase ambulation as tolerated. Discharge planning in progress for tomorrow , pending follow-up chest x-ray, final DC recommendations and clearance per pulmonary. The impression and plan of care has been dictated as directed. : I performed a history and examination of this patient, discussed the same with the dictator. I agree with the dictator's note ,documented as a scribe. Any additional findings or plans will be noted.
[2021-10-15] MEDS: TRIAMCINOLONE ACET 0.1% OINTMENT 15 GM TUBE TOPICAL SCH ×2 (15:47→20:42)
[2021-10-15] MEDS: NYSTATIN 100,000 UNIT/GM OINT 30 GM TUBE TOPICAL SCH ×2 (15:47→20:42)
[2021-10-15 16:44] LABS: Glucose,Whole Blood 120 mg/dL (75-99)
[2021-10-15] MEDS ORDERED: HYDROCORTISONE 1% CREAM 454 GM JAR TOPICAL SCH (18:00)
[2021-10-15] MEDS ORDERED: NYSTAT-TRIAMCIN 100,000-0.1 UNIT/GM-% OINT 30 GM TUBE TOPICAL SCH (18:00)
[2021-10-15 20:22] LABS: Glucose,Whole Blood 139 mg/dL (75-99)
[2021-10-15] MEDS: ATORVASTATIN 10 MG TAB PO SCH (20:40)
[2021-10-15] MEDS: LEVOFLOXACIN 250 MG TAB PO SCH (20:40)
[2021-10-16 06:20] LABS: Glucose,Whole Blood 134 mg/dL (75-99)
[2021-10-16] MEDS: INSULIN ASPART (NovoLOG) 100 UNIT/ML VIAL SQ SCH ×3 (06:34→14:20)
[2021-10-16] MEDS: PANTOPRAZOLE 40 MG TABLET PO SCH (06:35)
--- NOTE | 2021-10-16 06:50 | XR ---
EXAMINATION TYPE: XR chest 1V portable DATE OF EXAM: 10/16/2021 CLINICAL HISTORY: Difficulty breathing progress study. TECHNIQUE: Single AP portable upright view of the chest is obtained. COMPARISON: Chest x-ray from 3 days earlier and older studies. FINDINGS: Stable mild cardiomegaly with atherosclerotic thoracic aorta. Persistent chronic parenchym al changes and bibasilar opacities. Osseous structures are intact. Surgical changes epigastric region noted. IMPRESSION: Mild cardiomegaly with small bilateral pleural effusions and associated bibasilar acute i nfiltrate and/or atelectasis. No significant change from most recent x-ray.
[2021-10-16] MEDS: BUDESONIDE 0.5 MG/2 ML NEBU INHALATION SCH (07:44)
[2021-10-16] MEDS: IPRATROPIUM-ALBUTEROL 3 ML NEB INHALATION SCH ×2 (07:45→11:12)
[2021-10-16 08:26] VITALS: BP 106/55; PULSE 93; RESP 18; TEMP 97.6
[2021-10-16] MEDS: guaiFENesin 600 MG TABLET.ER PO SCH (08:27)
[2021-10-16] MEDS: FUROSEMIDE 40 MG TAB PO SCH ×2 (08:27→14:20)
[2021-10-16] MEDS: lisinopriL 20 MG TAB PO SCH (08:27)
[2021-10-16] MEDS: METOPROLOL TARTRATE 12.5 MG TAB PO SCH (08:27)
[2021-10-16] MEDS: HEPARIN SODIUM,PORCINE/PF 5,000 UNIT/0.5 ML SYRINGE SQ SCH ×2 (08:27→14:19)
[2021-10-16] MEDS: ARTIFICIAL TEARS-HYPROMELLOSE DROPS 15 ML BTL BOTH EYES SCH ×2 (08:27→11:55)
[2021-10-16] MEDS: NYSTATIN 100,000 UNIT/GM OINT 30 GM TUBE TOPICAL SCH ×3 (08:28→14:20)
[2021-10-16] MEDS: TRIAMCINOLONE ACET 0.1% OINTMENT 15 GM TUBE TOPICAL SCH ×3 (08:28→14:21)
[2021-10-16 11:45] LABS: Glucose,Whole Blood 117 mg/dL (75-99)
--- NOTE | 2021-10-16 15:42 | P.PN ---
Subjective Progress Note Date: 10/16/21 This 85-year-old female patient with a known history of hypertension, hyperlipidemia, CVA with intermittent aphasia, diabetes mellitus type 2, diabetic neuropathy, blood and ulcer, diverticulitis, migraines, recent admission for chest pain with negative stress test. She presented to the emergency room again on 10/07/2021 with concerns regarding chest pain. Ultrasound of the liver was performed due to elevated LFTs. No dilated ducts. Liver small. Small right effusion demonstrated. No ascites. No discrete liver mass. Computed tomography scan of the abdomen and pelvis did reveal lower lobe pulmonary airspace consolidations and pleural effusions secondary to suspected congestive heart failure. Small pericardial effusion. Follow-up chest x-ray yesterday revealed persistent bilateral pleural effusions right greater than left with adjacent atelectasis. We're consulted for the same. She is seen today in consultation on the regular medical floor. She is currently resting in bed. She is on 6 L high flow nasal cannula to maintain O2 saturations in the 90s she's afebrile. Hemodynamically stable. White count 9.7. Hemoglobin 12.0. Sodium 129. Potassium 4.6. BUN 30. Creatinine 0.86. Glucose 133. Paredes virus by PCR negative. Troponins negative. ProBNP 2100. Progress note dated 10/12/2021. 85-year-old female seen yesterday in consultation. She has a history of hypertension, hyperlipidemia, CVA, diabetes, and migraine cephalgia. The patient was admitted with a diagnosis of CHF, and bilateral pleural effusions. No new labs today. The patient did have a right-sided thoracentesis performed by me today. 600 mL of dark brown yellow fluid was removed from the right ple ural space. The postthoracentesis chest x-ray did not reveal any pneumothorax. Progress note dated 10/13/2021. 85-year-old female seen in consultation for bilateral pleural effusions. Today, the patient had a left-sided pleural effusion, and 600 mL of blood was removed. The patient remains on 3 L nasal cannula. She is not getting any IV fluids. The patient tolerated the procedure well. Labs today include a white count of 7.9, hemoglobin 11.3, hematocrit 34.4, and platelet count of 500,000. Sodium 132, potassium 4.2, chlorides 100, CO2 30, BUN 29, and creatinine 0.81. Chest x-ray following the thoracentesis did not reveal a pneumothorax. Progress note dated 10/14/2021. 85-year-old female seen again in room 375. We will consulted for bilateral pleural effusions. The patient did have bilateral thoracentesis performed. Currently, the patient is doing reasonably well. She is on 2 L nasal cannula. She's not receiving any IV fluids. Glucose today is 106. Chest x-ray from ril 23 reviewed. The patient's labs, x-rays, and medications are all reviewed. On 10/15/2021 patient seen in follow-up on [facility] care unit, patient is ambulating in the room, to one from the bathroom, breathing comfortably, she is on room air oxygen 92-95%, but signs are stable, she's been afebrile, she is on oral Lasix at 40 mg twice daily and she is in -516 mL net fluid balance over the last 24 hours, she remains on Levaquin at 250 mg daily, she is on nebulized bronchodilators. She's had no acute events overnight. Her last chest x-ray from 10/13/2021 showed no evidence complications status post left thoracentesis, with persistence and bibasilar densities and improvement in aeration at the left lung base. Today's labs have been reviewed, white blood cell count is normal at 7.0, hemoglobin is 12.7, sodium is 132, potassium 4.5, chloride is 94, CO2 33, B1 is 27 creatinine 1.01. Her pro-calcitonin level was 0.37, her pleural fluid analysis showed exudative fluid, pleural fluid cultures have shown no growth the cytology is still pending. Patient remains on Levaquin 10/16/2021, the patient is being seen for a follow-up. The patient is doing well and she is currently on room air oxygen. No major respiratory difficulties for now. The results of the pleural fluid cytology was noted. The patient has mixed inflammatory cells and it was negative for malignancy or carcinoma. The patient was reassured on the results of the pleural fluid cytology. No nausea. No vomiting. No chest pain. She remains on Lasix 40 mg by mouth twice a day and the medicated will be continued on outpatient basis. No other significant complaints otherwise for now. The plan is to discharge this patient home today to be followed up on outpatient basis. Repeat chest x-ray from today Shows mild hepatomegaly and small bilateral pleural effusion and atelectatic changes in lung bases bilaterally. Objective - Vital Signs Vital signs: Vital Signs Temp 97.6 F 10/16/21 08:24 Pulse 93 10/16/21 08:24 Resp 18 10/16/21 08:24 BP 106/55 10/16/21 08:24 Pulse Ox 95 10/16/21 08:24 Intake & Output 10/15/21 10/16/21 10/16/21 18:59 06:59 18:59 Intake Total 490 246 Output Total 750 425 Balance -260 -179 Weight 78.2 kg Intake: IV 10 10 Invasive Line 3 10 10 Oral 480 236 Output: Urine 750 425 Other: Voiding Method Toilet Toilet # Voids 1 # Bowel Movements 1 1 - Exam GENERAL EXAM: Alert, very pleasant, 85-year-old white female, comfortable in no apparent distress. HEAD: Normocephalic/atraumatic. EYES: Normal reaction of pupils, equal size. Conjunctiva pink, sclera white. NOSE: Clear with pink turbinates. THROAT: No erythema or exudates. NECK: No masses, no JVD, no thyroid enlargement, no adenopathy. CHEST: No chest wall deformity. Symmetrical expansion. LUNGS: Equal air entry with no crackles, wheeze, rhonchi or dullness. CVS: Regular rate and rhythm, normal S1 and S2, no gallops, no murmurs, no rubs ABDOMEN: Soft, nontender. No hepatosplenomegaly, normal bowel sounds, no guarding or rigidity. EXTREMITIES: No clubbing, no edema, no cyanosis, 2+ pulses and upper and lower extremities. MUSCULOSKELETAL: Muscle strength and tone normal. SPINE: No scoliosis or deformity SKIN: No rashes CENTRAL NERVOUS SYSTEM: Alert and oriented -3. No focal deficits, tone is normal in all 4 extremities. PSYCHIATRIC: Alert and oriented -3. Appropriate affect. Intact judgment and insight. - Labs CBC & Chem 7: 10/15/21 09:24 10/15/21 08:52 Labs: Abnormal Lab Results - Last 24 Hours (Table) 10/15/21 10/15/21 10/16/21 Range/Units 16:32 20:20 06:18 POC Glucose (mg/dL) 120 H 139 H 134 H (75-99) mg/dL 10/16/21 Range/Units 11:42 POC Glucose (mg/dL) 117 H (75-99) mg/dL Microbiology - Last 24 Hours (Table) 10/12/21 10:00 Gram Stain - Preliminary Pleural Fluid Body Fluid Culture - Preliminary Assessment and Plan Plan: Assessment: Acute hypoxemic respiratory failure secondary to acute exacerbation of diastolic CHF. The patient is currently stable Bilateral pleural effusions, status post right-sided thoracentesis 10/12/2021, and left-sided thoracentesis on 10/13/2021. Thoracentesis of the right lung was completed and pleural fluid is negative for malignancy. It showed mixed inflammatory cells. Chest pain, without acute coronary syndrome. Type 2 diabetes mellitus. Peripheral neuropathy. History of hypertension. History of hyperlipidemia. History of CVA with occasional aphasia. History of migraines. Prior history of tobacco use. Diverticular disease. History of duodenal ulcer. Plan: Patient is breathing comfortably The patient is currently on room air oxygen and the patient will be discharged home on Lasix 40 mg by mouth twice a day. The pleural fluid analysis was negative today. The fluid cytology has been negative and the patient will need outpatient follow-up chest x-rays regarding the pleural effusions. She was instructed to do so. She is on room air Tolerating ambulation Therefore discharged from the pulmonary standpoint.
--- NOTE | 2021-10-17 14:53 | P.DS ---
Providers Date of admission: 10/07/21 11:40 Expected date of discharge: 10/16/21 Attending physician: James Tracey MD Consults: 10/07/21 11:39 Consult Physician Routine Consulting Provider: Will Cordova Consult Reason/Comments: chf Do you want consulting provider notified?: Yes 10/10/21 14:56 Consult Physician Routine Consulting Provider: Ricky Parr Consult Reason/Comments: Hypoxia Do you want consulting provider notified?: Yes Primary care physician: Diana Tracey Hospital Course: Final Diagnoses: Acute on chronic diastolic CHF dysfunction Bilateral pleural effusions secondary to the above, status post right and left thoracentesis. 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 Slept with head of bed elevated. Reports mild shortness of breath. Continues on 6 L high flow nasal cannula ,maintaining O2 sats in the low 90s. T-max 99.1. Urine culture reporting no growth after 18 hours. Diuresing well on Lasix IV push with 24-hour I&O reflecting a negative fluid balance. BUN 27, Creatinine decreased to 0.99. 10/10/2021 maintained O2 sats of 99% on 6 L high flow nasal cannula, which can be weaned down further. Afebrile. Loose congested cough with clear sputum. Diuresing well on Lasix IV push with 24-hour I&O reflecting a negative fluid balance. Sodium declining, 129, renal function worsening, BUN 33, creatinine 1.15. 10/11/2021 chest x-ray completed yesterday afternoon reporting bilateral pleural effusions, larger on the right side. Ultrasound performed with bilateral sides marked for potential thoracentesis. Continues to require 6 liters high flow nasal cannula to maintain O2 sats in the 90s. Afebrile, normal WBC. Renal function improving. Sodium 129. 10/12/2021 thoracentesis pending. Loose congested productive cough with whitish sputum. Maintaining O2 sats in the 90s on 6 L nasal cannula. Afebrile. Procalcitonin elevated, on levaquin. 10/15/2021 maintained on oral antibiotics and diuretics . Diuresing well with 24-hour I&O reflecting a negative fluid balance. Status post thoracentesis, fluid analysis exudative, pleural fluid cultures reported no growth with cytology pending.ambulating, maintaining O2 sats in the 90s on room air. Significant clinical improvement. Denies chest pain, palpitations or shortness of breath.Patient will be discharged home today in a stable condition with guarded prognosis pending final DC recommendations and clearance per pulmonary. Pleural Cytology results pending. The impression and plan of care has been dictated as directed. : I performed a history and examination of this patient, discussed the same with the dictator. I agree with the dictator's note ,documented as a scribe. Any additional findings or plans will be noted. Patient Condition at Discharge: Stable Plan - Discharge Summary Discharge Rx Participant: No New Discharge Prescriptions: New Furosemide [Lasix] 40 mg PO 0900,1700 #60 tab Nystatin 100,000 Unit/gm Oint [Mycostatin Oint] 1 applic TOPICAL QID #30 gm Triamcinolone 0.1% Ointment [Kenalog 0.1% Ointment] 1 applic TOPICAL QID #15 g Ipratropium-Albuterol Nebulize [Duoneb 0.5 mg-3 mg/3 ml Soln] 3 ml INHALATION RT-QID #120 ml Continue Atorvastatin [Lipitor] 10 mg PO HS lisinopriL 40 mg PO DAILY Propylene Glycol [Systane Complete] 1 drop BOTH EYES TID Ibuprofen [Motrin] 400 mg PO Q6HR PRN 7 Days #28 tab PRN Reason: Pain Diclofenac Sodium Gel [Voltaren Gel] 4 gm TOPICAL QID Ergocalciferol [Vitamin D2 (1250 Mcg = 79928 Iu)] 1,250 mcg PO SA@2100 Loratadine [Claritin] 10 mg PO HS Methocarbamol [Robaxin-750] 750 mg PO BID PRN 7 Days #14 tablet PRN Reason: Pain Changed Metoprolol Tartrate [Lopressor] 12.5 mg PO BID #60 tab Discontinued Furosemide [Lasix] 40 mg PO DAILY Discharge Medication List Atorvastatin [Lipitor] 10 mg PO HS 08/26/14 [History] lisinopriL 40 mg PO DAILY 08/26/14 [History] Propylene Glycol [Systane Complete] 1 drop BOTH EYES TID 02/08/19 [History] Ergocalciferol [Vitamin D2 (1250 Mcg = 31677 Iu)] 1,250 mcg PO SA@2100 04/19/21 [History] Loratadine [Claritin] 10 mg PO HS 09/24/21 [History] Ibuprofen [Motrin] 400 mg PO Q6HR PRN 7 Days #28 tab 09/29/21 [Rx] Methocarbamol [Robaxin-750] 750 mg PO BID PRN 7 Days #14 tablet 09/29/21 [Rx] Diclofenac Sodium Gel [Voltaren Gel] 4 gm TOPICAL QID 10/07/21 [History] Furosemide [Lasix] 40 mg PO 0900,1700 #60 tab 10/16/21 [Rx] Ipratropium-Albuterol Nebulize [Duoneb 0.5 mg-3 mg/3 ml Soln] 3 ml INHALATION RT-QID #120 ml 10/16/21 [Rx] Metoprolol Tartrate [Lopressor] 12.5 mg PO BID #60 tab 10/16/21 [Rx] Nystatin 100,000 Unit/gm Oint [Mycostatin Oint] 1 applic TOPICAL QID #30 gm 10/16/21 [Rx] Triamcinolone 0.1% Ointment [Kenalog 0.1% Ointment] 1 applic TOPICAL QID #15 g 10/16/21 [Rx] Follow up Appointment(s)/Referral(s): Diana Tracey DO [Primary Care Provider] - 10/18/21 10:00 am (-with PA-in [place]) Ricky Parr DO [Doctor of Osteopathic Medicine] - 10/25/21 9:45 am () [facility], [NON-STAFF] - Dakota Underwood MD [STAFF PHYSICIAN] - 1 Week (The [facility] office will call with a follow up appointment date and time.) Ambulatory/Diagnostic Orders: Complete Blood Count w/diff [LAB.AMB] Time Frame: 3 Days, Location: None Selected Patient Instructions/Handouts: Heart Failure (DC), Pleural Effusion (DC) Activity/Diet/Wound Care/Special Instructions: Cytology pending-results to be faxed to PCP and pulmonary. Discharge Disposition: HOME SELF-CARE
== END 2021-10-16 14:47 | disposition home or self-care (01) | DRG 291 ==
LOC: EC 10:05 → 3SCARD 11:40
PROVIDERS: ADMIT Family Medicine; ATTEND Family Medicine
PROC: 5A0945A Assistance with Respiratory Ventilation, 24-96 Consecutive Hours, High Flow/Velocity Cannula (ICD-10-PCS; 2021-10-08)
PROC: 0W993ZZ Drainage of Right Pleural Cavity, Percutaneous Approach (ICD-10-PCS; principal; 2021-10-12)
PROC: 0W9B3ZZ Drainage of Left Pleural Cavity, Percutaneous Approach (ICD-10-PCS; 2021-10-13)
DX: I11.0 Hypertensive heart disease with heart failure (principal); I50.33 Acute on chronic diastolic (congestive) heart failure; J96.01 Acute respiratory failure with hypoxia; E87.1 Hypo-osmolality and hyponatremia; J44.1 Chronic obstructive pulmonary disease with (acute) exacerbation; I31.3 Pericardial effusion (noninflammatory); J91.8 Pleural effusion in other conditions classified elsewhere; J98.11 Atelectasis; K57.92 Diverticulitis of intestine, part unspecified, without perforation or abscess without bleeding; E78.5 Hyperlipidemia, unspecified; Z20.822 Contact with and (suspected) exposure to COVID-19; E86.1 Hypovolemia; H54.7 Unspecified visual loss; I69.320 Aphasia following cerebral infarction; E11.42 Type 2 diabetes mellitus with diabetic polyneuropathy; M19.90 Unspecified osteoarthritis, unspecified site; Z66 Do not resuscitate; Z79.899 Other long term (current) drug therapy; Z85.828 Personal history of other malignant neoplasm of skin; Z87.11 Personal history of peptic ulcer disease; Z86.010 Personal history of colon polyps; Z87.891 Personal history of nicotine dependence; Z90.49 Acquired absence of other specified parts of digestive tract; Z90.710 Acquired absence of both cervix and uterus; Z96.1 Presence of intraocular lens; Z96.651 Presence of right artificial knee joint
CPT/HCPCS: 36415; 71045; 71046; 74176; 76604; 76705; 80048; 80053; 81001; 82945; 83615; 83690; 83735; 83880; 84145; 84157; 84443; 84484; 85025; 85610; 85730; 87070; 87086; 87102; 87116; 87205; 87206; 87252; 87496; 87498; 87502; 87529; 87634; 87635; 87798; 88108; 88305; 89050; 93005; 94640; 94760; 96374; 99285

== ENCOUNTER 2023-05-01 07:31 | Day surgery (SDC) | payer MEDICARE ==
[2023-04-29 13:34] VITALS: BMI 29.9
[2023-05-01] MEDS ORDERED: LACTATED RINGERS 1,000 ML IV SCH (07:46)
[2023-05-01 08:12] LABS: Glucose,Whole Blood 123 mg/dL (70-110)
[2023-05-01 08:25] VITALS: TEMP 97.2
[2023-05-01] MEDS ORDERED: PROPOFOL 10 MG/ML 20 ML VIAL IV ONE (08:35)
[2023-05-01] MEDS ORDERED: LIDOCAINE 1% INJ 10MG/ML (20 ML MDV) ONE (08:35)
--- NOTE | 2023-05-01 09:05 | P.OP ---
Date of Procedure: 05/01/23 Preoperative Diagnosis: GI bleed Postoperative Diagnosis: Antral gastritis Mild diverticulosis Internal and external hemorrhoids Procedure(s) Performed: EGD Colonoscopy Anesthesia: MAC Surgeon: Lenard Tripp Pathology: other (Antrum) Condition: stable Disposition: PACU Description of Procedure: The patient's placed on the endoscopy table in the lateral position. She received IV sedation. The gastroscope placed oropharynx passed in the esophagus and stomach. Scope was then placed through the pylorus. The first and second portion of the duodenum appeared normal. The scope was then brought back the antrum this. Mildly inflamed. A biopsies performed. Scope was unretroflexed and remainder the stomach. Normal. The GE junction was at 40 cm the distal esophagus. Normal. Proximal esophagus appeared normal. Scope withdrawn for patient. Next digital rectal exam was performed. This revealed internal and external hemorrhoids. The flexible colonoscope was then placed patient anus passed throughout the entire colon. The ileocecal valve was visualized. The cecum, ascending and transverse colon appeared normal. In the descending and sigmoid colon there is some mild diverticulosis. The scope was then brought back the rectum and this appeared normal. Scope withdrawn for patient. There is no evidence of any GI bleed. Presumed patient may have had bleeding from hemorrhoids.
[2023-05-01 09:21] VITALS: RESP 18
[2023-05-01 09:45] VITALS: BP 92/53; PULSE 66
== END 2023-05-01 10:00 | disposition home or self-care (01) ==
LOC: ORWHC2ENDO 07:31
PROVIDERS: ATTEND Surgery
DX: K29.50 Unspecified chronic gastritis without bleeding (principal); K64.4 Residual hemorrhoidal skin tags; K64.8 Other hemorrhoids; I63.9 Cerebral infarction, unspecified; G43.909 Migraine, unspecified, not intractable, without status migrainosus; M19.90 Unspecified osteoarthritis, unspecified site; E11.9 Type 2 diabetes mellitus without complications; I10 Essential (primary) hypertension; E78.5 Hyperlipidemia, unspecified; Z91.040 Latex allergy status; Z88.2 Allergy status to sulfonamides; Z88.1 Allergy status to other antibiotic agents; Z91.048 Other nonmedicinal substance allergy status; Z88.0 Allergy status to penicillin; Z79.82 Long term (current) use of aspirin; Z98.890 Other specified postprocedural states; Z79.899 Other long term (current) drug therapy
CPT/HCPCS: 88305; 43239; J2001; J2704; G0121; 45378

== ENCOUNTER → 2023-08-01 | Outpatient (CLI) | payer MEDICARE ==
--- NOTE | 2023-08-05 11:17 | MM ---
Reason for Exam: Screening (asymptomatic). Last screening mammogram was performed 12 month(s) ago. Patient History: Menarche at age 16. Patient has no children. Left ovary removed at age 27. Right ovary removed at age 27. Hysterectomy at age 27. Postmenopausal. Other cancer. 08/12/2019, US discontinued breast bx LT on the left side. Prior Study Comparison: 07/10/2020 Bilateral Diagnostic Mammogram, [facility]. 07/18/2021 Bilateral Diagnostic Mammogram, [facility]. 07/29/2022 Bilateral MG 3D screening mammo w/cad, [facility]. Tissue Density: The breast tissue is heterogeneously dense. This may lower the sensitivity of mammography. Findings: Analyzed By CAD. Left breast biopsy clip. There is no suspicious group of microcalcifications or new suspicious mass. Overall Assessment: Benign, BI-RAD 2 Management: Screening Mammogram of both breasts in [address] [facility] will attempt to contact patient to return for supplemental views and ultrasound if indicated. Patient should continue monthly self-breast exams. A clinical breast exam by your physician is recommended on an annual basis. This exam should not preclude additional follow-up of suspicious palpable abnormalities. Note on Jovanna scores and lifetime risk: 1. A Jovanna score greater than 3% is considered moderate risk. If this is the case, consider specialist referral to assess eligibility for a risk reducing agent. 2. If overall lifetime risk for the development of breast cancer is 20% or higher, the patient may qualify for future screening with alternating mammogram and breast MRI. Electronically signed and approved by: Ricky Fabian DO
== END | disposition home or self-care (01) ==
LOC: RADMAMWWP 12:36
PROVIDERS: ATTEND Family Medicine
DX: Z12.31 Encounter for screening mammogram for malignant neoplasm of breast (principal); Z78.0 Asymptomatic menopausal state
CPT/HCPCS: 77063; 77067

== ENCOUNTER 2024-07-14 12:42 | Observation (INO) | payer MEDICARE ==
--- NOTE | 2024-07-14 13:08 | ED ---
Fall HPI <Ricky Zavala - Last Filed: 07/14/24 16:32> - General Source: patient, RN notes reviewed, old records reviewed Mode of arrival: EMS Limitations: no limitations - History of Present Illness MD Complaint: fall -: hour(s) Fall From: standing When Fall Occurred: 1 hour [employer]ER Fall Witnessed: no Place Fall Occurred: home Loss of Consciousness: none Prolonged Down Time?: no Symptoms Prior to Fall: none Location: head, chest Severity: moderate, severe Quality: sharp Context: tripped/slipped Associated Symptoms: denies <Stephen Dyer - Last Filed: 07/18/24 19:12> - General Stated Complaint: fall Time Seen by Provider: 07/14/24 12:45 - History of Present Illness Initial Comments: This is a 88-year-old female to the ER after a fall fall while in the garage. Patient has a significant fall with right elbow pain back pain. Denying headache or head injury also complaining of shortness of breath and right rib pain fall on her walker (Stephen Dyer) - Related Data Home Medications Medication Instructions Recorded Confirmed Atorvastatin [Lipitor] 10 mg PO HS 08/26/14 07/14/24 lisinopriL 40 mg PO DAILY 08/26/14 07/14/24 Loratadine [Claritin] 10 mg PO HS 09/24/21 07/14/24 Aspirin [Adult Low Dose Aspirin EC] 81 mg PO DAILY 04/29/23 07/14/24 Alendronate Sodium [Fosamax] 70 mg PO GARRIDO 07/14/24 07/14/24 Amoxicillin 2,000 mg PO ONCE PRN 07/14/24 07/14/24 Blink Gel Tears 1 drop BOTH EYES DAILY 07/14/24 07/14/24 Metoprolol Tartrate [Lopressor] 12.5 mg PO DAILY 07/14/24 07/14/24 Retinavites 1 tab PO BID 07/14/24 07/14/24 amLODIPine [Norvasc] 2.5 mg PO AC-LUNCH 07/14/24 07/14/24 Previous Rx's Medication Instructions Recorded Acetaminophen [Tylenol] 325 mg PO Q6H PRN 7 Days #28 tab 07/15/24 Allergies Allergy/AdvReac Type Severity Reaction Status Date / Time cephalexin Allergy Rash/Hives Verified 07/14/24 16:35 clindamycin Allergy Rash/Hives Verified 07/14/24 16:35 latex Allergy Rash/Hives Verified 07/14/24 16:35 levofloxacin [From Levaquin] Allergy Rash/Hives Verified 07/14/24 16:35 Penicillins Allergy Rash/Hives Verified 07/14/24 16:35 Sulfa (Sulfonamide Allergy Rash/Hives Verified 07/14/24 16:35 Antibiotics) TAPE Allergy RASH, Uncoded 07/14/24 16:35 PAPER TAPE IS OK Review of Systems ROS Other: All systems not noted in ROS Statement are negative. <Ricky Zavala - Last Filed: 07/14/24 16:32> ROS Other: All systems not noted in ROS Statement are negative. <Stephen Dyer - Last Filed: 07/18/24 19:12> ROS Statement: Those systems with pertinent positive or pertinent negative responses have been documented in the HPI. Past Medical History Past Medical History: Cancer, CVA/TIA, Diabetes Mellitus, Eye Disorder, Hyperlipidemia, Hypertension, Osteoarthritis (OA), Syncope Additional Past Medical History / Comment(s): 2010 CVA/pt states if she is frustrated she will occasionally have difficulty finding her words, R eye decreased vision pt states she was told d/t CVA and diabetes, NIDDM type II/diet controlled, neuropathy bilateral feet, currently has L breast/L axillae "spots" being monitored, duodenal ulcer, benign colon polyps, diverticular disease, anemia, migraines, skin cancer with removal, pt does not know why she takes lasix. patienthas newly dx macular degeneration. 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 History of Any Multi-Drug Resistant Organisms: None Reported Past Surgical History: Appendectomy, Cholecystectomy, Hysterectomy, Joint Re placement, Orthopedic Surgery Additional Past Surgical History / Comment(s): Surgery for gallbladder removal/hiatal hernia and gastric ulcer at same time, EGDs, colonoscopies, hemorrhoidectomy, skin cancer removed, skin lesion removals, neil's cyst removed from posterior knee, total R knee arthroplasty, bilateral cataracts removed/lens implants. Past Anesthesia/Blood Transfusion Reactions: Motion Sickness Additional Past Anesthesia/Blood Transfusion Reaction / Comment(s): BLOOD TRANSFUSION (5 UNITS) POST HYSTERECTOMY, NO REACTIONS Past Psychological History: No Psychological Hx Reported Smoking Status: Former smoker Past Alcohol Use History: None Reported Past Drug Use History: None Reported - Past Family History Sister(s) Family Medical History: Cancer Additional Family Medical History / Comment(s): colon mets to pancreas Father Additional Family Medical History / Comment(s): from coronary occlusion Mother Family Medical History: AICD/Pacemaker <Stephen Dyer - Last Filed: 07/18/24 19:12> General Exam Limitations: no limitations General appearance: alert, in no apparent distress Head exam: Present: atraumatic, normocephalic, normal inspection Eye exam: Present: normal appearance, PERRL, EOMI. Absent: scleral icterus, conjunctival injection, periorbital swelling ENT exam: Present: normal exam, mucous membranes moist Neck exam: Present: normal inspection. Absent: tenderness, meningismus, lymphadenopathy Respiratory exam: Present: normal lung sounds bilaterally. Absent: respiratory distress, wheezes, rales, rhonchi, stridor Cardiovascular Exam: Present: regular rate, normal rhythm, normal heart sounds. Absent: systolic murmur, diastolic murmur, rubs, gallop, clicks GI/Abdominal exam: Present: soft, normal bowel sounds. Absent: distended, tenderness, guarding, rebound, rigid Extremities exam: Present: normal inspection, full ROM, normal capillary refill. Absent: tenderness, pedal edema, joint swelling, calf tenderness Back exam: Present: normal inspection Neurological exam: Present: alert, oriented X3, CN II-XII intact Psychiatric exam: Present: normal affect, normal mood Skin exam: Present: warm, dry, intact, normal color. Absent: rash <Stephen Dyer - Last Filed: 07/18/24 19:12> Course <Stephen Dyer - Last Filed: 07/18/24 19:12> Vital Signs 07/14/24 07/14/24 07/14/24 12:52 16:44 17:32 Temperature 97.7 F 98.1 F 97.9 F Pulse Rate 77 68 83 Respiratory 16 18 14 Rate Blood Pressure 155/77 162/76 142/63 O2 Sat by Pulse 96 97 96 Oximetry - Reevaluation(s) Reevaluation #1: 07/14/24 13:24 Medical record is reviewed (Stephen Dyer) Reevaluation #2: 07/14/24 13:24 Patient pain is improved (Stephen Dyer) Reevaluation #3: 07/14/24 13:24 Patient informed of results and questions answered (Stephen Dyer) Reevaluation #4: Patient symptoms are persistent here in the ER (Stephen Dyer) Medical Decision Making - Lab Data Result diagrams: 07/14/24 14:51 07/14/24 14:51 <Ricky Zavala - Last Filed: 07/14/24 16:32> - Lab Data Result diagrams: 07/14/24 14:51 07/14/24 14:51 <Stephen Dyer - Last Filed: 07/18/24 19:12> - Medical Decision Making Was pt. sent in by a medical professional or institution (, PA, LANDCARE OFFICER, urgent care, hospital, or correction...) When possible be specific @ -No Did you speak to anyone other than the patient for history (EMS, parent, family, police, friend...)? What history was obtained from this source @ -No Did you review nursing and triage notes (agree or disagree)? Why? @ -I reviewed and agree with nursing and triage notes Were old charts reviewed (outside hosp., previous admission, EMS record, old EKG, old radiological studies, urgent care reports/EKG's, correction records)? Report findings @ -No old charts were reviewed Differential Diagnosis (chest pain, altered mental status, abdominal pain women, abdominal pain men, vaginal bleeding, weakness, fever, dyspnea, syncope, headache, dizziness, GI bleed, back pain, seizure, CVA, palpatations, mental health, musculoskeletal)? @ -Not applicable EKG interpreted by me (3pts min.). @ -Sinus rhythm rate of 81, CT interval 216, QRS duration 102, QTc [address] segment elevation. X-rays interpreted by me (1pt min.). @Chest x-ray, pelvis x-ray, right elbow x-ray are negative for displaced fracture CT interpreted by me (1pt min.). @ -CT brain and cervical spine negative for traumatic injury, CT of the chest shows a nondisplaced right eighth rib fracture, no pneumothorax. U/S interpreted by me (1pt. min.). @ -None done What testing was considered but not performed or refused? (CT, X-rays, U/S, labs)? Why? @ -None What meds were considered but not given or refused? Why? @ -None Did you discuss the management of the patient with other professionals (professionals i.e. Dr., PA, LANDCARE OFFICER, lab, RT, psych nurse, psychiatric social worker supervisor, coal conveyor operator, teacher, officer captain, director of casework)? Give summary @ -[place] covering for [facility] Was smoking cessation discussed for >3mins.? @ -No Was critical care preformed (if so, how long)? @ -No Were there social determinants of health that impacted care today? How? (Ho melessness, low income, unemployed, alcoholism, drug addiction, transportation, low edu. Level, literacy, decrease access to med. care, [place] [facility], rehab)? @ -No Was there de-escalation of care discussed even if they declined (Discuss DNR or withdrawal of care, Hospice)? DNR status @ -No What co-morbidities impacted this encounter? (DM, HTN, Smoking, COPD, CAD, Cancer, CVA, ARF, Chemo, Hep., AIDS, mental health diagnosis, sleep apnea, morbid obesity)? @ -None Was patient admitted / discharged? Hospital course, mention meds given and route, prescriptions, significant lab abnormalities, going to OR and other pertinent info. @ -88-year-old female care signed out to me awaiting imaging and reevaluation. Patient was on the ground for several hours she was unable to stand on her own. There is concerns about discharged from the emergency department to home. She will be admitted for further evaluation by physical therapy. Laboratory studies have been obtained, results pending. Undiagnosed new problem with uncertain prognosis? @ -No Drug Therapy requiring intensive monitoring for toxicity (Heparin, Nitro, Insulin, Cardizem)? @ -No Were any procedures done? @ -No Diagnosis/symptom? @ -Fall, gait instability, weakness Acute, or Chronic, or Acute on Chronic? @Acute moderate risk Uncomplicated (without systemic symptoms) or Complicated (systemic symptoms)? @ -Default Side effects of treatment? @ -No Exacerbation, Progression, or Severe Exacerbation? @ -No Poses a threat to life or bodily function? How? (Chest pain, [place], [place], pneumonia, PE, COPD, DKA, ARF, appy, cholecystitis, CVA, Diverticulitis, Homicidal, Suicidal, threat to staff... and all critical care pts) @Risk, fall risk (Ricky Zavala) - Lab Data Lab Results 07/14/24 07/14/24 Range/Units 14:51 14:51 WBC 10.5 (3.8-10.6) k/uL RBC 4.50 (3.80-5.40) m/uL Hgb 14.8 (11.4-16.0) gm/dL Hct 43.1 (34.0-46.0) % MCV 95.7 (80.0-100.0) fL MCH 32.8 (25.0-35.0) pg MCHC 34.3 (31.0-37.0) g/dL RDW 12.5 (11.5-15.5) % Plt Count 194 (150-450) k/uL MPV 8.6 Neutrophils % 86 % Lymphocytes % 7 % Monocytes % 5 % Eosinophils % 1 % Basophils % 0 % Neutrophils # 9.0 H (1.3-7.7) k/uL Lymphocytes # 0.7 L (1.0-4.8) k/uL Monocytes # 0.5 (0-1.0) k/uL Eosinophils # 0.1 (0-0.7) k/uL Basophils # 0.0 (0-0.2) k/uL Sodium 135 L (137-145) mmol/L Potassium 4.3 (3.5-5.1) mmol/L Chloride 100 (98-107) mmol/L Carbon Dioxide 23 (22-30) mmol/L Anion Gap 12 mmol/L BUN 22 H (7-17) mg/dL Creatinine 0.70 (0.52-1.04) mg/dL Est GFR (CKD-EPI)AfAm >90 (>60 ml/min/1.73 sqM) Est GFR (CKD-EPI)NonAf 78 (>60 ml/min/1.73 sqM) Glucose 135 H (74-99) mg/dL Calcium 9.9 (8.4-10.2) mg/dL Total Bilirubin 1.2 (0.2-1.3) mg/dL AST 40 H (14-36) U/L ALT 28 (4-34) U/L Alkaline Phosphatase 91 (38-126) U/L Creatine Kinase 359 H (30-135) U/L Total Protein 7.8 (6.3-8.2) g/dL Albumin 4.4 (3.5-5.0) g/dL Disposition Is patient prescribed a controlled substance at d/c from ED?: No Time of Disposition: 16:36 <Ricky Zavala - Last Filed: 07/14/24 16:32> <Stephen Dyer - Last Filed: 07/18/24 19:12> Clinical Impression: Fall, Weakness, Rib fracture Disposition: ADMITTED IP TO THIS HOSP
--- NOTE | 2024-07-14 14:15 | XR ---
EXAMINATION TYPE: XR pelvis AP view DATE OF EXAM: 07/14/2024 2:06 PM COMPARISON: None CLINICAL INDICATION: Female, 88 years old with history of fall; pain [facility] TECHNIQUE: XR pelvis AP view, examined in a single projection. FINDINGS: There is no evidence of fracture or dislocation. There is no soft tissue abnormality. No a bnormal calcifications are present. Multilevel degenerative changes of the lower spine. The hips appear intact. Osteophyte formation of the superior acetabulum bilaterally with mild joint space narrowing. At this course of action vasculature. IMPRESSION: No acute osseous pathology. Mild degeneration changes of the hip. [facility], , 07/14/2024 2:13 PM
--- NOTE | 2024-07-14 14:16 | XR ---
EXAMINATION TYPE: XR chest 1V DATE OF EXAM: 07/14/2024 2:06 PM COMPARISON: Chest radiographs from 10/16/2021 CLINICAL INDICATION: Female, 88 years old with history of fall; pain TECHNIQUE: XR chest 1V Frontal view of the chest. FINDINGS: Lungs/Pleura: There is no evidence of pleural effusion, focal consolidation, or pneumothorax. Pulmonary vascularity: Pulmonary vascular congestion. Heart/mediastinum: Cardiomediastinal silhouette is enlarged. Atherosclerotic calcifications are seen in the aorta. Musculoskeletal: No acute osseous pathology. IMPRESSION: Cardiomegaly and mild pulmonary vascular congestion. Correlate with BNP for congestive heart failure. [facility], , 07/14/2024 2:14 PM
--- NOTE | 2024-07-14 14:23 | XR ---
EXAMINATION TYPE: XR elbow complete RT DATE OF EXAM: 07/14/2024 2:06 PM COMPARISON: None CLINICAL INDICATION: Female, 88 years old with history of fall; PHH, pain TECHNIQUE: XR elbow complete RT; elbow was examined in AP, lateral, and oblique projections. FINDINGS: No evidence of any acute osseous pathology, joint dislocation, or soft tissue swelling is n oted. No evidence of joint effusion is present. Mild degeneration changes of the joints of the elbow with osteophyte formation and joint space narrowing. IMPRESSION: No evidence of acute fracture. Mild left elbow osteoporosis. [facility], , 07/14/2024 2:20 PM
--- NOTE | 2024-07-14 14:34 | CT ---
EXAMINATION TYPE: CT brain cspine wo con DATE OF EXAM: 07/14/2024 2:24 PM COMPARISON: 02/27/2019. CLINICAL INDICATION: Female, 88 years old with history of fall; fall, pain TECHNIQUE: Brain: Multiple axial CT images of the brain were obtained without IV contrast. Cspine: Axial CT images from the skull base to the inferior aspect of T2 we obtained without intraven ous contrast. Coronal and sagittal reformatted images were also reviewed. . CT DLP: 1626.3 mGycm, Automated exposure control for dose reduction was used. FINDINGS: Brain: Extra-axial spaces: No abnormal extra-axial fluid collections. Ventricular system: Dilatation in proportion to cerebral atrophy. Cerebral parenchyma: Several much of the left occipital/parietal lobe. Cerebral atrophy. No acute int raparenchymal hemorrhage or mass effect. The finn-white junction is well differentiated. Scattered h ypoattenuating areas are seen within the white matter. Cerebellum: Unremarkable. Mass effect: No evidence of midline shift. Intracranial vasculature: unremarkable Soft tissues: Normal. Calvarium/osseous structures: No depressed skull fracture. Paranasal sinuses and mastoid air cells: Clear. Visualized orbits: Bilateral aphakia Cervical spine: Fracture: None. Osseous structures: Multilevel degenerative disc disease changes with endplate spurring and disc oste ophyte complex's. Vertebral alignment: Within normal limits. Spinal canal/Neural Foramina: No evidence of significant spinal canal narrowing. No evidence for sign ificant neural foraminal stenosis. Neck soft tissues: Prevertebral soft tissues are within normal limits. Other: The airway is patent. Atherosclerosis of the carotid bifurcations. Atherosclerosis of the maribell rial vasculature including the aorta. IMPRESSION: 1. No acute intracranial process. 2. Remote injury to the left occipital/parietal lobe. 3. No evidence of cervical spine fracture. 4. [id number] multilevel degenerative disc disease. [facility], , 07/14/2024 2:31 PM
[2024-07-14 14:58] LABS: Basophils % (A) 0 %; Eosinophils # (A) 0.1 k/uL (0-0.7); Eosinophils % (A) 1 %; HCT 43.1 % (34.0-46.0); HGB 14.8 gm/dL (11.4-16.0); Lymphocytes # (A) 0.7 k/uL (1.0-4.8); Lymphocytes % (A) 7 %; MCH 32.8 pg (25.0-35.0); MCHC 34.3 g/dL (31.0-37.0); MCV 95.7 fL (80.0-100.0); Mean Platelet Volume 8.6; Monocytes # (A) 0.5 k/uL (0-1.0); Monocytes % (A) 5 %; Neutrophils % (A) 86 %; Platelet Count 194 k/uL (150-450); RDW 12.5 % (11.5-15.5); WBC 10.5 k/uL (3.8-10.6)
[2024-07-14 15:09] LABS: ALT 28 U/L (4-34); AST 40 U/L (14-36); African American GFR (CKD) >90 (>60 ml/min/1.73 sqM); Albumin 4.4 g/dL (3.5-5.0); Alkaline Phosphatase 91 U/L (38-126); Anion Gap 12 mmol/L; Blood Urea Nitrogen 22 mg/dL (7-17); Calcium 9.9 mg/dL (8.4-10.2); Carbon Dioxide 23 mmol/L (22-30); Chloride 100 mmol/L (98-107); Creatine Kinase 359 U/L (30-135); Glucose 135 mg/dL (74-99); Non-African American GFR(CKD) 78 (>60 ml/min/1.73 sqM); Potassium 4.3 mmol/L (3.5-5.1); Sodium 135 mmol/L (137-145); Total Bilirubin 1.2 mg/dL (0.2-1.3); Total Protein 7.8 g/dL (6.3-8.2)
--- NOTE | 2024-07-14 15:37 | CT ---
EXAMINATION TYPE: CT chest wo con DATE OF EXAM: 07/14/2024 3:25 PM COMPARISON: 09/24/2021 CLINICAL INDICATION: Female, 88 years old with history of fall rib pain; PHH, Fall rib pain. TECHNIQUE: Multiple axial images were obtained through the chest. Sagittal and coronal reformats were created for review. MIP was performed on a separate workstation. Contrast used: mL of (None if empty) Oral contrast used: (None if empty) CT DLP: 333.4 mGycm, Automated exposure control for dose reduction was used. FINDINGS: LUNGS/ PLEURA: No focal consolidation, pneumothorax or pleural effusion. AIRWAY: Patent and unremarkable. HEART: Size within normal limits MEDIASTINUM: VASCULATURE: No aortic aneurysm. MUSCULOSKELETAL: Cortical buckling of multiple ribs anteriorly on the right no displaced fracture. Th ere is near the anterior costal phrenic junction. Including a series 204 image 35 multilevel degenera tion changes are mild with osteophyte formation joint space narrowing and facet arthropathy. SOFT TISSUES/LYMPH NODES: Unremarkable. LOWER NECK: No significant findings. UPPER ABDOMEN: Right renal sinus 17 mm process. Left renal cysts. Severe atherosclerosis of the arter ial vasculature. Cholecystectomy changes. IMPRESSION: 1. Suspected nondisplaced right rib 8 fracture anterolaterally. No additional fractures definitively visualized. Area of patient's specific pain provided. 2. Simple appearing renal cysts. [facility], , 07/14/2024 3:35 PM
[2024-07-14] MEDS ORDERED: ONDANSETRON 4 MG/2 ML VIAL IVP PRN (16:31)
[2024-07-14] MEDS ORDERED: NALOXONE 0.4 MG/ML 1 ML VIAL IV PRN (16:31)
[2024-07-14] MEDS ORDERED: HYDROmorphone 0.5 MG/0.5 ML SYRINGE IVP PRN (16:31)
[2024-07-14] MEDS: ACETAMINOPHEN TAB 325 MG TAB PO PRN (23:27)
[2024-07-15] MEDS: ARTIFICIAL TEARS-HYPROMELLOSE DROPS 15 ML BTL BOTH EYES SCH (09:36)
[2024-07-15] MEDS: ASPIRIN 81 MG PO SCH (09:37)
[2024-07-15] MEDS: METOPROLOL TARTRATE 12.5 MG TAB PO SCH (09:37)
[2024-07-15] MEDS: amLODIPine 2.5 MG TAB PO SCH (09:37)
[2024-07-15] MEDS: FOLIC ACID-VIT B COMPLEX-VIT C 1 CAP PO SCH (09:38)
--- NOTE | 2024-07-15 14:29 | P.HPIM ---
History of Present Illness H&P Date: 07/15/24 Chief Complaint: Weakness, fall, rib fracture Patient is a 88-year-old female with diabetes, hyperlipidemia, hypertension, osteoarthritis presented to the ER after a fall while in the garage. Patient reports significant fall with pain in her right elbow and back. Also reports shortness of breath and right rib pain. Patient was seen at bedside. She reported she had a fall into her walker yesterday in the garage. Patient reported her feet tangled up and lost her balance. She reported laying on the ground for more than 3 hours with her right arm pinned under the walker. She also had a fall last year but it was also due to mechanical/balance issues. She did not lose consciousness or pass out during this time. Patient denied any chest pain, palpitations, shortness of breath, diaphoresis prior to the fall. Right now she endorses pain in her right elbow and back and pain in the right side of her rib. Patient denies fever, chills, chest pain, shortness of breath, nausea, vomiting, belly pain, diarrhea or constipation at this time. ED documentation reviewed. In the ED patient was treated with Tylenol 325 mg tablets x 2. Vitals on admission temperature 97.6, blood pressure 119/66, O2 sat 97% on room air, respiratory rate 18, heart rate 78 EKG independently interpreted as sinus rhythm with first-degree AV block with ventricular rate of 81 bpm, QTc interval 448 ms Right elbow x-ray shows no evidence of acute fracture. Mild left elbow osteoporosis Pelvis x-ray shows no acute osseous pathology. Chest x-ray shows cardiomegaly and mild pulmonary vascular congestion. Correlate with BNP for congestive heart failure. CT of chest shows suspected nondisplaced right rib 8 fracture anterolaterally. No additional fractures definitively visualized. Area of patient's specific pain provided. Simple appearing renal cysts. CT of brain and cervical spine shows no acute intracranial process. Remote injury to the left occipital/parietal lobe. No evidence of cervical spine fracture. Mild to moderate multilevel degenerative disc disease Labs on admission show WBC 10.5, hemoglobin 14.8, platelet 194, sodium 135, potassium 4.3, BUN 22, creatinine 0.7, glucose 135, AST 40, creatinine kinase 359 Review of systems: Pertinent positives and negatives as discussed in HPI, a complete review of systems was performed and all other systems are negative. PMH: diabetes, hyperlipidemia, hypertension, osteoarthritis PSH: Appendectomy, cholecystectomy, hysterectomy FMH: Sister has a history of colon cancer with metastasis to pancreas Allergies: Cephalexin, clindamycin, latex, levofloxacin, penicillins, sulfa Social history: Tobacco: Former smoker Alcohol: No alcohol use Recreational drugs: No drug use Travel: No travel history Sick contacts: No sick contacts Physical examination: Vital signs reviewed General: nontoxic, no distress, appears at stated age Derm: warm, dry, intact Head: atraumatic, normocephalic, symmetric Eyes: EOMI, anicteric sclera Mouth: no lip lesion, mucus membranes moist Cardiovascular: S1 S2 reg, no murmur Lungs: CTA bilateral, no rhonchi, no rales, no accessory muscle use Musculoskeletal: Right rib brick tender to palpation Abdominal: soft, non-tender to palpation Extremities: No cyanosis, clubbing, or pedal edema. Bruise noted on right elbow Neuro: Alert, Oriented, Gross neurological examination did not reveal any focal deficits. Psych: well appearing, appropriate affect Assessment/Plan: Patient is a 88-year-old female with diabetes, hyperlipidemia, hypertension, osteoarthritis presented to the ER after a fall while in the garage. Patient will be admitted to internal medicine service. Active: #. Fall #. Mild rhabdomyolysis CT of chest shows suspected nondisplaced right rib 8 fracture anterolaterally. Creatinine kinase 359 Pain control as needed with acetaminophen Repeat morning labs CBC and CMP Trend creatinine kinase Chronic: #. Hypertension #. 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 patienthas newly dx macular degeneration. 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 History of Any Multi-Drug Resistant Organisms: None Reported Past Surgical History: Appendectomy, Cholecystectomy, Hysterectomy, Joint Replacement, Orthopedic Surgery Additional Past Surgical History / Comment(s): Surgery for gallbladder removal/hiatal hernia and gastric ulcer at same time, EGDs, colonoscopies, hemorrhoidectomy, skin cancer removed, skin lesion removals, neil's cyst removed from posterior knee, total R knee arthroplasty, bilateral cataracts removed/lens implants. Past Anesthesia/Blood Transfusion Reactions: Motion Sickness Additional Past Anesthesia/Blood Transfusion Reaction / Comment(s): BLOOD TRANSFUSION (5 UNITS) POST HYSTERECTOMY, NO REACTIONS Past Psychological History: No Psychological Hx Reported Additional Psychological History / Comment(s): Pt resides alone. She uses a cane to ambulate. She drives. She is independent but does have [employer] once a week for housework. Smoking Status: Former smoker Past Alcohol Use History: None Reported Additional Past Alcohol Use History / Comment(s): Pt started smoking in 1972 and quit in 1989 Past Drug Use History: None Reported - Past Family History Sister(s) Family Medical History: Cancer Additional Family Medical History / Comment(s): colon mets to pancreas Father Additional Family Medical History / Comment(s): from coronary occlusion Mother Family Medical History: AICD/Pacemaker Medications and Allergies Home Medications Medication Instructions Recorded Confirmed Type Atorvastatin [Lipitor] 10 mg PO HS 08/26/14 07/14/24 History lisinopriL 40 mg PO DAILY 08/26/14 07/14/24 History Loratadine [Claritin] 10 mg PO HS 09/24/21 07/14/24 History Aspirin [Adult Low Dose Aspirin EC] 81 mg PO DAILY 04/29/23 07/14/24 History Alendronate Sodium [Fosamax] 70 mg PO GARRIDO 07/14/24 07/14/24 History Amoxicillin 2,000 mg PO ONCE PRN 07/14/24 07/14/24 History Blink Gel Tears 1 drop BOTH EYES DAILY 07/14/24 07/14/24 History Metoprolol Tartrate [Lopressor] 12.5 mg PO DAILY 07/14/24 07/14/24 History Retinavites 1 tab PO BID 07/14/24 07/14/24 History amLODIPine [Norvasc] 2.5 mg PO AC-LUNCH 07/14/24 07/14/24 History Allergies Allergy/AdvReac Type Severity Reaction Status Date / Time cephalexin Allergy Rash/Hives Verified 07/14/24 16:35 clindamycin Allergy Rash/Hives Verified 07/14/24 16:35 latex Allergy Rash/Hives Verified 07/14/24 16:35 levofloxacin [From Levaquin] Allergy Rash/Hives Verified 07/14/24 16:35 Penicillins Allergy Rash/Hives Verified 07/14/24 16:35 Sulfa (Sulfonamide Allergy Rash/Hives Verified 07/14/24 16:35 Antibiotics) TAPE Allergy RASH, Uncoded 07/14/24 16:35 PAPER TAPE IS OK Physical Exam Vitals: Vital Signs Temp Pulse Pulse Resp BP BP Pulse Ox 07/15/24 08:12 97.6 F 18 119/66 97 07/15/24 01:21 97.6 F 78 16 110/60 94 L 07/14/24 20:00 16 07/14/24 19:50 97.2 F L 18 137/77 07/14/24 17:32 97.9 F 83 14 142/63 96 07/14/24 16:44 98.1 F 68 18 162/76 97 07/14/24 12:52 97.7 F 77 16 155/77 96 Intake and Output 07/14/24 07/15/24 07/15/24 22:59 06:59 14:59 Other: # Voids 2 1 # Bowel Movements 1 1 Weight 78.925 kg Results CBC & Chem 7: 07/14/24 14:51 07/14/24 14:51 Labs: Abnormal Lab Results - Last 24 Hours (Table) 07/14/24 07/14/24 Range/Units 14:51 14:51 Neutrophils # 9.0 H (1.3-7.7) k/uL Lymphocytes # 0.7 L (1.0-4.8) k/uL Sodium 135 L (137-145) mmol/L BUN 22 H (7-17) mg/dL Glucose 135 H (74-99) mg/dL AST 40 H (14-36) U/L Creatine Kinase 359 H (30-135) U/L
--- NOTE | 2024-07-15 14:41 | P.DS ---
Providers Date of admission: 07/14/24 16:32 Expected date of discharge: 07/15/24 Attending physician: José Manuel Gay Primary care physician: [facility] Course: Hospital course: Patient is a 88-year-old female with diabetes, hyperlipidemia, hypertension, osteoarthritis presented to the ER after a fall while in the garage. Patient reports significant fall with pain in her right elbow and back. Also reports shortness of breath and right rib pain. Patient was seen at bedside. She reported she had a fall into her walker yesterday in the garage. Patient reported her feet tangled up and lost her balance. She reported laying on the ground for more than 3 hours with her right arm pinned under the walker. She also had a fall last year but it was also due to mechanical/balance issues. She did not lose consciousness or pass out during this time. Patient denied any chest pain, palpitations, shortness of breath, diaphoresis prior to the fall. Right now she endorses pain in her right elbow and back and pain in the right s kathleen of her rib. Patient denies fever, chills, chest pain, shortness of breath, nausea, vomiting, belly pain, diarrhea or constipation at this time. In the ED patient was treated with Tylenol 3 25 mg tablets x 2. Vitals on admission temperature 97.6, blood pressure 119/66, O2 sat 97% on room air, respiratory rate 18, heart rate 78. EKG independently interpreted as sinus rhythm with first-degree AV block with ventricular rate of 81 bpm, QTc interval 448 ms. Right elbow x-ray shows no evidence of acute fracture. Mild left elbow osteoporosis. Pelvis x-ray shows no acute osseous pathology. Chest x-ray shows cardiomegaly and mild pulmonary vascular congestion. Correlate with BNP for congestive heart failure. CT of chest shows suspected nondisplaced right rib 8 fracture anterolaterally. No additional fractures definitively visualized. Area of patient's specific pain provided. Simple appearing renal cysts. CT of brain and cervical spine shows no acute intracranial process. Remote injury to the left occipital/parietal lobe. No evidence of cervical spine fracture. Mild to moderate multilevel degenerative disc disease. Labs on admission show WBC 10.5, hemoglobin 14.8, platelet 194, sodium 135, potassium 4.3, BUN 22, creatinine 0.7, glucose 135, AST 40, creatinine kinase 359. Patient was admitted to internal medicine service for evaluation of fall and mild rhabdomyolysis. Patient was seen on 07/15/2024 at bedside. Reports feeling better with improving pain. Patient is medically stable to be discharged back home. Acetaminophen 325 mg p.o. every 6 hours as needed has been prescribed for pain control. Recommend patient to follow-up with primary care physician in 1 to 2 days after discharge for the mildly elevated creatinine kinase. Physical examination at discharge: General: nontoxic, no distress, appears at stated age Derm: warm, dry, intact Head: atraumatic, normocephalic, symmetric Eyes: EOMI, anicteric sclera Mouth: no lip lesion, mucus membranes moist Cardiovascular: S1 S2 reg, no murmur Lungs: CTA bilateral, no rhonchi, no rales, no accessory muscle use Musculoskeletal: Right rib cotton ball machine tender to palpation Abdominal: soft, non-tender to palpation Extremities: No cyanosis, clubbing, or pedal edema. Bruise noted on right elbow Neuro: Alert, Oriented, Gross neurological examination did not reveal any focal deficits. Psych: well appearing, appropriate affect Plan - Discharge Summary New Discharge Prescriptions: New Acetaminophen [Tylenol] 325 mg PO Q6H PRN 7 Days #28 tab PRN Reason: Pain Continue Atorvastatin [Lipitor] 10 mg PO HS lisinopriL 40 mg PO DAILY Aspirin [Adult Low Dose Aspirin EC] 81 mg PO DAILY Alendronate Sodium [Fosamax] 70 mg PO GARRIDO Amoxicillin 2,000 mg PO ONCE PRN PRN Reason: Surgery/Dental Work Loratadine [Claritin] 10 mg PO HS amLODIPine [Norvasc] 2.5 mg PO AC-LUNCH Retinavites 1 tab PO BID Metoprolol Tartrate [Lopressor] 12.5 mg PO DAILY Blink Gel Tears 1 drop BOTH EYES DAILY Discharge Medication List Atorvastatin [Lipitor] 10 mg PO HS 08/26/14 [History] lisinopriL 40 mg PO DAILY 08/26/14 [History] Loratadine [Claritin] 10 mg PO HS 09/24/21 [History] Aspirin [Adult Low Dose Aspirin EC] 81 mg PO DAILY 04/29/23 [History] Alendronate Sodium [Fosamax] 70 mg PO GARRIDO 07/14/24 [History] Amoxicillin 2,000 mg PO ONCE PRN 07/14/24 [History] Blink Gel Tears 1 drop BOTH EYES DAILY 07/14/24 [History] Metoprolol Tartrate [Lopressor] 12.5 mg PO DAILY 07/14/24 [History] Retinavites 1 tab PO BID 07/14/24 [History] amLODIPine [Norvasc] 2.5 mg PO AC-LUNCH 07/14/24 [History] Acetaminophen [Tylenol] 325 mg PO Q6H PRN 7 Days #28 tab 07/15/24 [Rx] Follow up Appointment(s)/Referral(s): [facility], [NON-STAFF] - 1 Week Diana Tracey DO [Primary Care Provider] - 07/19/24 1:30 pm (appointment at [facility] with Kathryn BARAJAS) Discharge Disposition: HOME SELF-CARE
[2024-07-15 16:00] VITALS: BP 120/66; PULSE 72; RESP 17; TEMP 97.8
[2024-07-15] MEDS ORDERED: ATORVASTATIN 10 MG TAB PO SCH (21:00)
[2024-07-15] MEDS ORDERED: LORATADINE 10 MG TAB PO SCH (21:00)
[2024-07-18] MEDS ORDERED: NON FORMULARY DRUG (Alendronate Sodium [Fosamax] 70 MG Tablet) PO SCH (09:00)
== END 2024-07-15 17:00 | disposition home or self-care (01) ==
LOC: EC 12:42 → 1SOBS 16:32 → 5NMEDONC 07-15 11:35
PROVIDERS: ADMIT Hospitalist; ATTEND Hospitalist
DX: R07.81 Pleurodynia (principal); M25.521 Pain in right elbow; W18.30XA Fall on same level, unspecified, initial encounter; E11.40 Type 2 diabetes mellitus with diabetic neuropathy, unspecified; E78.5 Hyperlipidemia, unspecified; I44.0 Atrioventricular block, first degree; I10 Essential (primary) hypertension; M19.90 Unspecified osteoarthritis, unspecified site; M62.82 Rhabdomyolysis; M81.0 Age-related osteoporosis without current pathological fracture; N28.1 Cyst of kidney, acquired; Z79.82 Long term (current) use of aspirin; Z66 Do not resuscitate; Z79.83 Long term (current) use of bisphosphonates; Z79.899 Other long term (current) drug therapy; Z85.828 Personal history of other malignant neoplasm of skin; Z86.73 Personal history of transient ischemic attack (TIA), and cerebral infarction without residual deficits; Z87.891 Personal history of nicotine dependence; Z96.651 Presence of right artificial knee joint; Z88.1 Allergy status to other antibiotic agents; Z88.2 Allergy status to sulfonamides; Z88.0 Allergy status to penicillin; Z91.040 Latex allergy status
CPT/HCPCS: 99285; 36415; 93005; 97162; 97166; 80053; 82550; 85025; 72170; 73080; 71045; 72125; 70450; 71250; G0378 ×2